=== PATIENT | male | born 1970 | race Caucasian/White ===

== ENCOUNTER 2017-04-19 13:51 | Inpatient (IN) | payer OTHER ==
--- NOTE | 2017-04-19 14:24 | DR.SOBA ---
HPI - Time Seen Time seen: 14:20 - HPI Comment HPI Comment: GETTING WORSE. PATIENT IS WEAK. NEB TEREATMENT GIVEN DURING TRANSPORT HELPS SOB. - Complaints Chief Complaint Doctors Comments: INCREASING SOB, CHEST PAIN, COUGH AND CONGESTION. FEVER AT HOME. Chief Complaint:: EMS OUT TO PT WITH SOB, AND DIFFICULTY BREATHING DUO , NEB GIVEN PER EMS PT HAS HX, COPD, COLON CANCER,, Self Treatment fo Chief Complaint: PT C/O CCC, AND RIGHT RIB PAIN ,, - Reviewed Nurses Notes Reviewed: Yes - Source History Provided: Patient - Mode of Arrival Mode of Arrival: EMS - Timing Onset of Chief Complaint: 04/19/17 - Duration Duration: Days - Context Onset:: At Rest, With Light Exertion History of:: COPD Currently on:: Neither Prehospital Care:: O2, Inhaled B2 - Modifying Factors Worsens:: Exertion Improves:: Nothing - Associated Signs and Symptoms Associated Signs and Symptoms: Fever, Wheeze, Cough, Nasal Congestion, Chest Pain - If Chest Pain Quality: Sharp Location: Right Lower Chest, Left Lower Chest - If Cough Cough: Productive, Yellow PMH - PMH Past Medical History: Yes Past Medical History: Anemia, COPD, GERD, Hypertension, Seizures Past Surgical History: Yes Surgical History: Bowel Resection, Other - Family History History of Family Medical Conditions: Yes Family Medical History: Diabetes Mellitus, [place], Coronary Artery Disease, Heart Failure, Sudden Cardiac , Hypertension - Social History Does patient currently use any type of tobacco product: No Have you used tobacco products in the last 12 months: No Type of Tobacco Use: None Does any household member use tobacco: No Alcohol Use: None Do you use any recreational Drugs:: No Lives With: Family Lives Where: Home - infectious screening In the last 2 months have you had wt loss of >10#?: NO Have you had fever, night sweats or hemotysis?: No Have you traveled outside the country in the last 6 months?: No Isolation: Standard ROS - Review of Systems Constitutional: Weakness, Fatigue. negative: Chills, Fever Eyes: negative: Eye Pain, Discharge ENTM: Nose Congestion. negative: Ear Pain, Nose Discharge, Throat Pain Respiratoy: Productive Cough, Short of Breath, Wheezing. negative: Hemoptysis Cardiovascular: Chest Pain Gastrointestinal/Abdominal: No Symptoms Reported. negative: Abdominal Pain, Diarrhea, Nausea, Vomiting Genitourinary: No Symptoms Reported. negative: Dysuria, Frequency, Hematuria Neurological: Headache, Weakness, Dizziness Musculoskeletal: Muscle Pain Integumentary: No Symptoms Reported Hematologic/Lymphatic: No Symptoms Reported Endocrine: No Symptoms Reported All Other Systems: Reviewed and Negative PE - Vital Signs Vitals: Temperature 96.9 F Pulse Rate [Left Brachial] 79 Pulse Rate 100 Respiratory Rate 20 Blood Pressure [Left Arm] 167/98 Blood Pressure [Right Arm] 157/90 Blood Pressure 191/111 O2 Sat by Pulse Oximetry 100 - General Limitations: No Limitations General Appearance: Alert - Head Head Exam: Normal Inspection - Eyes Eye exam: Normal Appearance - ENT ENT Exam: Normal External Ear Exam - Neck Neck Exam: Trachea Midline. negative: Tenderness, Meningismus, Lymphadenopathy - Chest Chest Inspection: Symmetric Chest Wall Rise - Respiratory Respiratory Exam: Respiratory Distress Respiratory Exam: Bilateral Wheezing, Bilateral Rhonchi, Upper Wheezing, Upper Rhonchi, Lower Wheezing, Lower Rhonchi - Cardiovascular Cardiovascular Exam: Regular Rate, Normal Rhythm, Normal Heart Sounds - Abdominal Exam Abdominal Exam: Normal Bowel Sounds, Soft. negative: Tenderness - Extremities Extremities Exam: Normal Inspection - Back Back Exam: Normal Inspection - Neurologic Neurological Exam: Alert, Oriented X3 - Psychiatric Psychiatric Exam: Anxious - Skin Skin Exam: Normal Color MDM - Differential Diagnosis Differential Diagnosis: Bronchitis, CHF, COPD, Mycardial Infarction, Pneumonia, Pneumothorax, Pulmonary embolism, Respiratory Insufficiency, URI Course - Treatment Treatment: SEE ORDERS. - Consultation Consultation Comments: DISCUSS PATIENT WITH DR. PELLETIER. HE WILL ADMIT PATIENT. - Education/Counseling Education/Counseling: Patient, Education Educated On: Diagnosis ROR - Labs Reviewed Laboratory Results Reviewed?: Yes Result Diagrams: 04/21/17 05:08 04/21/17 07:00 Laboratory: 04/19/17 15:15 Blood Blood Culture - Preliminary 04/19/17 15:10 Blood Blood Culture - Preliminary WBC 6.2 X10^3/uL (3.6-10.0) 04/21/17 05:08 RBC 4.52 X10^6/uL (4.7-6.0) L 04/21/17 05:08 Hgb 14.3 g/dL (13.5-18.0) 04/21/17 05:08 Hct 42.3 % (42.0-54.0) 04/21/17 05:08 MCV 93.6 fL (80.0-100.0) 04/21/17 05:08 MCH 31.7 pg (27.0-34.0) 04/21/17 05:08 MCHC 33.8 g/dL (33.0-35.0) 04/21/17 05:08 RDW 14.1 % (11.6-16.5) 04/21/17 05:08 Plt Count 234 X10^3/uL (150.0-450.0) 04/21/17 05:08 Plt Count Comment Adequate (ADEQUATE) 04/19/17 14:30 MPV 8.5 fL (7.4-11.0) 04/21/17 05:08 Neut % 66.5 % (42.0-75.0) 04/21/17 05:08 Lymph % 17.9 % (21.0-51.0) L 04/21/17 05:08 Bent % 12.5 % (0.0-13.0) 04/21/17 05:08 Eos % 1.9 % (0.9-2.9) 04/21/17 05:08 Baso % 1.2 % (0.2-1.0) H 04/21/17 05:08 Neut # 4.1 x10^3/uL (2.2-4.8) 04/21/17 05:08 Lymph # 1.1 X10^3/uL (1.3-2.9) L 04/21/17 05:08 Bent # 0.8 x10^3/uL (0.3-0.8) 04/21/17 05:08 Eos # 0.1 x10^3/uL (0.0-0.2) 04/21/17 05:08 Baso # 0.1 X10^3/uL (0.0-0.1) 04/21/17 05:08 Absolute Nucleated RBC 0.0 /100WBC 04/21/17 05:08 Plt Morphology Comment Normal (NORMAL) 04/19/17 14:30 RBC Morphology Normal (NORMAL) 04/19/17 14:30 Sample Site Right radial 04/19/17 16:48 ABG pH 7.440 (7.35-7.45) 04/19/17 16:48 ABG pCO2 50.0 mmHg (35.0-45.0) H 04/19/17 16:48 ABG pO2 61.0 mmHg (80.0-100.0) L 04/19/17 16:48 ABG HCO3 34.0 mmol/L (22-26) H* 04/19/17 16:48 ABG O2 Saturation 92.0 % (90-100) 04/19/17 16:48 ABG Base Excess 8.4 mmol/L (-2.0-2.0) H 04/19/17 16:48 Jose Daniel Test Pos 04/19/17 16:48 A-a Gradient 26.0 mmHg 04/19/17 16:48 FiO2 21.000 04/19/17 16:48 Blood Gas Comments Juan well mm 04/19/17 16:48 Sodium 136 mmol/L (136-145) 04/21/17 07:00 Corrected Sodium TNP 04/21/17 07:00 Potassium 3.3 mmol/L (3.5-5.1) L 04/21/17 07:00 Chloride 99 mmol/L (98-107) 04/21/17 07:00 Carbon Dioxide 32.0 mmol/L (21-32) 04/21/17 07:00 BUN 4 mg/dL (7-18) L 04/21/17 07:00 Creatinine 0.61 mg/dL (0.70-1.30) L 04/21/17 07:00 Est GFR (MDRD) Af Amer > 60 (>60) 04/21/17 07:00 Est GFR (MDRD) Non-Af > 60 (>60) 04/21/17 07:00 Glucose 87 mg/dL (65-99) 04/21/17 07:00 Lactic Acid 0.9 mmol/L (0.4-2.0) 04/19/17 17:10 Calcium 8.4 mg/dL (8.5-10.1) L 04/21/17 07:00 Corrected Calcium 9.2 mg/dL (8.5-10.1) 04/21/17 07:00 Total Bilirubin 0.30 mg/dL (0.2-1.0) 04/21/17 07:00 AST 22 Units/L (15-37) 04/21/17 07:00 ALT 10 Units/L (12-78) L 04/21/17 07:00 Alkaline Phosphatase 113 Units/L (46-116) 04/21/17 07:00 C-Reactive Protein 54.80 mg/L (0-3.0) H 04/19/17 17:10 Total Protein 6.8 g/dL (6.4-8.2) 04/21/17 07:00 Albumin 3.0 g/dL (3.4-5.0) L 04/21/17 07:00 Globulin 3.8 g/dL (2.5-4.5) 04/21/17 07:00 Albumin/Globulin Ratio 0.8 Ratio (1.1-2.1) L 04/21/17 07:00 Specimen Type Clean catch urine 04/19/17 15:11 Urine Color Yellow (YELLOW) 04/19/17 15:11 Urine Appearance Hazy (CLEAR) 04/19/17 15:11 Urine pH 6.5 (5.0 - 8.0) 04/19/17 15:11 Ur Specific [place] 1.015 (1.000-1.030) 04/19/17 15:11 Urine Protein 2+ (NEGATIVE) 04/19/17 15:11 Urine Glucose (UA) Negative (NEGATIVE) 04/19/17 15:11 Urine Ketones Negative (NEGATIVE) 04/19/17 15:11 Urine Occult Blood 4+ (NEGATIVE) 04/19/17 15:11 Urine Nitrite Negative (NEGATIVE) 04/19/17 15:11 Urine Bilirubin Negative (NEGATIVE) 04/19/17 15:11 Urine Urobilinogen 1+ (NORMAL) 04/19/17 15:11 Ur Leukocyte Esterase 1+ (NEGATIVE) 04/19/17 15:11 Urine RBC 6-10 /HPF (NEGATIVE) 04/19/17 15:11 Urine WBC 0-2 /HPF (NEGATIVE) 04/19/17 15:11 Ur Squamous Epith Cells Negative /HPF (NEGATIVE) 04/19/17 15:11 Urine Bacteria Negative /HPF (NEGATIVE) 04/19/17 15:11 Ur Culture Indicated? No/not indicated 04/19/17 15:11 - XRAY XRAY Interpreted by: Radiologist XRAY Findings: REPORT DISCUSS WITH PATIENT. - Diagnosis Discharge Problem: Hypoxia Dyspnea Qualifiers: Dyspnea type: shortness of breath Qualified Code(s): R06.02 - Shortness of breath Pneumonia Qualifiers: Pneumonia type: due to unspecified organism Laterality: right Lung location: middle lobe of lung Qualified Code(s): J18.1 - Lobar pneumonia, unspecified organism - Discharge Plan Disposition: ADMITTED INPATIENT Condition: Stable - Follow ups/Referrals - Instructions
[2017-04-19] MEDS ORDERED: LEVAQUIN PREMIX IV 750 MG 750 MG/150 ML BAG IV ONE ×2 (14:57→15:23)
[2017-04-19] MEDS: NS 1000 ML 1,000 ML IV SCH (15:00)
[2017-04-19 15:17] LABS: BASOPHILS # (AUTO) 0.1 X10^3/uL (0.0-0.1); BASOPHILS % (AUTO) 0.9 % (0.2-1.0); EOSINOPHILS # (AUTO) 0.1 x10^3/uL (0.0-0.2); EOSINOPHILS % (AUTO) 0.8 % (0.9-2.9); HEMATOCRIT 53.9 % (42.0-54.0); HEMOGLOBIN 18.3 g/dL (13.5-18.0); LYMPHOCYTES # (AUTO) 1.3 X10^3/uL (1.3-2.9); LYMPHOCYTES % (AUTO) 12.8 % (21.0-51.0); MEAN CORPUSCULAR VOLUME 94.1 fL (80.0-100.0); MEAN PLATELET VOLUME 8.8 fL (7.4-11.0); MONOCYTES # (AUTO) 1.3 x10^3/uL (0.3-0.8); MONOCYTES % (AUTO) 13.4 % (0.0-13.0); NEUTROPHILS % (AUTO) 72.1 % (42.0-75.0); PLATELET COUNT 261 X10^3/uL (150.0-450.0); RED BLOOD COUNT 5.73 X10^6/uL (4.7-6.0); RED CELL DISTRIBUTION WIDTH 14.5 % (11.6-16.5)
[2017-04-19 15:25] LABS: PLATELET MORPHOLOGY COMMENT NORMAL (NORMAL)
[2017-04-19 15:31] LABS: BILIRUBIN,URINE NEGATIVE (NEGATIVE); BLOOD/HEMOGLOBIN,URINE 4+ (NEGATIVE); GLUCOSE, URINE NEGATIVE (NEGATIVE); KETONES,URINE NEGATIVE (NEGATIVE); LEUKOCYTE ESTERASE ,URINE 1+ (NEGATIVE); NITRITES,URINE NEGATIVE (NEGATIVE); PH,URINE 6.5 (5.0 - 8.0); PROTEIN,URINE 2+ (NEGATIVE); UROBILINOGEN,URINE 1+ (NORMAL)
[2017-04-19 15:32] LABS: APPEARANCE,URINE HAZY (CLEAR); BACTERIA,URINE NEGATIVE /HPF (NEGATIVE); COLOR,URINE YELLOW (YELLOW); SQUAMOUS EPITHELIAL CELL,UR NEGATIVE /HPF (NEGATIVE)
[2017-04-19 15:42] LABS: ALANINE AMINOTRANSFERASE 10 Units/L (12-78); ALBUMIN 3.9 g/dL (3.4-5.0); ALKALINE PHOSPHATASE 159 Units/L (46-116); BLOOD UREA NITROGEN 5 mg/dL (7-18); CALCIUM 9.5 mg/dL (8.5-10.1); CARBON DIOXIDE 32.8 mmol/L (21-32); CHLORIDE 94 mmol/L (98-107); CREATININE 0.64 mg/dL (0.70-1.30); SODIUM 134 mmol/L (136-145); TOTAL PROTEIN 8.7 g/dL (6.4-8.2); eGFR BLACK RACES > 60 (>60); eGFR NON BLACK RACES > 60 (>60)
[2017-04-19 15:44] LABS: ASPARTATE AMINO TRANSFERASE 36 Units/L (15-37)
[2017-04-19 15:56] LABS: C-REACTIVE PROTEIN 54.8 mg/L (0-3.0)
--- NOTE | 2017-04-19 16:01 | RAD ---
Examination: Portable AP chest History: SOB, colon CA Comparison reference 04/23/2016 Findings: Continued normal heart size with clear lungs and pleural spaces. There is no evidence for a cute fracture or bone destruction. Healed left lower rib fractures are incidentally noted. Impression: No acute process identified. And Reported By:
[2017-04-19 17:13] LABS: ABG BASE EXCESS 8.4 mmol/L (-2.0-2.0)
[2017-04-19 17:14] LABS: ABG ALLEN TEST POS
[2017-04-19 17:32] LABS: LACTIC ACID 0.9 mmol/L (0.4-2.0)
--- NOTE | 2017-04-19 19:17 | CT ---
CT abdomen and pelvis without contrast Indication: Abdominal pain Comparison: None available Technique: Multiple axial images of the abdomen and pelvis were obtained from the lung bases to the pubic symphy sis without the administration of IV contrast. Findings: Dense consolidation within the right middle lobe consistent with pneumonia. Given the limitations of lack of IV contrast administration the liver, gallbladder, spleen, pancreas, and adrenal glands are unremarkable in their CT appearance. No evidence of stone within either kidney or ureter. No hydronephrosis is identified. No bowel wall thickening or bowel dilatation is present. The colon and rectum are unremarkable. The urinary bladder is grossly unremarkable. Prostate gland is unremarkable. No mesenteric lymphadenopathy or stranding can be observed. No free fluid or free air is seen within the abdomen. IMPRESSION: 1. No acute inflammatory process within the abdomen or pelvis. Reported By:
[2017-04-19] MEDS ORDERED: ZITHROMAX INJ 500 MG VIAL IV ONE (20:43)
[2017-04-19] MEDS ORDERED: NS 250 ML IV 250 ML IV ONE (20:44)
[2017-04-19] MEDS: ZITHROMAX INJ 500 MG VIAL 500 MG in NS 250 ML IV 250 ML IV SCH (20:52)
[2017-04-19] MEDS: ROBITUSSIN DM PO SCH (22:23)
[2017-04-19] MEDS: TUSSIONEX PENNKINETIC SUSP PO PRN (22:23)
[2017-04-19] MEDS: TORADOL 30 MG VIAL IVP PRN (22:24)
[2017-04-20] MEDS ORDERED: SALINE 3% 15 ML NEB TX NEB ONE (00:05)
[2017-04-20] MEDS: NS 1000 ML 1,000 ML IV SCH ×4 (00:15→23:08)
[2017-04-20] MEDS: NICOTINE PATCH TD SCH ×2 (00:16→09:29)
[2017-04-20] MEDS: DUONEB 0.5 MG/3 MG NEB SCH ×8 (01:50→20:57)
[2017-04-20] MEDS ORDERED: PREVNAR 13 IM ONE (06:02)
[2017-04-20] MEDS ORDERED: FLUVIRIN IM ONE (06:02)
[2017-04-20 06:31] LABS: ALANINE AMINOTRANSFERASE 9 Units/L (12-78); ALBUMIN 2.8 g/dL (3.4-5.0); ALKALINE PHOSPHATASE 127 Units/L (46-116); ASPARTATE AMINO TRANSFERASE 21 Units/L (15-37); BLOOD UREA NITROGEN 7 mg/dL (7-18); CALCIUM 8.3 mg/dL (8.5-10.1); CARBON DIOXIDE 31.8 mmol/L (21-32); CHLORIDE 99 mmol/L (98-107); COR CA(FOR HYPOALB) 9.3 mg/dL (8.5-10.1); COR NA(FOR HYPERGLY) 137 mmol/L (136-145); SODIUM 137 mmol/L (136-145); TOTAL PROTEIN 6.2 g/dL (6.4-8.2); eGFR BLACK RACES > 60 (>60); eGFR NON BLACK RACES > 60 (>60)
[2017-04-20 07:27] LABS: BASOPHILS # (AUTO) 0.1 X10^3/uL (0.0-0.1); BASOPHILS % (AUTO) 1.1 % (0.2-1.0); EOSINOPHILS # (AUTO) 0.2 x10^3/uL (0.0-0.2); EOSINOPHILS % (AUTO) 3.3 % (0.9-2.9); HEMATOCRIT 41.7 % (42.0-54.0); LYMPHOCYTES # (AUTO) 1.3 X10^3/uL (1.3-2.9); LYMPHOCYTES % (AUTO) 24.5 % (21.0-51.0); MEAN CORPUSCULAR HEMOGLOBIN 31.5 pg (27.0-34.0); MEAN CORPUSCULAR HGB CONC 33.4 g/dL (33.0-35.0); MEAN CORPUSCULAR VOLUME 94.3 fL (80.0-100.0); MONOCYTES # (AUTO) 0.9 x10^3/uL (0.3-0.8); MONOCYTES % (AUTO) 16.9 % (0.0-13.0); NEUTROPHILS # (AUTO) 2.9 x10^3/uL (2.2-4.8); NEUTROPHILS % (AUTO) 54.2 % (42.0-75.0); PLATELET COUNT 243 X10^3/uL (150.0-450.0); RED BLOOD COUNT 4.42 X10^6/uL (4.7-6.0); RED CELL DISTRIBUTION WIDTH 13.9 % (11.6-16.5); WHITE BLOOD COUNT 5.4 X10^3/uL (3.6-10.0)
[2017-04-20 07:29] LABS: HEMOGLOBIN 13.9 g/dL (13.5-18.0)
[2017-04-20] MEDS: LEVAQUIN PREMIX IV 750 MG 750 MG/150 ML BAG IV SCH (09:25)
[2017-04-20] MEDS: ROBITUSSIN DM PO SCH ×4 (09:25→20:46)
[2017-04-20] MEDS: TORADOL 30 MG VIAL IVP PRN ×2 (09:33→16:41)
[2017-04-20] MEDS ORDERED: ZESTRIL TAB 20 MG ONE (13:47)
[2017-04-20] MEDS: ZESTRIL TAB 20 MG PO SCH (13:48)
[2017-04-20] MEDS: TUSSIONEX PENNKINETIC SUSP PO PRN (15:20)
[2017-04-20] MEDS: ZITHROMAX INJ 500 MG VIAL 500 MG in NS 250 ML IV 250 ML IV SCH (20:46)
[2017-04-21] MEDS: TORADOL 30 MG VIAL IVP PRN ×5 (00:20→20:01)
[2017-04-21] MEDS: DUONEB 0.5 MG/3 MG NEB SCH ×6 (01:13→20:42)
[2017-04-21] MEDS: NS 1000 ML 1,000 ML IV SCH ×6 (02:29→22:12)
[2017-04-21] MEDS: TUSSIONEX PENNKINETIC SUSP PO PRN (02:29)
[2017-04-21 05:57] VITALS: BMI 17.4
[2017-04-21 06:17] LABS: BASOPHILS # (AUTO) 0.1 X10^3/uL (0.0-0.1); BASOPHILS % (AUTO) 1.2 % (0.2-1.0); EOSINOPHILS # (AUTO) 0.1 x10^3/uL (0.0-0.2); EOSINOPHILS % (AUTO) 1.9 % (0.9-2.9); HEMATOCRIT 42.3 % (42.0-54.0); HEMOGLOBIN 14.3 g/dL (13.5-18.0); LYMPHOCYTES # (AUTO) 1.1 X10^3/uL (1.3-2.9); LYMPHOCYTES % (AUTO) 17.9 % (21.0-51.0); MEAN CORPUSCULAR HEMOGLOBIN 31.7 pg (27.0-34.0); MEAN CORPUSCULAR HGB CONC 33.8 g/dL (33.0-35.0); MEAN CORPUSCULAR VOLUME 93.6 fL (80.0-100.0); MEAN PLATELET VOLUME 8.5 fL (7.4-11.0); MONOCYTES # (AUTO) 0.8 x10^3/uL (0.3-0.8); MONOCYTES % (AUTO) 12.5 % (0.0-13.0); NEUTROPHILS # (AUTO) 4.1 x10^3/uL (2.2-4.8); NEUTROPHILS % (AUTO) 66.5 % (42.0-75.0); PLATELET COUNT 234 X10^3/uL (150.0-450.0); RED BLOOD COUNT 4.52 X10^6/uL (4.7-6.0); RED CELL DISTRIBUTION WIDTH 14.1 % (11.6-16.5); WHITE BLOOD COUNT 6.2 X10^3/uL (3.6-10.0)
[2017-04-21 06:37] LABS: ALANINE AMINOTRANSFERASE 10 Units/L (12-78); ALKALINE PHOSPHATASE 113 Units/L (46-116); BLOOD UREA NITROGEN 4 mg/dL (7-18); CALCIUM 8.4 mg/dL (8.5-10.1); COR CA(FOR HYPOALB) 9.2 mg/dL (8.5-10.1); CREATININE 0.61 mg/dL (0.70-1.30); SODIUM 136 mmol/L (136-145); TOTAL PROTEIN 6.8 g/dL (6.4-8.2); eGFR BLACK RACES > 60 (>60); eGFR NON BLACK RACES > 60 (>60)
--- NOTE | 2017-04-21 07:10 | RAD ---
Examination: Chest, PA and lateral views History: SOB, right rib pain Comparison reference 04/19/2017 Findings: Continued normal heart size with symmetric pulmonary hyperinflation. No acute infiltrate, p leural fluid, pneumothorax or pneumonia. Nonacute left lower rib fracture deformities. Impression: Pulmonary hyperaeration, no change or acute abnormality demonstrated. Reported By:
[2017-04-21 07:27] LABS: ASPARTATE AMINO TRANSFERASE 22 Units/L (15-37); CHLORIDE 99 mmol/L (98-107)
[2017-04-21] MEDS ORDERED: ZESTRIL TAB 20 MG ONE (07:54)
[2017-04-21] MEDS: ROBITUSSIN DM PO SCH ×4 (08:10→20:02)
[2017-04-21] MEDS: ZESTRIL TAB 20 MG PO SCH (08:10)
[2017-04-21] MEDS: NICOTINE PATCH TD SCH (08:10)
[2017-04-21] MEDS: LEVAQUIN PREMIX IV 750 MG 750 MG/150 ML BAG IV SCH (08:10)
[2017-04-21] MEDS: MEGACE PO SCH ×2 (11:59→20:00)
[2017-04-21] MEDS: TAB-A-VITE PO SCH (11:59)
[2017-04-21] MEDS: VITAMIN C PO SCH (20:01)
[2017-04-21] MEDS: ZITHROMAX INJ 500 MG VIAL 500 MG in NS 250 ML IV 250 ML IV SCH (20:02)
[2017-04-22] MEDS: DUONEB 0.5 MG/3 MG NEB SCH ×3 (00:58→08:48)
[2017-04-22] MEDS: TUSSIONEX PENNKINETIC SUSP PO PRN (02:01)
[2017-04-22] MEDS: TORADOL 30 MG VIAL IVP PRN ×3 (04:15→08:05)
[2017-04-22] MEDS: NS 1000 ML 1,000 ML IV SCH ×2 (05:51→07:01)
[2017-04-22 06:13] LABS: EOSINOPHILS # (AUTO) 0.2 x10^3/uL (0.0-0.2); EOSINOPHILS % (AUTO) 4.7 % (0.9-2.9); HEMATOCRIT 40.4 % (42.0-54.0); HEMOGLOBIN 13.5 g/dL (13.5-18.0); LYMPHOCYTES # (AUTO) 1.5 X10^3/uL (1.3-2.9); LYMPHOCYTES % (AUTO) 32.7 % (21.0-51.0); MEAN CORPUSCULAR HEMOGLOBIN 31.4 pg (27.0-34.0); MEAN CORPUSCULAR HGB CONC 33.5 g/dL (33.0-35.0); MEAN CORPUSCULAR VOLUME 93.8 fL (80.0-100.0); MEAN PLATELET VOLUME 8.4 fL (7.4-11.0); MONOCYTES # (AUTO) 0.8 x10^3/uL (0.3-0.8); MONOCYTES % (AUTO) 18.4 % (0.0-13.0); NEUTROPHILS % (AUTO) 43.2 % (42.0-75.0); PLATELET COUNT 219 X10^3/uL (150.0-450.0); WHITE BLOOD COUNT 4.6 X10^3/uL (3.6-10.0)
[2017-04-22 06:28] LABS: ALANINE AMINOTRANSFERASE 11 Units/L (12-78); ALBUMIN 2.7 g/dL (3.4-5.0); ALKALINE PHOSPHATASE 96 Units/L (46-116); ASPARTATE AMINO TRANSFERASE 20 Units/L (15-37); BLOOD UREA NITROGEN 5 mg/dL (7-18); CALCIUM 8.4 mg/dL (8.5-10.1); CARBON DIOXIDE 31.9 mmol/L (21-32); CHLORIDE 101 mmol/L (98-107); COR CA(FOR HYPOALB) 9.4 mg/dL (8.5-10.1); CREATININE 0.51 mg/dL (0.70-1.30); SODIUM 137 mmol/L (136-145); TOTAL PROTEIN 6.1 g/dL (6.4-8.2); eGFR BLACK RACES > 60 (>60); eGFR NON BLACK RACES > 60 (>60)
--- NOTE | 2017-04-22 06:51 | RAD ---
Examination: Portable AP chest History: SOB and right rib pain Comparison reference 04/21/2017 Findings: Continued normal heart size with no acute pulmonary or pleural abnormality identified. Impression: No interval change; no acute process. Reported By:
[2017-04-22] MEDS ORDERED: ZESTRIL TAB 20 MG ONE (07:42)
[2017-04-22] MEDS: MEGACE PO SCH (08:04)
[2017-04-22] MEDS: LEVAQUIN PREMIX IV 750 MG 750 MG/150 ML BAG IV SCH (08:04)
[2017-04-22] MEDS: NICOTINE PATCH TD SCH (08:04)
[2017-04-22] MEDS: ROBITUSSIN DM PO SCH (08:05)
[2017-04-22] MEDS: ZESTRIL TAB 20 MG PO SCH (08:05)
[2017-04-22] MEDS: TAB-A-VITE PO SCH (08:05)
[2017-04-22] MEDS: VITAMIN C PO SCH (08:05)
[2017-04-22 09:46] VITALS: BP 177/108
== END 2017-04-22 11:40 | disposition home or self-care (01) | DRG 195 ==
LOC: ER 13:51 → MED/SURG 20:00 → OBSVTOIN 04-21 08:30
PROVIDERS: ADMIT Obstetrics & Gynecology Obstetrics; ATTEND Obstetrics & Gynecology Obstetrics
PROC: 3E0234Z Introduction of Serum, Toxoid and Vaccine into Muscle, Percutaneous Approach (ICD-10-PCS; principal; 2017-04-20)
PROC: 3E0234Z Introduction of Serum, Toxoid and Vaccine into Muscle, Percutaneous Approach (ICD-10-PCS; 2017-04-20)
DX: J18.8 Other pneumonia, unspecified organism (principal); I10 Essential (primary) hypertension; R06.02 Shortness of breath; R07.89 Other chest pain; J44.9 Chronic obstructive pulmonary disease, unspecified; K21.9 Gastro-esophageal reflux disease without esophagitis; R10.84 Generalized abdominal pain; Z86.69 Personal history of other diseases of the nervous system and sense organs; Z23 Encounter for immunization
CPT/HCPCS: 36415; 36600; 71010; 71020; 74176; 80053; 81001; 82803; 83605; 85025; 86140; 87040; 90686; 94640; 94760; 96365; 96367; 96374; 96375; 99283; 99284; A4222; S0179; 90670; G0378; J0456; J1885; J1956; J7620

== ENCOUNTER 2017-09-05 23:29 | Emergency (ER) | payer OTHER ==
[2017-09-05 23:41] VITALS: BP 131/88; BMI 17.9
[2017-09-05] MEDS ORDERED: STERILE WATER IRRIGATION IR ONE (23:44)
[2017-09-06] MEDS ORDERED: KEFLEX CAP 500 MG PO ONE (01:13)
[2017-09-06] MEDS ORDERED: MOTRIN TAB 800 MG PO STA (01:13)
--- NOTE | 2017-09-06 01:21 | DR.EXTPAIN ---
HPI - Time seen Time seen: 01:14 - PCP Primary Care Physician: NFD - Complaint/Symptoms Chief Complaint Doctor Comments: Patient states he was getting ready to go to bed and was trying to turn off his fan that did not have a safety guard over the blade and he stuck his left hand into the fan and hit the blade with laceration on left thumb and 2nd finger and hand. States he is able to move his finger well but the nail bed on his thumb is loose. States he is unsure of his last tetanus shot. states he does not have a local doctor. States he smokes one pack cigarettes daily and drink a six pack of beer when he has it. He denies chest pain or SOB. Chief Complaint:: ACCIDENTALLY CUT HAND ON FAN AT HOME ABOUT 1 HOUR AGO - Nurses notes reviewed Nurses Notes Review: Yes - Source History Provided: Patient - Mode of arrival Mode of Arrival: Ambulatory - Timing Onset of Chief Complaint: 09/05/17 - Context History of: None - Associated signs and symptoms Associated Signs and Symptoms: Laceration, Pain (left hand), Bruising, Bleeding , ETOH PMH - PMH Past Medical History: Yes Past Medical History: Seizures Past Medical History Comment: Alessandro POTTER Past Surgical History: Yes Surgical History: Abdominal Surgery - Family History History of Family Medical Conditions: Yes Family Medical History: Diabetes Mellitus, Hypertension - Social History Does patient currently use any type of tobacco product: Yes Have you used tobacco products in the last 12 months: Yes Type of Tobacco Use: Cigarettes Does any household member use tobacco: Yes Alcohol Use: Heavy Do you use any recreational Drugs:: Yes (THC) Lives With: Family Lives Where: Home - infectious screening In the last 2 months have you had wt loss of >10#?: NO Have you had fever, night sweats or hemotysis?: No Have you traveled outside the country in the last 6 months?: No Isolation: Standard ROS - Review of Systems Constitutional: No Symptoms Reported. negative: See HPI, Chills, Diaphoresis, Fever, Malaise, Weakness, Irritable, Fatigue, Loss of Appetite, Other Eyes: No Symptoms Reported ENTM: No Symptoms Reported Respiratoy: No Symptoms Reported, Non-Productive Cough Cardiovascular: No Symptoms Reported. negative: See HPI, Chest Pain, Edema, Palpitations, Syncope, Cyanosis, Skin Mottling, Other Gastrointestinal/Abdominal: No Symptoms Reported. negative: See HPI, Abdominal Pain, Constipation, Diarrhea, Nausea, Vomiting, Food Intolerance, Other Genitourinary: No Symptoms Reported Neurological: No Symptoms Reported. negative: See HPI, Anxiety, Depressed, Emotional Problems, Headache, Numbness, Paresthesia, Pre-existing Deficit, Seizure, Tingling, Tremors, Weakness, Dizziness, Problems Walking, Speech Problem, Other Musculoskeletal: No Symptoms Reported, Left, Hand Integumentary: No Symptoms Reported, Lesions, Wound, Bruises. negative: See HPI , Change in Color, Change in Hair/Nails, Dryness, Lumps, Rash, Itching, Juandice , Other Hematologic/Lymphatic: No Symptoms Reported Psychiatric: No Symptoms Reported. negative: See HPI, Anxiety, Depression, Hallucinations, Excessive crying, Suicidal, Other PE - Vital Signs Vitals: Pulse Rate 109 Respiratory Rate 20 Blood Pressure [Left Arm] 177/108 Blood Pressure [Right Arm] 111/61 Blood Pressure 131/88 O2 Sat by Pulse Oximetry 94 - General Limitations: No Limitations General Appearance: Alert, In Distress (slight) - Head Head Exam: Normal Inspection, Atraumatic, Normocephalic - Eyes Eye exam: Normal Appearance, PERRL, EOMI. negative: Scleral Icterus, Conjunctival Injection, Nystagmus, Miosis, Mydrasis, Periorbital Swelling, Periorbital Tenderness, Other - ENT ENT Exam: Normal Exam, Normal Oropharynx, Normal External Ear Exam, Mucous Membranes Moist, TM's Normal Bilaterally - Neck Neck Exam: Normal Inspection, Full ROM, Trachea Midline - Chest Chest Inspection: Normal Inspection, Symmetric Chest Wall Rise - Respiratory Respiratory Exam: Normal Lung Sounds Bilat Respiratory Exam: Bilateral Clear to Auscultation, Bilateral Decreased Breath Sounds - Cardiovascular Cardiovascular Exam: Regular Rate, Normal Rhythm, Irregular Rhythm - Abdominal Exam Abdominal Exam: Normal Inspection, Normal Bowel Sounds, Soft Abdominal Tenderness: negative: RUQ, RLQ, LUQ, LLQ, Epigastrium, Suprapubic, Diffuse, Mild, Moderate, Severe, Other - Extremities Extremities Exam: Normal Inspection, Full ROM, Tenderness (left thumb with denuded nail with laceration around nail bed; multiple 1 cm laceration dorsal finger and lateral index finger), Normal Capillary Refill - Upper Extremities Shoulder Exam: Normal Inspection, Full ROM Arm Exam: Normal Inspection, Full ROM Elbow Exam: Normal Inspection, Full ROM Forearm Exam: Normal Inspection, Full ROM Hand Exam: Normal Inspection, Full ROM, Tenderness (left hand thumb with laceration around nail bed), Laceration, Skin Avulsion Neuromotor Exam: Normal Exam Neurosensory Exam: Normal Exam Upper Ext. Vascular Exam: Capillary Refill (normal) - Lower Extremities Hip/Pelvis Exam: Normal Inspection, Full ROM Upper Leg Exam: Normal Inspection, Full ROM Knee Exam: Normal Inspection, Full ROM Lower Leg Exam: Normal Inspection, Full ROM Ankle Exam: Normal Inspection, Full ROM Foot/Toe Exam: Normal Inspection, Full ROM Neurovascular/Tendon Exam: Normal Capillary Refill Gait Exam: Observed and Normal - Back Back Exam: Normal Inspection, Full ROM - Neurological Neurological Exam: Alert, Oriented X3, CN II-XII Intact, Normal Gait, Reflexes Normal - Psychiatric Psychiatric Exam: Normal Affect, Normal Mood - Skin Skin Exam: Warm, Dry, Intact, Normal Color Type of Lesion: Laceration (left hand and fingers) Distribution: negative: Generalized, Involves Palms/Soles, Head, Face, Neck, Thorax, Chest, Back, Abdomen, Genitals, LUE, LLE, RUE, RLE, Other Description: negative: Size, Tenderness, Erythematous, Swelling, Macular, Papular, Vesicular, Blisters, Cofluent, Bullous, Petechial, Purpuric, Urticarial , Crusting, Discharge, Fluctuant, Indurated, Other Procedures - Laceration/Wound Repair Left Finger Wound Length (cm): 2 Wound's Depth, Shape: Superficial, Flap (left index finger and dorsal thumb) Wound Explored: clean Betadine Prep?: Yes Wound Repaired With: Dermabond Sterile Dressing Applied?: Yes - Diagnosis Discharge Problem: Bronchitis, Alcohol use Laceration of left hand Qualifiers: Encounter type: initial encounter Contusion of left hand Qualifiers: Encounter type: initial encounter Qualified Code(s): S60.222A - Contusion of left hand, initial encounter - Discharge Plan Disposition: 01 HOME, SELF-CARE Condition: Stable Prescriptions: Ciprofloxacin HCl [CIPRO 500 MG TAB *] 500 mg PO Q12H #20 tab Ibuprofen [MOTRIN TAB 800 MG *] 800 mg PO BID PRN #40 tab PRN Reason: Pain/Inflammation - Follow ups/Referrals Follow ups/Referrals: NFD,None [Primary Care Provider] - 3 days Elmer Mckeon [STAFF PHYSICIAN] - 3 days - Instructions Instructions: Laceration Care, Adult, Tissue Adhesive Wound Care, Hand Contusion
[2017-09-06] MEDS ORDERED: MOTRIN TAB 800 MG PO ONE (01:33)
== END 2017-09-06 01:58 | disposition home or self-care (01) ==
LOC: ER 23:29
PROC: 0XQKXZZ Repair Left Hand, External Approach (ICD-10-PCS; principal; 2017-09-05)
DX: S61.412A Laceration without foreign body of left hand, initial encounter (principal); S60.222A Contusion of left hand, initial encounter; J40 Bronchitis, not specified as acute or chronic; F10.10 Alcohol abuse, uncomplicated; W29.2XXA Contact with other powered household machinery, initial encounter; Y92.9 Unspecified place or not applicable
CPT/HCPCS: 12001; 99282; A4217

== ENCOUNTER 2019-04-20 15:15 | Inpatient (IN) ==
--- NOTE | 2019-04-20 15:41 | DR.SOBA ---
HPI Time Seen Time Seen by Provider: 04/20/19 15:30 Complaints Chief Complaint:: A 32 y/o male presenting via EMS with c/o SOB. His Oxygen saturation could not be measured. He has lower Rt. rib pain. He also states he has cold symptoms. He is unkept in terms of hygiene. Upon further questioning, he states that he has been without heat at home since yesterday. He denies being homeless and he also denies trauma to his chest wall. Reviewed Nurses Notes Reviewed: Yes Source History Provided: Patient and EMS Mode of Arrival Mode of Arrival: EMS Timing Onset of Chief Complaint: 04/19/19 Context Onset:: At Rest PE Risk Factors:: None History of:: COPD Currently on:: Neither Prehospital Care:: O2 Modifying Factors Worsens:: Exertion Associated Signs and Symptoms Associated Signs and Symptoms: None If Chest Pain Quality: Sharp PMH PMH Past Medical History: Hypertension and Seizures Past Surgical History: Yes Surgical History: Abdominal Surgery Family History Family Medical History: Diabetes Mellitus and Hypertension Social History Do you use any recreational Drugs:: No infectious screening Isolation: Standard ROS Review of Systems Constitutional: No Symptoms Reported Eyes: No Symptoms Reported ENTM: No Symptoms Reported Respiratoy: Productive Cough, Non-Productive Cough and Short of Breath Cardiovascular: No Symptoms Reported Gastrointestinal/Abdominal: No Symptoms Reported Genitourinary: No Symptoms Reported Neurological: No Symptoms Reported Musculoskeletal: Rib(s) (Rt. side) Integumentary: No Symptoms Reported Hematologic/Lymphatic: No Symptoms Reported Endocrine: No Symptoms Reported Psychiatric: No Symptoms Reported PE Vital Signs Vitals: Temperature 98.6 F Pulse Rate 120 Respiratory Rate 18 Blood Pressure [Left Arm] 169/97 Blood Pressure [Right Arm] 154/86 Blood Pressure 82/49 O2 Sat by Pulse Oximetry 89 General Limitations: No Limitations General Appearance: Alert and Cachectic Head Head Exam: Normal Inspection, Atraumatic and Normocephalic Eyes Eye exam: Normal Appearance and EOMI ENT ENT Exam: Normal Exam, Normal Oropharynx and Mucous Membranes Moist Neck Neck Exam: Normal Inspection, Full ROM and Trachea Midline Chest Chest Inspection: Normal Inspection, Symmetric Chest Wall Rise and Tenderness (Rt. lower ribs) Respiratory Respiratory Exam: Bilateral: Rhonchi Cardiovascular Cardiovascular Exam: Regular Rate, Normal Rhythm, +S1 and +S2 Abdominal Exam Abdominal Exam: Normal Inspection, Normal Bowel Sounds and Soft Extremities Extremities Exam: Normal Inspection Back Back Exam: Normal Inspection Neurologic Neurological Exam: Alert and Oriented X3 Psychiatric Psychiatric Exam: Normal Affect and Normal Mood Skin Skin Exam: Dry and Other (Acrocyanotic palms, hands. ) COURSE Reevaluation 1st: Improved Consultation Consultation Comments: Name: RONIT PRUETT : 1970 Sex: M Location: ER Order Number(s): [id number] Procedure(s):CHEST, 1 VIEW Ordering Physician: LAQUITA CARDOSO Primary Care: NFD,None Service Date: 04/20/19 Service Time: 1534 CHEST, 1 VIEW HISTORY: RT SIDE PAIN, SOB, CHEST PAIN ONSET A FEW DAYS Study: AP view of the chest. Comparison:February 26, 2018 Findings: The cardiomediastinal silhouette is normal. New right upper lobe consolidation that likely also involves the right middle lobe. Osseous structures demonstrate no acute abnormality. Bilateral hyperexpansion and interstitial prominence. IMPRESSION: 1. Right lung opacities most consistent with acute infection. It should be noted that developing malignancy may have a similar appearance. Correlate clinically. 2. Findings of COPD. Electronically signed by: RANJANA DHILLON (Apr 20, 2019 16:44:13) Education/Counseling Education/Counseling: Patient, Education and Counseling Educated On: Treatment, Diagnosis, Prognosis and Needs for Follow Up ROR Labs Reviewed Laboratory Results Reviewed?: Yes Result Diagrams: 04/20/19 16:12 04/20/19 16:12 Laboratory: WBC 1.4 X10^3/uL (3.6-10.0) L* 04/20/19 16:12 RBC 5.34 X10^6/uL (4.7-6.0) 04/20/19 16:12 Hgb 17.4 g/dL (13.5-18.0) 04/20/19 16:12 Hct 52.1 % (42.0-54.0) 04/20/19 16:12 MCV 97.6 fL (80.0-100.0) 04/20/19 16:12 MCH 32.6 pg (27.0-34.0) 04/20/19 16:12 MCHC 33.4 g/dL (33.0-35.0) 04/20/19 16:12 RDW 14.9 % (11.6-16.5) 04/20/19 16:12 Plt Count 161 X10^3/uL (150.0-450.0) 04/20/19 16:12 Plt Count Comment Adequate (ADEQUATE) 04/20/19 16:12 MPV 8.3 fL (7.4-11.0) 04/20/19 16:12 Neut % (Auto) 70.7 % (42.0-75.0) 04/20/19 16:12 Lymph % (Auto) 23.3 % (21.0-51.0) 04/20/19 16:12 Towns % (Auto) 5.4 % (0.0-13.0) 04/20/19 16:12 Eos % (Auto) 0.2 % (0.9-2.9) L 04/20/19 16:12 Baso % (Auto) 0.4 % (0.2-1.0) 04/20/19 16:12 Neut # (Auto) 0.9 x10^3/uL (2.2-4.8) L 04/20/19 16:12 Lymph # (Auto) 0.3 X10^3/uL (1.3-2.9) L 04/20/19 16:12 Towns # (Auto) 0.1 x10^3/uL (0.3-0.8) L 04/20/19 16:12 Eos # (Auto) 0.0 x10^3/uL (0.0-0.2) 04/20/19 16:12 Baso # (Auto) 0.0 X10^3/uL (0.0-0.1) 04/20/19 16:12 Absolute Nucleated RBC 0.1 /100WBC 04/20/19 16:12 Total Counted 100 04/20/19 16:12 Neutrophils % (Manual) 40 % (39-76) 04/20/19 16:12 Band Neutrophils % 4 % (0-10) 04/20/19 16:12 Lymphocytes % (Manual) 36 % (13-43) 04/20/19 16:12 Monocytes % (Manual) 16 % (4-9) H 04/20/19 16:12 Metamyelocytes % 2 04/20/19 16:12 Myelocytes % 2 04/20/19 16:12 Giant Platelets Rare 04/20/19 16:12 Plt Morphology Comment Abnormal (NORMAL) 04/20/19 16:12 RBC Morphology Normal (NORMAL) 04/20/19 16:12 Sample Site Rrad 04/20/19 15:48 ABG pH 7.440 (7.35-7.45) 04/20/19 15:48 ABG pCO2 35.0 mmHg (35.0-45.0) 04/20/19 15:48 ABG pO2 62.0 mmHg (80.0-100.0) L 04/20/19 15:48 ABG HCO3 23.8 mmol/L (22-26) 04/20/19 15:48 ABG O2 Saturation 92.0 % (90-100) 04/20/19 15:48 ABG Base Excess 0.0 mmol/L (-2.0-2.0) 04/20/19 15:48 Jose Daniel Test Pos 04/20/19 15:48 A-a Gradient 251.0 mmHg 04/20/19 15:48 FiO2 50.0 04/20/19 15:48 Blood Gas Comments Pt dc well elj 04/20/19 15:48 Sodium 130 mmol/L (136-145) L 04/20/19 16:12 Corrected Sodium TNP 04/20/19 16:12 Potassium 4.1 mmol/L (3.5-5.1) 04/20/19 16:12 Chloride 91 mmol/L (98-107) L 04/20/19 16:12 Carbon Dioxide 27.3 mmol/L (21-32) 04/20/19 16:12 BUN 16 mg/dL (7-18) 04/20/19 16:12 Creatinine 1.87 mg/dL (0.70-1.30) H 04/20/19 16:12 Est GFR (MDRD) Af Amer 50 (>60) L 04/20/19 16:12 Est GFR (MDRD) Non-Af 42 (>60) L 04/20/19 16:12 Glucose 67 mg/dL (65-99) 04/20/19 16:12 Calcium 7.8 mg/dL (8.5-10.1) L 04/20/19 16:12 Corrected Calcium 8.8 mg/dL (8.5-10.1) 04/20/19 16:12 Total Bilirubin 1.30 mg/dL (0.2-1.0) H 04/20/19 16:12 AST 44 Units/L (15-37) H 04/20/19 16:12 ALT 6 Units/L (12-78) L 04/20/19 16:12 Alkaline Phosphatase 59 Units/L (46-116) 04/20/19 16:12 Total Protein 6.0 g/dL (6.4-8.2) L 04/20/19 16:12 Albumin 2.7 g/dL (3.4-5.0) L 04/20/19 16:12 Globulin 3.3 g/dL (2.5-4.5) 04/20/19 16:12 Albumin/Globulin Ratio 0.8 Ratio (1.1-2.1) L 04/20/19 16:12 Opioid Opioid Risk Tool Total: 0 Total Score Risk Category: Low Risk Copyright: Ham MORSE predicting aberrant behaviors Diagnosis Discharge Problem: Acute dyspnea, Rib pain on right side, Hyponatremia Sepsis Qualifiers: Sepsis type: sepsis due to unspecified organism Sepsis acute organ dysfunction status: without acute organ dysfunction Qualified Code(s): A41.9 - Sepsis, unspecified organism Pneumonia Qualifiers: Pneumonia type: due to unspecified organism Laterality: right Lung location: middle lobe of lung Qualified Code(s): J18.9 - Pneumonia, unspecified organism Hypothermia Qualifiers: Encounter type: initial encounter Qualified Code(s): T68.XXXA - Hypothermia, initial encounter Hypotension Qualifiers: Hypotension type: unspecified hypotension type Qualified Code(s): I95.9 - Hypotension, unspecified Neutropenia Qualifiers: Neutropenia type: unspecified Qualified Code(s): D70.9 - Neutropenia, unspecified Instructions Forms: Excuse From Work Patient Portal
[2019-04-20 15:55] LABS: ABG HCO3 23.8 mmol/L (22-26)
[2019-04-20 15:56] LABS: ABG ALLEN TEST POS
--- NOTE | 2019-04-20 16:16 | RAD ---
XR abdomenHISTORY: RT SIDE PAIN, SOB, CHEST PAIN ONSET A FEW DAYSStudy: Flat and upright views of the abdomenComparison:NoneFindings:There is a normal bowel gas pattern.No free air..No abnormal calcifications or abnormal soft tissue shadows. No acute bony abnormalities.IMPRESSION:1. No evidence for acute abdominal pathology.Electronically signed by: RANJANA DHILLON (Apr 20, 2019 16:15:04)
[2019-04-20 16:24] LABS: BASOPHILS % (AUTO) 0.4 % (0.2-1.0); EOSINOPHILS % (AUTO) 0.2 % (0.9-2.9); HEMATOCRIT 52.1 % (42.0-54.0); HEMOGLOBIN 17.4 g/dL (13.5-18.0); LYMPHOCYTES # (AUTO) 0.3 X10^3/uL (1.3-2.9); LYMPHOCYTES % (AUTO) 23.3 % (21.0-51.0); MEAN CORPUSCULAR HEMOGLOBIN 32.6 pg (27.0-34.0); MEAN CORPUSCULAR HGB CONC 33.4 g/dL (33.0-35.0); MEAN CORPUSCULAR VOLUME 97.6 fL (80.0-100.0); MEAN PLATELET VOLUME 8.3 fL (7.4-11.0); MONOCYTES # (AUTO) 0.1 x10^3/uL (0.3-0.8); MONOCYTES % (AUTO) 5.4 % (0.0-13.0); NEUTROPHILS # (AUTO) 0.9 x10^3/uL (2.2-4.8); NEUTROPHILS % (AUTO) 70.7 % (42.0-75.0); PLATELET COUNT 161 X10^3/uL (150.0-450.0); RED BLOOD COUNT 5.34 X10^6/uL (4.7-6.0); RED CELL DISTRIBUTION WIDTH 14.9 % (11.6-16.5)
[2019-04-20 16:32] LABS: ALANINE AMINOTRANSFERASE 6 Units/L (12-78); ALBUMIN 2.7 g/dL (3.4-5.0); ALKALINE PHOSPHATASE 59 Units/L (46-116); ASPARTATE AMINO TRANSFERASE 44 Units/L (15-37); BLOOD UREA NITROGEN 16 mg/dL (7-18); CALCIUM 7.8 mg/dL (8.5-10.1); CARBON DIOXIDE 27.3 mmol/L (21-32); CHLORIDE 91 mmol/L (98-107); COR CA(FOR HYPOALB) 8.8 mg/dL (8.5-10.1); CREATININE 1.87 mg/dL (0.70-1.30); SODIUM 130 mmol/L (136-145); eGFR NON BLACK RACES 42 (>60)
[2019-04-20] MEDS ORDERED: NS 1000 ML 1,000 ML ONE ×2 (16:44→17:40)
--- NOTE | 2019-04-20 16:45 | RAD ---
CHEST, 1 VIEWHISTORY: RT SIDE PAIN, SOB, CHEST PAIN ONSET A FEW DAYSStudy: AP view of the chest.Comparison:February 26, 2018Findings:The cardiomediastinal silhouette is normal. New right upper lobe consolidation that likely also involves the right middle lobe. Osseous structures demonstrate no acute abnormality. Bilateral hyperexpansion and interstitial prominence.IMPRESSION:1. Right lung opacities most consistent with acute infection. It should be noted that developing malignancy may have a similar appearance. Correlate clinically.2. Findings of COPD.Electronically signed by: RANJANA DHILLON (Apr 20, 2019 16:44:13)
[2019-04-20 16:47] LABS: WHITE BLOOD COUNT 1.4 X10^3/uL (3.6-10.0)
[2019-04-20] MEDS ORDERED: NS IV ONE (17:21)
[2019-04-20] MEDS ORDERED: MAXIPIME IV ONE (17:21)
[2019-04-20] MEDS ORDERED: VANCOMYCIN HCL 1 G in D5W 250 ML IV 250 ML IV ONE (17:22)
[2019-04-20 17:25] LABS: BAND NEUTROPHILS % 4 % (0-10)
[2019-04-20 17:26] LABS: METAMYELOCYTES % 2; MYELOCYTES % 2
[2019-04-20 17:28] LABS: GIANT PLATELET RARE; PLATELET MORPHOLOGY COMMENT ABNORMAL (NORMAL)
[2019-04-20] MEDS ORDERED: MAXIPIME VIAL 1 GRAM 1 G in NS 50 ML IV 50 ML IV ONE (17:28)
[2019-04-20] MEDS ORDERED: MAXIPIME VIAL 1 GRAM ONE (17:31)
[2019-04-20] MEDS ORDERED: VANCOMYCIN HCL ONE (17:31)
[2019-04-20] MEDS ORDERED: NS 250 ML IV 250 ML IV ONE (17:31)
[2019-04-20] MEDS ORDERED: NS 100 ML IV 100 ML IV ONE (17:36)
[2019-04-20] MEDS ORDERED: DOPAMINE IV PREMIX 400 MG/250 ML 400 MG/250 ML BAG IV ONE (17:56)
[2019-04-20] MEDS: DOPAMINE IV PREMIX 400 MG/250 ML 400 MG/250 ML BAG IV PRN (18:14)
[2019-04-20] MEDS ORDERED: VANCOMYCIN HCL 1 G in D5W 250 ML IV 250 ML IV SCH (19:39)
[2019-04-20] MEDS ORDERED: PHARMACY CONSULT - VANCOMYCIN XX SCH (19:39)
[2019-04-20] MEDS ORDERED: MAXIPIME VIAL 1 GRAM 1 G in NS 50 ML IV + SPIKE MINIBAG* 50 ML IV SCH (19:39)
--- NOTE | 2019-04-20 19:57 | DR.H&P ---
H&P History & Physical for Day of: H&P Date: 04/20/19 Chief Complaint Chief Complaint: Hypothermia Allergies Allergies Allergy/AdvReac Type Severity Reaction Status Date / Time Penicillins Allergy Verified 10/29/18 15:22 History of Present Illness History of Present Illness: Pt is a 48 yo m presenting after being found on the floor of his home by his sister that he shares residence with. Per ED, pt was hypothermic and it was discovered that he does not have working heat in home. On arrival, pt was hypothermic, cyanotic, with ABG revealing severe hypoxemia pO2 62. Initial vitals and labs: BP 68/41, P 120, R 25, PulseOx 70s%. Na 130, Cr 1.87, AST 44, ALT 6, T bili 1.3, LA 5.8, Wbc 1.4, CXR:1.Right lung opacities most consistent with acute infection. It should be noted that developing malignancy may have a similar appearance. Correlate clinically. 2. Findings of COPD. KUB negative. -Pt currently on heated high flow O2, bear hugger, and receiving IVF bolus. -He reports having fever, chills, shortness of breath, dyspnea, cough. Denies abdominal pain, edema. -Critical care time spent 30-74 minutes, which includes patient evaluation, examination, and urgent management. Past Medical History Past Medical History: Hypertension and Seizures Additional Medical History: GI Ulcer, IBS, Diarrhea, Previous Blood Transfusion, Colon Cancer Past Surgical History Surgical History: Abdominal Surgery Additional Surgical History: Hernia, Bowel Resection for Colon Cancer Family History Family Medical History: Diabetes Mellitus and Hypertension Social History Does patient currently use any type of tobacco product: Yes Have you used tobacco products in the last 12 months: Yes Type of Tobacco Use: Cigarettes Does any household member use tobacco: Yes Alcohol Use: Occasionally Drug Use: None Medications Home Medications: Penicillins Allergy (Verified 10/29/18 15:22) Labs Result Diagrams: 04/20/19 16:12 04/20/19 16:12 Labs: Laboratory WBC 1.4 X10^3/uL (3.6-10.0) L* 04/20/19 16:12 RBC 5.34 X10^6/uL (4.7-6.0) 04/20/19 16:12 Hgb 17.4 g/dL (13.5-18.0) 04/20/19 16:12 Hct 52.1 % (42.0-54.0) 04/20/19 16:12 MCV 97.6 fL (80.0-100.0) 04/20/19 16:12 MCH 32.6 pg (27.0-34.0) 04/20/19 16:12 MCHC 33.4 g/dL (33.0-35.0) 04/20/19 16:12 RDW 14.9 % (11.6-16.5) 04/20/19 16:12 Plt Count 161 X10^3/uL (150.0-450.0) 04/20/19 16:12 Plt Count Comment Adequate (ADEQUATE) 04/20/19 16:12 MPV 8.3 fL (7.4-11.0) 04/20/19 16:12 Neut % (Auto) 70.7 % (42.0-75.0) 04/20/19 16:12 Lymph % (Auto) 23.3 % (21.0-51.0) 04/20/19 16:12 Graves % (Auto) 5.4 % (0.0-13.0) 04/20/19 16:12 Eos % (Auto) 0.2 % (0.9-2.9) L 04/20/19 16:12 Baso % (Auto) 0.4 % (0.2-1.0) 04/20/19 16:12 Neut # (Auto) 0.9 x10^3/uL (2.2-4.8) L 04/20/19 16:12 Lymph # (Auto) 0.3 X10^3/uL (1.3-2.9) L 04/20/19 16:12 Graves # (Auto) 0.1 x10^3/uL (0.3-0.8) L 04/20/19 16:12 Eos # (Auto) 0.0 x10^3/uL (0.0-0.2) 04/20/19 16:12 Baso # (Auto) 0.0 X10^3/uL (0.0-0.1) 04/20/19 16:12 Absolute Nucleated RBC 0.1 /100WBC 04/20/19 16:12 Total Counted 100 04/20/19 16:12 Neutrophils % (Manual) 40 % (39-76) 04/20/19 16:12 Band Neutrophils % 4 % (0-10) 04/20/19 16:12 Lymphocytes % (Manual) 36 % (13-43) 04/20/19 16:12 Monocytes % (Manual) 16 % (4-9) H 04/20/19 16:12 Metamyelocytes % 2 04/20/19 16:12 Myelocytes % 2 04/20/19 16:12 Giant Platelets Rare 04/20/19 16:12 Plt Morphology Comment Abnormal (NORMAL) 04/20/19 16:12 RBC Morphology Normal (NORMAL) 04/20/19 16:12 Sample Site Rrad 04/20/19 15:48 ABG pH 7.440 (7.35-7.45) 04/20/19 15:48 ABG pCO2 35.0 mmHg (35.0-45.0) 04/20/19 15:48 ABG pO2 62.0 mmHg (80.0-100.0) L 04/20/19 15:48 ABG HCO3 23.8 mmol/L (22-26) 04/20/19 15:48 ABG O2 Saturation 92.0 % (90-100) 04/20/19 15:48 ABG Base Excess 0.0 mmol/L (-2.0-2.0) 04/20/19 15:48 Jose Daniel Test Pos 04/20/19 15:48 A-a Gradient 251.0 mmHg 04/20/19 15:48 FiO2 50.0 04/20/19 15:48 Blood Gas Comments Pt dc well elj 04/20/19 15:48 Sodium 130 mmol/L (136-145) L 04/20/19 16:12 Corrected Sodium TNP 04/20/19 16:12 Potassium 4.1 mmol/L (3.5-5.1) 04/20/19 16:12 Chloride 91 mmol/L (98-107) L 04/20/19 16:12 Carbon Dioxide 27.3 mmol/L (21-32) 04/20/19 16:12 BUN 16 mg/dL (7-18) 04/20/19 16:12 Creatinine 1.87 mg/dL (0.70-1.30) H 04/20/19 16:12 Est GFR (MDRD) Af Amer 50 (>60) L 04/20/19 16:12 Est GFR (MDRD) Non-Af 42 (>60) L 04/20/19 16:12 Glucose 67 mg/dL (65-99) 04/20/19 16:12 Lactic Acid 5.8 mmol/L (0.4-2.0) H 04/20/19 17:40 Calcium 7.8 mg/dL (8.5-10.1) L 04/20/19 16:12 Corrected Calcium 8.8 mg/dL (8.5-10.1) 04/20/19 16:12 Total Bilirubin 1.30 mg/dL (0.2-1.0) H 04/20/19 16:12 AST 44 Units/L (15-37) H 04/20/19 16:12 ALT 6 Units/L (12-78) L 04/20/19 16:12 Alkaline Phosphatase 59 Units/L (46-116) 04/20/19 16:12 Total Protein 6.0 g/dL (6.4-8.2) L 04/20/19 16:12 Albumin 2.7 g/dL (3.4-5.0) L 04/20/19 16:12 Globulin 3.3 g/dL (2.5-4.5) 04/20/19 16:12 Albumin/Globulin Ratio 0.8 Ratio (1.1-2.1) L 04/20/19 16:12 Influenza Type A (PCR) Negative (NEGATIVE) 04/20/19 17:40 Influenza Type B (PCR) Negative (NEGATIVE) 04/20/19 17:40 Review of Systems Constitutional: Fever and Chills ENT: No Symptoms Reported Respiratory: Cough, Shortness of Breath, Pleuritic Pain, Sputum and Wheezing Cardiovascular: Chest Pain and Palpitations; denies Edema Gastrointestinal: No Symptoms Reported Genitourinary: No Symptoms Reported Musculoskeletal: No Symptoms Reported Skin: No Symptoms Reported Neurological: Weakness; denies Numbness and Change in Speech Physical Exam Vital Signs: Temperature 98.6 F Pulse Rate 124 Respiratory Rate 25 Blood Pressure [Left Arm] 169/97 Blood Pressure [Right Arm] 154/86 Blood Pressure 78/52 O2 Sat by Pulse Oximetry 87 Oriented: Normal Eyes: Normal Ear: Normal Respiratory: Diminished Throughout, Rhonchi Throughout and Wheezes Throughout Cardiovascular: Tachycardia : Normal Auscultation: Bowel Sounds: Normal Palpation: Normal Tenderness: Normal Skin: Decreased Turgur Musculoskeletal: Normal (Unable to assess ) Speech Pattern: Appropriate Assessment/Plan (1) Septic shock: Status: Acute Plan: IVF, pt received multiple IVF boluses but remained hypotensive, currently on pressor support, titrate to keep MAP >65. Abx:Vancomycin+Cefepime(04/20) Consult RT w/ scheduled bronchodilator treatments, Supplemental O2 Will order labs for acute neutropenia. LA:5.8>repeat pending BloodCx, SputumCx,(04/20):pending Na:130, Cr:1.87, AST 44, T bili 1.3, Repeat labs, continue to monitor. (2) Neutropenia: Qualifiers: Neutropenia type: unspecified Qualified Code(s): D70.9 - Neutropenia, unspecified Status: Acute (3) Pneumonia: Qualifiers: Laterality: right Lung location: middle lobe of lung Pneumonia type: due to unspecified organism Qualified Code(s): J18.9 - Pneumonia, unspecified organism Status: Acute (4) COPD (chronic obstructive pulmonary disease): Qualifiers: COPD type: COPD with acute exacerbation Qualified Code(s): J44.1 - Chronic obstructive pulmonary disease with (acute) exacerbation Status: Acute (5) Acute hyponatremia: Status: Acute (6) Acute renal failure: Status: Acute (7) Hypotension: Qualifiers: Hypotension type: unspecified hypotension type Qualified Code(s): I95.9 - Hypotension, unspecified Status: Acute (8) Hypothermia: Qualifiers: Encounter type: initial encounter Qualified Code(s): T68.XXXA - Hypothermia, initial encounter Status: Acute (9) Alcohol use: Status: Acute (10) Hypoxia: Status: Acute (11) Acute respiratory failure: Status: Acute (12) Failure to thrive: Status: Acute (13) Elevated liver enzymes: Status: Acute
[2019-04-20] MEDS: NS 1000 ML 1,000 ML IV SCH (20:25)
[2019-04-20] MEDS: PULMICORT NEB TX 0.5 MG NEB SCH (20:45)
[2019-04-20] MEDS: DUONEB 0.5 MG/3 MG (3 mL) NEB SCH (20:45)
[2019-04-20] MEDS ORDERED: THIAMINE HCL INJ IM ONE (21:27)
[2019-04-20 21:57] VITALS: BMI 18.7
[2019-04-20 22:32] LABS: MAGNESIUM 0.7 mg/dL (1.7-2.9); PHOSPHORUS 4.4 mg/dL (2.6-4.7); TSH (3RD GENERATION) 1.187 uIU/mL (0.358-3.74)
[2019-04-20 22:39] LABS: LACTIC ACID 4.1 mmol/L (0.4-2.0)
[2019-04-20] MEDS ORDERED: MAGNESIUM SULFATE 1 GRAM/100 mL PREMIX 2 G/200 ML BAG IV ONE (23:32)
[2019-04-20] MEDS: MAGNESIUM SULFATE 1 GRAM/100 mL PREMIX 2 G/200 ML BAG IV SCH (23:36)
[2019-04-20] MEDS ORDERED: THIAMINE HCL INJ ONE (23:44)
[2019-04-21] MEDS: MAGNESIUM SULFATE 1 GRAM/100 mL PREMIX 2 G/200 ML BAG IV SCH (00:22)
[2019-04-21] MEDS: NICOTINE PATCH TD SCH ×2 (00:23→09:45)
[2019-04-21] MEDS: DUONEB 0.5 MG/3 MG (3 mL) NEB SCH ×4 (00:55→18:24)
[2019-04-21] MEDS: NS 1000 ML 1,000 ML IV SCH ×6 (01:21→21:15)
[2019-04-21] MEDS ORDERED: ZOFRAN INJ 4 MG VIAL ONE (05:21)
[2019-04-21] MEDS: DOPAMINE IV PREMIX 400 MG/250 ML 400 MG/250 ML BAG IV PRN (05:25)
[2019-04-21] MEDS: ZOFRAN INJ 4 MG VIAL IVP PRN ×2 (05:28→13:19)
[2019-04-21 05:44] LABS: BASOPHILS % (AUTO) 0.2 % (0.2-1.0); EOSINOPHILS % (AUTO) 1.2 % (0.9-2.9); HEMATOCRIT 46.3 % (42.0-54.0); HEMOGLOBIN 15.8 g/dL (13.5-18.0); LYMPHOCYTES # (AUTO) 0.2 X10^3/uL (1.3-2.9); LYMPHOCYTES % (AUTO) 12.6 % (21.0-51.0); MEAN CORPUSCULAR HGB CONC 34.2 g/dL (33.0-35.0); MEAN CORPUSCULAR VOLUME 96.7 fL (80.0-100.0); MEAN PLATELET VOLUME 8.8 fL (7.4-11.0); MONOCYTES # (AUTO) 0 x10^3/uL (0.3-0.8); MONOCYTES % (AUTO) 3.6 % (0.0-13.0); NEUTROPHILS # (AUTO) 1.1 x10^3/uL (2.2-4.8); NEUTROPHILS % (AUTO) 82.4 % (42.0-75.0); PLATELET COUNT 113 X10^3/uL (150.0-450.0); RED BLOOD COUNT 4.79 X10^6/uL (4.7-6.0)
[2019-04-21 06:01] LABS: WHITE BLOOD COUNT 1.4 X10^3/uL (3.6-10.0)
[2019-04-21 06:05] LABS: ALANINE AMINOTRANSFERASE 20 Units/L (12-78); ALBUMIN 2.3 g/dL (3.4-5.0); ALKALINE PHOSPHATASE 39 Units/L (46-116); ASPARTATE AMINO TRANSFERASE 169 Units/L (15-37); BLOOD UREA NITROGEN 18 mg/dL (7-18); CALCIUM 7.1 mg/dL (8.5-10.1); CARBON DIOXIDE 26.3 mmol/L (21-32); CHLORIDE 95 mmol/L (98-107); COR CA(FOR HYPOALB) 8.5 mg/dL (8.5-10.1); CREATININE 1.17 mg/dL (0.70-1.30); MAGNESIUM 1.7 mg/dL (1.7-2.9); SODIUM 130 mmol/L (136-145); TOTAL PROTEIN 5.6 g/dL (6.4-8.2); eGFR NON BLACK RACES > 60 (>60)
[2019-04-21 06:25] LABS: PLATELET MORPHOLOGY COMMENT NORMAL (NORMAL)
--- NOTE | 2019-04-21 07:19 | RAD ---
HISTORYPNEUMONIA, COPD, colon cancerSTUDYCHEST, 1 VIEWCOMPARISONChest film April 20, 2019FINDINGSThe trachea is midline. The cardiac silhouette is unremarkable. The lungs are hyperexpanded from COPD. The left lung remains clear. The infiltrate extending to the right hilum is unchanged from the film performed yesterday. There is increasing airspace disease and/or effusion in the right lung base however compared to yesterdays film.. The bony thorax is unremarkable other than old healed left posterior lateral inferior rib fractures..IMPRESSIONCOPDNo change in the right perihilar airspace disease extending laterally to the pleural surface compared to yesterdays film.Increasing hazy density either pneumonia and/or effusion in the right lung base, a change from yesterday's film.Electronically signed by: PASCUAL ORTEGA (Apr 21, 2019 07:17:37)
[2019-04-21] MEDS: PULMICORT NEB TX 0.5 MG NEB SCH ×2 (08:37→21:35)
[2019-04-21] MEDS ORDERED: NS 1000 ML 1,000 ML IV ONE (08:50)
[2019-04-21] MEDS: MAXIPIME VIAL 1 GRAM 1 G in NS 50 ML IV + SPIKE MINIBAG* 50 ML IV SCH ×2 (09:35→22:43)
[2019-04-21] MEDS ORDERED: LIDODERM 5% PATCH TD ONE (09:42)
[2019-04-21] MEDS: LIDODERM 5% PATCH TD SCH (09:44)
[2019-04-21] MEDS: VANCOMYCIN HCL 750 MG in D5W 250 ML IV 250 ML IV SCH ×2 (10:11→22:00)
--- NOTE | 2019-04-21 10:35 | PCM.PROG ---
Progress Note Progress Note for Day of Date of Exam: 04/21/19 Subjective Subjective: Pt is a 48 yo m being treated for septic shock. He was started on dopamine infusion yesterday to keep MAP >65. His respiratory status has slightly improved. His labs still show that he is acidotic. Preliminary blood cultures possible positive result. CXR:IMPRESSION:COPD No change in the right perihilar airspace disease extending laterally to the pleural surface compared to yesterdays film. Increasing hazy density either pneumonia and/or effusion in the right lung base, a change from yesterday's film. -Pt is feeling nauseous this morning and vomited. -Today will give 1L IVF bolus and increase IVF infusion rate to 200ml/h. Continue to monitor and if attempt to titrate down dopamine infusion rate. Order CT chest to evaluate lungs and rule out PE. Past Medical Family Social History Past Med/Fam/Surg Hx: No changes since H&P Allergies: Allergies Penicillins Allergy (Verified 10/29/18 15:22) Vital Signs and I&O's Vital Signs: Temperature 99.3 F Pulse Rate [Brachial] 121 Pulse Rate 130 Respiratory Rate 37 Blood Pressure [Left Arm] 97/59 Blood Pressure [Right Arm] 154/86 Blood Pressure 122/59 O2 Sat by Pulse Oximetry 87 Intake and Output: Intake & Output 04/18/19 04/19/19 04/20/19 04/21/19 23:59 23:59 23:59 23:59 Intake Total 2110 / 2110 1282 / 1282 Output Total 250 / 250 700 / 700 Balance 1860 / 1860 582 / 582 Physical Exam Oriented: Normal Eyes: Normal Ear: Normal Cardiovascular: Tachycardia : Normal Auscultation: Bowel Sounds: Normal Tenderness: Normal Skin: Decreased Turgur Musculoskeletal: Normal (Unable to assess ) Speech Pattern: Clear and Appropriate Laboratory and Diagnostics Result Diagrams: 04/21/19 05:01 04/21/19 05:01 Labs: 04/20/19 17:40 Blood Blood Culture - Preliminary Laboratory WBC 1.4 X10^3/uL (3.6-10.0) L* 04/21/19 05:01 RBC 4.79 X10^6/uL (4.7-6.0) 04/21/19 05:01 Hgb 15.8 g/dL (13.5-18.0) 04/21/19 05:01 Hct 46.3 % (42.0-54.0) 04/21/19 05:01 MCV 96.7 fL (80.0-100.0) 04/21/19 05:01 MCH 33.0 pg (27.0-34.0) 04/21/19 05:01 MCHC 34.2 g/dL (33.0-35.0) 04/21/19 05:01 RDW 15.0 % (11.6-16.5) 04/21/19 05:01 Plt Count 113 X10^3/uL (150.0-450.0) L 04/21/19 05:01 Plt Count Comment Decreased (ADEQUATE) 04/21/19 05:01 MPV 8.8 fL (7.4-11.0) 04/21/19 05:01 Neut % (Auto) 82.4 % (42.0-75.0) H 04/21/19 05:01 Lymph % (Auto) 12.6 % (21.0-51.0) L 04/21/19 05:01 [place] % (Auto) 3.6 % (0.0-13.0) 04/21/19 05:01 Eos % (Auto) 1.2 % (0.9-2.9) 04/21/19 05:01 Baso % (Auto) 0.2 % (0.2-1.0) 04/21/19 05:01 Neut # (Auto) 1.1 x10^3/uL (2.2-4.8) L 04/21/19 05:01 Lymph # (Auto) 0.2 X10^3/uL (1.3-2.9) L 04/21/19 05:01 [place] # (Auto) 0 x10^3/uL (0.3-0.8) L 04/21/19 05:01 Eos # (Auto) 0.0 x10^3/uL (0.0-0.2) 04/21/19 05:01 Baso # (Auto) 0.0 X10^3/uL (0.0-0.1) 04/21/19 05:01 Absolute Nucleated RBC 0.0 /100WBC 04/21/19 05:01 Total Counted 100 04/21/19 05:01 Neutrophils % (Manual) 45 % (39-76) 04/21/19 05:01 Band Neutrophils % 4 % (0-10) 04/20/19 16:12 Lymphocytes % (Manual) 38 % (13-43) 04/21/19 05:01 Monocytes % (Manual) 14 % (4-9) H 04/21/19 05:01 Eosinophils % (Manual) 3 % (0-6) 04/21/19 05:01 Metamyelocytes % 2 04/20/19 16:12 Myelocytes % 2 04/20/19 16:12 Giant Platelets Rare 04/20/19 16:12 Plt Morphology Comment Normal (NORMAL) 04/21/19 05:01 RBC Morphology Normal (NORMAL) 04/21/19 05:01 Sample Site Rrad 04/20/19 15:48 ABG pH 7.440 (7.35-7.45) 04/20/19 15:48 ABG pCO2 35.0 mmHg (35.0-45.0) 04/20/19 15:48 ABG pO2 62.0 mmHg (80.0-100.0) L 04/20/19 15:48 ABG HCO3 23.8 mmol/L (22-26) 04/20/19 15:48 ABG O2 Saturation 92.0 % (90-100) 04/20/19 15:48 ABG Base Excess 0.0 mmol/L (-2.0-2.0) 04/20/19 15:48 Jose Daniel Test Pos 04/20/19 15:48 A-a Gradient 251.0 mmHg 04/20/19 15:48 FiO2 50.0 04/20/19 15:48 Blood Gas Comments Pt dc well elj 04/20/19 15:48 Sodium 130 mmol/L (136-145) L 04/21/19 05:01 Corrected Sodium TNP 04/21/19 05:01 Potassium 3.6 mmol/L (3.5-5.1) 04/21/19 05:01 Chloride 95 mmol/L (98-107) L 04/21/19 05:01 Carbon Dioxide 26.3 mmol/L (21-32) 04/21/19 05:01 BUN 18 mg/dL (7-18) 04/21/19 05:01 Creatinine 1.17 mg/dL (0.70-1.30) 04/21/19 05:01 Est GFR (MDRD) Af Amer > 60 (>60) 04/21/19 05:01 Est GFR (MDRD) Non-Af > 60 (>60) 04/21/19 05:01 Glucose 67 mg/dL (65-99) 04/21/19 05:01 Lactic Acid 4.0 mmol/L (0.4-2.0) H 04/21/19 05:01 Calcium 7.1 mg/dL (8.5-10.1) L 04/21/19 05:01 Corrected Calcium 8.5 mg/dL (8.5-10.1) 04/21/19 05:01 Phosphorus 4.4 mg/dL (2.6-4.7) 04/20/19 21:56 Magnesium 1.7 mg/dL (1.7-2.9) 04/21/19 05:01 Total Bilirubin 0.60 mg/dL (0.2-1.0) 04/21/19 05:01 AST 169 Units/L (15-37) H 04/21/19 05:01 ALT 20 Units/L (12-78) 04/21/19 05:01 Alkaline Phosphatase 39 Units/L (46-116) L 04/21/19 05:01 Total Protein 5.6 g/dL (6.4-8.2) L 04/21/19 05:01 Albumin 2.3 g/dL (3.4-5.0) L 04/21/19 05:01 Globulin 3.3 g/dL (2.5-4.5) 04/21/19 05:01 Albumin/Globulin Ratio 0.7 Ratio (1.1-2.1) L 04/21/19 05:01 TSH 3rd Generation 1.187 uIU/mL (0.358-3.74) 04/20/19 21:56 Urine Opiates Screen Negative (NEG=<300) 04/20/19 23:24 Urine Methadone Screen Negative (NEG=<300) 04/20/19 23:24 Ur Barbiturates Screen Negative (NEG=<200) 04/20/19 23:24 Ur Phencyclidine Scrn Negative (NEG=<25) 04/20/19 23:24 Ur Amphetamines Screen Negative (NEG=<1000) 04/20/19 23:24 U Benzodiazepines Scrn Negative (NEG=<200) 04/20/19 23:24 Urine Cocaine Screen Negative (NEG=<300) 04/20/19 23:24 U Marijuana (THC) Screen Negative (NEG=<50) 04/20/19 23:24 Ethyl Alcohol mg/dL 4 mg/dL (0-19.9) 04/20/19 21:56 Influenza Type A (PCR) Negative (NEGATIVE) 04/20/19 17:40 Influenza Type B (PCR) Negative (NEGATIVE) 04/20/19 17:40 Plan (1) Septic shock: Status: Acute Plan: IVF, currently on dopamine pressor support, titrate to keep MAP >65. Abx:Vancomycin+Cefepime(04/20) Consult RT w/ scheduled bronchodilator treatments, Supplemental O2 HIV/Hepatitis panel pending LA:5.8>4.1>4.0 BloodCx, SputumCx,(04/20):pending Na:130>130, Cr:1.87>1.17, AST 44>169, CT Chest:pending Repeat labs in AM, continue to monitor. (2) Neutropenia: Status: Acute Qualifiers: Neutropenia type: unspecified Qualified Code(s): D70.9 - Neutropenia, unspecified Plan: ANC 616 moderate neutropenia (3) Pneumonia: Status: Acute Qualifiers: Laterality: right Lung location: middle lobe of lung Pneumonia type: due to unspecified organism Qualified Code(s): J18.9 - Pneumonia, unspecified organism (4) COPD (chronic obstructive pulmonary disease): Status: Acute Qualifiers: COPD type: COPD with acute exacerbation Qualified Code(s): J44.1 - Chronic obstructive pulmonary disease with (acute) exacerbation (5) Acute hyponatremia: Status: Acute (6) Acute renal failure: Status: Acute (7) Hypotension: Status: Acute Qualifiers: Hypotension type: unspecified hypotension type Qualified Code(s): I95.9 - Hypotension, unspecified (8) Hypothermia: Status: Acute Qualifiers: Encounter type: initial encounter Qualified Code(s): T68.XXXA - Hypothermia, initial encounter (9) Alcohol use: Status: Acute (10) Hypoxia: Status: Acute (11) Acute respiratory failure: Status: Acute (12) Failure to thrive: Status: Acute (13) Elevated liver enzymes: Status: Acute
--- NOTE | 2019-04-21 11:43 | CT ---
HISTORY:Hypoxia, sepsis, pneumoniaStudy: CTA chestComparison:Same day radiographTechnique: Multiple axial images of the chest were obtained after the administration of IV contrast. 3D reconstructions were performed utilizing radial maximum intensity projection imaging. Dose reduction techniques including Automated Exposure Control (AEC) and adjustment of mA and kV were utilized.Findings:Contrast opacification of the pulmonary arteries is adequate to the level of the segmental branches. No evidence of acute pulmonary emboli . Normal appearance of the heart and pericardium . The aorta appears normal in course and caliber. There is dense consolidation in right upper lobe and right lower lobe suggestive of pneumonia. There is a small right pleural effusion. No pneumothorax. Airways are patent. Background centrilobular emphysematous changes are present with hyperinflation.The soft tissues and osseous structures appear intact . The visualized portions of the upper abdomen are grossly unremarkable .IMPRESSION:1. Dense right lower lobe and upper lobe consolidation compatible with pneumonia.2. Small right pleural effusion.3. Chronic emphysematous changes.4. No acute pulmonary embolism.Electronically signed by: VALERIA HARMON (Apr 21, 2019 11:41:57)
[2019-04-21] MEDS ORDERED: LOVENOX INJ 40 MG SYR SC SCH (12:00)
[2019-04-21] MEDS ORDERED: ASCORBIC ACID INJ MULTI-DOSE VIAL IV SCH (13:15)
[2019-04-21] MEDS: SOLU-Cortef INJ IVP SCH ×2 (13:34→22:42)
[2019-04-21] MEDS: THIAMINE HCL INJ IV SCH (13:34)
[2019-04-21] MEDS ORDERED: SOLU-Cortef INJ IVP SCH (14:00)
[2019-04-21] MEDS ORDERED: LEVOPHED INJ 8 MG in D5W 250 ML IV 242 ML IV PRN (14:06)
[2019-04-21] MEDS: ASCORBIC ACID MULTI IV SCH ×2 (14:57→23:15)
[2019-04-21] MEDS: NS IV SCH ×2 (14:57→23:15)
[2019-04-21] MEDS: FLAGYL IV PREMIX 500 MG BAG 500 MG/100 ML BAG IV SCH ×2 (16:33→21:41)
[2019-04-21 18:52] LABS: TROPONIN I 0.53 ng/mL (0-1.5)
[2019-04-21 18:58] LABS: CREATINE KINASE MB 51.1 ng/mL (0-4.0)
[2019-04-21] MEDS: SNACK - Diabetic Appropriate PO SCH (20:00)
[2019-04-21] MEDS ORDERED: MAXIPIME IV SCH (21:00)
[2019-04-21] MEDS ORDERED: NS IV SCH (21:00)
[2019-04-21] MEDS ORDERED: MAXIPIME VIAL 1 GRAM ONE (22:06)
[2019-04-21] MEDS ORDERED: NS 50 ML IV 50 ML IV ONE (22:09)
[2019-04-22 00:27] LABS: TROPONIN I 0.5 ng/mL (0-1.5)
[2019-04-22] MEDS: DUONEB 0.5 MG/3 MG (3 mL) NEB SCH ×4 (00:27→17:01)
[2019-04-22 00:30] LABS: CREATINE KINASE MB 35.2 ng/mL (0-4.0)
[2019-04-22] MEDS: NS 1000 ML 1,000 ML IV SCH ×3 (01:00→16:45)
[2019-04-22] MEDS: SOLU-Cortef INJ IVP SCH ×4 (02:20→21:11)
[2019-04-22] MEDS: FLAGYL IV PREMIX 500 MG BAG 500 MG/100 ML BAG IV SCH ×4 (02:25→21:12)
[2019-04-22] MEDS: ASCORBIC ACID MULTI IV SCH ×4 (03:30→21:45)
[2019-04-22] MEDS: NS IV SCH ×4 (03:30→21:45)
[2019-04-22 05:41] LABS: BASOPHILS % (AUTO) 0.4 % (0.2-1.0); HEMATOCRIT 44.8 % (42.0-54.0); HEMOGLOBIN 15.1 g/dL (13.5-18.0); LYMPHOCYTES # (AUTO) 0.1 X10^3/uL (1.3-2.9); LYMPHOCYTES % (AUTO) 0.6 % (21.0-51.0); MEAN CORPUSCULAR HEMOGLOBIN 33.1 pg (27.0-34.0); MEAN CORPUSCULAR HGB CONC 33.6 g/dL (33.0-35.0); MEAN CORPUSCULAR VOLUME 98.5 fL (80.0-100.0); MEAN PLATELET VOLUME 9.3 fL (7.4-11.0); MONOCYTES # (AUTO) 0.1 x10^3/uL (0.3-0.8); MONOCYTES % (AUTO) 0.9 % (0.0-13.0); NEUTROPHILS # (AUTO) 9.1 x10^3/uL (2.2-4.8); NEUTROPHILS % (AUTO) 98.1 % (42.0-75.0); PLATELET COUNT 78 X10^3/uL (150.0-450.0); RED BLOOD COUNT 4.55 X10^6/uL (4.7-6.0); RED CELL DISTRIBUTION WIDTH 14.9 % (11.6-16.5); WHITE BLOOD COUNT 9.2 X10^3/uL (3.6-10.0)
[2019-04-22 05:49] LABS: LACTIC ACID 1.6 mmol/L (0.4-2.0)
[2019-04-22 06:04] LABS: BAND NEUTROPHILS % 16 % (0-10); METAMYELOCYTES % 6; PLATELET MORPHOLOGY COMMENT NORMAL (NORMAL)
[2019-04-22 06:07] LABS: ALANINE AMINOTRANSFERASE 20 Units/L (12-78); ALBUMIN 2.2 g/dL (3.4-5.0); ALKALINE PHOSPHATASE 48 Units/L (46-116); ASPARTATE AMINO TRANSFERASE 122 Units/L (15-37); BLOOD UREA NITROGEN 11 mg/dL (7-18); CALCIUM 7.4 mg/dL (8.5-10.1); CARBON DIOXIDE 28.4 mmol/L (21-32); CHLORIDE 97 mmol/L (98-107); COR CA(FOR HYPOALB) 8.8 mg/dL (8.5-10.1); CREATININE 0.55 mg/dL (0.70-1.30); SODIUM 132 mmol/L (136-145); TOTAL PROTEIN 5.8 g/dL (6.4-8.2); eGFR NON BLACK RACES > 60 (>60)
[2019-04-22 06:54] LABS: ABG BASE EXCESS -0.8 mmol/L (-2.0-2.0); ABG HCO3 28.9 mmol/L (22-26)
--- NOTE | 2019-04-22 08:11 | RAD ---
HISTORYPNEUMONIASTUDYCHEST, 1 VIEWCOMPARISONChest x-ray April 21, 2019FINDINGSThe trachea is midline. The cardiac silhouette is unremarkable. There is persistent right perihilar mass and/or infiltrate extending from the right hilum without change from yesterday's exam. This is not changed significantly since the earliest film in the recent series 20 April 2019 persistent airspace disease and/or effusion rim is seen in the right lung base also without change at the hilum but increasing airspace disease and/or effusion in the right lung base is noted compared to the and minimal worsening compared to the 21 of April. The left lung remains clear. 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
[2019-04-22] MEDS ORDERED: TORADOL 30 MG VIAL IM ONE (08:22)
[2019-04-22] MEDS ORDERED: LASIX IVP ONE (08:27)
[2019-04-22] MEDS: NICOTINE PATCH TD SCH (08:41)
[2019-04-22] MEDS: LIDODERM 5% PATCH TD SCH (08:47)
[2019-04-22] MEDS: THIAMINE HCL INJ IV SCH (09:09)
[2019-04-22] MEDS: PROTONIX INJ 40 MG VIAL IVP SCH (09:21)
[2019-04-22] MEDS: PULMICORT NEB TX 0.5 MG NEB SCH ×2 (09:44→21:20)
[2019-04-22] MEDS: VANCOMYCIN HCL 750 MG in D5W 250 ML IV 250 ML IV SCH (09:50)
[2019-04-22] MEDS ORDERED: MAXIPIME VIAL 1 GRAM ONE ×2 (10:00→20:57)
[2019-04-22] MEDS ORDERED: NS 50 ML IV 50 ML IV ONE ×2 (10:00→20:57)
[2019-04-22] MEDS: MAXIPIME VIAL 1 GRAM 1 G in NS 50 ML IV + SPIKE MINIBAG* 50 ML IV SCH ×2 (10:13→21:12)
--- NOTE | 2019-04-22 10:40 | PCM.PROG ---
Progress Note Progress Note for Day of Date of Exam: 04/22/19 Subjective Subjective: Pt is a 48 yo m being treated for septic shock. He initially on dopamine infusion that was switched to Levophed yesterday to keep MAP >65. Lactic acid has trended down to wnl. This morning patient had ABG that was acidotic and hypercapnia. Pt was on heated HF, will start BiPAP and recheck ABG in 2 hours. Blood pressure has improved, will attempt to wean off Levophed soon, otherwise will need central line placement. CXR this morning no change from prior except for increased pleural effusion. Will give low dose IV Lasix 20mg x1 and decrease IVF rate. Micro this morning stated BloodCx positive for gram negative cocci but are unable to identify species and will have to send out for identification. Pt still c/o right sided chest wall pain but has slightly improved overall. Past Medical Family Social History Past Med/Fam/Surg Hx: No changes since H&P Allergies: Allergies Penicillins Allergy (Verified 10/29/18 15:22) Review of Systems ROS: No change since H&P Vital Signs and I&O's Vital Signs: Temperature 98.6 F Pulse Rate [Brachial] 121 Pulse Rate 114 Respiratory Rate 20 Blood Pressure [Left Arm] 97/59 Blood Pressure [Right Arm] 154/86 Blood Pressure 99/62 O2 Sat by Pulse Oximetry 100 Intake and Output: Intake & Output 04/19/19 04/20/19 04/21/19 04/22/19 23:59 23:59 23:59 23:59 Intake Total 2110 / 2110 6019 / 6019 1795 / 1795 Output Total 250 / 250 3150 / 3150 650 / 650 Balance 1860 / 1860 2869 / 2869 1145 / 1145 Physical Exam Oriented: Normal Eyes: Normal Ear: Normal Cardiovascular: Tachycardia : Normal Auscultation: Bowel Sounds: Normal Tenderness: Normal Skin: Decreased Turgur Musculoskeletal: Normal (Unable to assess ) Speech Pattern: Clear and Appropriate Laboratory and Diagnostics Result Diagrams: 04/22/19 05:08 04/22/19 05:08 Labs: 04/20/19 17:40 Blood Blood Culture - Preliminary 04/20/19 16:12 Blood Blood Culture - Preliminary 04/20/19 23:20 Urine,Clean Catch Urine Culture - Preliminary Laboratory WBC 9.2 X10^3/uL (3.6-10.0) 04/22/19 05:08 RBC 4.55 X10^6/uL (4.7-6.0) L 04/22/19 05:08 Hgb 15.1 g/dL (13.5-18.0) 04/22/19 05:08 Hct 44.8 % (42.0-54.0) 04/22/19 05:08 MCV 98.5 fL (80.0-100.0) 04/22/19 05:08 MCH 33.1 pg (27.0-34.0) 04/22/19 05:08 MCHC 33.6 g/dL (33.0-35.0) 04/22/19 05:08 RDW 14.9 % (11.6-16.5) 04/22/19 05:08 Plt Count 78 X10^3/uL (150.0-450.0) L 04/22/19 05:08 Plt Count Comment Decreased (ADEQUATE) 04/22/19 05:08 MPV 9.3 fL (7.4-11.0) 04/22/19 05:08 Neut % (Auto) 98.1 % (42.0-75.0) H 04/22/19 05:08 Lymph % (Auto) 0.6 % (21.0-51.0) L 04/22/19 05:08 [place] % (Auto) 0.9 % (0.0-13.0) 04/22/19 05:08 Eos % (Auto) 0.0 % (0.9-2.9) L 04/22/19 05:08 Baso % (Auto) 0.4 % (0.2-1.0) 04/22/19 05:08 Neut # (Auto) 9.1 x10^3/uL (2.2-4.8) H 04/22/19 05:08 Lymph # (Auto) 0.1 X10^3/uL (1.3-2.9) L 04/22/19 05:08 [place] # (Auto) 0.1 x10^3/uL (0.3-0.8) L 04/22/19 05:08 Eos # (Auto) 0.0 x10^3/uL (0.0-0.2) 04/22/19 05:08 Baso # (Auto) 0.0 X10^3/uL (0.0-0.1) 04/22/19 05:08 Absolute Nucleated RBC 0.0 /100WBC 04/22/19 05:08 Total Counted 100 04/22/19 05:08 Neutrophils % (Manual) 56 % (39-76) 04/22/19 05:08 Band Neutrophils % 16 % (0-10) H 04/22/19 05:08 Lymphocytes % (Manual) 6 % (13-43) L 04/22/19 05:08 Monocytes % (Manual) 16 % (4-9) H 04/22/19 05:08 Eosinophils % (Manual) 3 % (0-6) 04/21/19 05:01 Metamyelocytes % 6 04/22/19 05:08 Myelocytes % 2 04/20/19 16:12 Giant Platelets Rare 04/20/19 16:12 Plt Morphology Comment Normal (NORMAL) 04/22/19 05:08 RBC Morphology Normal (NORMAL) 04/22/19 05:08 Sample Site [facility] 04/22/19 06:50 ABG pH 7.200 (7.35-7.45) L 04/22/19 06:50 ABG pCO2 74.0 mmHg (35.0-45.0) H* 04/22/19 06:50 ABG pO2 138.0 mmHg (80.0-100.0) H 04/22/19 06:50 ABG HCO3 28.9 mmol/L (22-26) H 04/22/19 06:50 ABG O2 Saturation 99.0 % (90-100) 04/22/19 06:50 ABG Base Excess -0.8 mmol/L (-2.0-2.0) 04/22/19 06:50 Jose Daniel Test Na 04/22/19 06:50 A-a Gradient 483.0 mmHg 04/22/19 06:50 FiO2 100.0 04/22/19 06:50 Blood Gas Comments Juan abg well-mtf 04/22/19 06:50 Sodium 132 mmol/L (136-145) L 04/22/19 05:08 Corrected Sodium TNP 04/22/19 05:08 Potassium 3.9 mmol/L (3.5-5.1) 04/22/19 05:08 Chloride 97 mmol/L (98-107) L 04/22/19 05:08 Carbon Dioxide 28.4 mmol/L (21-32) 04/22/19 05:08 BUN 11 mg/dL (7-18) 04/22/19 05:08 Creatinine 0.55 mg/dL (0.70-1.30) L 04/22/19 05:08 Est GFR (MDRD) Af Amer > 60 (>60) 04/22/19 05:08 Est GFR (MDRD) Non-Af > 60 (>60) 04/22/19 05:08 Glucose 85 mg/dL (65-99) 04/22/19 05:08 Lactic Acid 1.6 mmol/L (0.4-2.0) 04/22/19 05:08 Calcium 7.4 mg/dL (8.5-10.1) L 04/22/19 05:08 Corrected Calcium 8.8 mg/dL (8.5-10.1) 04/22/19 05:08 Phosphorus 4.4 mg/dL (2.6-4.7) 04/20/19 21:56 Magnesium 1.7 mg/dL (1.7-2.9) 04/21/19 05:01 Total Bilirubin 0.70 mg/dL (0.2-1.0) 04/22/19 05:08 AST 122 Units/L (15-37) H 04/22/19 05:08 ALT 20 Units/L (12-78) 04/22/19 05:08 Alkaline Phosphatase 48 Units/L (46-116) 04/22/19 05:08 Creatine Kinase 1766 Units/L (39-308) H 04/21/19 23:28 CK-MB (CK-2) 35.2 ng/mL (0-4.0) H* 04/21/19 23:28 CK/CKMB % Calc 2.0 % (<4) 04/21/19 23:28 Troponin I 0.50 ng/mL (0-1.5) 04/21/19 23:28 Total Protein 5.8 g/dL (6.4-8.2) L 04/22/19 05:08 Albumin 2.2 g/dL (3.4-5.0) L 04/22/19 05:08 Globulin 3.6 g/dL (2.5-4.5) 04/22/19 05:08 Albumin/Globulin Ratio 0.6 Ratio (1.1-2.1) L 04/22/19 05:08 TSH 3rd Generation 1.187 uIU/mL (0.358-3.74) 04/20/19 21:56 Urine Opiates Screen Negative (NEG=<300) 04/20/19 23:24 Urine Methadone Screen Negative (NEG=<300) 04/20/19 23:24 Ur Barbiturates Screen Negative (NEG=<200) 04/20/19 23:24 Ur Phencyclidine Scrn Negative (NEG=<25) 04/20/19 23:24 Ur Amphetamines Screen Negative (NEG=<1000) 04/20/19 23:24 U Benzodiazepines Scrn Negative (NEG=<200) 04/20/19 23:24 Urine Cocaine Screen Negative (NEG=<300) 04/20/19 23:24 U Marijuana (THC) Screen Negative (NEG=<50) 04/20/19 23:24 Ethyl Alcohol mg/dL 4 mg/dL (0-19.9) 04/20/19 21:56 Influenza Type A (PCR) Negative (NEGATIVE) 04/20/19 17:40 Influenza Type B (PCR) Negative (NEGATIVE) 04/20/19 17:40 Plan (1) Gram-negative bacteremia: Status: Acute Plan: DC Vancomycin Continue Cefepime, Flagyl for possible aspiration. Added azithromycin Echo pending Repeat blood cultures, follow final cultures (2) Acute respiratory failure with hypercapnia: Status: Acute Plan: ABG this AM: PCO2 74 Will start BiPAP, repeat ABG and adjust as needed. (3) Septic shock: Status: Acute Plan: Currently on levophed 2 mcg, will DC and monitor BP closely Continue bronchodilator treatments HIV/Hepatitis panel pending LA: normalized BloodCx(04/20):gram negative cocci; SputumCx(04/20):pending AST trending down Repeat labs in AM, continue to monitor. Abx: DC Vancomycin, continue cefepime and Flagyl. Will add azithromycin for atypical coverage. Check Legionella, Mycoplasma and Chlamydia Currently on hydrocortisone 50 mg q6hrs, will taper down Continue Vitamin C and thiamine (4) Neutropenia: Status: Acute Qualifiers: Neutropenia type: unspecified Qualified Code(s): D70.9 - Neutropenia, unspecified Plan: WBC up today, Plt: 78 Will hold lovenox, no signs of active bleeding (5) Pneumonia: Status: Acute Qualifiers: Laterality: right Lung location: middle lobe of lung Pneumonia type: due to unspecified organism Qualified Code(s): J18.9 - Pneumonia, unspecified organism Plan: CXR reviewed, right sided pneumonia Continue Abx Will give one dose of Lasix due to increased pleural effusion (6) COPD (chronic obstructive pulmonary disease): Status: Acute Qualifiers: COPD type: COPD with acute exacerbation Qualified Code(s): J44.1 - Chronic obstructive pulmonary disease with (acute) exacerbation (7) Acute hyponatremia: Status: Acute Plan: Na: 132 (8) Acute renal failure: Status: Acute Qualifiers: Acute renal failure type: unspecified Qualified Code(s): N17.9 - Acute kidney failure, unspecified Plan: Resolved (9) Hypotension: Status: Acute Qualifiers: Hypotension type: unspecified hypotension type Qualified Code(s): I95.9 - Hypotension, unspecified (10) Hypothermia: Status: Acute Qualifiers: Encounter type: initial encounter Qualified Code(s): T68.XXXA - Hypothermia, initial encounter (11) Alcohol use: Status: Acute (12) Failure to thrive: Status: Acute Qualifiers: Failure to thrive age range: in adult Qualified Code(s): R62.7 - Adult failure to thrive (13) Elevated liver enzymes: Status: Acute
[2019-04-22 12:18] LABS: ABG BASE EXCESS 0.8 mmol/L (-2.0-2.0)
[2019-04-22 12:19] LABS: ABG ALLEN TEST POS; ABG HCO3 30.3 mmol/L (22-26)
[2019-04-22] MEDS: ZITHROMAX TAB 250 MG PO SCH (14:30)
[2019-04-22 16:30] LABS: ABG BASE EXCESS -0.2 mmol/L (-2.0-2.0); ABG HCO3 29.1 mmol/L (22-26)
[2019-04-22 16:33] LABS: ABG ALLEN TEST POSITIVE
[2019-04-22] MEDS: SNACK - Diabetic Appropriate PO SCH (20:00)
[2019-04-22] MEDS ORDERED: PHARMACY COMMENT IV NR (20:30)
[2019-04-22] MEDS: NAPROSYN PO PRN (21:00)
[2019-04-22 22:07] LABS: ABG BASE EXCESS -0.2 mmol/L (-2.0-2.0); ABG HCO3 29.1 mmol/L (22-26)
[2019-04-22 22:10] LABS: ABG ALLEN TEST P
[2019-04-23] MEDS: DUONEB 0.5 MG/3 MG (3 mL) NEB SCH ×4 (00:40→16:49)
[2019-04-23] MEDS: NS 1000 ML 1,000 ML IV SCH ×2 (01:00→01:05)
[2019-04-23] MEDS: SOLU-Cortef INJ IVP SCH ×4 (01:57→20:17)
[2019-04-23] MEDS: FLAGYL IV PREMIX 500 MG BAG 500 MG/100 ML BAG IV SCH ×4 (02:13→20:50)
[2019-04-23] MEDS: NS IV SCH ×5 (03:19→21:55)
[2019-04-23] MEDS: ASCORBIC ACID MULTI IV SCH ×5 (03:19→21:55)
[2019-04-23 06:01] LABS: BASOPHILS % (AUTO) 0.2 % (0.2-1.0); EOSINOPHILS % (AUTO) 0.2 % (0.9-2.9); HEMATOCRIT 41.7 % (42.0-54.0); HEMOGLOBIN 13.7 g/dL (13.5-18.0); LYMPHOCYTES # (AUTO) 0.1 X10^3/uL (1.3-2.9); MEAN CORPUSCULAR HEMOGLOBIN 32.6 pg (27.0-34.0); MEAN CORPUSCULAR HGB CONC 32.9 g/dL (33.0-35.0); MEAN CORPUSCULAR VOLUME 99.2 fL (80.0-100.0); MEAN PLATELET VOLUME 9.7 fL (7.4-11.0); MONOCYTES # (AUTO) 0 x10^3/uL (0.3-0.8); MONOCYTES % (AUTO) 0.3 % (0.0-13.0); NEUTROPHILS # (AUTO) 13.3 x10^3/uL (2.2-4.8); NEUTROPHILS % (AUTO) 98.3 % (42.0-75.0); PLATELET COUNT 65 X10^3/uL (150.0-450.0); RED CELL DISTRIBUTION WIDTH 15.1 % (11.6-16.5); WHITE BLOOD COUNT 13.5 X10^3/uL (3.6-10.0)
[2019-04-23 06:24] LABS: ALANINE AMINOTRANSFERASE 16 Units/L (12-78); ALBUMIN 2.1 g/dL (3.4-5.0); ALKALINE PHOSPHATASE 90 Units/L (46-116); ASPARTATE AMINO TRANSFERASE 51 Units/L (15-37); BLOOD UREA NITROGEN 14 mg/dL (7-18); CALCIUM 7.6 mg/dL (8.5-10.1); CARBON DIOXIDE 28.5 mmol/L (21-32); CHLORIDE 100 mmol/L (98-107); COR CA(FOR HYPOALB) 9.1 mg/dL (8.5-10.1); CREATININE 0.65 mg/dL (0.70-1.30); SODIUM 135 mmol/L (136-145); TOTAL PROTEIN 5.6 g/dL (6.4-8.2); eGFR NON BLACK RACES > 60 (>60)
[2019-04-23] MEDS ORDERED: KLOR-CON PO PRN (06:31)
[2019-04-23] MEDS ORDERED: MICRO K EXTEN CAP 10 MEQ PO PRN (06:31)
[2019-04-23] MEDS ORDERED: POTASSIUM CHL 60 MEQ/NS 0.45% 500 ML IV PRN (06:31)
[2019-04-23] MEDS ORDERED: POTASSIUM CHL 40 MEQ/NS 0.45% 500 ML IV PRN (06:31)
[2019-04-23] MEDS ORDERED: K-RIDER 10 MEQ/NS 100 ML 10 MEQ/100 ML BAG IV PRN (06:31)
[2019-04-23] MEDS ORDERED: POTASSIUM CHLORIDE LIQ 20 MEQ UDC PO PRN (06:31)
[2019-04-23 07:10] LABS: BAND NEUTROPHILS % 12 % (0-10); METAMYELOCYTES % 4
[2019-04-23 07:12] LABS: GIANT PLATELET RARE; PLATELET MORPHOLOGY COMMENT ABNORMAL (NORMAL)
[2019-04-23] MEDS: PULMICORT NEB TX 0.5 MG NEB SCH ×2 (08:35→20:45)
[2019-04-23] MEDS: NAPROSYN PO PRN ×2 (08:39→20:39)
[2019-04-23] MEDS: K-DUR TAB 20 MEQ PO PRN ×2 (08:39→13:46)
[2019-04-23 08:49] LABS: ABG BASE EXCESS -0.2 mmol/L (-2.0-2.0); ABG HCO3 29.1 mmol/L (22-26)
[2019-04-23 08:50] LABS: ABG ALLEN TEST POS
[2019-04-23] MEDS: PROTONIX INJ 40 MG VIAL IVP SCH (09:49)
[2019-04-23] MEDS: MAXIPIME VIAL 1 GRAM 1 G in NS 50 ML IV + SPIKE MINIBAG* 50 ML IV SCH ×2 (09:50→20:17)
[2019-04-23] MEDS: ZITHROMAX TAB 250 MG PO SCH (09:51)
[2019-04-23] MEDS: THIAMINE HCL INJ IV SCH (09:51)
[2019-04-23] MEDS: LIDODERM 5% PATCH TD SCH (09:52)
[2019-04-23] MEDS: NICOTINE PATCH TD SCH (09:52)
[2019-04-23 10:31] LABS: CKMB % 2.4 % (<4); TROPONIN I 0.08 ng/mL (0-1.5)
[2019-04-23 10:35] LABS: CREATINE KINASE MB 8.3 ng/mL (0-4.0)
[2019-04-23] MEDS: NS + KCL 20 MEQ/L 1,000 ML IV SCH ×2 (14:56→22:39)
[2019-04-23] MEDS: ZOFRAN INJ 4 MG VIAL IVP PRN (15:40)
[2019-04-23] MEDS: SNACK - Diabetic Appropriate PO SCH (20:00)
--- NOTE | 2019-04-23 21:21 | RAD ---
HISTORYPNEUMONIASTUDYCHEST, 1 VIEWCOMPARISONDecember 2018FINDINGSThe trachea is midline. The cardiac silhouette is unremarkable . The lungs demonstrate stable right perihilar lower lobe mass/airspace disease which appears unchanged compared to prior. The bony thorax is unremarkable.IMPRESSIONStable chest.Electronically signed by: ABDIRAHMAN DOVER (Apr 23, 2019 21:20:32)
[2019-04-24] MEDS: DUONEB 0.5 MG/3 MG (3 mL) NEB SCH ×5 (00:25→16:00)
[2019-04-24] MEDS: SOLU-Cortef INJ IVP SCH ×4 (02:13→20:25)
[2019-04-24] MEDS: FLAGYL IV PREMIX 500 MG BAG 500 MG/100 ML BAG IV SCH ×4 (02:14→21:40)
[2019-04-24] MEDS: NS IV SCH ×4 (03:15→21:10)
[2019-04-24] MEDS: ASCORBIC ACID MULTI IV SCH ×4 (03:15→21:10)
[2019-04-24] MEDS: NS + KCL 20 MEQ/L 1,000 ML IV SCH ×2 (06:00→22:00)
[2019-04-24 06:19] LABS: BASOPHILS # (AUTO) 0.1 X10^3/uL (0.0-0.1); BASOPHILS % (AUTO) 0.4 % (0.2-1.0); HEMATOCRIT 40.2 % (42.0-54.0); HEMOGLOBIN 13.1 g/dL (13.5-18.0); LYMPHOCYTES # (AUTO) 0.2 X10^3/uL (1.3-2.9); LYMPHOCYTES % (AUTO) 1.2 % (21.0-51.0); MEAN CORPUSCULAR HEMOGLOBIN 32.2 pg (27.0-34.0); MEAN CORPUSCULAR HGB CONC 32.5 g/dL (33.0-35.0); MEAN CORPUSCULAR VOLUME 98.9 fL (80.0-100.0); MEAN PLATELET VOLUME 9.8 fL (7.4-11.0); MONOCYTES # (AUTO) 0.1 x10^3/uL (0.3-0.8); MONOCYTES % (AUTO) 0.4 % (0.0-13.0); NEUTROPHILS # (AUTO) 20.4 x10^3/uL (2.2-4.8); PLATELET COUNT 53 X10^3/uL (150.0-450.0); RED BLOOD COUNT 4.06 X10^6/uL (4.7-6.0); RED CELL DISTRIBUTION WIDTH 15.2 % (11.6-16.5); WHITE BLOOD COUNT 20.8 X10^3/uL (3.6-10.0)
[2019-04-24 06:36] LABS: ALANINE AMINOTRANSFERASE 15 Units/L (12-78); ALBUMIN 2.1 g/dL (3.4-5.0); ALKALINE PHOSPHATASE 136 Units/L (46-116); ASPARTATE AMINO TRANSFERASE 42 Units/L (15-37); BLOOD UREA NITROGEN 21 mg/dL (7-18); CALCIUM 7.8 mg/dL (8.5-10.1); CARBON DIOXIDE 25.1 mmol/L (21-32); CHLORIDE 102 mmol/L (98-107); COR CA(FOR HYPOALB) 9.3 mg/dL (8.5-10.1); SODIUM 134 mmol/L (136-145); TOTAL PROTEIN 5.5 g/dL (6.4-8.2); eGFR NON BLACK RACES > 60 (>60)
[2019-04-24 06:41] LABS: BAND NEUTROPHILS % 9 % (0-10); METAMYELOCYTES % 2; PLATELET MORPHOLOGY COMMENT NORMAL (NORMAL)
[2019-04-24 06:58] LABS: HEPATITIS B SURFACE ANTIGEN Negative (Negative)
[2019-04-24] MEDS: PULMICORT NEB TX 0.5 MG NEB SCH ×2 (08:00→20:08)
[2019-04-24 08:30] LABS: ABG BASE EXCESS -4.1 mmol/L (-2.0-2.0); ABG HCO3 25.4 mmol/L (22-26)
[2019-04-24 08:31] LABS: ABG ALLEN TEST POS
[2019-04-24] MEDS: PROTONIX INJ 40 MG VIAL IVP SCH (08:31)
[2019-04-24 08:50] LABS: CRYPTOSPORIDIUM PARVUM ANTIGEN NEGATIVE (NEGATIVE); GIARDIA LAMBLIA ANTIGEN NEGATIVE (NEGATIVE)
[2019-04-24] MEDS: THIAMINE HCL INJ IV SCH (09:39)
[2019-04-24] MEDS ORDERED: FORTAZ or TAZICEF VIAL INJ 1 G in NS 100 ML IV + SPIKE MINIBAG* 100 ML IV SCH (10:00)
[2019-04-24] MEDS: NICOTINE PATCH TD SCH (10:00)
[2019-04-24] MEDS: KLONOPIN TAB 1 MG PO SCH ×2 (10:00→21:10)
[2019-04-24] MEDS ORDERED: ALBUMIN HUMAN 25%- 100 ML 100 ML IV SCH (10:00)
[2019-04-24] MEDS ORDERED: PROCALAMINE 3 % 1,000 ML IV SCH (10:00)
[2019-04-24] MEDS: MAXIPIME VIAL 1 GRAM 1 G in NS 50 ML IV + SPIKE MINIBAG* 50 ML IV SCH ×2 (10:01→21:10)
[2019-04-24] MEDS: TobraDEX OPHTH OINT AFFEYE SCH ×2 (10:02→21:11)
[2019-04-24] MEDS: LIDODERM 5% PATCH TD SCH (10:03)
--- NOTE | 2019-04-24 10:08 | RAD ---
HISTORYPneumoniaSTUDYCHEST, 1 [id number]/21/2019FINDINGSCardiac silhouette and pulmonary vasculature are within normal limits. Stable right mid and lower lung airspace disease. No new consolidation. No sizable pleural effusion. No evidence of pneumothorax.IMPRESSIONStable right lung pneumonia.Electronically signed by: Jacobo Barrios (Apr 24, 2019 10:07:29)
[2019-04-24 13:19] LABS: BILIRUBIN,URINE NEGATIVE (NEGATIVE); BLOOD/HEMOGLOBIN,URINE NEGATIVE (NEGATIVE); GLUCOSE, URINE NEGATIVE (NEGATIVE); KETONES,URINE 1+ (NEGATIVE); LEUKOCYTE ESTERASE ,URINE 1+ (NEGATIVE); NITRITES,URINE NEGATIVE (NEGATIVE); PROTEIN,URINE 2+ (NEGATIVE); UROBILINOGEN,URINE NORMAL (NORMAL)
[2019-04-24 13:20] LABS: APPEARANCE,URINE SLIGHTLY HAZY (CLEAR); COLOR,URINE YELLOW (YELLOW)
[2019-04-24 13:26] LABS: RBC,URINE 0-2 /HPF (0-3)
[2019-04-24 13:27] LABS: AMORPHOUS SEDIMENT,UR TRACE /HPF (NEGATIVE); BACTERIA,URINE TRACE /HPF (NEGATIVE); MUCUS,URINE FEW /HPF (NEGATIVE); SQUAMOUS EPITHELIAL CELL,UR NEGATIVE /HPF (NEGATIVE); TRANSITIONAL EPI CELLS,URINE FEW /HPF (NEGATIVE)
[2019-04-24] MEDS: SNACK - Diabetic Appropriate PO SCH (20:24)
[2019-04-24] MEDS: ROBITUSSIN DM PO PRN (20:27)
[2019-04-24] MEDS: ULTRAM PO PRN (20:28)
--- NOTE | 2019-04-24 21:57 | PCM.PROG ---
Progress Note - Progress Note for Day of Date of Exam: 04/23/19 - Subjective Subjective: Pt is a 48 yo m being treated for septic shock. He is asleep on morning rounds and difficult to arouse. Lactic acid is within normal limits and he is no longer on a levophed drip. This morning patient had ABG that was acidotic and hypercapnia. Pt was on heated HF and is utilizing the bipap. CXR this morning no change from prior. Blood Cx positive for gram negative cocci but are unable to identify species and will have to send out for identification. Wbc is trending up. Creatine kinase has decreased to 353. Vitals this morning are: 98.5-115-23-96%-147/92. We will continue with current plan of care today. Otherwise, we will follow up with am labs and continue to monitor. - Past Medical Family Social History Past Med/Fam/Surg Hx: No changes since H&P Allergies: Allergies Penicillins Allergy (Verified 10/29/18 15:22) - Review of Systems ROS: No change since H&P - Vital Signs and I&O's Vital Signs: Temperature 98.4 F Pulse Rate [Brachial] 121 Pulse Rate 112 Respiratory Rate 18 Blood Pressure [Left Arm] 97/59 Blood Pressure [Right Arm] 154/86 Blood Pressure 138/93 O2 Sat by Pulse Oximetry 95 Intake and Output: Intake & Output 04/22/19 04/23/19 04/24/19 04/25/19 11:59 11:59 11:59 11:59 Intake Total 6502 / 6502 5774 / 5774 4710 / 4710 1883 / 1883 Output Total 3100 / 3100 1875 / 1875 1400 / 1400 350 / 350 Balance 3402 / 3402 3899 / 3899 3310 / 3310 1533 / 1533 - Physical Exam Oriented: Normal Eyes: Normal Ear: Normal Respiratory: Diminished, Wheezes Cardiovascular: Tachycardia : Normal Auscultation: Bowel Sounds: Normal Tenderness: Normal Skin: Decreased Turgur Musculoskeletal: Normal (Unable to assess) Mood Description: Calm Affect: Normal Speech Pattern: Clear, Appropriate - Laboratory and Diagnostics Result Diagrams: 04/24/19 04:00 04/24/19 04:00 Labs: 04/24/19 07:41 Stool - Final 04/22/19 14:18 Blood Blood Culture - Preliminary 04/22/19 14:09 Blood Blood Culture - Preliminary 04/20/19 23:20 Urine,Clean Catch Urine Culture - Final 04/20/19 17:40 Blood Blood Culture - Preliminary 04/20/19 16:12 Blood Blood Culture - Preliminary Laboratory WBC 20.8 X10^3/uL (3.6-10.0) H 04/24/19 04:00 RBC 4.06 X10^6/uL (4.7-6.0) L 04/24/19 04:00 Hgb 13.1 g/dL (13.5-18.0) L 04/24/19 04:00 Hct 40.2 % (42.0-54.0) L 04/24/19 04:00 MCV 98.9 fL (80.0-100.0) 04/24/19 04:00 MCH 32.2 pg (27.0-34.0) 04/24/19 04:00 MCHC 32.5 g/dL (33.0-35.0) L 04/24/19 04:00 RDW 15.2 % (11.6-16.5) 04/24/19 04:00 Plt Count 53 X10^3/uL (150.0-450.0) L 04/24/19 04:00 Plt Count Comment Decreased (ADEQUATE) 04/24/19 04:00 MPV 9.8 fL (7.4-11.0) 04/24/19 04:00 Neut % (Auto) 98.0 % (42.0-75.0) H 04/24/19 04:00 Lymph % (Auto) 1.2 % (21.0-51.0) L 04/24/19 04:00 [place] % (Auto) 0.4 % (0.0-13.0) 04/24/19 04:00 Eos % (Auto) 0.0 % (0.9-2.9) L 04/24/19 04:00 Baso % (Auto) 0.4 % (0.2-1.0) 04/24/19 04:00 Neut # (Auto) 20.4 x10^3/uL (2.2-4.8) H 04/24/19 04:00 Lymph # (Auto) 0.2 X10^3/uL (1.3-2.9) L 04/24/19 04:00 [place] # (Auto) 0.1 x10^3/uL (0.3-0.8) L 04/24/19 04:00 Eos # (Auto) 0.0 x10^3/uL (0.0-0.2) 04/24/19 04:00 Baso # (Auto) 0.1 X10^3/uL (0.0-0.1) 04/24/19 04:00 Absolute Nucleated RBC 0.1 /100WBC 04/24/19 04:00 Total Counted 100 04/24/19 04:00 Neutrophils % (Manual) 79 % (39-76) H 04/24/19 04:00 Band Neutrophils % 9 % (0-10) 04/24/19 04:00 Lymphocytes % (Manual) 4 % (13-43) L 04/24/19 04:00 Monocytes % (Manual) 6 % (4-9) 04/24/19 04:00 Eosinophils % (Manual) 1 % (0-6) 04/23/19 04:00 Metamyelocytes % 2 04/24/19 04:00 Myelocytes % 2 04/20/19 16:12 Giant Platelets Rare 04/23/19 04:00 Plt Morphology Comment Normal (NORMAL) 04/24/19 04:00 RBC Morphology Normal (NORMAL) 04/24/19 04:00 ESR 23 MM/HOUR (0-15) H 04/24/19 04:00 Sample Site Rr 04/24/19 08:21 ABG pH 7.180 (7.35-7.45) L* 04/24/19 08:21 ABG pCO2 68.0 mmHg (35.0-45.0) H* 04/24/19 08:21 ABG pO2 65.0 mmHg (80.0-100.0) L 04/24/19 08:21 ABG HCO3 25.4 mmol/L (22-26) 04/24/19 08:21 ABG O2 Saturation 86.0 % (90-100) L 04/24/19 08:21 ABG Base Excess -4.1 mmol/L (-2.0-2.0) L 04/24/19 08:21 Jose Daniel Test Pos 04/24/19 08:21 A-a Gradient 78.0 mmHg 04/24/19 08:21 FiO2 32.0 04/24/19 08:21 Blood Gas Comments Pt dc well. cdn 04/24/19 08:21 Sodium 134 mmol/L (136-145) L 04/24/19 04:00 Corrected Sodium TNP 04/24/19 04:00 Potassium 4.6 mmol/L (3.5-5.1) 04/24/19 04:00 Chloride 102 mmol/L (98-107) 04/24/19 04:00 Carbon Dioxide 25.1 mmol/L (21-32) 04/24/19 04:00 BUN 21 mg/dL (7-18) H 04/24/19 04:00 Creatinine 0.80 mg/dL (0.70-1.30) 04/24/19 04:00 Est GFR (MDRD) Af Amer > 60 (>60) 04/24/19 04:00 Est GFR (MDRD) Non-Af > 60 (>60) 04/24/19 04:00 Glucose 90 mg/dL (65-99) 04/24/19 04:00 Lactic Acid 1.6 mmol/L (0.4-2.0) 04/22/19 05:08 Calcium 7.8 mg/dL (8.5-10.1) L 04/24/19 04:00 Corrected Calcium 9.3 mg/dL (8.5-10.1) 04/24/19 04:00 Phosphorus 4.4 mg/dL (2.6-4.7) 04/20/19 21:56 Magnesium 1.8 mg/dL (1.7-2.9) 04/23/19 04:00 Total Bilirubin 0.50 mg/dL (0.2-1.0) 04/24/19 04:00 AST 42 Units/L (15-37) H 04/24/19 04:00 ALT 15 Units/L (12-78) 04/24/19 04:00 Alkaline Phosphatase 136 Units/L (46-116) H 04/24/19 04:00 Creatine Kinase 353 Units/L (39-308) H 04/23/19 08:45 CK-MB (CK-2) 8.3 ng/mL (0-4.0) H* 04/23/19 08:45 CK/CKMB % Calc 2.4 % (<4) 04/23/19 08:45 Troponin I 0.08 ng/mL (0-1.5) 04/23/19 08:45 C-Reactive Protein 153.20 mg/L (0-3.0) H 04/24/19 04:00 Total Protein 5.5 g/dL (6.4-8.2) L 04/24/19 04:00 Albumin 2.1 g/dL (3.4-5.0) L 04/24/19 04:00 Globulin 3.4 g/dL (2.5-4.5) 04/24/19 04:00 Albumin/Globulin Ratio 0.6 Ratio (1.1-2.1) L 04/24/19 04:00 TSH 3rd Generation 1.187 uIU/mL (0.358-3.74) 04/20/19 21:56 Specimen Type Catherized urine 04/24/19 13:12 Urine Color Yellow (YELLOW) 04/24/19 13:12 Urine Appearance Slightly hazy (CLEAR) 04/24/19 13:12 Urine pH 6.0 (5.0 - 8.0) 04/24/19 13:12 Ur Specific [place] 1.010 (1.000-1.030) 04/24/19 13:12 Urine Protein 2+ (NEGATIVE) 04/24/19 13:12 Urine Glucose (UA) Negative (NEGATIVE) 04/24/19 13:12 Urine Ketones 1+ (NEGATIVE) 04/24/19 13:12 Urine Occult Blood Negative (NEGATIVE) 04/24/19 13:12 Urine Nitrite Negative (NEGATIVE) 04/24/19 13:12 Urine Bilirubin Negative (NEGATIVE) 04/24/19 13:12 Urine Urobilinogen Normal (NORMAL) 04/24/19 13:12 Ur Leukocyte Esterase 1+ (NEGATIVE) 04/24/19 13:12 Urine RBC 0-2 /HPF (0-3) 04/24/19 13:12 Urine WBC 0-2 /HPF (0-5) 04/24/19 13:12 Ur Squamous Epith Cells Negative /HPF (NEGATIVE) 04/24/19 13:12 Ur Transition Epith Cell Few /HPF (NEGATIVE) 04/24/19 13:12 Amorphous Sediment Trace /HPF (NEGATIVE) 04/24/19 13:12 Urine Bacteria Trace /HPF (NEGATIVE) 04/24/19 13:12 Urine Mucus Few /HPF (NEGATIVE) 04/24/19 13:12 Ur Culture Indicated? No/not indicated 04/24/19 13:12 Stool Description 15g,brown,liquid 04/24/19 07:41 Stool Description 15g,brown,liquid 04/24/19 07:41 Stl Occult Blood (IFOB) Positive (NEGATIVE) A 04/24/19 07:41 Stool for White Cells Positive (NEGATIVE) A 04/24/19 07:41 Stl C. diff Tox B Gene Positive (NEGATIVE) A 04/24/19 07:41 Stl C. diff 027-NAP1-BI Negative (NEGATIVE) 04/24/19 07:41 Urine Opiates Screen Negative (NEG=<300) 04/20/19 23:24 Urine Methadone Screen Negative (NEG=<300) 04/20/19 23:24 Ur Barbiturates Screen Negative (NEG=<200) 04/20/19 23:24 Ur Phencyclidine Scrn Negative (NEG=<25) 04/20/19 23:24 Ur Amphetamines Screen Negative (NEG=<1000) 04/20/19 23:24 U Benzodiazepines Scrn Negative (NEG=<200) 04/20/19 23:24 Urine Cocaine Screen Negative (NEG=<300) 04/20/19 23:24 U Marijuana (THC) Screen Negative (NEG=<50) 04/20/19 23:24 Ethyl Alcohol mg/dL 4 mg/dL (0-19.9) 04/20/19 21:56 Ur C. trach DNA (PCR) Not detected (NOT DETECT) 04/22/19 17:10 C. difficile Toxin A&B Negative (NEGATIVE) 04/24/19 07:41 Cryptosporid parvum Ag Negative (NEGATIVE) 04/24/19 07:41 Giardia lamblia Ag Negative (NEGATIVE) 04/24/19 07:41 Hepatitis A IgM Ab Negative (Negative) 04/20/19 21:56 Hep Bs Antigen Negative (Negative) 04/20/19 21:56 Hep Bs Ag Confirmation TNP 04/20/19 21:56 Hep B Core IgM Ab Negative (Negative) 04/20/19 21:56 Hepatitis C Ab Index 0.07 IV 04/20/19 21:56 Hepatitis C Interp Negative (Negative) 04/20/19 21:56 Hepatitis Interpret See note 04/20/19 21:56 HIV-1 Ab Confirm (Blot) TNP 04/20/19 21:56 HIV 1&2 Antibody Screen Negative (Negative) 04/20/19 21:56 Influenza Type A (PCR) Negative (NEGATIVE) 04/20/19 17:40 Influenza Type B (PCR) Negative (NEGATIVE) 04/20/19 17:40 U N.gonorrhoeae DNA PCR Not detected (NOT DETECT) 04/22/19 17:10
--- NOTE | 2019-04-24 22:03 | PCM.PROG ---
Progress Note - Progress Note for Day of Date of Exam: 04/24/19 - Subjective Subjective: Pt is a 48 yo m being treated for septic shock. He is alert and oriented on morning rounds. He reports weakness and generalized pain this morning. He reports that he is unable to tolerate wearing the bipap much. ABG continues to report acidotic and hypercapnia. Pt is on heated HF. CXR this mo rning reports stable right lung pneumonia. Blood Cx positive for gram negative cocci but are unable to identify species and will have to send out for identification. Wbc is 20.8 this morning, which could be from the solu-cortef that he is receiving. Crp is elevated at 153.20. Vitals this morning are: 97.4-032-51-100%nc-145/80. Today, we will start procalamine, albumin 25% iv daily, morphine 2mg iv q4h prn, tramadol 50mg po qid prn, klonopin 1mg po bid, fortaz 1g iv daily, and will discontinue the azithromycin. Otherwise, we will follow up with am labs and continue to monitor. - Past Medical Family Social History Past Med/Fam/Surg Hx: No changes since H&P Allergies: Allergies Penicillins Allergy (Verified 10/29/18 15:22) - Review of Systems ROS: No change since H&P - Vital Signs and I&O's Vital Signs: Temperature 98.4 F Pulse Rate [Brachial] 121 Pulse Rate 112 Respiratory Rate 18 Blood Pressure [Left Arm] 97/59 Blood Pressure [Right Arm] 154/86 Blood Pressure 138/93 O2 Sat by Pulse Oximetry 95 Intake and Output: Intake & Output 04/22/19 04/23/19 04/24/19 04/25/19 11:59 11:59 11:59 11:59 Intake Total 6502 / 6502 5774 / 5774 4710 / 4710 1883 / 1883 Output Total 3100 / 3100 1875 / 1875 1400 / 1400 350 / 350 Balance 3402 / 3402 3899 / 3899 3310 / 3310 1533 / 1533 - Physical Exam Oriented: Normal Eyes: Normal Ear: Normal Respiratory: Diminished, Wheezes Cardiovascular: Tachycardia : Normal Auscultation: Bowel Sounds: Normal Tenderness: Normal Skin: Decreased Turgur Musculoskeletal: Normal (Unable to assess) Mood Description: Calm Affect: Normal Speech Pattern: Clear, Appropriate - Laboratory and Diagnostics Result Diagrams: 04/24/19 04:00 04/24/19 04:00 Labs: 04/24/19 07:41 Stool - Final 04/22/19 14:18 Blood Blood Culture - Preliminary 04/22/19 14:09 Blood Blood Culture - Preliminary 04/20/19 23:20 Urine,Clean Catch Urine Culture - Final 04/20/19 17:40 Blood Blood Culture - Preliminary 04/20/19 16:12 Blood Blood Culture - Preliminary Laboratory WBC 20.8 X10^3/uL (3.6-10.0) H 04/24/19 04:00 RBC 4.06 X10^6/uL (4.7-6.0) L 04/24/19 04:00 Hgb 13.1 g/dL (13.5-18.0) L 04/24/19 04:00 Hct 40.2 % (42.0-54.0) L 04/24/19 04:00 MCV 98.9 fL (80.0-100.0) 04/24/19 04:00 MCH 32.2 pg (27.0-34.0) 04/24/19 04:00 MCHC 32.5 g/dL (33.0-35.0) L 04/24/19 04:00 RDW 15.2 % (11.6-16.5) 04/24/19 04:00 Plt Count 53 X10^3/uL (150.0-450.0) L 04/24/19 04:00 Plt Count Comment Decreased (ADEQUATE) 04/24/19 04:00 MPV 9.8 fL (7.4-11.0) 04/24/19 04:00 Neut % (Auto) 98.0 % (42.0-75.0) H 04/24/19 04:00 Lymph % (Auto) 1.2 % (21.0-51.0) L 04/24/19 04:00 [place] % (Auto) 0.4 % (0.0-13.0) 04/24/19 04:00 Eos % (Auto) 0.0 % (0.9-2.9) L 04/24/19 04:00 Baso % (Auto) 0.4 % (0.2-1.0) 04/24/19 04:00 Neut # (Auto) 20.4 x10^3/uL (2.2-4.8) H 04/24/19 04:00 Lymph # (Auto) 0.2 X10^3/uL (1.3-2.9) L 04/24/19 04:00 [place] # (Auto) 0.1 x10^3/uL (0.3-0.8) L 04/24/19 04:00 Eos # (Auto) 0.0 x10^3/uL (0.0-0.2) 04/24/19 04:00 Baso # (Auto) 0.1 X10^3/uL (0.0-0.1) 04/24/19 04:00 Absolute Nucleated RBC 0.1 /100WBC 04/24/19 04:00 Total Counted 100 04/24/19 04:00 Neutrophils % (Manual) 79 % (39-76) H 04/24/19 04:00 Band Neutrophils % 9 % (0-10) 04/24/19 04:00 Lymphocytes % (Manual) 4 % (13-43) L 04/24/19 04:00 Monocytes % (Manual) 6 % (4-9) 04/24/19 04:00 Eosinophils % (Manual) 1 % (0-6) 04/23/19 04:00 Metamyelocytes % 2 04/24/19 04:00 Myelocytes % 2 04/20/19 16:12 Giant Platelets Rare 04/23/19 04:00 Plt Morphology Comment Normal (NORMAL) 04/24/19 04:00 RBC Morphology Normal (NORMAL) 04/24/19 04:00 ESR 23 MM/HOUR (0-15) H 04/24/19 04:00 Sample Site Rr 04/24/19 08:21 ABG pH 7.180 (7.35-7.45) L* 04/24/19 08:21 ABG pCO2 68.0 mmHg (35.0-45.0) H* 04/24/19 08:21 ABG pO2 65.0 mmHg (80.0-100.0) L 04/24/19 08:21 ABG HCO3 25.4 mmol/L (22-26) 04/24/19 08:21 ABG O2 Saturation 86.0 % (90-100) L 04/24/19 08:21 ABG Base Excess -4.1 mmol/L (-2.0-2.0) L 04/24/19 08:21 Jose Daniel Test Pos 04/24/19 08:21 A-a Gradient 78.0 mmHg 04/24/19 08:21 FiO2 32.0 04/24/19 08:21 Blood Gas Comments Pt dc well. cdn 04/24/19 08:21 Sodium 134 mmol/L (136-145) L 04/24/19 04:00 Corrected Sodium TNP 04/24/19 04:00 Potassium 4.6 mmol/L (3.5-5.1) 04/24/19 04:00 Chloride 102 mmol/L (98-107) 04/24/19 04:00 Carbon Dioxide 25.1 mmol/L (21-32) 04/24/19 04:00 BUN 21 mg/dL (7-18) H 04/24/19 04:00 Creatinine 0.80 mg/dL (0.70-1.30) 04/24/19 04:00 Est GFR (MDRD) Af Amer > 60 (>60) 04/24/19 04:00 Est GFR (MDRD) Non-Af > 60 (>60) 04/24/19 04:00 Glucose 90 mg/dL (65-99) 04/24/19 04:00 Lactic Acid 1.6 mmol/L (0.4-2.0) 04/22/19 05:08 Calcium 7.8 mg/dL (8.5-10.1) L 04/24/19 04:00 Corrected Calcium 9.3 mg/dL (8.5-10.1) 04/24/19 04:00 Phosphorus 4.4 mg/dL (2.6-4.7) 04/20/19 21:56 Magnesium 1.8 mg/dL (1.7-2.9) 04/23/19 04:00 Total Bilirubin 0.50 mg/dL (0.2-1.0) 04/24/19 04:00 AST 42 Units/L (15-37) H 04/24/19 04:00 ALT 15 Units/L (12-78) 04/24/19 04:00 Alkaline Phosphatase 136 Units/L (46-116) H 04/24/19 04:00 Creatine Kinase 353 Units/L (39-308) H 04/23/19 08:45 CK-MB (CK-2) 8.3 ng/mL (0-4.0) H* 04/23/19 08:45 CK/CKMB % Calc 2.4 % (<4) 04/23/19 08:45 Troponin I 0.08 ng/mL (0-1.5) 04/23/19 08:45 C-Reactive Protein 153.20 mg/L (0-3.0) H 04/24/19 04:00 Total Protein 5.5 g/dL (6.4-8.2) L 04/24/19 04:00 Albumin 2.1 g/dL (3.4-5.0) L 04/24/19 04:00 Globulin 3.4 g/dL (2.5-4.5) 04/24/19 04:00 Albumin/Globulin Ratio 0.6 Ratio (1.1-2.1) L 04/24/19 04:00 TSH 3rd Generation 1.187 uIU/mL (0.358-3.74) 04/20/19 21:56 Specimen Type Catherized urine 04/24/19 13:12 Urine Color Yellow (YELLOW) 04/24/19 13:12 Urine Appearance Slightly hazy (CLEAR) 04/24/19 13:12 Urine pH 6.0 (5.0 - 8.0) 04/24/19 13:12 Ur Specific [place] 1.010 (1.000-1.030) 04/24/19 13:12 Urine Protein 2+ (NEGATIVE) 04/24/19 13:12 Urine Glucose (UA) Negative (NEGATIVE) 04/24/19 13:12 Urine Ketones 1+ (NEGATIVE) 04/24/19 13:12 Urine Occult Blood Negative (NEGATIVE) 04/24/19 13:12 Urine Nitrite Negative (NEGATIVE) 04/24/19 13:12 Urine Bilirubin Negative (NEGATIVE) 04/24/19 13:12 Urine Urobilinogen Normal (NORMAL) 04/24/19 13:12 Ur Leukocyte Esterase 1+ (NEGATIVE) 04/24/19 13:12 Urine RBC 0-2 /HPF (0-3) 04/24/19 13:12 Urine WBC 0-2 /HPF (0-5) 04/24/19 13:12 Ur Squamous Epith Cells Negative /HPF (NEGATIVE) 04/24/19 13:12 Ur Transition Epith Cell Few /HPF (NEGATIVE) 04/24/19 13:12 Amorphous Sediment Trace /HPF (NEGATIVE) 04/24/19 13:12 Urine Bacteria Trace /HPF (NEGATIVE) 04/24/19 13:12 Urine Mucus Few /HPF (NEGATIVE) 04/24/19 13:12 Ur Culture Indicated? No/not indicated 04/24/19 13:12 Stool Description 15g,brown,liquid 04/24/19 07:41 Stool Description 15g,brown,liquid 04/24/19 07:41 Stl Occult Blood (IFOB) Positive (NEGATIVE) A 04/24/19 07:41 Stool for White Cells Positive (NEGATIVE) A 04/24/19 07:41 Stl C. diff Tox B Gene Positive (NEGATIVE) A 04/24/19 07:41 Stl C. diff 027-NAP1-BI Negative (NEGATIVE) 04/24/19 07:41 Urine Opiates Screen Negative (NEG=<300) 04/20/19 23:24 Urine Methadone Screen Negative (NEG=<300) 04/20/19 23:24 Ur Barbiturates Screen Negative (NEG=<200) 04/20/19 23:24 Ur Phencyclidine Scrn Negative (NEG=<25) 04/20/19 23:24 Ur Amphetamines Screen Negative (NEG=<1000) 04/20/19 23:24 U Benzodiazepines Scrn Negative (NEG=<200) 04/20/19 23:24 Urine Cocaine Screen Negative (NEG=<300) 04/20/19 23:24 U Marijuana (THC) Screen Negative (NEG=<50) 04/20/19 23:24 Ethyl Alcohol mg/dL 4 mg/dL (0-19.9) 04/20/19 21:56 Ur C. trach DNA (PCR) Not detected (NOT DETECT) 04/22/19 17:10 C. difficile Toxin A&B Negative (NEGATIVE) 04/24/19 07:41 Cryptosporid parvum Ag Negative (NEGATIVE) 04/24/19 07:41 Giardia lamblia Ag Negative (NEGATIVE) 04/24/19 07:41 Hepatitis A IgM Ab Negative (Negative) 04/20/19 21:56 Hep Bs Antigen Negative (Negative) 04/20/19 21:56 Hep Bs Ag Confirmation TNP 04/20/19 21:56 Hep B Core IgM Ab Negative (Negative) 04/20/19 21:56 Hepatitis C Ab Index 0.07 IV 04/20/19 21:56 Hepatitis C Interp Negative (Negative) 04/20/19 21:56 Hepatitis Interpret See note 04/20/19 21:56 HIV-1 Ab Confirm (Blot) TNP 04/20/19 21:56 HIV 1&2 Antibody Screen Negative (Negative) 04/20/19 21:56 Influenza Type A (PCR) Negative (NEGATIVE) 04/20/19 17:40 Influenza Type B (PCR) Negative (NEGATIVE) 04/20/19 17:40 U N.gonorrhoeae DNA PCR Not detected (NOT DETECT) 04/22/19 17:10
[2019-04-25] MEDS: DUONEB 0.5 MG/3 MG (3 mL) NEB SCH ×5 (01:13→16:34)
[2019-04-25] MEDS: FLAGYL IV PREMIX 500 MG BAG 500 MG/100 ML BAG IV SCH ×4 (03:15→21:30)
[2019-04-25] MEDS: NS + KCL 20 MEQ/L 1,000 ML IV SCH (05:15)
[2019-04-25] MEDS: ROBITUSSIN DM PO PRN ×2 (05:30→19:15)
[2019-04-25 06:08] LABS: ALANINE AMINOTRANSFERASE 8 Units/L (12-78); ALBUMIN 2.5 g/dL (3.4-5.0); ALKALINE PHOSPHATASE 123 Units/L (46-116); ASPARTATE AMINO TRANSFERASE 22 Units/L (15-37); BLOOD UREA NITROGEN 26 mg/dL (7-18); CALCIUM 7.7 mg/dL (8.5-10.1); CARBON DIOXIDE 23.4 mmol/L (21-32); CHLORIDE 106 mmol/L (98-107); COR CA(FOR HYPOALB) 8.9 mg/dL (8.5-10.1); COR NA(FOR HYPERGLY) 137 mmol/L (136-145); CREATININE 0.71 mg/dL (0.70-1.30); SODIUM 136 mmol/L (136-145); TOTAL PROTEIN 5.4 g/dL (6.4-8.2); eGFR NON BLACK RACES > 60 (>60)
[2019-04-25 06:09] LABS: BASOPHILS % (AUTO) 0.2 % (0.2-1.0); HEMATOCRIT 38.6 % (42.0-54.0); HEMOGLOBIN 12.5 g/dL (13.5-18.0); LYMPHOCYTES # (AUTO) 0.4 X10^3/uL (1.3-2.9); LYMPHOCYTES % (AUTO) 2.7 % (21.0-51.0); MEAN CORPUSCULAR HEMOGLOBIN 32.2 pg (27.0-34.0); MEAN CORPUSCULAR HGB CONC 32.3 g/dL (33.0-35.0); MEAN CORPUSCULAR VOLUME 99.5 fL (80.0-100.0); MONOCYTES # (AUTO) 0.9 x10^3/uL (0.3-0.8); MONOCYTES % (AUTO) 6.4 % (0.0-13.0); NEUTROPHILS # (AUTO) 12.9 x10^3/uL (2.2-4.8); NEUTROPHILS % (AUTO) 90.7 % (42.0-75.0); PLATELET COUNT 56 X10^3/uL (150.0-450.0); RED BLOOD COUNT 3.88 X10^6/uL (4.7-6.0); RED CELL DISTRIBUTION WIDTH 15.9 % (11.6-16.5); WHITE BLOOD COUNT 14.2 X10^3/uL (3.6-10.0)
[2019-04-25 07:13] LABS: ABG BASE EXCESS -2.6 mmol/L (-2.0-2.0); ABG HCO3 27.2 mmol/L (22-26)
[2019-04-25 07:14] LABS: BAND NEUTROPHILS % 5 % (0-10)
[2019-04-25 07:15] LABS: PLATELET MORPHOLOGY COMMENT NORMAL (NORMAL)
[2019-04-25 07:15] LABS: ABG ALLEN TEST POS
--- NOTE | 2019-04-25 08:55 | RAD ---
HISTORYPNEUMONIASTUDYCHEST, 1 VIEWCOMPARISONDecember 2018, April 2019FINDINGSThe patient is rotated. The cardiac silhouette is enlarged. Infiltrate is again noted within the right lower lobe. Ill-defined opacity within right upper lobe is again demonstrated as well possibly representing infiltrate and/or scarring however underlying lesion cannot totally be excluded. Recommend continue follow up until resolution. Small bilateral pleural effusions are also suspected.IMPRESSIONRight upper and right lower lobe airspace disease with suspected bilateral pleural effusions as noted above.Electronically signed by: TERESITA WILDER (Apr 25, 2019 08:53:24)
[2019-04-25] MEDS ORDERED: SOLU-Cortef INJ IVP SCH (09:00)
[2019-04-25] MEDS: PULMICORT NEB TX 0.5 MG NEB SCH ×2 (09:30→20:00)
--- NOTE | 2019-04-25 09:38 | PCM.PROG ---
Progress Note Progress Note for Day of Date of Exam: 04/25/19 Subjective Subjective: Pt is a 48 yo m being treated for septic shock. He is alert and oriented. He states he does not like wearing the Bipap. ABG continues to report acidotic and hypercapnia this morning. Will change Bipap settings and recheck in 2 hours. LA normalized. CXR this morning reports Right upper and right lower lobe airspace disease with suspected bilateral pleural effusions. Pt also has some edema, will give IV Lasix 20mg x 1dose. Blood Cx positive for gram negative cocci but are unable to identify species and will have to send out for identification. Wbc is trending down this morning 20.8>14.2. BP has remained stable, will continue to monitor. Past Medical Family Social History Past Med/Fam/Surg Hx: No changes since H&P Allergies: Allergies Penicillins Allergy (Verified 10/29/18 15:22) Review of Systems ROS: No change since H&P Vital Signs and I&O's Vital Signs: Temperature 97.2 F Pulse Rate [Brachial] 121 Pulse Rate 106 Respiratory Rate 20 Blood Pressure [Left Arm] 97/59 Blood Pressure [Right Arm] 154/86 Blood Pressure 136/87 O2 Sat by Pulse Oximetry 98 Intake and Output: Intake & Output 04/22/19 04/23/19 04/24/19 04/25/19 23:59 23:59 23:59 23:59 Intake Total 5471 / 5471 5404 / 5404 4673 / 4673 1267 / 1267 Output Total 1725 / 1725 1600 / 1600 1200 / 1200 300 / 300 Balance 3746 / 3746 3804 / 3804 3473 / 3473 967 / 967 Physical Exam Oriented: Normal Eyes: Normal Ear: Normal Respiratory: Diminished and Wheezes Cardiovascular: Tachycardia : Normal Auscultation: Bowel Sounds: Normal Tenderness: Normal Skin: Decreased Turgur Musculoskeletal: Normal (Unable to assess ) Mood Description: Calm Affect: Normal Speech Pattern: Clear and Appropriate Laboratory and Diagnostics Result Diagrams: 04/25/19 04:00 04/25/19 04:00 Labs: 04/24/19 07:41 Stool Stool Culture - Preliminary 04/24/19 07:41 Stool - Final 04/22/19 14:18 Blood Blood Culture - Preliminary 04/22/19 14:09 Blood Blood Culture - Preliminary 04/20/19 23:20 Urine,Clean Catch Urine Culture - Final 04/20/19 17:40 Blood Blood Culture - Preliminary 04/20/19 16:12 Blood Blood Culture - Preliminary Laboratory WBC 14.2 X10^3/uL (3.6-10.0) H 04/25/19 04:00 RBC 3.88 X10^6/uL (4.7-6.0) L 04/25/19 04:00 Hgb 12.5 g/dL (13.5-18.0) L 04/25/19 04:00 Hct 38.6 % (42.0-54.0) L 04/25/19 04:00 MCV 99.5 fL (80.0-100.0) 04/25/19 04:00 MCH 32.2 pg (27.0-34.0) 04/25/19 04:00 MCHC 32.3 g/dL (33.0-35.0) L 04/25/19 04:00 RDW 15.9 % (11.6-16.5) 04/25/19 04:00 Plt Count 56 X10^3/uL (150.0-450.0) L 04/25/19 04:00 Plt Count Comment Decreased (ADEQUATE) 04/25/19 04:00 MPV 9.0 fL (7.4-11.0) 04/25/19 04:00 Neut % (Auto) 90.7 % (42.0-75.0) H 04/25/19 04:00 Lymph % (Auto) 2.7 % (21.0-51.0) L 04/25/19 04:00 [place] % (Auto) 6.4 % (0.0-13.0) 04/25/19 04:00 Eos % (Auto) 0.0 % (0.9-2.9) L 04/25/19 04:00 Baso % (Auto) 0.2 % (0.2-1.0) 04/25/19 04:00 Neut # (Auto) 12.9 x10^3/uL (2.2-4.8) H 04/25/19 04:00 Lymph # (Auto) 0.4 X10^3/uL (1.3-2.9) L 04/25/19 04:00 [place] # (Auto) 0.9 x10^3/uL (0.3-0.8) H 04/25/19 04:00 Eos # (Auto) 0.0 x10^3/uL (0.0-0.2) 04/25/19 04:00 Baso # (Auto) 0.0 X10^3/uL (0.0-0.1) 04/25/19 04:00 Absolute Nucleated RBC 0.1 /100WBC 04/25/19 04:00 Total Counted 100 04/25/19 04:00 Neutrophils % (Manual) 78 % (39-76) H 04/25/19 04:00 Band Neutrophils % 5 % (0-10) 04/25/19 04:00 Lymphocytes % (Manual) 10 % (13-43) L 04/25/19 04:00 Monocytes % (Manual) 7 % (4-9) 04/25/19 04:00 Eosinophils % (Manual) 1 % (0-6) 04/23/19 04:00 Metamyelocytes % 2 04/24/19 04:00 Myelocytes % 2 04/20/19 16:12 Giant Platelets Rare 04/23/19 04:00 Plt Morphology Comment Normal (NORMAL) 04/25/19 04:00 RBC Morphology Normal (NORMAL) 04/25/19 04:00 ESR 23 MM/HOUR (0-15) H 04/24/19 04:00 Sample Site Lr 04/25/19 07:04 ABG pH 7.180 (7.35-7.45) L* 04/25/19 07:04 ABG pCO2 73.0 mmHg (35.0-45.0) H* 04/25/19 07:04 ABG pO2 92.0 mmHg (80.0-100.0) 04/25/19 07:04 ABG HCO3 27.2 mmol/L (22-26) H 04/25/19 07:04 ABG O2 Saturation 95.0 % (90-100) 04/25/19 07:04 ABG Base Excess -2.6 mmol/L (-2.0-2.0) L 04/25/19 07:04 Jose Daniel Test Pos 04/25/19 07:04 A-a Gradient 102.0 mmHg 04/25/19 07:04 FiO2 40.0 04/25/19 07:04 Blood Gas Comments Pt dc well. cdn 04/25/19 07:04 Sodium 136 mmol/L (136-145) 04/25/19 04:00 Corrected Sodium 137 mmol/L (136-145) 04/25/19 04:00 Potassium 4.9 mmol/L (3.5-5.1) 04/25/19 04:00 Chloride 106 mmol/L (98-107) 04/25/19 04:00 Carbon Dioxide 23.4 mmol/L (21-32) 04/25/19 04:00 BUN 26 mg/dL (7-18) H 04/25/19 04:00 Creatinine 0.71 mg/dL (0.70-1.30) 04/25/19 04:00 Est GFR (MDRD) Af Amer > 60 (>60) 04/25/19 04:00 Est GFR (MDRD) Non-Af > 60 (>60) 04/25/19 04:00 Glucose 124 mg/dL (65-99) H 04/25/19 04:00 Lactic Acid 0.6 mmol/L (0.4-2.0) 04/25/19 08:23 Calcium 7.7 mg/dL (8.5-10.1) L 04/25/19 04:00 Corrected Calcium 8.9 mg/dL (8.5-10.1) 04/25/19 04:00 Phosphorus 4.4 mg/dL (2.6-4.7) 04/20/19 21:56 Magnesium 1.8 mg/dL (1.7-2.9) 04/23/19 04:00 Total Bilirubin 0.40 mg/dL (0.2-1.0) 04/25/19 04:00 AST 22 Units/L (15-37) 04/25/19 04:00 ALT 8 Units/L (12-78) L 04/25/19 04:00 Alkaline Phosphatase 123 Units/L (46-116) H 04/25/19 04:00 Creatine Kinase 353 Units/L (39-308) H 04/23/19 08:45 CK-MB (CK-2) 8.3 ng/mL (0-4.0) H* 04/23/19 08:45 CK/CKMB % Calc 2.4 % (<4) 04/23/19 08:45 Troponin I 0.08 ng/mL (0-1.5) 04/23/19 08:45 C-Reactive Protein 153.20 mg/L (0-3.0) H 04/24/19 04:00 Total Protein 5.4 g/dL (6.4-8.2) L 04/25/19 04:00 Albumin 2.5 g/dL (3.4-5.0) L 04/25/19 04:00 Globulin 2.9 g/dL (2.5-4.5) 04/25/19 04:00 Albumin/Globulin Ratio 0.9 Ratio (1.1-2.1) L 04/25/19 04:00 TSH 3rd Generation 1.187 uIU/mL (0.358-3.74) 04/20/19 21:56 Specimen Type Catherized urine 04/24/19 13:12 Urine Color Yellow (YELLOW) 04/24/19 13:12 Urine Appearance Slightly hazy (CLEAR) 04/24/19 13:12 Urine pH 6.0 (5.0 - 8.0) 04/24/19 13:12 Ur Specific [place] 1.010 (1.000-1.030) 04/24/19 13:12 Urine Protein 2+ (NEGATIVE) 04/24/19 13:12 Urine Glucose (UA) Negative (NEGATIVE) 04/24/19 13:12 Urine Ketones 1+ (NEGATIVE) 04/24/19 13:12 Urine Occult Blood Negative (NEGATIVE) 04/24/19 13:12 Urine Nitrite Negative (NEGATIVE) 04/24/19 13:12 Urine Bilirubin Negative (NEGATIVE) 04/24/19 13:12 Urine Urobilinogen Normal (NORMAL) 04/24/19 13:12 Ur Leukocyte Esterase 1+ (NEGATIVE) 04/24/19 13:12 Urine RBC 0-2 /HPF (0-3) 04/24/19 13:12 Urine WBC 0-2 /HPF (0-5) 04/24/19 13:12 Ur Squamous Epith Cells Negative /HPF (NEGATIVE) 04/24/19 13:12 Ur Transition Epith Cell Few /HPF (NEGATIVE) 04/24/19 13:12 Amorphous Sediment Trace /HPF (NEGATIVE) 04/24/19 13:12 Urine Bacteria Trace /HPF (NEGATIVE) 04/24/19 13:12 Urine Mucus Few /HPF (NEGATIVE) 04/24/19 13:12 Ur Culture Indicated? No/not indicated 04/24/19 13:12 Stool Description 15g,brown,liquid 04/24/19 07:41 Stool Description 15g,brown,liquid 04/24/19 07:41 Stl Occult Blood (IFOB) Positive (NEGATIVE) A 04/24/19 07:41 Stool for White Cells Positive (NEGATIVE) A 04/24/19 07:41 Stl C. diff Tox B Gene Positive (NEGATIVE) A 04/24/19 07:41 Stl C. diff 027-NAP1-BI Negative (NEGATIVE) 04/24/19 07:41 Urine Opiates Screen Negative (NEG=<300) 04/20/19 23:24 Urine Methadone Screen Negative (NEG=<300) 04/20/19 23:24 Ur Barbiturates Screen Negative (NEG=<200) 04/20/19 23:24 Ur Phencyclidine Scrn Negative (NEG=<25) 04/20/19 23:24 Ur Amphetamines Screen Negative (NEG=<1000) 04/20/19 23:24 U Benzodiazepines Scrn Negative (NEG=<200) 04/20/19 23:24 Urine Cocaine Screen Negative (NEG=<300) 04/20/19 23:24 U Marijuana (THC) Screen Negative (NEG=<50) 04/20/19 23:24 Ethyl Alcohol mg/dL 4 mg/dL (0-19.9) 04/20/19 21:56 Ur C. trach DNA (PCR) Not detected (NOT DETECT) 04/22/19 17:10 C. difficile Toxin A&B Negative (NEGATIVE) 04/24/19 07:41 Cryptosporid parvum Ag Negative (NEGATIVE) 04/24/19 07:41 Giardia lamblia Ag Negative (NEGATIVE) 04/24/19 07:41 Hepatitis A IgM Ab Negative (Negative) 04/20/19 21:56 Hep Bs Antigen Negative (Negative) 04/20/19 21:56 Hep Bs Ag Confirmation TNP 04/20/19 21:56 Hep B Core IgM Ab Negative (Negative) 04/20/19 21:56 Hepatitis C Ab Index 0.07 IV 04/20/19 21:56 Hepatitis C Interp Negative (Negative) 04/20/19 21:56 Hepatitis Interpret See note 04/20/19 21:56 HIV-1 Ab Confirm (Blot) TNP 04/20/19 21:56 HIV 1&2 Antibody Screen Negative (Negative) 04/20/19 21:56 Influenza Type A (PCR) Negative (NEGATIVE) 04/20/19 17:40 Influenza Type B (PCR) Negative (NEGATIVE) 04/20/19 17:40 U N.gonorrhoeae DNA PCR Not detected (NOT DETECT) 04/22/19 17:10 Plan (1) Gram-negative bacteremia: Status: Acute Plan: Continue Cefepime, Flagyl. Echo see results. Repeat blood cultures, follow final cultures (2) Acute respiratory failure with hypercapnia: Status: Acute Plan: Continues to acidotic and hypercapnic. Will adjust BiPAP, repeat ABG and adjust as needed. (3) Septic shock: Status: Acute Plan: Continue bronchodilator treatments, BP stable, off pressors. LA: normalized BloodCx(04/20):gram negative cocci; SputumCx(04/20):pending Repeat labs in AM, continue to monitor. Abx: Continue cefepime and Flagyl. Started prednisone 40mg daily today (4) Neutropenia: Status: Acute Qualifiers: Neutropenia type: unspecified Qualified Code(s): D70.9 - Neutropenia, unspecified (5) Pneumonia: Status: Acute Qualifiers: Laterality: right Lung location: middle lobe of lung Pneumonia type: due to unspecified organism Qualified Code(s): J18.9 - Pneumonia, unspecified organism Plan: CXR reviewed, right sided pneumonia Continue Abx Will give one dose of Lasix due to increased pleural effusion (6) COPD (chronic obstructive pulmonary disease): Status: Acute Qualifiers: COPD type: COPD with acute exacerbation Qualified Code(s): J44.1 - Chronic obstructive pulmonary disease with (acute) exacerbation (7) Acute hyponatremia: Status: Acute Plan: Na: 132 (8) Acute renal failure: Status: Acute Qualifiers: Acute renal failure type: unspecified Qualified Code(s): N17.9 - Acute kidney failure, unspecified Plan: Resolved (9) Hypotension: Status: Acute Qualifiers: Hypotension type: unspecified hypotension type Qualified Code(s): I95.9 - Hypotension, unspecified (10) Hypothermia: Status: Acute Qualifiers: Encounter type: initial encounter Qualified Code(s): T68.XXXA - Hypothermia, initial encounter (11) Alcohol use: Status: Acute (12) Failure to thrive: Status: Acute Qualifiers: Failure to thrive age range: in adult Qualified Code(s): R62.7 - Adult failure to thrive (13) Elevated liver enzymes: Status: Acute
[2019-04-25] MEDS ORDERED: LASIX IVP ONE (09:52)
[2019-04-25] MEDS: LIDODERM 5% PATCH TD SCH (09:57)
[2019-04-25] MEDS: NICOTINE PATCH TD SCH (09:58)
[2019-04-25] MEDS: MAXIPIME VIAL 1 GRAM 1 G in NS 50 ML IV + SPIKE MINIBAG* 50 ML IV SCH ×2 (09:58→20:14)
[2019-04-25] MEDS: PROTONIX INJ 40 MG VIAL IVP SCH (09:58)
[2019-04-25] MEDS: THIAMINE HCL INJ IV SCH (09:59)
[2019-04-25] MEDS: TobraDEX OPHTH OINT AFFEYE SCH ×2 (09:59→20:14)
[2019-04-25] MEDS: PREDNISONE TAB 20 MG PO SCH (10:01)
[2019-04-25 11:47] LABS: ABG BASE EXCESS -1.6 mmol/L (-2.0-2.0); ABG HCO3 27.2 mmol/L (22-26)
[2019-04-25 11:48] LABS: ABG ALLEN TEST POS
[2019-04-25] MEDS ORDERED: DRUG FILTER EXTENSION SET ONE (14:09)
[2019-04-25 17:49] LABS: ABG BASE EXCESS -0.1 mmol/L (-2.0-2.0); ABG HCO3 27.7 mmol/L (22-26)
[2019-04-25 17:50] LABS: ABG ALLEN TEST POS
[2019-04-25] MEDS: SNACK - Diabetic Appropriate PO SCH (20:13)
[2019-04-26] MEDS: DUONEB 0.5 MG/3 MG (3 mL) NEB SCH ×6 (00:45→18:31)
[2019-04-26] MEDS: FLAGYL IV PREMIX 500 MG BAG 500 MG/100 ML BAG IV SCH ×4 (03:00→21:00)
[2019-04-26 06:34] LABS: BASOPHILS # (AUTO) 0.1 X10^3/uL (0.0-0.1); BASOPHILS % (AUTO) 0.7 % (0.2-1.0); EOSINOPHILS % (AUTO) 0.2 % (0.9-2.9); HEMATOCRIT 40.6 % (42.0-54.0); HEMOGLOBIN 13.4 g/dL (13.5-18.0); LYMPHOCYTES # (AUTO) 0.4 X10^3/uL (1.3-2.9); LYMPHOCYTES % (AUTO) 2.6 % (21.0-51.0); MEAN CORPUSCULAR HEMOGLOBIN 32.1 pg (27.0-34.0); MEAN CORPUSCULAR HGB CONC 32.9 g/dL (33.0-35.0); MEAN CORPUSCULAR VOLUME 97.6 fL (80.0-100.0); MONOCYTES # (AUTO) 0 x10^3/uL (0.3-0.8); MONOCYTES % (AUTO) 0.2 % (0.0-13.0); NEUTROPHILS # (AUTO) 13.1 x10^3/uL (2.2-4.8); NEUTROPHILS % (AUTO) 96.3 % (42.0-75.0); PLATELET COUNT 85 X10^3/uL (150.0-450.0); RED BLOOD COUNT 4.17 X10^6/uL (4.7-6.0); RED CELL DISTRIBUTION WIDTH 15.8 % (11.6-16.5); WHITE BLOOD COUNT 13.6 X10^3/uL (3.6-10.0)
[2019-04-26 06:42] LABS: ALANINE AMINOTRANSFERASE 10 Units/L (12-78); ALBUMIN 2.5 g/dL (3.4-5.0); ALKALINE PHOSPHATASE 130 Units/L (46-116); ASPARTATE AMINO TRANSFERASE 15 Units/L (15-37); BLOOD UREA NITROGEN 18 mg/dL (7-18); CALCIUM 7.8 mg/dL (8.5-10.1); CARBON DIOXIDE 28.4 mmol/L (21-32); CHLORIDE 104 mmol/L (98-107); COR NA(FOR HYPERGLY) 137 mmol/L (136-145); CREATININE 0.64 mg/dL (0.70-1.30); SODIUM 137 mmol/L (136-145); TOTAL PROTEIN 5.7 g/dL (6.4-8.2); eGFR NON BLACK RACES > 60 (>60)
[2019-04-26 07:08] LABS: BAND NEUTROPHILS % 4 % (0-10); PLATELET MORPHOLOGY COMMENT NORMAL (NORMAL)
[2019-04-26 07:11] LABS: ERYTHROCYTE SEDIMENTATION RATE 6 MM/HOUR (0-15)
[2019-04-26 08:00] LABS: ABG BASE EXCESS 4.1 mmol/L (-2.0-2.0)
[2019-04-26 08:02] LABS: ABG ALLEN TEST POS; ABG HCO3 31.3 mmol/L (22-26)
[2019-04-26] MEDS ORDERED: LASIX IVP ONE (08:09)
--- NOTE | 2019-04-26 08:19 | PCM.PROG ---
Progress Note Progress Note for Day of Date of Exam: 04/26/19 Subjective Subjective: Pt is a 48 yo m being treated for septic shock. He is alert and oriented. ABG has improved from yesterday after setting changes on Bipap. His ABG this morning pH 7.34, PCO2 58, PO2 72, HCO3 31, FiO2 28, O2sat 93%. Will continue Bipap and recheck ABG at noon. LA normalized. Blood Cx positive for gram negative cocci but are unable to identify species and has been sent out for identification, should expect report this morning to follow up. Repeat BloodCx have remained negative. Wbc is trending down this morning 20.8>14.2>13.6, he is also getting prednisone daily. BP has remained stable, will continue to monitor. Past Medical Family Social History Past Med/Fam/Surg Hx: No changes since H&P Allergies: Allergies Penicillins Allergy (Verified 10/29/18 15:22) Review of Systems ROS: No change since H&P Vital Signs and I&O's Vital Signs: Temperature 98.0 F Pulse Rate [Brachial] 121 Pulse Rate 98 Respiratory Rate 16 Blood Pressure [Left Arm] 97/59 Blood Pressure [Right Arm] 154/86 Blood Pressure 150/92 O2 Sat by Pulse Oximetry 99 Intake and Output: Intake & Output 04/23/19 04/24/19 04/25/19 04/26/19 23:59 23:59 23:59 23:59 Intake Total 5404 / 5404 4673 / 4673 2729 / 2729 708 / 708 Output Total 1600 / 1600 1200 / 1200 2100 / 2100 525 / 525 Balance 3804 / 3804 3473 / 3473 629 / 629 183 / 183 Physical Exam Oriented: Normal Eyes: Normal Ear: Normal Respiratory: Diminished and Rhonchi Cardiovascular: Tachycardia : Normal Auscultation: Bowel Sounds: Normal Tenderness: Normal Skin: Normal Musculoskeletal: Normal (Unable to assess ) Mood Description: Calm Affect: Normal Speech Pattern: Clear and Appropriate Laboratory and Diagnostics Result Diagrams: 04/26/19 06:13 04/26/19 06:13 Labs: 04/24/19 07:41 Stool Stool Culture - Preliminary 04/24/19 07:41 Stool - Final 04/22/19 14:18 Blood Blood Culture - Preliminary 04/22/19 14:09 Blood Blood Culture - Preliminary 04/20/19 23:20 Urine,Clean Catch Urine Culture - Final 04/20/19 17:40 Blood Blood Culture - Preliminary 04/20/19 16:12 Blood Blood Culture - Preliminary Laboratory WBC 13.6 X10^3/uL (3.6-10.0) H 04/26/19 06:13 RBC 4.17 X10^6/uL (4.7-6.0) L 04/26/19 06:13 Hgb 13.4 g/dL (13.5-18.0) L 04/26/19 06:13 Hct 40.6 % (42.0-54.0) L 04/26/19 06:13 MCV 97.6 fL (80.0-100.0) 04/26/19 06:13 MCH 32.1 pg (27.0-34.0) 04/26/19 06:13 MCHC 32.9 g/dL (33.0-35.0) L 04/26/19 06:13 RDW 15.8 % (11.6-16.5) 04/26/19 06:13 Plt Count 85 X10^3/uL (150.0-450.0) L 04/26/19 06:13 Plt Count Comment Decreased (ADEQUATE) 04/26/19 06:13 MPV 9.0 fL (7.4-11.0) 04/26/19 06:13 Neut % (Auto) 96.3 % (42.0-75.0) H 04/26/19 06:13 Lymph % (Auto) 2.6 % (21.0-51.0) L 04/26/19 06:13 [place] % (Auto) 0.2 % (0.0-13.0) 04/26/19 06:13 Eos % (Auto) 0.2 % (0.9-2.9) L 04/26/19 06:13 Baso % (Auto) 0.7 % (0.2-1.0) 04/26/19 06:13 Neut # (Auto) 13.1 x10^3/uL (2.2-4.8) H 04/26/19 06:13 Lymph # (Auto) 0.4 X10^3/uL (1.3-2.9) L 04/26/19 06:13 [place] # (Auto) 0 x10^3/uL (0.3-0.8) L 04/26/19 06:13 Eos # (Auto) 0.0 x10^3/uL (0.0-0.2) 04/26/19 06:13 Baso # (Auto) 0.1 X10^3/uL (0.0-0.1) 04/26/19 06:13 Absolute Nucleated RBC 0.1 /100WBC 04/26/19 06:13 Total Counted 100 04/26/19 06:13 Neutrophils % (Manual) 91 % (39-76) H 04/26/19 06:13 Band Neutrophils % 4 % (0-10) 04/26/19 06:13 Lymphocytes % (Manual) 4 % (13-43) L 04/26/19 06:13 Monocytes % (Manual) 1 % (4-9) L 04/26/19 06:13 Eosinophils % (Manual) 1 % (0-6) 04/23/19 04:00 Metamyelocytes % 2 04/24/19 04:00 Myelocytes % 2 04/20/19 16:12 Giant Platelets Rare 04/23/19 04:00 Plt Morphology Comment Normal (NORMAL) 04/26/19 06:13 RBC Morphology Normal (NORMAL) 04/26/19 06:13 ESR 6 MM/HOUR (0-15) 04/26/19 06:13 Sample Site Rr 04/26/19 07:53 ABG pH 7.340 (7.35-7.45) L 04/26/19 07:53 ABG pCO2 58.0 mmHg (35.0-45.0) H* 04/26/19 07:53 ABG pO2 72.0 mmHg (80.0-100.0) L 04/26/19 07:53 ABG HCO3 31.3 mmol/L (22-26) H* 04/26/19 07:53 ABG O2 Saturation 93.0 % (90-100) 04/26/19 07:53 ABG Base Excess 4.1 mmol/L (-2.0-2.0) H 04/26/19 07:53 Jose Daniel Test Pos 04/26/19 07:53 A-a Gradient 55.0 mmHg 04/26/19 07:53 FiO2 28.0 04/26/19 07:53 Blood Gas Comments Pt dc well. cdn 04/26/19 07:53 Sodium 137 mmol/L (136-145) 04/26/19 06:13 Corrected Sodium 137 mmol/L (136-145) 04/26/19 06:13 Potassium 4.2 mmol/L (3.5-5.1) 04/26/19 06:13 Chloride 104 mmol/L (98-107) 04/26/19 06:13 Carbon Dioxide 28.4 mmol/L (21-32) 04/26/19 06:13 BUN 18 mg/dL (7-18) 04/26/19 06:13 Creatinine 0.64 mg/dL (0.70-1.30) L 04/26/19 06:13 Est GFR (MDRD) Af Amer > 60 (>60) 04/26/19 06:13 Est GFR (MDRD) Non-Af > 60 (>60) 04/26/19 06:13 Glucose 115 mg/dL (65-99) H 04/26/19 06:13 Lactic Acid 0.6 mmol/L (0.4-2.0) 04/25/19 08:23 Calcium 7.8 mg/dL (8.5-10.1) L 04/26/19 06:13 Corrected Calcium 9.0 mg/dL (8.5-10.1) 04/26/19 06:13 Phosphorus 4.4 mg/dL (2.6-4.7) 04/20/19 21:56 Magnesium 1.8 mg/dL (1.7-2.9) 04/23/19 04:00 Total Bilirubin 0.40 mg/dL (0.2-1.0) 04/26/19 06:13 AST 15 Units/L (15-37) 04/26/19 06:13 ALT 10 Units/L (12-78) L 04/26/19 06:13 Alkaline Phosphatase 130 Units/L (46-116) H 04/26/19 06:13 Creatine Kinase 353 Units/L (39-308) H 04/23/19 08:45 CK-MB (CK-2) 8.3 ng/mL (0-4.0) H* 04/23/19 08:45 CK/CKMB % Calc 2.4 % (<4) 04/23/19 08:45 Troponin I 0.08 ng/mL (0-1.5) 04/23/19 08:45 C-Reactive Protein 33.30 mg/L (0-3.0) H 04/26/19 06:13 Total Protein 5.7 g/dL (6.4-8.2) L 04/26/19 06:13 Albumin 2.5 g/dL (3.4-5.0) L 04/26/19 06:13 Globulin 3.2 g/dL (2.5-4.5) 04/26/19 06:13 Albumin/Globulin Ratio 0.8 Ratio (1.1-2.1) L 04/26/19 06:13 TSH 3rd Generation 1.187 uIU/mL (0.358-3.74) 04/20/19 21:56 Specimen Type Catherized urine 04/24/19 13:12 Urine Color Yellow (YELLOW) 04/24/19 13:12 Urine Appearance Slightly hazy (CLEAR) 04/24/19 13:12 Urine pH 6.0 (5.0 - 8.0) 04/24/19 13:12 Ur Specific [place] 1.010 (1.000-1.030) 04/24/19 13:12 Urine Protein 2+ (NEGATIVE) 04/24/19 13:12 Urine Glucose (UA) Negative (NEGATIVE) 04/24/19 13:12 Urine Ketones 1+ (NEGATIVE) 04/24/19 13:12 Urine Occult Blood Negative (NEGATIVE) 04/24/19 13:12 Urine Nitrite Negative (NEGATIVE) 04/24/19 13:12 Urine Bilirubin Negative (NEGATIVE) 04/24/19 13:12 Urine Urobilinogen Normal (NORMAL) 04/24/19 13:12 Ur Leukocyte Esterase 1+ (NEGATIVE) 04/24/19 13:12 Urine RBC 0-2 /HPF (0-3) 04/24/19 13:12 Urine WBC 0-2 /HPF (0-5) 04/24/19 13:12 Ur Squamous Epith Cells Negative /HPF (NEGATIVE) 04/24/19 13:12 Ur Transition Epith Cell Few /HPF (NEGATIVE) 04/24/19 13:12 Amorphous Sediment Trace /HPF (NEGATIVE) 04/24/19 13:12 Urine Bacteria Trace /HPF (NEGATIVE) 04/24/19 13:12 Urine Mucus Few /HPF (NEGATIVE) 04/24/19 13:12 Ur Culture Indicated? No/not indicated 04/24/19 13:12 Stool Description 15g,brown,liquid 04/24/19 07:41 Stool Description 15g,brown,liquid 04/24/19 07:41 Stl Occult Blood (IFOB) Positive (NEGATIVE) A 04/24/19 07:41 Stool for White Cells Positive (NEGATIVE) A 04/24/19 07:41 Stl C. diff Tox B Gene Positive (NEGATIVE) A 04/24/19 07:41 Stl C. diff 027-NAP1-BI Negative (NEGATIVE) 04/24/19 07:41 Urine Opiates Screen Negative (NEG=<300) 04/20/19 23:24 Urine Methadone Screen Negative (NEG=<300) 04/20/19 23:24 Ur Barbiturates Screen Negative (NEG=<200) 04/20/19 23:24 Ur Phencyclidine Scrn Negative (NEG=<25) 04/20/19 23:24 Ur Amphetamines Screen Negative (NEG=<1000) 04/20/19 23:24 U Benzodiazepines Scrn Negative (NEG=<200) 04/20/19 23:24 Urine Cocaine Screen Negative (NEG=<300) 04/20/19 23:24 U Marijuana (THC) Screen Negative (NEG=<50) 04/20/19 23:24 Ethyl Alcohol mg/dL 4 mg/dL (0-19.9) 04/20/19 21:56 Ur C. trach DNA (PCR) Not detected (NOT DETECT) 04/22/19 17:10 C. difficile Toxin A&B Negative (NEGATIVE) 04/24/19 07:41 Cryptosporid parvum Ag Negative (NEGATIVE) 04/24/19 07:41 Giardia lamblia Ag Negative (NEGATIVE) 04/24/19 07:41 Hepatitis A IgM Ab Negative (Negative) 04/20/19 21:56 Hep Bs Antigen Negative (Negative) 04/20/19 21:56 Hep Bs Ag Confirmation TNP 04/20/19 21:56 Hep B Core IgM Ab Negative (Negative) 04/20/19 21:56 Hepatitis C Ab Index 0.07 IV 04/20/19 21:56 Hepatitis C Interp Negative (Negative) 04/20/19 21:56 Hepatitis Interpret See note 04/20/19 21:56 HIV-1 Ab Confirm (Blot) TNP 04/20/19 21:56 HIV 1&2 Antibody Screen Negative (Negative) 04/20/19 21:56 Influenza Type A (PCR) Negative (NEGATIVE) 04/20/19 17:40 Influenza Type B (PCR) Negative (NEGATIVE) 04/20/19 17:40 U N.gonorrhoeae DNA PCR Not detected (NOT DETECT) 04/22/19 17:10 Plan (1) Gram-negative bacteremia: Status: Acute Plan: Continue Cefepime, Flagyl. Echo see results. Initial blood cultures awaiting identification possibly today. Repeat blood cultures no growth to date. (2) Acute respiratory failure with hypercapnia: Status: Acute Plan: Continues to acidotic and hypercapnic, w/ significant improvement from yesterday. Will adjust BiPAP, repeat ABG and adjust as needed. (3) Septic shock: Status: Acute Plan: Continue bronchodilator treatments, BP stable, off pressors. LA: normalized BloodCx(04/20):gram negative cocci; SputumCx(04/20):pending Repeat labs in AM, continue to monitor. Abx: Continue cefepime and Flagyl. prednisone 40mg daily today (4) Neutropenia: Status: Acute Qualifiers: Neutropenia type: unspecified Qualified Code(s): D70.9 - Neutropenia, unspecified Plan: Will hold lovenox, no signs of active bleeding (5) Pneumonia: Status: Acute Qualifiers: Laterality: right Lung location: middle lobe of lung Pneumonia type: due to unspecified organism Qualified Code(s): J18.9 - Pneumonia, unspecified organism Plan: CXR reviewed, right sided pneumonia Continue Abx Will give one dose of Lasix due to increased pleural effusion (6) COPD (chronic obstructive pulmonary disease): Status: Acute Qualifiers: COPD type: COPD with acute exacerbation Qualified Code(s): J44.1 - Chronic obstructive pulmonary disease with (acute) exacerbation (7) Acute hyponatremia: Status: Acute Plan: Na: 137 (8) Acute renal failure: Status: Acute Qualifiers: Acute renal failure type: unspecified Qualified Code(s): N17.9 - Acute kidney failure, unspecified Plan: Resolved (9) Hypotension: Status: Acute Qualifiers: Hypotension type: unspecified hypotension type Qualified Code(s): I95.9 - Hypotension, unspecified (10) Hypothermia: Status: Acute Qualifiers: Encounter type: initial encounter Qualified Code(s): T68.XXXA - Hypothermia, initial encounter (11) Alcohol use: Status: Acute (12) Failure to thrive: Status: Acute Qualifiers: Failure to thrive age range: in adult Qualified Code(s): R62.7 - Adult failure to thrive (13) Elevated liver enzymes: Status: Acute
[2019-04-26] MEDS: PULMICORT NEB TX 0.5 MG NEB SCH ×2 (08:22→21:40)
[2019-04-26] MEDS: LIDODERM 5% PATCH TD SCH (08:44)
[2019-04-26] MEDS: PREDNISONE TAB 20 MG PO SCH (08:45)
[2019-04-26] MEDS: MAXIPIME VIAL 1 GRAM 1 G in NS 50 ML IV + SPIKE MINIBAG* 50 ML IV SCH ×2 (08:45→20:38)
[2019-04-26] MEDS: NICOTINE PATCH TD SCH (08:45)
[2019-04-26] MEDS: TobraDEX OPHTH OINT AFFEYE SCH ×2 (08:46→21:00)
[2019-04-26] MEDS: PROTONIX INJ 40 MG VIAL IVP SCH (08:46)
[2019-04-26] MEDS: THIAMINE HCL INJ IV SCH (08:46)
[2019-04-26 12:10] LABS: ABG BASE EXCESS 8.3 mmol/L (-2.0-2.0)
[2019-04-26 12:11] LABS: ABG ALLEN TEST POS; ABG HCO3 35.1 mmol/L (22-26)
[2019-04-26] MEDS ORDERED: COLACE CAP 100 MG PO PRN (19:48)
[2019-04-26] MEDS: SNACK - Diabetic Appropriate PO SCH (20:00)
[2019-04-26] MEDS: MILK OF MAGNESIA PO PRN (20:38)
[2019-04-26] MEDS: MORPHINE SULFATE INJ 2 MG INJ IVP PRN (20:39)
[2019-04-27] MEDS: DUONEB 0.5 MG/3 MG (3 mL) NEB SCH ×4 (01:45→18:25)
[2019-04-27] MEDS: FLAGYL IV PREMIX 500 MG BAG 500 MG/100 ML BAG IV SCH ×3 (03:36→15:30)
[2019-04-27 05:29] LABS: BASOPHILS % (AUTO) 0.1 % (0.2-1.0); EOSINOPHILS % (AUTO) 0.2 % (0.9-2.9); HEMATOCRIT 38.3 % (42.0-54.0); HEMOGLOBIN 12.5 g/dL (13.5-18.0); LYMPHOCYTES # (AUTO) 1.2 X10^3/uL (1.3-2.9); LYMPHOCYTES % (AUTO) 8.3 % (21.0-51.0); MEAN CORPUSCULAR HEMOGLOBIN 31.8 pg (27.0-34.0); MEAN CORPUSCULAR HGB CONC 32.6 g/dL (33.0-35.0); MEAN CORPUSCULAR VOLUME 97.4 fL (80.0-100.0); MEAN PLATELET VOLUME 9.3 fL (7.4-11.0); MONOCYTES # (AUTO) 2.7 x10^3/uL (0.3-0.8); MONOCYTES % (AUTO) 18.7 % (0.0-13.0); NEUTROPHILS # (AUTO) 10.5 x10^3/uL (2.2-4.8); NEUTROPHILS % (AUTO) 72.7 % (42.0-75.0); PLATELET COUNT 108 X10^3/uL (150.0-450.0); RED BLOOD COUNT 3.93 X10^6/uL (4.7-6.0); RED CELL DISTRIBUTION WIDTH 15.4 % (11.6-16.5); WHITE BLOOD COUNT 14.5 X10^3/uL (3.6-10.0)
[2019-04-27 05:44] LABS: ALANINE AMINOTRANSFERASE 7 Units/L (12-78); ALBUMIN 2.1 g/dL (3.4-5.0); ALKALINE PHOSPHATASE 102 Units/L (46-116); ASPARTATE AMINO TRANSFERASE 14 Units/L (15-37); BLOOD UREA NITROGEN 11 mg/dL (7-18); CALCIUM 7.4 mg/dL (8.5-10.1); CARBON DIOXIDE 34.3 mmol/L (21-32); CHLORIDE 100 mmol/L (98-107); COR CA(FOR HYPOALB) 8.9 mg/dL (8.5-10.1); CREATININE 0.48 mg/dL (0.70-1.30); SODIUM 137 mmol/L (136-145); TOTAL PROTEIN 4.8 g/dL (6.4-8.2); eGFR NON BLACK RACES > 60 (>60)
[2019-04-27 06:19] LABS: BAND NEUTROPHILS % 2 % (0-10); PLATELET MORPHOLOGY COMMENT NORMAL (NORMAL)
[2019-04-27] MEDS: PULMICORT NEB TX 0.5 MG NEB SCH ×2 (08:57→21:20)
[2019-04-27] MEDS: PROTONIX INJ 40 MG VIAL IVP SCH (09:29)
[2019-04-27] MEDS: PREDNISONE TAB 20 MG PO SCH (09:30)
[2019-04-27] MEDS: THIAMINE HCL INJ IV SCH (09:30)
[2019-04-27] MEDS: MAXIPIME VIAL 1 GRAM 1 G in NS 50 ML IV + SPIKE MINIBAG* 50 ML IV SCH (09:30)
[2019-04-27] MEDS: K-DUR TAB 20 MEQ PO PRN (09:31)
[2019-04-27] MEDS: NICOTINE PATCH TD SCH (09:32)
[2019-04-27] MEDS: TobraDEX OPHTH OINT AFFEYE SCH ×2 (09:33→21:07)
[2019-04-27] MEDS: LIDODERM 5% PATCH TD SCH (09:33)
[2019-04-27] MEDS: MAGNESIUM SULFATE 1 GRAM/100 mL PREMIX 1 GM/100 ML BAG IV PRN ×2 (13:29→15:10)
[2019-04-27] MEDS ORDERED: CONSULT PHARMACY - ANTIBIOTIC XX SCH (15:00)
[2019-04-27] MEDS ORDERED: DIFLUCAN 200 MG IV PREMIX* 400 MG/200 ML BAG IV SCH (16:00)
[2019-04-27] MEDS ORDERED: CATAPRES-TTS-1 TD SCH (16:00)
[2019-04-27] MEDS: MERREM VIAL 1 G in NS 100 ML IV + SPIKE MINIBAG* 100 ML IV SCH ×2 (16:33→18:17)
[2019-04-27] MEDS: ULTRAM PO PRN (18:30)
[2019-04-27] MEDS: MORPHINE SULFATE INJ 2 MG INJ IVP PRN ×2 (18:41→23:33)
[2019-04-27] MEDS ORDERED: CATAPRES-TTS-3 TD SCH (19:00)
[2019-04-27] MEDS: SNACK - Diabetic Appropriate PO SCH (20:47)
[2019-04-27] MEDS: MILK OF MAGNESIA PO PRN (23:55)
[2019-04-28] MEDS: MERREM VIAL 1 G in NS 100 ML IV + SPIKE MINIBAG* 100 ML IV SCH ×2 (00:43→05:28)
[2019-04-28] MEDS: DUONEB 0.5 MG/3 MG (3 mL) NEB SCH ×4 (01:15→17:15)
[2019-04-28] MEDS ORDERED: NS 250 ML IV 250 ML IV ONE (05:03)
[2019-04-28 06:16] LABS: BASOPHILS # (AUTO) 0.1 X10^3/uL (0.0-0.1); BASOPHILS % (AUTO) 0.4 % (0.2-1.0); EOSINOPHILS # (AUTO) 0.1 x10^3/uL (0.0-0.2); EOSINOPHILS % (AUTO) 0.5 % (0.9-2.9); HEMOGLOBIN 13.8 g/dL (13.5-18.0); LYMPHOCYTES # (AUTO) 1.5 X10^3/uL (1.3-2.9); LYMPHOCYTES % (AUTO) 12.5 % (21.0-51.0); MEAN CORPUSCULAR HEMOGLOBIN 31.8 pg (27.0-34.0); MEAN CORPUSCULAR HGB CONC 32.9 g/dL (33.0-35.0); MEAN CORPUSCULAR VOLUME 96.6 fL (80.0-100.0); MEAN PLATELET VOLUME 8.5 fL (7.4-11.0); MONOCYTES # (AUTO) 1.8 x10^3/uL (0.3-0.8); MONOCYTES % (AUTO) 14.9 % (0.0-13.0); NEUTROPHILS # (AUTO) 8.8 x10^3/uL (2.2-4.8); NEUTROPHILS % (AUTO) 71.7 % (42.0-75.0); PLATELET COUNT 164 X10^3/uL (150.0-450.0); RED BLOOD COUNT 4.34 X10^6/uL (4.7-6.0); RED CELL DISTRIBUTION WIDTH 15.3 % (11.6-16.5); WHITE BLOOD COUNT 12.3 X10^3/uL (3.6-10.0)
[2019-04-28 06:26] LABS: ALANINE AMINOTRANSFERASE 9 Units/L (12-78); ALKALINE PHOSPHATASE 110 Units/L (46-116); ASPARTATE AMINO TRANSFERASE 24 Units/L (15-37); BLOOD UREA NITROGEN 6 mg/dL (7-18); CALCIUM 7.2 mg/dL (8.5-10.1); CARBON DIOXIDE 38.1 mmol/L (21-32); CHLORIDE 97 mmol/L (98-107); COR CA(FOR HYPOALB) 8.8 mg/dL (8.5-10.1); CREATININE 0.41 mg/dL (0.70-1.30); MAGNESIUM 1.9 mg/dL (1.7-2.9); SODIUM 134 mmol/L (136-145); TOTAL PROTEIN 4.9 g/dL (6.4-8.2); eGFR NON BLACK RACES > 60 (>60)
--- NOTE | 2019-04-28 06:28 | RAD ---
Chest AP portableIndication: COPD and pneumoniaCOMPARISONDecember 2018FINDINGSThere is no pneumothorax. There is prominent heart size and bilateral effusions with increased interstitial markings. Monitoring leads obscure significant detailIMPRESSIONProminent heart size, COPD and bilateral effusions with background of right lung pneumonia likely. Follow-up to resolution.Electronically signed by: PRASANTH MENA (Apr 28, 2019 06:27:52)
[2019-04-28] MEDS: MAGNESIUM SULFATE 1 GRAM/100 mL PREMIX 1 GM/100 ML BAG IV PRN (07:59)
[2019-04-28] MEDS ORDERED: LASIX IVP ONE (08:44)
[2019-04-28] MEDS ORDERED: ZESTRIL TAB 20 MG PO SCH (09:00)
[2019-04-28] MEDS: PULMICORT NEB TX 0.5 MG NEB SCH ×2 (09:05→20:35)
--- NOTE | 2019-04-28 09:39 | PCM.PROG ---
Progress Note Progress Note for Day of Date of Exam: 04/28/19 Subjective Subjective: Pt is a 48 yo m being treated for septic shock. He is alert and oriented. He is currently on hi-flow, has not required BiPAP since yesterday. His BP was elevated yesterday, started on clonidine patch. He reports feeling better, eating and drinking well. He is having diarrhea 2-3 BM overnight. He was also given milk of magnesia overnight. CXR this AM shows b/l effusions and right sided pneumonia. Blood cultures positive for H. Influenza, repeat negative. He was started on Merrem and Diflucan yesterday. Past Medical Family Social History Past Med/Fam/Surg Hx: No changes since H&P Allergies: Allergies Penicillins Allergy (Verified 10/29/18 15:22) Review of Systems ROS: No change since H&P Vital Signs and I&O's Vital Signs: Temperature 98.5 F Pulse Rate [Brachial] 121 Pulse Rate 79 Respiratory Rate 18 Blood Pressure [Left Arm] 97/59 Blood Pressure [Right Arm] 154/86 Blood Pressure 150/95 O2 Sat by Pulse Oximetry 99 Intake and Output: Intake & Output 04/25/19 04/26/19 04/27/19 04/28/19 23:59 23:59 23:59 23:59 Intake Total 2729 / 2729 2499 / 2499 2891 / 2891 504 / 504 Output Total 2100 / 2100 3975 / 3975 2200 / 2200 500 / 500 Balance 629 / 629 -1476 / -1476 691 / 691 4 / 4 Physical Exam Oriented: Normal Eyes: Normal Ear: Normal Respiratory: Rales Cardiovascular: Normal Auscultation: Bowel Sounds: Normal Tenderness: Normal Skin: Normal Musculoskeletal: Normal (Unable to assess ) Mood Description: Calm Affect: Normal Speech Pattern: Clear and Appropriate Laboratory and Diagnostics Result Diagrams: 04/28/19 05:32 04/28/19 05:32 Labs: 04/20/19 16:12 Blood Blood Culture - Final 04/20/19 17:40 Blood Blood Culture - Final 04/24/19 07:41 Stool Stool Culture - Final 04/24/19 07:41 Stool - Final 04/22/19 14:18 Blood Blood Culture - Preliminary 04/22/19 14:09 Blood Blood Culture - Preliminary 04/20/19 23:20 Urine,Clean Catch Urine Culture - Final Laboratory WBC 12.3 X10^3/uL (3.6-10.0) H 04/28/19 05:32 RBC 4.34 X10^6/uL (4.7-6.0) L 04/28/19 05:32 Hgb 13.8 g/dL (13.5-18.0) 04/28/19 05:32 Hct 42.0 % (42.0-54.0) 04/28/19 05:32 MCV 96.6 fL (80.0-100.0) 04/28/19 05:32 MCH 31.8 pg (27.0-34.0) 04/28/19 05:32 MCHC 32.9 g/dL (33.0-35.0) L 04/28/19 05:32 RDW 15.3 % (11.6-16.5) 04/28/19 05:32 Plt Count 164 X10^3/uL (150.0-450.0) 04/28/19 05:32 Plt Count Comment Decreased (ADEQUATE) 04/27/19 04:05 MPV 8.5 fL (7.4-11.0) 04/28/19 05:32 Neut % (Auto) 71.7 % (42.0-75.0) 04/28/19 05:32 Lymph % (Auto) 12.5 % (21.0-51.0) L 04/28/19 05:32 [place] % (Auto) 14.9 % (0.0-13.0) H 04/28/19 05:32 Eos % (Auto) 0.5 % (0.9-2.9) L 04/28/19 05:32 Baso % (Auto) 0.4 % (0.2-1.0) 04/28/19 05:32 Neut # (Auto) 8.8 x10^3/uL (2.2-4.8) H 04/28/19 05:32 Lymph # (Auto) 1.5 X10^3/uL (1.3-2.9) 04/28/19 05:32 [place] # (Auto) 1.8 x10^3/uL (0.3-0.8) H 04/28/19 05:32 Eos # (Auto) 0.1 x10^3/uL (0.0-0.2) 04/28/19 05:32 Baso # (Auto) 0.1 X10^3/uL (0.0-0.1) 04/28/19 05:32 Absolute Nucleated RBC 0.0 /100WBC 04/28/19 05:32 Total Counted 100 04/27/19 04:05 Neutrophils % (Manual) 75 % (39-76) 04/27/19 04:05 Band Neutrophils % 2 % (0-10) 04/27/19 04:05 Lymphocytes % (Manual) 7 % (13-43) L 04/27/19 04:05 Monocytes % (Manual) 16 % (4-9) H 04/27/19 04:05 Eosinophils % (Manual) 1 % (0-6) 04/23/19 04:00 Metamyelocytes % 2 04/24/19 04:00 Myelocytes % 2 04/20/19 16:12 Giant Platelets Rare 04/23/19 04:00 Plt Morphology Comment Normal (NORMAL) 04/27/19 04:05 RBC Morphology Normal (NORMAL) 04/27/19 04:05 ESR 6 MM/HOUR (0-15) 04/26/19 06:13 Sample Site Rr 04/26/19 12:03 ABG pH 7.390 (7.35-7.45) 04/26/19 12:03 ABG pCO2 58.0 mmHg (35.0-45.0) H* 04/26/19 12:03 ABG pO2 67.0 mmHg (80.0-100.0) L 04/26/19 12:03 ABG HCO3 35.1 mmol/L (22-26) H* 04/26/19 12:03 ABG O2 Saturation 93.0 % (90-100) 04/26/19 12:03 ABG Base Excess 8.3 mmol/L (-2.0-2.0) H 04/26/19 12:03 Jose Daniel Test Pos 04/26/19 12:03 A-a Gradient 60.0 mmHg 04/26/19 12:03 FiO2 28.0 04/26/19 12:03 Blood Gas Comments Pt dc well.cdn 04/26/19 12:03 Sodium 134 mmol/L (136-145) L 04/28/19 05:32 Corrected Sodium TNP 04/28/19 05:32 Potassium 3.8 mmol/L (3.5-5.1) 04/28/19 05:32 Chloride 97 mmol/L (98-107) L 04/28/19 05:32 Carbon Dioxide 38.1 mmol/L (21-32) H 04/28/19 05:32 BUN 6 mg/dL (7-18) L 04/28/19 05:32 Creatinine 0.41 mg/dL (0.70-1.30) L 04/28/19 05:32 Est GFR (MDRD) Af Amer > 60 (>60) 04/28/19 05:32 Est GFR (MDRD) Non-Af > 60 (>60) 04/28/19 05:32 Glucose 108 mg/dL (65-99) H 04/28/19 05:32 POC Glucose (mg/dL) 167 mg/dL (65-99) H 04/27/19 20:45 Lactic Acid 0.6 mmol/L (0.4-2.0) 04/25/19 08:23 Calcium 7.2 mg/dL (8.5-10.1) L 04/28/19 05:32 Corrected Calcium 8.8 mg/dL (8.5-10.1) 04/28/19 05:32 Phosphorus 4.4 mg/dL (2.6-4.7) 04/20/19 21:56 Magnesium 1.9 mg/dL (1.7-2.9) 04/28/19 05:32 Total Bilirubin 0.30 mg/dL (0.2-1.0) 04/28/19 05:32 AST 24 Units/L (15-37) 04/28/19 05:32 ALT 9 Units/L (12-78) L 04/28/19 05:32 Alkaline Phosphatase 110 Units/L (46-116) 04/28/19 05:32 Creatine Kinase 353 Units/L (39-308) H 04/23/19 08:45 CK-MB (CK-2) 8.3 ng/mL (0-4.0) H* 04/23/19 08:45 CK/CKMB % Calc 2.4 % (<4) 04/23/19 08:45 Troponin I 0.08 ng/mL (0-1.5) 04/23/19 08:45 C-Reactive Protein 33.30 mg/L (0-3.0) H 04/26/19 06:13 Total Protein 4.9 g/dL (6.4-8.2) L 04/28/19 05:32 Albumin 2.0 g/dL (3.4-5.0) L 04/28/19 05:32 Globulin 2.9 g/dL (2.5-4.5) 04/28/19 05:32 Albumin/Globulin Ratio 0.7 Ratio (1.1-2.1) L 04/28/19 05:32 TSH 3rd Generation 1.187 uIU/mL (0.358-3.74) 04/20/19 21:56 Specimen Type Catherized urine 04/24/19 13:12 Urine Color Yellow (YELLOW) 04/24/19 13:12 Urine Appearance Slightly hazy (CLEAR) 04/24/19 13:12 Urine pH 6.0 (5.0 - 8.0) 04/24/19 13:12 Ur Specific [place] 1.010 (1.000-1.030) 04/24/19 13:12 Urine Protein 2+ (NEGATIVE) 04/24/19 13:12 Urine Glucose (UA) Negative (NEGATIVE) 04/24/19 13:12 Urine Ketones 1+ (NEGATIVE) 04/24/19 13:12 Urine Occult Blood Negative (NEGATIVE) 04/24/19 13:12 Urine Nitrite Negative (NEGATIVE) 04/24/19 13:12 Urine Bilirubin Negative (NEGATIVE) 04/24/19 13:12 Urine Urobilinogen Normal (NORMAL) 04/24/19 13:12 Ur Leukocyte Esterase 1+ (NEGATIVE) 04/24/19 13:12 Urine RBC 0-2 /HPF (0-3) 04/24/19 13:12 Urine WBC 0-2 /HPF (0-5) 04/24/19 13:12 Ur Squamous Epith Cells Negative /HPF (NEGATIVE) 04/24/19 13:12 Ur Transition Epith Cell Few /HPF (NEGATIVE) 04/24/19 13:12 Amorphous Sediment Trace /HPF (NEGATIVE) 04/24/19 13:12 Urine Bacteria Trace /HPF (NEGATIVE) 04/24/19 13:12 Urine Mucus Few /HPF (NEGATIVE) 04/24/19 13:12 Ur Culture Indicated? No/not indicated 04/24/19 13:12 Stool Description 15g,brown,liquid 04/24/19 07:41 Stool Description 15g,brown,liquid 04/24/19 07:41 Stl Occult Blood (IFOB) Positive (NEGATIVE) A 04/24/19 07:41 Stool for White Cells Positive (NEGATIVE) A 04/24/19 07:41 Stl C. diff Tox B Gene Positive (NEGATIVE) A 04/24/19 07:41 Stl C. diff 027-NAP1-BI Negative (NEGATIVE) 04/24/19 07:41 Urine Opiates Screen Negative (NEG=<300) 04/20/19 23:24 Urine Methadone Screen Negative (NEG=<300) 04/20/19 23:24 Ur Barbiturates Screen Negative (NEG=<200) 04/20/19 23:24 Ur Phencyclidine Scrn Negative (NEG=<25) 04/20/19 23:24 Ur Amphetamines Screen Negative (NEG=<1000) 04/20/19 23:24 U Benzodiazepines Scrn Negative (NEG=<200) 04/20/19 23:24 Urine Cocaine Screen Negative (NEG=<300) 04/20/19 23:24 U Marijuana (THC) Screen Negative (NEG=<50) 04/20/19 23:24 Ethyl Alcohol mg/dL 4 mg/dL (0-19.9) 04/20/19 21:56 Ur C. trach DNA (PCR) Not detected (NOT DETECT) 04/22/19 17:10 C. difficile Toxin A&B Negative (NEGATIVE) 04/24/19 07:41 Cryptosporid parvum Ag Negative (NEGATIVE) 04/24/19 07:41 Giardia lamblia Ag Negative (NEGATIVE) 04/24/19 07:41 Hepatitis A IgM Ab Negative (Negative) 04/20/19 21:56 Hep Bs Antigen Negative (Negative) 04/20/19 21:56 Hep Bs Ag Confirmation TNP 04/20/19 21:56 Hep B Core IgM Ab Negative (Negative) 04/20/19 21:56 Hepatitis C Ab Index 0.07 IV 04/20/19 21:56 Hepatitis C Interp Negative (Negative) 04/20/19 21:56 Hepatitis Interpret See note 12/18/19 21:56 HIV-1 Ab Confirm (Blot) TNP 04/20/19 21:56 HIV 1&2 Antibody Screen Negative (Negative) 04/20/19 21:56 Influenza Type A (PCR) Negative (NEGATIVE) 04/20/19 17:40 Influenza Type B (PCR) Negative (NEGATIVE) 04/20/19 17:40 U N.gonorrhoeae DNA PCR Not detected (NOT DETECT) 04/22/19 17:10 Miscellaneous Test Legionella ag 04/22/19 17:10 Plan (1) Pleural effusion: Status: Acute Plan: Fluid overload on exam, will give one dose of Lasix. Echo normal, EF 64% with mild TR (2) Gram-negative bacteremia: Status: Acute Plan: First set: H. Influenza positive, sensitive to Rocephin Repeat negative, WBC trending down, vitals stable (3) Diarrhea: Status: Acute Qualifiers: Diarrhea type: unspecified type Qualified Code(s): R19.7 - Diarrhea, unspecified Plan: patient continues to have diarrhea, C diff toxin negative prev. Also received Milk Of Magnesia last night. Will check C.diff again, add probiotics. (4) Accelerated hypertension: Status: Acute Plan: currently has Clonidine patch Will start lisinopril 20 mg daily and adjust as needed (5) Acute respiratory failure with hypercapnia: Status: Acute Plan: Hypercapnia resolved, currently on Hi-flow. Titrate O2 down to keep sats 90-92%. Physical therapy to work with patient, continue duonebs and pulmicort (6) Septic shock: Status: Acute Plan: Resolved (7) Neutropenia: Status: Acute Qualifiers: Neutropenia type: unspecified Qualified Code(s): D70.9 - Neutropenia, unspecified Plan: Resolved (8) Pneumonia: Status: Acute Qualifiers: Laterality: right Lung location: middle lobe of lung Pneumonia type: due to unspecified organism Qualified Code(s): J18.9 - Pneumonia, unspecified organism Plan: CXR reviewed, right sided pneumonia Continue Abx (9) COPD (chronic obstructive pulmonary disease): Status: Acute Qualifiers: COPD type: COPD with acute exacerbation Qualified Code(s): J44.1 - Chronic obstructive pulmonary disease with (acute) exacerbation (10) Acute hyponatremia: Status: Acute Plan: Na: 134 (11) Acute renal failure: Status: Acute Qualifiers: Acute renal failure type: unspecified Qualified Code(s): N17.9 - Acute kidney failure, unspecified Plan: Resolved (12) Alcohol use: Status: Acute (13) Failure to thrive: Status: Acute Qualifiers: Failure to thrive age range: in adult Qualified Code(s): R62.7 - Adult failure to thrive Plan: PT/OT (14) Elevated liver enzymes: Status: Acute
[2019-04-28] MEDS: PROTONIX INJ 40 MG VIAL IVP SCH (09:51)
[2019-04-28] MEDS: K-DUR TAB 20 MEQ PO PRN (09:52)
[2019-04-28] MEDS: PREDNISONE TAB 20 MG PO SCH (09:52)
[2019-04-28] MEDS: LIDODERM 5% PATCH TD SCH (09:52)
[2019-04-28] MEDS: THIAMINE HCL INJ IV SCH (09:53)
[2019-04-28] MEDS: TobraDEX OPHTH OINT AFFEYE SCH ×2 (09:53→20:19)
[2019-04-28] MEDS: ROCEPHIN VIAL 1 GRAM 1 G in NS 100 ML IV + SPIKE MINIBAG* 100 ML IV SCH ×2 (09:54→10:08)
[2019-04-28] MEDS: NICOTINE PATCH TD SCH (09:54)
[2019-04-28] MEDS ORDERED: ROCEPHIN 1 GRAM IV PREMIX 0 G/0 ML IV.SOLN. IV ONE (09:56)
[2019-04-28] MEDS ORDERED: LASIX ONE (09:56)
[2019-04-28] MEDS: ULTRAM PO PRN ×2 (10:07→15:05)
[2019-04-28] MEDS ORDERED: ZESTRIL TAB 20 MG ONE (10:11)
[2019-04-28] MEDS: PROTONIX TAB 40 MG PO SCH (10:27)
[2019-04-28] MEDS ORDERED: CULTURELLE PRO-WELL PROBIOTIC CAP PO SCH (11:00)
[2019-04-28] MEDS: VSL#3 PO SCH (13:47)
[2019-04-28] MEDS: MORPHINE SULFATE INJ 2 MG INJ IVP PRN (20:16)
--- NOTE | 2019-04-28 20:30 | RAD ---
Exam:KUBIndication: ABD DISTENDED, R/O OBSTRUCTIONComparison: [None available]Findings: [The bowel gas pattern is unremarkable, specifically there is no radiographic evidence to suggest an obstruction. No free air or pneumatosis.No definite mass or abnormal calcification within the abdomen or pelvis.No acute osseous abnormality.Impression:No acute radiographic abnormality within the abdomen or pelvis.]Electronically signed by: CHRISSY DIAMOND (Apr 28, 2019 20:28:44)
[2019-04-29] MEDS: DUONEB 0.5 MG/3 MG (3 mL) NEB SCH ×4 (00:25→16:30)
[2019-04-29 06:09] LABS: BASOPHILS % (AUTO) 0.3 % (0.2-1.0); EOSINOPHILS # (AUTO) 0.1 x10^3/uL (0.0-0.2); EOSINOPHILS % (AUTO) 0.7 % (0.9-2.9); HEMATOCRIT 41.8 % (42.0-54.0); HEMOGLOBIN 14.1 g/dL (13.5-18.0); LYMPHOCYTES # (AUTO) 1.4 X10^3/uL (1.3-2.9); LYMPHOCYTES % (AUTO) 12.9 % (21.0-51.0); MEAN CORPUSCULAR HEMOGLOBIN 32.1 pg (27.0-34.0); MEAN CORPUSCULAR HGB CONC 33.7 g/dL (33.0-35.0); MEAN CORPUSCULAR VOLUME 95.5 fL (80.0-100.0); MEAN PLATELET VOLUME 8.4 fL (7.4-11.0); MONOCYTES # (AUTO) 1.2 x10^3/uL (0.3-0.8); MONOCYTES % (AUTO) 11.8 % (0.0-13.0); NEUTROPHILS # (AUTO) 7.9 x10^3/uL (2.2-4.8); NEUTROPHILS % (AUTO) 74.3 % (42.0-75.0); PLATELET COUNT 204 X10^3/uL (150.0-450.0); RED BLOOD COUNT 4.38 X10^6/uL (4.7-6.0); RED CELL DISTRIBUTION WIDTH 15.6 % (11.6-16.5); WHITE BLOOD COUNT 10.6 X10^3/uL (3.6-10.0)
[2019-04-29 06:18] LABS: ALANINE AMINOTRANSFERASE 8 Units/L (12-78); ALBUMIN 2.2 g/dL (3.4-5.0); ALKALINE PHOSPHATASE 106 Units/L (46-116); ASPARTATE AMINO TRANSFERASE 17 Units/L (15-37); BLOOD UREA NITROGEN 6 mg/dL (7-18); CALCIUM 7.7 mg/dL (8.5-10.1); CHLORIDE 93 mmol/L (98-107); COR CA(FOR HYPOALB) 9.1 mg/dL (8.5-10.1); MAGNESIUM 1.9 mg/dL (1.7-2.9); SODIUM 135 mmol/L (136-145); TOTAL PROTEIN 5.1 g/dL (6.4-8.2); eGFR NON BLACK RACES > 60 (>60)
[2019-04-29 06:22] LABS: CARBON DIOXIDE > 45.0 mmol/L (21-32)
[2019-04-29] MEDS: K-DUR TAB 20 MEQ PO PRN (06:50)
[2019-04-29] MEDS: MAGNESIUM SULFATE 1 GRAM/100 mL PREMIX 1 GM/100 ML BAG IV PRN ×2 (06:50→08:55)
[2019-04-29] MEDS: PULMICORT NEB TX 0.5 MG NEB SCH ×2 (08:25→21:25)
--- NOTE | 2019-04-29 08:26 | PCM.PROG ---
Progress Note Progress Note for Day of Date of Exam: 04/29/19 Subjective Subjective: Pt is a 48 yo m being treated for septic shock. He is alert and oriented. He is currently on 3L nc, has not required BiPAP. His labs this morning increasing HCO3, will have RT place on BiPAP at night only. His BP wnl, he is on a clonidine patch and was started on Lisinopril 10mg yesterday. He reports feeling better, eating and drinking well. He has loose stools yesterday that was attributed to milk of mag that he was given, but has not had a bowel movement today. CXR yesterday shows b/l effusions and right sided pneumonia. He was given IV Lasix x1. Still has some edema and will start PO Lasix daily. Blood cultures positive for H. Influenza, repeat negative. He is currently on Rocephi n, he is on Day 02/14 of antibiotics. Will need to complete course. PT has started working with patient. Will consider evaluation for LTAC. Past Medical Family Social History Past Med/Fam/Surg Hx: No changes since H&P Allergies: Allergies Penicillins Allergy (Verified 10/29/18 15:22) Review of Systems ROS: No change since H&P Vital Signs and I&O's Vital Signs: Temperature 98.6 F Pulse Rate [Brachial] 121 Pulse Rate 66 Respiratory Rate 12 Blood Pressure [Left Arm] 97/59 Blood Pressure [Right Arm] 154/86 Blood Pressure 119/81 O2 Sat by Pulse Oximetry 95 Intake and Output: Intake & Output 04/26/19 04/27/19 04/28/19 04/29/19 23:59 23:59 23:59 23:59 Intake Total 2499 / 2499 2891 / 2891 1664 / 1664 310 / 310 Output Total 3975 / 3975 2200 / 2200 3050 / 3050 525 / 525 Balance -1476 / -1476 691 / 691 -1386 / -1386 -215 / -215 Physical Exam Oriented: Normal Eyes: Normal Ear: Normal Respiratory: Rales Cardiovascular: Normal : Normal Auscultation: Bowel Sounds: Normal Tenderness: Normal Skin: Normal Musculoskeletal: Normal (Unable to assess ) Mood Description: Calm Affect: Normal Speech Pattern: Clear and Appropriate Laboratory and Diagnostics Result Diagrams: 04/29/19 05:32 04/29/19 05:32 Labs: 04/22/19 14:18 Blood Blood Culture - Final 04/22/19 14:09 Blood Blood Culture - Final 04/20/19 16:12 Blood Blood Culture - Final 04/20/19 17:40 Blood Blood Culture - Final 04/24/19 07:41 Stool Stool Culture - Final 04/24/19 07:41 Stool - Final 04/20/19 23:20 Urine,Clean Catch Urine Culture - Final Laboratory WBC 10.6 X10^3/uL (3.6-10.0) H 04/29/19 05:32 RBC 4.38 X10^6/uL (4.7-6.0) L 04/29/19 05:32 Hgb 14.1 g/dL (13.5-18.0) 04/29/19 05:32 Hct 41.8 % (42.0-54.0) L 04/29/19 05:32 MCV 95.5 fL (80.0-100.0) 04/29/19 05:32 MCH 32.1 pg (27.0-34.0) 04/29/19 05:32 MCHC 33.7 g/dL (33.0-35.0) 04/29/19 05:32 RDW 15.6 % (11.6-16.5) 04/29/19 05:32 Plt Count 204 X10^3/uL (150.0-450.0) 04/29/19 05:32 Plt Count Comment Decreased (ADEQUATE) 04/27/19 04:05 MPV 8.4 fL (7.4-11.0) 04/29/19 05:32 Neut % (Auto) 74.3 % (42.0-75.0) 04/29/19 05:32 Lymph % (Auto) 12.9 % (21.0-51.0) L 04/29/19 05:32 [place] % (Auto) 11.8 % (0.0-13.0) 04/29/19 05:32 Eos % (Auto) 0.7 % (0.9-2.9) L 04/29/19 05:32 Baso % (Auto) 0.3 % (0.2-1.0) 04/29/19 05:32 Neut # (Auto) 7.9 x10^3/uL (2.2-4.8) H 04/29/19 05:32 Lymph # (Auto) 1.4 X10^3/uL (1.3-2.9) 04/29/19 05:32 [place] # (Auto) 1.2 x10^3/uL (0.3-0.8) H 04/29/19 05:32 Eos # (Auto) 0.1 x10^3/uL (0.0-0.2) 04/29/19 05:32 Baso # (Auto) 0.0 X10^3/uL (0.0-0.1) 04/29/19 05:32 Absolute Nucleated RBC 0.0 /100WBC 04/29/19 05:32 Total Counted 100 04/27/19 04:05 Neutrophils % (Manual) 75 % (39-76) 04/27/19 04:05 Band Neutrophils % 2 % (0-10) 04/27/19 04:05 Lymphocytes % (Manual) 7 % (13-43) L 04/27/19 04:05 Monocytes % (Manual) 16 % (4-9) H 04/27/19 04:05 Eosinophils % (Manual) 1 % (0-6) 04/23/19 04:00 Metamyelocytes % 2 04/24/19 04:00 Myelocytes % 2 04/20/19 16:12 Giant Platelets Rare 04/23/19 04:00 Plt Morphology Comment Normal (NORMAL) 04/27/19 04:05 RBC Morphology Normal (NORMAL) 04/27/19 04:05 ESR 6 MM/HOUR (0-15) 04/26/19 06:13 Sample Site Rr 04/26/19 12:03 ABG pH 7.390 (7.35-7.45) 04/26/19 12:03 ABG pCO2 58.0 mmHg (35.0-45.0) H* 04/26/19 12:03 ABG pO2 67.0 mmHg (80.0-100.0) L 04/26/19 12:03 ABG HCO3 35.1 mmol/L (22-26) H* 04/26/19 12:03 ABG O2 Saturation 93.0 % (90-100) 04/26/19 12:03 ABG Base Excess 8.3 mmol/L (-2.0-2.0) H 04/26/19 12:03 Jose Daniel Test Pos 04/26/19 12:03 A-a Gradient 60.0 mmHg 04/26/19 12:03 FiO2 28.0 04/26/19 12:03 Blood Gas Comments Pt dc well.cdn 04/26/19 12:03 Sodium 135 mmol/L (136-145) L 04/29/19 05:32 Corrected Sodium TNP 04/29/19 05:32 Potassium 3.5 mmol/L (3.5-5.1) 04/29/19 05:32 Chloride 93 mmol/L (98-107) L 04/29/19 05:32 Carbon Dioxide > 45.0 mmol/L (21-32) H* 04/29/19 05:32 BUN 6 mg/dL (7-18) L 04/29/19 05:32 Creatinine 0.40 mg/dL (0.70-1.30) L 04/29/19 05:32 Est GFR (MDRD) Af Amer > 60 (>60) 04/29/19 05:32 Est GFR (MDRD) Non-Af > 60 (>60) 04/29/19 05:32 Glucose 96 mg/dL (65-99) 04/29/19 05:32 POC Glucose (mg/dL) 167 mg/dL (65-99) H 04/27/19 20:45 Lactic Acid 0.6 mmol/L (0.4-2.0) 04/25/19 08:23 Calcium 7.7 mg/dL (8.5-10.1) L 04/29/19 05:32 Corrected Calcium 9.1 mg/dL (8.5-10.1) 04/29/19 05:32 Phosphorus 4.4 mg/dL (2.6-4.7) 04/20/19 21:56 Magnesium 1.9 mg/dL (1.7-2.9) 04/29/19 05:32 Total Bilirubin 0.30 mg/dL (0.2-1.0) 04/29/19 05:32 AST 17 Units/L (15-37) 04/29/19 05:32 ALT 8 Units/L (12-78) L 04/29/19 05:32 Alkaline Phosphatase 106 Units/L (46-116) 04/29/19 05:32 Creatine Kinase 353 Units/L (39-308) H 04/23/19 08:45 CK-MB (CK-2) 8.3 ng/mL (0-4.0) H* 04/23/19 08:45 CK/CKMB % Calc 2.4 % (<4) 04/23/19 08:45 Troponin I 0.08 ng/mL (0-1.5) 04/23/19 08:45 C-Reactive Protein 33.30 mg/L (0-3.0) H 04/26/19 06:13 Total Protein 5.1 g/dL (6.4-8.2) L 04/29/19 05:32 Albumin 2.2 g/dL (3.4-5.0) L 04/29/19 05:32 Globulin 2.9 g/dL (2.5-4.5) 04/29/19 05:32 Albumin/Globulin Ratio 0.8 Ratio (1.1-2.1) L 04/29/19 05:32 TSH 3rd Generation 1.187 uIU/mL (0.358-3.74) 04/20/19 21:56 Specimen Type Catherized urine 04/24/19 13:12 Urine Color Yellow (YELLOW) 04/24/19 13:12 Urine Appearance Slightly hazy (CLEAR) 04/24/19 13:12 Urine pH 6.0 (5.0 - 8.0) 04/24/19 13:12 Ur Specific [place] 1.010 (1.000-1.030) 04/24/19 13:12 Urine Protein 2+ (NEGATIVE) 04/24/19 13:12 Urine Glucose (UA) Negative (NEGATIVE) 04/24/19 13:12 Urine Ketones 1+ (NEGATIVE) 04/24/19 13:12 Urine Occult Blood Negative (NEGATIVE) 04/24/19 13:12 Urine Nitrite Negative (NEGATIVE) 04/24/19 13:12 Urine Bilirubin Negative (NEGATIVE) 04/24/19 13:12 Urine Urobilinogen Normal (NORMAL) 04/24/19 13:12 Ur Leukocyte Esterase 1+ (NEGATIVE) 04/24/19 13:12 Urine RBC 0-2 /HPF (0-3) 04/24/19 13:12 Urine WBC 0-2 /HPF (0-5) 04/24/19 13:12 Ur Squamous Epith Cells Negative /HPF (NEGATIVE) 04/24/19 13:12 Ur Transition Epith Cell Few /HPF (NEGATIVE) 04/24/19 13:12 Amorphous Sediment Trace /HPF (NEGATIVE) 04/24/19 13:12 Urine Bacteria Trace /HPF (NEGATIVE) 04/24/19 13:12 Urine Mucus Few /HPF (NEGATIVE) 04/24/19 13:12 Ur Culture Indicated? No/not indicated 04/24/19 13:12 Stool Description 15g,brown,liquid 04/24/19 07:41 Stool Description 15g,brown,liquid 04/24/19 07:41 Stl Occult Blood (IFOB) Positive (NEGATIVE) A 04/24/19 07:41 Stool for White Cells Positive (NEGATIVE) A 04/24/19 07:41 Stl C. diff Tox B Gene Positive (NEGATIVE) A 04/24/19 07:41 Stl C. diff 027-NAP1-BI Negative (NEGATIVE) 04/24/19 07:41 Urine Opiates Screen Negative (NEG=<300) 04/20/19 23:24 Urine Methadone Screen Negative (NEG=<300) 04/20/19 23:24 Ur Barbiturates Screen Negative (NEG=<200) 04/20/19 23:24 Ur Phencyclidine Scrn Negative (NEG=<25) 04/20/19 23:24 Ur Amphetamines Screen Negative (NEG=<1000) 04/20/19 23:24 U Benzodiazepines Scrn Negative (NEG=<200) 04/20/19 23:24 Urine Cocaine Screen Negative (NEG=<300) 04/20/19 23:24 U Marijuana (THC) Screen Negative (NEG=<50) 04/20/19 23:24 Ethyl Alcohol mg/dL 4 mg/dL (0-19.9) 04/20/19 21:56 Ur C. trach DNA (PCR) Not detected (NOT DETECT) 04/22/19 17:10 C. difficile Toxin A&B Negative (NEGATIVE) 04/24/19 07:41 Cryptosporid parvum Ag Negative (NEGATIVE) 04/24/19 07:41 Giardia lamblia Ag Negative (NEGATIVE) 04/24/19 07:41 Hepatitis A IgM Ab Negative (Negative) 12/18/19 21:56 Hep Bs Antigen Negative (Negative) 04/20/19 21:56 Hep Bs Ag Confirmation TNP 04/20/19 21:56 Hep B Core IgM Ab Negative (Negative) 04/20/19 21:56 Hepatitis C Ab Index 0.07 IV 04/20/19 21:56 Hepatitis C Interp Negative (Negative) 04/20/19 21:56 Hepatitis Interpret See note 04/20/19 21:56 HIV-1 Ab Confirm (Blot) TNP 04/20/19 21:56 HIV 1&2 Antibody Screen Negative (Negative) 04/20/19 21:56 Influenza Type A (PCR) Negative (NEGATIVE) 04/20/19 17:40 Influenza Type B (PCR) Negative (NEGATIVE) 04/20/19 17:40 U N.gonorrhoeae DNA PCR Not detected (NOT DETECT) 04/22/19 17:10 Miscellaneous Test Legionella ag 04/22/19 17:10 Plan (1) Pleural effusion: Status: Acute Plan: Will start daily po Lasix. Echo normal, EF 64% with mild TR (2) Gram-negative bacteremia: Status: Acute Plan: First set: H. Influenza positive, sensitive to Rocephin Repeat negative, WBC trending down, vitals stable (3) Diarrhea: Status: Acute Qualifiers: Diarrhea type: unspecified type Qualified Code(s): R19.7 - Diarrhea, unspecified Plan: Resolved, Will check C.diff again, add probiotics. (4) Accelerated hypertension: Status: Acute Plan: currently has Clonidine patch and Lisinopril 10 mg daily. (5) Acute respiratory failure with hypercapnia: Status: Acute Plan: Hypercapnia resolved, currently on nc. Titrate O2 down to keep sats 90-92%. Physical therapy to work with patient, continue duonebs and pulmicort (6) Septic shock: Status: Acute Plan: Resolved (7) Neutropenia: Status: Acute Qualifiers: Neutropenia type: unspecified Qualified Code(s): D70.9 - Neutropenia, unspecified Plan: Resolved (8) Pneumonia: Status: Acute Qualifiers: Laterality: right Lung location: middle lobe of lung Pneumonia type: due to unspecified organism Qualified Code(s): J18.9 - Pneumonia, unspecified organism Plan: CXR reviewed, right sided pneumonia Continue Abx (9) COPD (chronic obstructive pulmonary disease): Status: Acute Qualifiers: COPD type: COPD with acute exacerbation Qualified Code(s): J44.1 - Chronic obstructive pulmonary disease with (acute) exacerbation (10) Acute hyponatremia: Status: Acute Plan: Na: 134 (11) Acute renal failure: Status: Acute Qualifiers: Acute renal failure type: unspecified Qualified Code(s): N17.9 - Acute kidney failure, unspecified Plan: Resolved (12) Alcohol use: Status: Acute (13) Failure to thrive: Status: Acute Qualifiers: Failure to thrive age range: in adult Qualified Code(s): R62.7 - Adult failure to thrive Plan: PT/OT (14) Elevated liver enzymes: Status: Acute
[2019-04-29] MEDS ORDERED: ZESTRIL TAB 20 MG ONE (08:47)
[2019-04-29] MEDS: NICOTINE PATCH TD SCH (08:55)
[2019-04-29] MEDS: ROCEPHIN VIAL 1 GRAM 1 G in NS 100 ML IV + SPIKE MINIBAG* 100 ML IV SCH (08:55)
[2019-04-29] MEDS: VITAMIN B-1 PO SCH (08:56)
[2019-04-29] MEDS: ZESTRIL TAB 20 MG PO SCH (08:56)
[2019-04-29] MEDS: LIDODERM 5% PATCH TD SCH (08:56)
[2019-04-29] MEDS: PREDNISONE TAB 20 MG PO SCH (08:56)
[2019-04-29] MEDS: PROTONIX TAB 40 MG PO SCH (08:56)
[2019-04-29] MEDS: TobraDEX OPHTH OINT AFFEYE SCH ×2 (08:57→20:51)
[2019-04-29] MEDS: VSL#3 PO SCH (08:57)
[2019-04-29] MEDS: MORPHINE SULFATE INJ 2 MG INJ IVP PRN ×3 (09:04→23:24)
[2019-04-29] MEDS: ZOFRAN INJ 4 MG VIAL IVP PRN (11:08)
[2019-04-29] MEDS: LASIX PO SCH (11:09)
[2019-04-30] MEDS: DUONEB 0.5 MG/3 MG (3 mL) NEB SCH ×5 (00:30→17:27)
[2019-04-30] MEDS: MORPHINE SULFATE INJ 2 MG INJ IVP PRN ×4 (04:45→20:50)
[2019-04-30 05:00] LABS: BASOPHILS # (AUTO) 0.1 X10^3/uL (0.0-0.1); BASOPHILS % (AUTO) 0.6 % (0.2-1.0); EOSINOPHILS % (AUTO) 0.4 % (0.9-2.9); HEMATOCRIT 40.1 % (42.0-54.0); HEMOGLOBIN 13.6 g/dL (13.5-18.0); LYMPHOCYTES # (AUTO) 1.6 X10^3/uL (1.3-2.9); LYMPHOCYTES % (AUTO) 15.5 % (21.0-51.0); MEAN CORPUSCULAR HEMOGLOBIN 32.3 pg (27.0-34.0); MEAN CORPUSCULAR HGB CONC 33.9 g/dL (33.0-35.0); MEAN CORPUSCULAR VOLUME 95.4 fL (80.0-100.0); MEAN PLATELET VOLUME 8.6 fL (7.4-11.0); MONOCYTES # (AUTO) 1.2 x10^3/uL (0.3-0.8); NEUTROPHILS # (AUTO) 7.4 x10^3/uL (2.2-4.8); NEUTROPHILS % (AUTO) 71.5 % (42.0-75.0); PLATELET COUNT 248 X10^3/uL (150.0-450.0); RED CELL DISTRIBUTION WIDTH 15.5 % (11.6-16.5); WHITE BLOOD COUNT 10.3 X10^3/uL (3.6-10.0)
[2019-04-30 05:17] LABS: ALANINE AMINOTRANSFERASE 11 Units/L (12-78); ALBUMIN 2.1 g/dL (3.4-5.0); ALKALINE PHOSPHATASE 92 Units/L (46-116); ASPARTATE AMINO TRANSFERASE 17 Units/L (15-37); BLOOD UREA NITROGEN 5 mg/dL (7-18); CALCIUM 7.8 mg/dL (8.5-10.1); CHLORIDE 94 mmol/L (98-107); COR CA(FOR HYPOALB) 9.3 mg/dL (8.5-10.1); CREATININE 0.37 mg/dL (0.70-1.30); SODIUM 136 mmol/L (136-145); TOTAL PROTEIN 5.1 g/dL (6.4-8.2); eGFR NON BLACK RACES > 60 (>60)
[2019-04-30 05:27] LABS: CARBON DIOXIDE > 45.0 mmol/L (21-32)
[2019-04-30] MEDS: K-DUR TAB 20 MEQ PO PRN (05:43)
[2019-04-30] MEDS ORDERED: ZESTRIL TAB 20 MG ONE (08:37)
--- NOTE | 2019-04-30 09:28 | PCM.PROG ---
Progress Note Progress Note for Day of Date of Exam: 04/30/19 Subjective Subjective: Pt is a 48 yo m being treated for septic shock. This morning he is alert and oriented. He is currently on 3L nc, has not required BiPAP. His labs this morning still show elevated HCO3 which is expected given his COPD and pneumonia, will continue to closely monitor for any changes in mental and respiratory status and if necessary do an ABG to evaluate if BiPAP needed. His BP wnl, he is on a clonidine patch and Lisinopril. Today he says that the edema in his upper extremities have resolved, however still having bilateral lower ext edema. Will order U/S to evaluate for DVT. Will continue low dose oral Lasix for the weekend. Blood cultures positive for H. Influenza, repeat negative. He is currently on Rocephin, he is on Day 03/17 of antibiotics. Will need to complete course. PT has started working with patient. Pt to considered for LTAC placement. Past Medical Family Social History Past Med/Fam/Surg Hx: No changes since H&P Allergies: Allergies Penicillins Allergy (Verified 10/29/18 15:22) Review of Systems ROS: No change since H&P Vital Signs and I&O's Vital Signs: Temperature 98.3 F Pulse Rate [Brachial] 121 Pulse Rate 76 Respiratory Rate 17 Blood Pressure [Left Arm] 97/59 Blood Pressure [Right Arm] 154/86 Blood Pressure 145/84 O2 Sat by Pulse Oximetry 100 Intake and Output: Intake & Output 04/27/19 04/28/19 04/29/19 04/30/19 23:59 23:59 23:59 23:59 Intake Total 2891 / 2891 1664 / 1664 2004 260 / 260 Output Total 2200 / 2200 3050 / 3050 3225 / 3225 1000 / 1000 Balance 691 / 691 -1386 / -1386 -1220 / -1220 -740 / -740 Physical Exam Oriented: Normal Eyes: Normal Ear: Normal Respiratory: Rales Cardiovascular: Normal : Normal Auscultation: Bowel Sounds: Normal Tenderness: Normal Skin: Normal Musculoskeletal: Right, Left and Leg (proximal 2+ pitting edema ) Mood Description: Calm Affect: Normal Speech Pattern: Clear and Appropriate Laboratory and Diagnostics Result Diagrams: 04/30/19 04:22 04/30/19 04:22 Labs: 04/22/19 14:18 Blood Blood Culture - Final 04/22/19 14:09 Blood Blood Culture - Final 04/20/19 16:12 Blood Blood Culture - Final 04/20/19 17:40 Blood Blood Culture - Final 04/24/19 07:41 Stool Stool Culture - Final 04/24/19 07:41 Stool - Final 04/20/19 23:20 Urine,Clean Catch Urine Culture - Final Laboratory WBC 10.3 X10^3/uL (3.6-10.0) H 04/30/19 04:22 RBC 4.20 X10^6/uL (4.7-6.0) L 04/30/19 04:22 Hgb 13.6 g/dL (13.5-18.0) 04/30/19 04:22 Hct 40.1 % (42.0-54.0) L 04/30/19 04:22 MCV 95.4 fL (80.0-100.0) 04/30/19 04:22 MCH 32.3 pg (27.0-34.0) 04/30/19 04:22 MCHC 33.9 g/dL (33.0-35.0) 04/30/19 04:22 RDW 15.5 % (11.6-16.5) 04/30/19 04:22 Plt Count 248 X10^3/uL (150.0-450.0) 04/30/19 04:22 Plt Count Comment Decreased (ADEQUATE) 04/27/19 04:05 MPV 8.6 fL (7.4-11.0) 04/30/19 04:22 Neut % (Auto) 71.5 % (42.0-75.0) 04/30/19 04:22 Lymph % (Auto) 15.5 % (21.0-51.0) L 04/30/19 04:22 [place] % (Auto) 12.0 % (0.0-13.0) 04/30/19 04:22 Eos % (Auto) 0.4 % (0.9-2.9) L 04/30/19 04:22 Baso % (Auto) 0.6 % (0.2-1.0) 04/30/19 04:22 Neut # (Auto) 7.4 x10^3/uL (2.2-4.8) H 04/30/19 04:22 Lymph # (Auto) 1.6 X10^3/uL (1.3-2.9) 04/30/19 04:22 [place] # (Auto) 1.2 x10^3/uL (0.3-0.8) H 04/30/19 04:22 Eos # (Auto) 0.0 x10^3/uL (0.0-0.2) 04/30/19 04:22 Baso # (Auto) 0.1 X10^3/uL (0.0-0.1) 04/30/19 04:22 Absolute Nucleated RBC 0.1 /100WBC 04/30/19 04:22 Total Counted 100 04/27/19 04:05 Neutrophils % (Manual) 75 % (39-76) 04/27/19 04:05 Band Neutrophils % 2 % (0-10) 04/27/19 04:05 Lymphocytes % (Manual) 7 % (13-43) L 04/27/19 04:05 Monocytes % (Manual) 16 % (4-9) H 04/27/19 04:05 Eosinophils % (Manual) 1 % (0-6) 04/23/19 04:00 Metamyelocytes % 2 04/24/19 04:00 Myelocytes % 2 04/20/19 16:12 Giant Platelets Rare 04/23/19 04:00 Plt Morphology Comment Normal (NORMAL) 04/27/19 04:05 RBC Morphology Normal (NORMAL) 04/27/19 04:05 ESR 6 MM/HOUR (0-15) 04/26/19 06:13 Sample Site Rr 04/26/19 12:03 ABG pH 7.390 (7.35-7.45) 04/26/19 12:03 ABG pCO2 58.0 mmHg (35.0-45.0) H* 04/26/19 12:03 ABG pO2 67.0 mmHg (80.0-100.0) L 04/26/19 12:03 ABG HCO3 35.1 mmol/L (22-26) H* 04/26/19 12:03 ABG O2 Saturation 93.0 % (90-100) 04/26/19 12:03 ABG Base Excess 8.3 mmol/L (-2.0-2.0) H 04/26/19 12:03 Jose Daniel Test Pos 04/26/19 12:03 A-a Gradient 60.0 mmHg 04/26/19 12:03 FiO2 28.0 04/26/19 12:03 Blood Gas Comments Pt dc well.cdn 04/26/19 12:03 Sodium 136 mmol/L (136-145) 04/30/19 04:22 Corrected Sodium TNP 04/30/19 04:22 Potassium 3.4 mmol/L (3.5-5.1) L 04/30/19 04:22 Chloride 94 mmol/L (98-107) L 04/30/19 04:22 Carbon Dioxide > 45.0 mmol/L (21-32) H* 04/30/19 04:22 BUN 5 mg/dL (7-18) L 04/30/19 04:22 Creatinine 0.37 mg/dL (0.70-1.30) L 04/30/19 04:22 Est GFR (MDRD) Af Amer > 60 (>60) 04/30/19 04:22 Est GFR (MDRD) Non-Af > 60 (>60) 04/30/19 04:22 Glucose 79 mg/dL (65-99) 04/30/19 04:22 POC Glucose (mg/dL) 167 mg/dL (65-99) H 04/27/19 20:45 Lactic Acid 0.6 mmol/L (0.4-2.0) 04/25/19 08:23 Calcium 7.8 mg/dL (8.5-10.1) L 04/30/19 04:22 Corrected Calcium 9.3 mg/dL (8.5-10.1) 04/30/19 04:22 Phosphorus 4.4 mg/dL (2.6-4.7) 04/20/19 21:56 Magnesium 1.7 mg/dL (1.7-2.9) 04/30/19 04:22 Total Bilirubin 0.30 mg/dL (0.2-1.0) 04/30/19 04:22 AST 17 Units/L (15-37) 04/30/19 04:22 ALT 11 Units/L (12-78) L 04/30/19 04:22 Alkaline Phosphatase 92 Units/L (46-116) 04/30/19 04:22 Creatine Kinase 353 Units/L (39-308) H 04/23/19 08:45 CK-MB (CK-2) 8.3 ng/mL (0-4.0) H* 04/23/19 08:45 CK/CKMB % Calc 2.4 % (<4) 04/23/19 08:45 Troponin I 0.08 ng/mL (0-1.5) 04/23/19 08:45 C-Reactive Protein 33.30 mg/L (0-3.0) H 04/26/19 06:13 Total Protein 5.1 g/dL (6.4-8.2) L 04/30/19 04:22 Albumin 2.1 g/dL (3.4-5.0) L 04/30/19 04:22 Globulin 3.0 g/dL (2.5-4.5) 04/30/19 04:22 Albumin/Globulin Ratio 0.7 Ratio (1.1-2.1) L 04/30/19 04:22 TSH 3rd Generation 1.187 uIU/mL (0.358-3.74) 04/20/19 21:56 Specimen Type Catherized urine 04/24/19 13:12 Urine Color Yellow (YELLOW) 04/24/19 13:12 Urine Appearance Slightly hazy (CLEAR) 04/24/19 13:12 Urine pH 6.0 (5.0 - 8.0) 04/24/19 13:12 Ur Specific [place] 1.010 (1.000-1.030) 04/24/19 13:12 Urine Protein 2+ (NEGATIVE) 04/24/19 13:12 Urine Glucose (UA) Negative (NEGATIVE) 04/24/19 13:12 Urine Ketones 1+ (NEGATIVE) 04/24/19 13:12 Urine Occult Blood Negative (NEGATIVE) 04/24/19 13:12 Urine Nitrite Negative (NEGATIVE) 04/24/19 13:12 Urine Bilirubin Negative (NEGATIVE) 04/24/19 13:12 Urine Urobilinogen Normal (NORMAL) 04/24/19 13:12 Ur Leukocyte Esterase 1+ (NEGATIVE) 04/24/19 13:12 Urine RBC 0-2 /HPF (0-3) 04/24/19 13:12 Urine WBC 0-2 /HPF (0-5) 04/24/19 13:12 Ur Squamous Epith Cells Negative /HPF (NEGATIVE) 04/24/19 13:12 Ur Transition Epith Cell Few /HPF (NEGATIVE) 04/24/19 13:12 Amorphous Sediment Trace /HPF (NEGATIVE) 04/24/19 13:12 Urine Bacteria Trace /HPF (NEGATIVE) 04/24/19 13:12 Urine Mucus Few /HPF (NEGATIVE) 04/24/19 13:12 Ur Culture Indicated? No/not indicated 04/24/19 13:12 Stool Description 15g,brown,liquid 04/24/19 07:41 Stool Description 15g,brown,liquid 04/24/19 07:41 Stl Occult Blood (IFOB) Positive (NEGATIVE) A 04/24/19 07:41 Stool for White Cells Positive (NEGATIVE) A 04/24/19 07:41 Stl C. diff Tox B Gene Negative (NEGATIVE) 04/30/19 00:06 Stl C. diff 027-NAP1-BI Negative (NEGATIVE) 04/30/19 00:06 Urine Opiates Screen Negative (NEG=<300) 04/20/19 23:24 Urine Methadone Screen Negative (NEG=<300) 04/20/19 23:24 Ur Barbiturates Screen Negative (NEG=<200) 04/20/19 23:24 Ur Phencyclidine Scrn Negative (NEG=<25) 04/20/19 23:24 Ur Amphetamines Screen Negative (NEG=<1000) 04/20/19 23:24 U Benzodiazepines Scrn Negative (NEG=<200) 04/20/19 23:24 Urine Cocaine Screen Negative (NEG=<300) 04/20/19 23:24 U Marijuana (THC) Screen Negative (NEG=<50) 04/20/19 23:24 Ethyl Alcohol mg/dL 4 mg/dL (0-19.9) 04/20/19 21:56 Ur C. trach DNA (PCR) Not detected (NOT DETECT) 04/22/19 17:10 C. difficile Toxin A&B Negative (NEGATIVE) 04/24/19 07:41 Cryptosporid parvum Ag Negative (NEGATIVE) 04/24/19 07:41 Giardia lamblia Ag Negative (NEGATIVE) 04/24/19 07:41 Hepatitis A IgM Ab Negative (Negative) 04/20/19 21:56 Hep Bs Antigen Negative (Negative) 04/20/19 21:56 Hep Bs Ag Confirmation TNP 04/20/19 21:56 Hep B Core IgM Ab Negative (Negative) 04/20/19 21:56 Hepatitis C Ab Index 0.07 IV 04/20/19 21:56 Hepatitis C Interp Negative (Negative) 04/20/19 21:56 Hepatitis Interpret See note 04/20/19 21:56 HIV-1 Ab Confirm (Blot) TNP 04/20/19 21:56 HIV 1&2 Antibody Screen Negative (Negative) 04/20/19 21:56 Influenza Type A (PCR) Negative (NEGATIVE) 04/20/19 17:40 Influenza Type B (PCR) Negative (NEGATIVE) 04/20/19 17:40 U N.gonorrhoeae DNA PCR Not detected (NOT DETECT) 04/22/19 17:10 Miscellaneous Test Legionella ag 04/22/19 17:10 Plan (1) Pleural effusion: Status: Acute Plan: Lasix 20mg throughout the weekend Echo normal, EF 64% with mild TR (2) Gram-negative bacteremia: Status: Acute Plan: First set: H. Influenza positive, sensitive to Rocephin Repeat negative, WBC trending down, vitals stable (3) Diarrhea: Status: Acute Qualifiers: Diarrhea type: unspecified type Qualified Code(s): R19.7 - Diarrhea, unspecified Plan: Resolved, C diff negative, likely d/t antibiotics (4) Accelerated hypertension: Status: Acute Plan: currently has Clonidine patch and Lisinopril 10 mg daily. (5) Acute respiratory failure with hypercapnia: Status: Acute Plan: Hypercapnia resolved, currently on nc. Titrate O2 down to keep sats 90-92%. Physical therapy to work with patient, continue duonebs and pulmicort (6) Septic shock: Status: Acute Plan: Resolved (7) Neutropenia: Status: Acute Qualifiers: Neutropenia type: unspecified Qualified Code(s): D70.9 - Neutropenia, unspecified Plan: Resolved (8) Pneumonia: Status: Acute Qualifiers: Laterality: right Lung location: middle lobe of lung Pneumonia type: due to unspecified organism Qualified Code(s): J18.9 - Pneumonia, unspecified organism Plan: CXR reviewed, right sided pneumonia Continue Abx (9) COPD (chronic obstructive pulmonary disease): Status: Acute Qualifiers: COPD type: COPD with acute exacerbation Qualified Code(s): J44.1 - Chronic obstructive pulmonary disease with (acute) exacerbation (10) Acute hyponatremia: Status: Acute Plan: Na: 134 (11) Acute renal failure: Status: Acute Qualifiers: Acute renal failure type: unspecified Qualified Code(s): N17.9 - Acute kidney failure, unspecified Plan: Resolved (12) Alcohol use: Status: Acute (13) Failure to thrive: Status: Acute Qualifiers: Failure to thrive age range: in adult Qualified Code(s): R62.7 - Adult failure to thrive Plan: PT/OT (14) Elevated liver enzymes: Status: Acute
[2019-04-30] MEDS: PULMICORT NEB TX 0.5 MG NEB SCH ×2 (09:34→21:05)
[2019-04-30] MEDS: LIDODERM 5% PATCH TD SCH (09:42)
[2019-04-30] MEDS: NICOTINE PATCH TD SCH (09:44)
[2019-04-30] MEDS: VSL#3 PO SCH (09:45)
[2019-04-30] MEDS: PROTONIX TAB 40 MG PO SCH (09:45)
[2019-04-30] MEDS: LASIX PO SCH (09:45)
[2019-04-30] MEDS: ZESTRIL TAB 20 MG PO SCH (09:46)
[2019-04-30] MEDS: ROCEPHIN VIAL 1 GRAM 1 G in NS 100 ML IV + SPIKE MINIBAG* 100 ML IV SCH (09:47)
[2019-04-30] MEDS: VITAMIN B-1 PO SCH (09:47)
[2019-04-30] MEDS: TobraDEX OPHTH OINT AFFEYE SCH ×2 (09:47→20:47)
[2019-04-30] MEDS: LOVENOX INJ 40 MG SYR SC SCH (10:14)
[2019-04-30] MEDS ORDERED: BUTT CREAM (COMPOUND) ONE (14:07)
--- NOTE | 2019-04-30 15:10 | VAS ---
LOWER EXT VENOUS, BILATERALHISTORY: MIAH LEG SWELLINGComparison:NoneTECHNIQUE: Multiple ibarra scale and color flow Doppler images of the deep venous system were obtained of the right and left lower extremity.FINDINGS:The deep venous system of the right and left lower extremities were evaluated from the level of the common femoral vein through the popliteal vein. Normal color flow and augmentation can be observed .In addition, normal compression is seen throughout the deep venous system.IMPRESSION:1. Negative for DVT.Electronically signed by: RANJANA DHILLON (Apr 30, 2019 15:08:49)
[2019-04-30] MEDS: ROBITUSSIN DM PO PRN (20:47)
[2019-05-01] MEDS: DUONEB 0.5 MG/3 MG (3 mL) NEB SCH ×4 (00:25→17:30)
[2019-05-01] MEDS: MORPHINE SULFATE INJ 2 MG INJ IVP PRN ×2 (05:00→19:31)
[2019-05-01 05:18] LABS: BASOPHILS # (AUTO) 0.1 X10^3/uL (0.0-0.1); BASOPHILS % (AUTO) 0.8 % (0.2-1.0); EOSINOPHILS # (AUTO) 0.2 x10^3/uL (0.0-0.2); EOSINOPHILS % (AUTO) 1.5 % (0.9-2.9); HEMATOCRIT 40.1 % (42.0-54.0); HEMOGLOBIN 13.4 g/dL (13.5-18.0); LYMPHOCYTES # (AUTO) 1.5 X10^3/uL (1.3-2.9); LYMPHOCYTES % (AUTO) 13.3 % (21.0-51.0); MEAN CORPUSCULAR HGB CONC 33.5 g/dL (33.0-35.0); MEAN CORPUSCULAR VOLUME 95.6 fL (80.0-100.0); MEAN PLATELET VOLUME 8.8 fL (7.4-11.0); MONOCYTES # (AUTO) 1.2 x10^3/uL (0.3-0.8); MONOCYTES % (AUTO) 10.9 % (0.0-13.0); NEUTROPHILS # (AUTO) 8.1 x10^3/uL (2.2-4.8); NEUTROPHILS % (AUTO) 73.5 % (42.0-75.0); PLATELET COUNT 308 X10^3/uL (150.0-450.0); RED BLOOD COUNT 4.19 X10^6/uL (4.7-6.0); RED CELL DISTRIBUTION WIDTH 15.3 % (11.6-16.5)
[2019-05-01 05:38] LABS: ALANINE AMINOTRANSFERASE 13 Units/L (12-78); ALBUMIN 2.2 g/dL (3.4-5.0); ALKALINE PHOSPHATASE 90 Units/L (46-116); ASPARTATE AMINO TRANSFERASE 25 Units/L (15-37); BLOOD UREA NITROGEN 5 mg/dL (7-18); CALCIUM 7.9 mg/dL (8.5-10.1); CHLORIDE 94 mmol/L (98-107); COR CA(FOR HYPOALB) 9.3 mg/dL (8.5-10.1); CREATININE 0.36 mg/dL (0.70-1.30); SODIUM 135 mmol/L (136-145); TOTAL PROTEIN 5.3 g/dL (6.4-8.2); eGFR NON BLACK RACES > 60 (>60)
[2019-05-01 05:52] LABS: CARBON DIOXIDE 42.4 mmol/L (21-32)
[2019-05-01] MEDS: K-DUR TAB 20 MEQ PO PRN (06:19)
[2019-05-01] MEDS: MAGNESIUM SULFATE 1 GRAM/100 mL PREMIX 1 GM/100 ML BAG IV PRN ×3 (06:50→09:53)
--- NOTE | 2019-05-01 07:19 | RAD ---
HISTORYPNEUMONIASTUDYCHEST, 1 [id number]/26/2009FINDINGSThe heart is less prominent. The pulmonary vessels are engorged centrally and less prominent. There is hazy airspace opacity along the right perihilar region extending into the right lung base which is slightly decreased. There is hazy left basilar opacity and which is decreased. There are small bibasilar pleural effusions which are less prominent.IMPRESSIONSlight decrease in the heart size with slowly resolving pulmonary edemaHazy airspace opacity along the right perihilar region and extending into the right lung base which probably represents pneumonia or atypical edema and is less prominent.Hazy left basilar opacity which is decreased.Small bibasilar pleural effusions which are less prominent.Electronically signed by: GABRIELLA SUE (May 01, 2019 07:19:07)
[2019-05-01] MEDS ORDERED: ZESTRIL TAB 20 MG ONE (07:57)
[2019-05-01] MEDS: VITAMIN B-1 PO SCH (08:36)
[2019-05-01] MEDS: LASIX PO SCH (08:36)
[2019-05-01] MEDS: PROTONIX TAB 40 MG PO SCH (08:36)
[2019-05-01] MEDS: VSL#3 PO SCH (08:36)
[2019-05-01] MEDS: NICOTINE PATCH TD SCH (08:37)
[2019-05-01] MEDS: ZESTRIL TAB 20 MG PO SCH (08:38)
[2019-05-01] MEDS: LIDODERM 5% PATCH TD SCH (08:38)
[2019-05-01] MEDS: ROCEPHIN VIAL 1 GRAM 1 G in NS 100 ML IV + SPIKE MINIBAG* 100 ML IV SCH (08:38)
[2019-05-01] MEDS: TobraDEX OPHTH OINT AFFEYE SCH ×2 (08:39→20:49)
[2019-05-01] MEDS: LOVENOX INJ 40 MG SYR SC SCH (08:39)
[2019-05-01] MEDS: ULTRAM PO PRN (08:54)
[2019-05-01] MEDS: PULMICORT NEB TX 0.5 MG NEB SCH ×2 (09:37→21:30)
--- NOTE | 2019-05-01 09:55 | PCM.PROG ---
Progress Note Progress Note for Day of Date of Exam: 05/01/19 Subjective Subjective: Pt is a 48 yo m being treated for septic shock. This morning he is alert and oriented, states he feels some improvement. He is currently on 3L nc, has not required BiPAP. His labs this morning show an improved HCO3 but still elevated which is expected given his COPD and pneumonia, will continue to closely monitor. His BP wnl, he is on a clonidine patch and Lisinopril. Yesterday he had edema in bilateral lower extremities, U/S negative for DVT b/l. CXR this morning slowly improving pulmonary edema and small bibasilar pleural effusions less prominent. Will continue low dose oral Lasix for the weekend and give today IV Lasix 20mg x 1. Blood cultures positive for H. Influenza, repeat negative. He is currently on Rocephin, he is on Day 04/16 of antibiotics. Will need to complete course. PT has started working with patient. Pt to be considered for LTAC placement. Past Medical Family Social History Past Med/Fam/Surg Hx: No changes since H&P Allergies: Allergies Penicillins Allergy (Verified 10/29/18 15:22) Review of Systems ROS: No change since H&P Vital Signs and I&O's Vital Signs: Temperature 97.8 F Pulse Rate [Brachial] 121 Pulse Rate 81 Respiratory Rate 20 Blood Pressure [Left Arm] 97/59 Blood Pressure [Right Arm] 154/86 Blood Pressure 126/80 O2 Sat by Pulse Oximetry 95 Intake and Output: Intake & Output 04/28/19 04/29/19 04/30/19 05/01/19 23:59 23:59 23:59 23:59 Intake Total 1664 / 1664 2004 / 2004 3124 / 3124 Output Total 3050 / 3050 3225 / 3225 5100 / 5100 1999 / 1999 Balance -1386 / -1386 -1220 / -1220 -1975 / -1975 -1979 / Physical Exam Oriented: Normal Eyes: Normal Ear: Normal Nose: Normal Respiratory: Rales Cardiovascular: Normal : Normal Auscultation: Bowel Sounds: Normal Tenderness: Normal Skin: Normal Musculoskeletal: Normal Mood Description: Calm Affect: Normal Speech Pattern: Clear and Appropriate Laboratory and Diagnostics Result Diagrams: 05/01/19 04:32 05/01/19 04:32 Labs: 04/22/19 14:18 Blood Blood Culture - Final 04/22/19 14:09 Blood Blood Culture - Final 04/20/19 16:12 Blood Blood Culture - Final 04/20/19 17:40 Blood Blood Culture - Final 04/24/19 07:41 Stool Stool Culture - Final 04/24/19 07:41 Stool - Final 04/20/19 23:20 Urine,Clean Catch Urine Culture - Final Laboratory WBC 11.0 X10^3/uL (3.6-10.0) H 05/01/19 04:32 RBC 4.19 X10^6/uL (4.7-6.0) L 05/01/19 04:32 Hgb 13.4 g/dL (13.5-18.0) L 05/01/19 04:32 Hct 40.1 % (42.0-54.0) L 05/01/19 04:32 MCV 95.6 fL (80.0-100.0) 05/01/19 04:32 MCH 32.0 pg (27.0-34.0) 05/01/19 04:32 MCHC 33.5 g/dL (33.0-35.0) 05/01/19 04:32 RDW 15.3 % (11.6-16.5) 05/01/19 04:32 Plt Count 308 X10^3/uL (150.0-450.0) 05/01/19 04:32 Plt Count Comment Decreased (ADEQUATE) 04/27/19 04:05 MPV 8.8 fL (7.4-11.0) 05/01/19 04:32 Neut % (Auto) 73.5 % (42.0-75.0) 05/01/19 04:32 Lymph % (Auto) 13.3 % (21.0-51.0) L 05/01/19 04:32 [place] % (Auto) 10.9 % (0.0-13.0) 05/01/19 04:32 Eos % (Auto) 1.5 % (0.9-2.9) 05/01/19 04:32 Baso % (Auto) 0.8 % (0.2-1.0) 05/01/19 04:32 Neut # (Auto) 8.1 x10^3/uL (2.2-4.8) H 05/01/19 04:32 Lymph # (Auto) 1.5 X10^3/uL (1.3-2.9) 05/01/19 04:32 [place] # (Auto) 1.2 x10^3/uL (0.3-0.8) H 05/01/19 04:32 Eos # (Auto) 0.2 x10^3/uL (0.0-0.2) 05/01/19 04:32 Baso # (Auto) 0.1 X10^3/uL (0.0-0.1) 05/01/19 04:32 Absolute Nucleated RBC 0.1 /100WBC 05/01/19 04:32 Total Counted 100 04/27/19 04:05 Neutrophils % (Manual) 75 % (39-76) 04/27/19 04:05 Band Neutrophils % 2 % (0-10) 04/27/19 04:05 Lymphocytes % (Manual) 7 % (13-43) L 04/27/19 04:05 Monocytes % (Manual) 16 % (4-9) H 04/27/19 04:05 Eosinophils % (Manual) 1 % (0-6) 04/23/19 04:00 Metamyelocytes % 2 04/24/19 04:00 Myelocytes % 2 04/20/19 16:12 Giant Platelets Rare 04/23/19 04:00 Plt Morphology Comment Normal (NORMAL) 04/27/19 04:05 RBC Morphology Normal (NORMAL) 04/27/19 04:05 ESR 6 MM/HOUR (0-15) 04/26/19 06:13 Sample Site Rr 04/26/19 12:03 ABG pH 7.390 (7.35-7.45) 04/26/19 12:03 ABG pCO2 58.0 mmHg (35.0-45.0) H* 04/26/19 12:03 ABG pO2 67.0 mmHg (80.0-100.0) L 04/26/19 12:03 ABG HCO3 35.1 mmol/L (22-26) H* 04/26/19 12:03 ABG O2 Saturation 93.0 % (90-100) 04/26/19 12:03 ABG Base Excess 8.3 mmol/L (-2.0-2.0) H 04/26/19 12:03 Jose Daniel Test Pos 04/26/19 12:03 A-a Gradient 60.0 mmHg 04/26/19 12:03 FiO2 28.0 04/26/19 12:03 Blood Gas Comments Pt dc well.cdn 04/26/19 12:03 Sodium 135 mmol/L (136-145) L 05/01/19 04:32 Corrected Sodium TNP 05/01/19 04:32 Potassium 3.4 mmol/L (3.5-5.1) L 05/01/19 04:32 Chloride 94 mmol/L (98-107) L 05/01/19 04:32 Carbon Dioxide 42.4 mmol/L (21-32) H* 05/01/19 04:32 BUN 5 mg/dL (7-18) L 05/01/19 04:32 Creatinine 0.36 mg/dL (0.70-1.30) L 05/01/19 04:32 Est GFR (MDRD) Af Amer > 60 (>60) 05/01/19 04:32 Est GFR (MDRD) Non-Af > 60 (>60) 05/01/19 04:32 Glucose 80 mg/dL (65-99) 05/01/19 04:32 POC Glucose (mg/dL) 167 mg/dL (65-99) H 04/27/19 20:45 Lactic Acid 0.6 mmol/L (0.4-2.0) 04/25/19 08:23 Calcium 7.9 mg/dL (8.5-10.1) L 05/01/19 04:32 Corrected Calcium 9.3 mg/dL (8.5-10.1) 05/01/19 04:32 Phosphorus 4.4 mg/dL (2.6-4.7) 04/20/19 21:56 Magnesium 1.5 mg/dL (1.7-2.9) L 05/01/19 04:32 Total Bilirubin 0.40 mg/dL (0.2-1.0) 05/01/19 04:32 AST 25 Units/L (15-37) 05/01/19 04:32 ALT 13 Units/L (12-78) 05/01/19 04:32 Alkaline Phosphatase 90 Units/L (46-116) 05/01/19 04:32 Creatine Kinase 353 Units/L (39-308) H 04/23/19 08:45 CK-MB (CK-2) 8.3 ng/mL (0-4.0) H* 04/23/19 08:45 CK/CKMB % Calc 2.4 % (<4) 04/23/19 08:45 Troponin I 0.08 ng/mL (0-1.5) 04/23/19 08:45 C-Reactive Protein 33.30 mg/L (0-3.0) H 04/26/19 06:13 Total Protein 5.3 g/dL (6.4-8.2) L 05/01/19 04:32 Albumin 2.2 g/dL (3.4-5.0) L 05/01/19 04:32 Globulin 3.1 g/dL (2.5-4.5) 05/01/19 04:32 Albumin/Globulin Ratio 0.7 Ratio (1.1-2.1) L 05/01/19 04:32 TSH 3rd Generation 1.187 uIU/mL (0.358-3.74) 04/20/19 21:56 Specimen Type Catherized urine 04/24/19 13:12 Urine Color Yellow (YELLOW) 04/24/19 13:12 Urine Appearance Slightly hazy (CLEAR) 04/24/19 13:12 Urine pH 6.0 (5.0 - 8.0) 04/24/19 13:12 Ur Specific [place] 1.010 (1.000-1.030) 04/24/19 13:12 Urine Protein 2+ (NEGATIVE) 04/24/19 13:12 Urine Glucose (UA) Negative (NEGATIVE) 04/24/19 13:12 Urine Ketones 1+ (NEGATIVE) 04/24/19 13:12 Urine Occult Blood Negative (NEGATIVE) 04/24/19 13:12 Urine Nitrite Negative (NEGATIVE) 04/24/19 13:12 Urine Bilirubin Negative (NEGATIVE) 04/24/19 13:12 Urine Urobilinogen Normal (NORMAL) 04/24/19 13:12 Ur Leukocyte Esterase 1+ (NEGATIVE) 04/24/19 13:12 Urine RBC 0-2 /HPF (0-3) 04/24/19 13:12 Urine WBC 0-2 /HPF (0-5) 04/24/19 13:12 Ur Squamous Epith Cells Negative /HPF (NEGATIVE) 04/24/19 13:12 Ur Transition Epith Cell Few /HPF (NEGATIVE) 04/24/19 13:12 Amorphous Sediment Trace /HPF (NEGATIVE) 04/24/19 13:12 Urine Bacteria Trace /HPF (NEGATIVE) 04/24/19 13:12 Urine Mucus Few /HPF (NEGATIVE) 04/24/19 13:12 Ur Culture Indicated? No/not indicated 04/24/19 13:12 Stool Description 15g,brown,liquid 04/24/19 07:41 Stool Description 15g,brown,liquid 04/24/19 07:41 Stl Occult Blood (IFOB) Positive (NEGATIVE) A 04/24/19 07:41 Stool for White Cells Positive (NEGATIVE) A 04/24/19 07:41 Stl C. diff Tox B Gene Negative (NEGATIVE) 04/30/19 00:06 Stl C. diff 027-NAP1-BI Negative (NEGATIVE) 04/30/19 00:06 Urine Opiates Screen Negative (NEG=<300) 04/20/19 23:24 Urine Methadone Screen Negative (NEG=<300) 04/20/19 23:24 Ur Barbiturates Screen Negative (NEG=<200) 04/20/19 23:24 Ur Phencyclidine Scrn Negative (NEG=<25) 04/20/19 23:24 Ur Amphetamines Screen Negative (NEG=<1000) 04/20/19 23:24 U Benzodiazepines Scrn Negative (NEG=<200) 04/20/19 23:24 Urine Cocaine Screen Negative (NEG=<300) 04/20/19 23:24 U Marijuana (THC) Screen Negative (NEG=<50) 04/20/19 23:24 Ethyl Alcohol mg/dL 4 mg/dL (0-19.9) 04/20/19 21:56 Ur C. trach DNA (PCR) Not detected (NOT DETECT) 04/22/19 17:10 C. difficile Toxin A&B Negative (NEGATIVE) 04/24/19 07:41 Cryptosporid parvum Ag Negative (NEGATIVE) 04/24/19 07:41 Giardia lamblia Ag Negative (NEGATIVE) 04/24/19 07:41 Hepatitis A IgM Ab Negative (Negative) 04/20/19 21:56 Hep Bs Antigen Negative (Negative) 04/20/19 21:56 Hep Bs Ag Confirmation TNP 04/20/19 21:56 Hep B Core IgM Ab Negative (Negative) 04/20/19 21:56 Hepatitis C Ab Index 0.07 IV 04/20/19 21:56 Hepatitis C Interp Negative (Negative) 04/20/19 21:56 Hepatitis Interpret See note 04/20/19 21:56 HIV-1 Ab Confirm (Blot) TNP 04/20/19 21:56 HIV 1&2 Antibody Screen Negative (Negative) 04/20/19 21:56 Influenza Type A (PCR) Negative (NEGATIVE) 04/20/19 17:40 Influenza Type B (PCR) Negative (NEGATIVE) 04/20/19 17:40 U N.gonorrhoeae DNA PCR Not detected (NOT DETECT) 04/22/19 17:10 Miscellaneous Test Legionella ag 04/22/19 17:10 Plan (1) Pleural effusion: Status: Acute Plan: Lasix 20mg throughout the weekend, will give additional IV Lasix 20mg x1 today d/t CXR findings. Echo normal, EF 64% with mild TR (2) Gram-negative bacteremia: Status: Acute Plan: First set: H. Influenza positive, sensitive to Rocephin Repeat negative, WBC trending down, vitals stable (3) Diarrhea: Status: Acute Qualifiers: Diarrhea type: unspecified type Qualified Code(s): R19.7 - Diarrhea, unspecified Plan: Resolved, C diff negative, likely d/t antibiotics (4) Accelerated hypertension: Status: Acute Plan: currently has Clonidine patch and Lisinopril 10 mg daily. (5) Acute respiratory failure with hypercapnia: Status: Acute Plan: Hypercapnia resolved, currently on nc. Titrate O2 down to keep sats 90-92%. Physical therapy to work with patient, continue duonebs and pulmicort (6) Septic shock: Status: Acute Plan: Resolved (7) Neutropenia: Status: Acute Qualifiers: Neutropenia type: unspecified Qualified Code(s): D70.9 - Neutropenia, unspecified Plan: Resolved (8) Pneumonia: Status: Acute Qualifiers: Laterality: right Lung location: middle lobe of lung Pneumonia type: due to unspecified organism Qualified Code(s): J18.9 - Pneumonia, unspecified o rganism Plan: CXR reviewed, right sided pneumonia Continue Abx (9) COPD (chronic obstructive pulmonary disease): Status: Acute Qualifiers: COPD type: COPD with acute exacerbation Qualified Code(s): J44.1 - Chronic obstructive pulmonary disease with (acute) exacerbation (10) Acute hyponatremia: Status: Acute Plan: Na: 134 (11) Acute renal failure: Status: Acute Qualifiers: Acute renal failure type: unspecified Qualified Code(s): N17.9 - Acute kidney failure, unspecified Plan: Resolved (12) Alcohol use: Status: Acute (13) Failure to thrive: Status: Acute Qualifiers: Failure to thrive age range: in adult Qualified Code(s): R62.7 - Adult failure to thrive Plan: PT/OT (14) Elevated liver enzymes: Status: Acute
[2019-05-01] MEDS ORDERED: LASIX IVP ONE (09:57)
[2019-05-01] MEDS ORDERED: LASIX ONE (15:28)
[2019-05-02] MEDS: DUONEB 0.5 MG/3 MG (3 mL) NEB SCH ×3 (00:54→11:51)
[2019-05-02] MEDS: MORPHINE SULFATE INJ 2 MG INJ IVP PRN ×3 (04:25→15:16)
[2019-05-02 05:43] LABS: ALANINE AMINOTRANSFERASE 12 Units/L (12-78); ALBUMIN 2.3 g/dL (3.4-5.0); ALKALINE PHOSPHATASE 94 Units/L (46-116); ASPARTATE AMINO TRANSFERASE 20 Units/L (15-37); BLOOD UREA NITROGEN 6 mg/dL (7-18); CALCIUM 8.2 mg/dL (8.5-10.1); CARBON DIOXIDE 39.1 mmol/L (21-32); CHLORIDE 93 mmol/L (98-107); COR CA(FOR HYPOALB) 9.6 mg/dL (8.5-10.1); CREATININE 0.33 mg/dL (0.70-1.30); MAGNESIUM 1.6 mg/dL (1.7-2.9); SODIUM 134 mmol/L (136-145); TOTAL PROTEIN 5.7 g/dL (6.4-8.2); eGFR NON BLACK RACES > 60 (>60)
[2019-05-02] MEDS: K-DUR TAB 20 MEQ PO PRN (06:15)
[2019-05-02] MEDS: MAGNESIUM SULFATE 1 GRAM/100 mL PREMIX 1 GM/100 ML BAG IV PRN ×2 (06:16→06:22)
[2019-05-02 08:02] LABS: ANTI-NUCLEAR ANTIBODY TEST None Detected (None Detected)
[2019-05-02] MEDS ORDERED: ZESTRIL TAB 20 MG ONE (08:06)
[2019-05-02] MEDS: PULMICORT NEB TX 0.5 MG NEB SCH (09:48)
[2019-05-02] MEDS: LOVENOX INJ 40 MG SYR SC SCH (10:00)
[2019-05-02] MEDS: LASIX PO SCH (10:00)
[2019-05-02] MEDS: VSL#3 PO SCH (10:01)
[2019-05-02] MEDS: ZESTRIL TAB 20 MG PO SCH ×2 (10:02→10:03)
[2019-05-02] MEDS: ROCEPHIN VIAL 1 GRAM 1 G in NS 100 ML IV + SPIKE MINIBAG* 100 ML IV SCH (10:03)
[2019-05-02] MEDS: VITAMIN B-1 PO SCH (10:03)
[2019-05-02] MEDS: PROTONIX TAB 40 MG PO SCH (10:03)
[2019-05-02] MEDS: TobraDEX OPHTH OINT AFFEYE SCH (10:05)
[2019-05-02] MEDS: NICOTINE PATCH TD SCH (10:05)
[2019-05-02] MEDS: LIDODERM 5% PATCH TD SCH (10:24)
[2019-05-02] MEDS ORDERED: NAPROSYN PO PRN (10:34)
--- NOTE | 2019-05-02 13:50 | W.DIS.FURT ---
Summary of Discharge Discharge Summary of Date Date of Exam: 05/02/19 Admission Date Date of Admission: 04/20/19 Admission Diagnosis Hospital Course: Pt is a 48 yo m hx of COPD, HTN, admitted and treated for septic shock w/ blood culture positive for H. influenza, source being pneumonia that was noted on CXR. He was initially severely acidotic, hypotensive, requiring pressors, and BiPAP support for acute respiratory failure. He was eventually titrated off pressors and maintained his blood pressure but continued to have difficulty maintaining his O2 saturations >90% once off bipap, requiring supplemental O2 via HF or NC w/ intermittent use of Bipap. It was determined that d/t overall generalized weakness/failure to thrive and continued respiratory support, pt would benefit from pulmonary rehab at [facility]. Pt was stable on discharge, requiring 3L supplemental O2 via nc ,and had completed his antibiotic course of Rocephin. Pt discharged to [facility] in [place], [place] for rehab care. Vital Signs: Vital Signs (72 hours) 04/29/19 14:00 04/29/19 14:08 04/29/19 14:38 Temperature Pulse Rate 94 H Respiratory Rate 16 18 26 H Blood Pressure 99/67 O2 Sat by Pulse Oximetry 94 L 04/29/19 15:00 04/29/19 16:00 04/29/19 17:00 Temperature 98.1 F Pulse Rate 82 80 84 Respiratory Rate 23 15 15 Blood Pressure 106/70 100/64 98/63 O2 Sat by Pulse Oximetry 97 95 94 L 04/29/19 18:00 04/29/19 19:00 04/29/19 20:00 Temperature 99.4 F Pulse Rate 99 H 84 89 Respiratory Rate 26 H 16 22 Blood Pressure 99/64 97/62 125/74 O2 Sat by Pulse Oximetry 91 L 04/29/19 21:00 04/29/19 22:00 04/29/19 23:00 Temperature Pulse Rate 77 82 78 Respiratory Rate 24 24 23 Blood Pressure 124/78 144/78 139/88 O2 Sat by Pulse Oximetry 04/29/19 23:24 04/29/19 23:54 04/30/19 00:00 Temperature 97.7 F Pulse Rate 75 Respiratory Rate 18 22 21 Blood Pressure 121/74 O2 Sat by Pulse Oximetry 04/30/19 01:00 04/30/19 02:00 04/30/19 03:00 Temperature Pulse Rate 68 78 65 Respiratory Rate 13 24 13 Blood Pressure 127/82 148/91 123/82 O2 Sat by Pulse Oximetry 99 95 98 04/30/19 04:00 04/30/19 04:45 04/30/19 05:00 Temperature 98.0 F Pulse Rate 60 66 Respiratory Rate 13 22 14 Blood Pressure 134/84 138/81 O2 Sat by Pulse Oximetry 98 95 04/30/19 05:15 04/30/19 06:00 04/30/19 07:00 Temperature Pulse Rate 67 67 Respiratory Rate 20 15 13 Blood Pressure 134/80 130/80 O2 Sat by Pulse Oximetry 100 04/30/19 08:00 04/30/19 08:25 04/30/19 09:00 Temperature 98.3 F Pulse Rate 76 86 Respiratory Rate 17 19 Blood Pressure 145/84 140/87 O2 Sat by Pulse Oximetry 04/30/19 09:36 04/30/19 10:00 04/30/19 10:15 Temperature Pulse Rate 83 81 Respiratory Rate 18 20 Blood Pressure 128/84 O2 Sat by Pulse Oximetry 92 L 91 L 04/30/19 10:45 04/30/19 11:00 04/30/19 12:00 Temperature Pulse Rate 80 81 Respiratory Rate 23 16 16 Blood Pressure 130/80 137/83 O2 Sat by Pulse Oximetry 92 L 93 L 04/30/19 13:00 04/30/19 13:43 04/30/19 14:00 Temperature Pulse Rate 90 85 85 Respiratory Rate 20 16 Blood Pressure 139/81 127/75 O2 Sat by Pulse Oximetry 89 L 92 L 93 L 04/30/19 14:37 04/30/19 15:00 04/30/19 15:07 Temperature Pulse Rate 91 H Respiratory Rate 21 18 20 Blood Pressure 112/75 O2 Sat by Pulse Oximetry 93 L 04/30/19 16:00 04/30/19 17:00 04/30/19 17:27 Temperature Pulse Rate 91 H 83 81 Respiratory Rate 16 17 Blood Pressure 108/63 O2 Sat by Pulse Oximetry 91 L 92 L 93 L 04/30/19 18:00 04/30/19 19:00 04/30/19 20:00 Temperature 99.0 F Pulse Rate 87 90 86 Respiratory Rate 18 17 22 Blood Pressure 108/72 115/72 115/76 O2 Sat by Pulse Oximetry 90 L 94 L 94 L 04/30/19 20:50 04/30/19 21:00 04/30/19 21:05 Temperature Pulse Rate 84 79 Respiratory Rate 15 14 Blood Pressure 143/92 O2 Sat by Pulse Oximetry 92 L 96 04/30/19 21:20 04/30/19 22:00 04/30/19 23:00 Temperature Pulse Rate 79 79 Respiratory Rate 18 21 16 Blood Pressure 146/88 126/81 O2 Sat by Pulse Oximetry 96 96 05/01/19 00:00 05/01/19 00:25 05/01/19 01:00 Temperature 98.4 F Pulse Rate 77 82 74 Respiratory Rate 14 13 Blood Pressure 116/74 112/69 O2 Sat by Pulse Oximetry 96 95 96 05/01/19 02:00 05/01/19 03:00 05/01/19 04:00 Temperature 97.8 F Pulse Rate 75 70 64 Respiratory Rate 17 18 16 Blood Pressure 142/91 118/77 108/71 O2 Sat by Pulse Oximetry 95 97 98 05/01/19 05:00 05/01/19 05:30 05/01/19 06:00 Temperature Pulse Rate 72 67 Respiratory Rate 24 16 16 Blood Pressure 153/89 126/80 O2 Sat by Pulse Oximetry 96 99 05/01/19 06:02 05/01/19 07:00 05/01/19 08:00 Temperature 98.2 F Pulse Rate 72 67 84 Respiratory Rate 19 28 H Blood Pressure 134/79 130/76 O2 Sat by Pulse Oximetry 96 05/01/19 08:54 05/01/19 09:00 05/01/19 09:38 Temperature Pulse Rate 81 81 Respiratory Rate 20 22 Blood Pressure 112/72 O2 Sat by Pulse Oximetry 95 05/01/19 09:54 05/01/19 10:00 05/01/19 11:00 Temperature Pulse Rate 75 95 H Respiratory Rate 17 22 20 Blood Pressure 148/96 109/73 O2 Sat by Pulse Oximetry 05/01/19 12:00 05/01/19 12:23 05/01/19 13:00 Temperature Pulse Rate 80 91 H 80 Respiratory Rate 24 22 Blood Pressure 129/81 130/80 O2 Sat by Pulse Oximetry 93 L 95 05/01/19 14:00 05/01/19 15:00 05/01/19 16:00 Temperature 97.9 F Pulse Rate 79 80 85 Respiratory Rate 20 22 19 Blood Pressure 98/62 97/60 108/68 O2 Sat by Pulse Oximetry 93 L 97 88 L 05/01/19 17:00 05/01/19 17:31 05/01/19 18:00 Temperature Pulse Rate 83 Respiratory Rate 84 H 93 H Blood Pressure 99/70 115/74 O2 Sat by Pulse Oximetry 96 94 L 90 L 05/01/19 19:00 05/01/19 19:31 05/01/19 20:00 Temperature 99.5 F Pulse Rate 91 H 83 Respiratory Rate 22 18 23 Blood Pressure 104/64 125/78 O2 Sat by Pulse Oximetry 93 L 95 05/01/19 20:01 05/01/19 21:00 05/01/19 21:30 Temperature Pulse Rate 91 H 91 H Respiratory Rate 18 24 Blood Pressure 115/77 O2 Sat by Pulse Oximetry 95 95 05/01/19 22:00 05/01/19 23:00 05/02/19 00:00 Temperature 99.5 F Pulse Rate 77 85 82 Respiratory Rate 16 17 22 Blood Pressure 136/84 138/85 139/87 O2 Sat by Pulse Oximetry 96 96 96 05/02/19 00:54 05/02/19 01:00 05/02/19 02:00 Temperature Pulse Rate 81 77 78 Respiratory Rate 16 15 Blood Pressure 122/73 129/79 O2 Sat by Pulse Oximetry 95 97 97 05/02/19 03:00 05/02/19 04:00 05/02/19 04:25 Temperature 98.5 F Pulse Rate 77 70 Respiratory Rate 16 15 18 Blood Pressure 116/71 106/73 O2 Sat by Pulse Oximetry 98 99 05/02/19 04:55 05/02/19 05:00 05/02/19 05:35 Temperature Pulse Rate 73 85 Respiratory Rate 17 18 Blood Pressure 130/84 O2 Sat by Pulse Oximetry 100 96 05/02/19 06:00 05/02/19 07:00 05/02/19 08:00 Temperature Pulse Rate 78 74 83 Respiratory Rate 20 21 18 Blood Pressure 132/77 147/86 153/92 O2 Sat by Pulse Oximetry 95 05/02/19 09:00 05/02/19 09:48 05/02/19 10:00 Temperature Pulse Rate 81 84 84 Respiratory Rate 19 19 Blood Pressure 120/74 138/84 O2 Sat by Pulse Oximetry 93 L 95 05/02/19 10:33 05/02/19 11:00 05/02/19 11:51 Temperature Pulse Rate 84 90 Respiratory Rate 20 19 Blood Pressure 156/90 O2 Sat by Pulse Oximetry 95 96 Labs: Laboratory Last Values WBC 11.0 X10^3/uL (3.6-10.0) H 05/01/19 04:32 RBC 4.19 X10^6/uL (4.7-6.0) L 05/01/19 04:32 Hgb 13.4 g/dL (13.5-18.0) L 05/01/19 04:32 Hct 40.1 % (42.0-54.0) L 05/01/19 04:32 MCV 95.6 fL (80.0-100.0) 05/01/19 04:32 MCH 32.0 pg (27.0-34.0) 05/01/19 04:32 MCHC 33.5 g/dL (33.0-35.0) 05/01/19 04:32 RDW 15.3 % (11.6-16.5) 05/01/19 04:32 Plt Count 308 X10^3/uL (150.0-450.0) 05/01/19 04:32 Plt Count Comment Decreased (ADEQUATE) 04/27/19 04:05 MPV 8.8 fL (7.4-11.0) 05/01/19 04:32 Neut % (Auto) 73.5 % (42.0-75.0) 05/01/19 04:32 Lymph % (Auto) 13.3 % (21.0-51.0) L 05/01/19 04:32 [place] % (Auto) 10.9 % (0.0-13.0) 05/01/19 04:32 Eos % (Auto) 1.5 % (0.9-2.9) 05/01/19 04:32 Baso % (Auto) 0.8 % (0.2-1.0) 05/01/19 04:32 Neut # (Auto) 8.1 x10^3/uL (2.2-4.8) H 05/01/19 04:32 Lymph # (Auto) 1.5 X10^3/uL (1.3-2.9) 05/01/19 04:32 [place] # (Auto) 1.2 x10^3/uL (0.3-0.8) H 05/01/19 04:32 Eos # (Auto) 0.2 x10^3/uL (0.0-0.2) 05/01/19 04:32 Baso # (Auto) 0.1 X10^3/uL (0.0-0.1) 05/01/19 04:32 Absolute Nucleated RBC 0.1 /100WBC 05/01/19 04:32 Total Counted 100 04/27/19 04:05 Neutrophils % (Manual) 75 % (39-76) 04/27/19 04:05 Band Neutrophils % 2 % (0-10) 04/27/19 04:05 Lymphocytes % (Manual) 7 % (13-43) L 04/27/19 04:05 Monocytes % (Manual) 16 % (4-9) H 04/27/19 04:05 Eosinophils % (Manual) 1 % (0-6) 04/23/19 04:00 Metamyelocytes % 2 04/24/19 04:00 Myelocytes % 2 04/20/19 16:12 Giant Platelets Rare 04/23/19 04:00 Plt Morphology Comment Normal (NORMAL) 04/27/19 04:05 RBC Morphology Normal (NORMAL) 04/27/19 04:05 ESR 6 MM/HOUR (0-15) 04/26/19 06:13 Sample Site Rr 04/26/19 12:03 ABG pH 7.390 (7.35-7.45) 04/26/19 12:03 ABG pCO2 58.0 mmHg (35.0-45.0) H* 04/26/19 12:03 ABG pO2 67.0 mmHg (80.0-100.0) L 04/26/19 12:03 ABG HCO3 35.1 mmol/L (22-26) H* 04/26/19 12:03 ABG O2 Saturation 93.0 % (90-100) 04/26/19 12:03 ABG Base Excess 8.3 mmol/L (-2.0-2.0) H 04/26/19 12:03 Jose Daniel Test Pos 04/26/19 12:03 A-a Gradient 60.0 mmHg 04/26/19 12:03 FiO2 28.0 04/26/19 12:03 Blood Gas Comments Pt dc well.cdn 04/26/19 12:03 Sodium 134 mmol/L (136-145) L 05/02/19 04:17 Corrected Sodium TNP 05/02/19 04:17 Potassium 3.5 mmol/L (3.5-5.1) 05/02/19 04:17 Chloride 93 mmol/L (98-107) L 05/02/19 04:17 Carbon Dioxide 39.1 mmol/L (21-32) H 05/02/19 04:17 BUN 6 mg/dL (7-18) L 05/02/19 04:17 Creatinine 0.33 mg/dL (0.70-1.30) L 05/02/19 04:17 Est GFR (MDRD) Af Amer > 60 (>60) 05/02/19 04:17 Est GFR (MDRD) Non-Af > 60 (>60) 05/02/19 04:17 Glucose 97 mg/dL (65-99) 05/02/19 04:17 POC Glucose (mg/dL) 167 mg/dL (65-99) H 04/27/19 20:45 Lactic Acid 0.6 mmol/L (0.4-2.0) 04/25/19 08:23 Calcium 8.2 mg/dL (8.5-10.1) L 05/02/19 04:17 Corrected Calcium 9.6 mg/dL (8.5-10.1) 05/02/19 04:17 Phosphorus 4.4 mg/dL (2.6-4.7) 04/20/19 21:56 Magnesium 1.6 mg/dL (1.7-2.9) L 05/02/19 04:17 Total Bilirubin 0.30 mg/dL (0.2-1.0) 05/02/19 04:17 AST 20 Units/L (15-37) 05/02/19 04:17 ALT 12 Units/L (12-78) 05/02/19 04:17 Alkaline Phosphatase 94 Units/L (46-116) 05/02/19 04:17 Creatine Kinase 353 Units/L (39-308) H 04/23/19 08:45 CK-MB (CK-2) 8.3 ng/mL (0-4.0) H* 04/23/19 08:45 CK/CKMB % Calc 2.4 % (<4) 04/23/19 08:45 Troponin I 0.08 ng/mL (0-1.5) 04/23/19 08:45 C-Reactive Protein 33.30 mg/L (0-3.0) H 04/26/19 06:13 Total Protein 5.7 g/dL (6.4-8.2) L 05/02/19 04:17 Albumin 2.3 g/dL (3.4-5.0) L 05/02/19 04:17 Globulin 3.4 g/dL (2.5-4.5) 05/02/19 04:17 Albumin/Globulin Ratio 0.7 Ratio (1.1-2.1) L 05/02/19 04:17 TSH 3rd Generation 1.187 uIU/mL (0.358-3.74) 04/20/19 21:56 Specimen Type Catherized urine 04/24/19 13:12 Urine Color Yellow (YELLOW) 04/24/19 13:12 Urine Appearance Slightly hazy (CLEAR) 04/24/19 13:12 Urine pH 6.0 (5.0 - 8.0) 04/24/19 13:12 Ur Specific [place] 1.010 (1.000-1.030) 04/24/19 13:12 Urine Protein 2+ (NEGATIVE) 04/24/19 13:12 Urine Glucose (UA) Negative (NEGATIVE) 04/24/19 13:12 Urine Ketones 1+ (NEGATIVE) 04/24/19 13:12 Urine Occult Blood Negative (NEGATIVE) 04/24/19 13:12 Urine Nitrite Negative (NEGATIVE) 04/24/19 13:12 Urine Bilirubin Negative (NEGATIVE) 04/24/19 13:12 Urine Urobilinogen Normal (NORMAL) 04/24/19 13:12 Ur Leukocyte Esterase 1+ (NEGATIVE) 04/24/19 13:12 Urine RBC 0-2 /HPF (0-3) 04/24/19 13:12 Urine WBC 0-2 /HPF (0-5) 04/24/19 13:12 Ur Squamous Epith Cells Negative /HPF (NEGATIVE) 04/24/19 13:12 Ur Transition Epith Cell Few /HPF (NEGATIVE) 04/24/19 13:12 Amorphous Sediment Trace /HPF (NEGATIVE) 04/24/19 13:12 Urine Bacteria Trace /HPF (NEGATIVE) 04/24/19 13:12 Urine Mucus Few /HPF (NEGATIVE) 04/24/19 13:12 Ur Culture Indicated? No/not indicated 04/24/19 13:12 Stool Description 15g,brown,liquid 04/24/19 07:41 Stool Description 15g,brown,liquid 04/24/19 07:41 Stl Occult Blood (IFOB) Positive (NEGATIVE) A 04/24/19 07:41 Stool for White Cells Positive (NEGATIVE) A 04/24/19 07:41 Stl C. diff Tox B Gene Negative (NEGATIVE) 04/30/19 00:06 Stl C. diff 027-NAP1-BI Negative (NEGATIVE) 04/30/19 00:06 Urine Opiates Screen Negative (NEG=<300) 04/20/19 23:24 Urine Methadone Screen Negative (NEG=<300) 04/20/19 23:24 Ur Barbiturates Screen Negative (NEG=<200) 04/20/19 23:24 Ur Phencyclidine Scrn Negative (NEG=<25) 04/20/19 23:24 Ur Amphetamines Screen Negative (NEG=<1000) 04/20/19 23:24 U Benzodiazepines Scrn Negative (NEG=<200) 04/20/19 23:24 Urine Cocaine Screen Negative (NEG=<300) 04/20/19 23:24 U Marijuana (THC) Screen Negative (NEG=<50) 04/20/19 23:24 Ethyl Alcohol mg/dL 4 mg/dL (0-19.9) 04/20/19 21:56 JOVANA Screen None detected (None Detected) 04/26/19 06:13 JOVANA Titer TNP 04/26/19 06:13 JOVANA Pattern TNP 04/26/19 06:13 Ur C. trach DNA (PCR) Not detected (NOT DETECT) 04/22/19 17:10 C. difficile Toxin A&B Negative (NEGATIVE) 04/24/19 07:41 Cryptosporid parvum Ag Negative (NEGATIVE) 04/24/19 07:41 Giardia lamblia Ag Negative (NEGATIVE) 04/24/19 07:41 Hepatitis A IgM Ab Negative (Negative) 04/20/19 21:56 Hep Bs Antigen Negative (Negative) 04/20/19 21:56 Hep Bs Ag Confirmation TNP 04/20/19 21:56 Hep B Core IgM Ab Negative (Negative) 04/20/19 21:56 Hepatitis C Ab Index 0.07 IV 04/20/19 21:56 Hepatitis C Interp Negative (Negative) 18 21:56 Hepatitis Interpret See note 04/20/19 21:56 HIV-1 Ab Confirm (Blot) TNP 04/20/19 21:56 HIV 1&2 Antibody Screen Negative (Negative) 04/20/19 21:56 Influenza Type A (PCR) Negative (NEGATIVE) 04/20/19 17:40 Influenza Type B (PCR) Negative (NEGATIVE) 04/20/19 17:40 U N.gonorrhoeae DNA PCR Not detected (NOT DETECT) 04/22/19 17:10 Miscellaneous Test Legionella ag 04/22/19 17:10 Reason For Visit: SEPSIS,PNEUMONIA,HYPOTHERMIA,HYPOTENSION, Discharge Date Discharge Date: 05/02/19 Discharge Diagnosis All Active Problems (Updated 04/28/19 @ 10:20 by Sheila Harding) Diarrhea (Acute) Accelerated hypertension (Acute) Pleural effusion (Acute) Gram-negative bacteremia (Acute) Acute respiratory failure with hypercapnia (Acute) Elevated liver enzymes (Acute) Failure to thrive (Acute) Acute respiratory failure (Acute) Acute renal failure (Acute) Septic shock (Acute) Hx of seizure disorder (Chronic) Hypoxia (Acute) Alcohol use (Acute) Acute hyponatremia (Acute) Gastroenteritis (Acute) Acute hyponatremia (Acute) COPD (chronic obstructive pulmonary disease) (Acute) Hypothermia (Acute) Acute dyspnea (Acute) Rib pain on right side (Acute) Pneumonia (Acute) Hypotension (Acute) Sepsis (Acute) Neutropenia (Acute) History of colon cancer (Chronic) Irritable bowel syndrome with diarrhea (Chronic) GERD (gastroesophageal reflux disease) (Chronic) COPD (chronic obstructive pulmonary disease) (Chronic) HTN (hypertension) (Chronic) Plan of Treatment: Continue with present treatment and follow up plan. Pt is to keep follow up appointment as instructed and take medications as ordered. Discharge Medications Discharge Medications: Penicillins Allergy (Verified 10/29/18 15:22) New Prescriptions Lactobac #2-Bifido #1-S. therm [VSL#3] 1 cap PO DAILY #30 cap 05/02/19 [Rx] budesonide 0.5 mg NEB BID PRN 30 Days #10 ml 05/02/19 [Rx] clonidine 1 patch TD Q7D #1 ea 05/02/19 [Rx] dextromethorphan-guaifenesin 10 ml PO QID PRN #237 ml 05/02/19 [Rx] ipratropium-albuterol 3 ml NEB Q6RESP #15 ml 05/02/19 [Rx] lisinopril 10 mg PO DAILY 30 Days #30 tab 05/02/19 [Rx] naproxen 500 mg PO BID PRN 10 Days #20 tab 05/02/19 [Rx] nicotine 1 patch TD DAILY 30 Days #7 ea 05/02/19 [Rx] tramadol 50 mg PO Q6H PRN 30 Days #30 tab MDD 200 05/02/19 [Rx] Discharge Disposition Discharge Disposition: LT[facility] in [place], [place].
[2019-05-02 17:09] VITALS: BP 127/76
--- NOTE | 2019-05-11 11:15 | PCM.PROG ---
Progress Note - Progress Note for Day of Date of Exam: 04/27/19 - Subjective Subjective: Pt is a 48 yo m being treated for septic shock. He is alert and oriented. ABG has been improving with changes made to bipap. Will continue Bipap today. LA normalized. Blood Cx positive for gram negative cocci but are unable to identify species and has been sent out for identification. Repeat BloodCx have remained negative. Wbc is has slightly increased to 14.5 this morning, he is also getting prednisone daily. BP has remained stable, will continue to monitor. Vitals this morning are: 98.9-88-16-92%nc-142/91. We will continue with current antibiotics, respiratory tx, and plan of care today. Otherwise, we will follow up with am labs and chest xray and continue to monitor. - Past Medical Family Social History Past Med/Fam/Surg Hx: No changes since H&P Allergies: Allergies Penicillins Allergy (Verified 10/29/18 15:22) - Review of Systems ROS: No change since H&P - Vital Signs and I&O's Vital Signs: Temperature 98.5 F Pulse Rate [Brachial] 121 Pulse Rate 101 Respiratory Rate 21 Blood Pressure [Left Arm] 97/59 Blood Pressure [Right Arm] 154/86 Blood Pressure 127/76 O2 Sat by Pulse Oximetry 94 - Physical Exam Oriented: Normal Eyes: Normal Ear: Normal Nose: Normal Respiratory: Rales Cardiovascular: Normal : Normal Auscultation: Bowel Sounds: Normal Palpation: Normal Tenderness: Normal Skin: Normal Musculoskeletal: Normal Mood Description: Calm Affect: Normal Speech Pattern: Clear, Appropriate - Laboratory and Diagnostics Result Diagrams: 05/01/19 04:32 05/02/19 04:17 Labs: 04/22/19 14:18 Blood Blood Culture - Final 04/22/19 14:09 Blood Blood Culture - Final 04/20/19 16:12 Blood Blood Culture - Final 04/20/19 17:40 Blood Blood Culture - Final 04/24/19 07:41 Stool Stool Culture - Final 04/24/19 07:41 Stool - Final 04/20/19 23:20 Urine,Clean Catch Urine Culture - Final Laboratory WBC 11.0 X10^3/uL (3.6-10.0) H 05/01/19 04:32 RBC 4.19 X10^6/uL (4.7-6.0) L 05/01/19 04:32 Hgb 13.4 g/dL (13.5-18.0) L 05/01/19 04:32 Hct 40.1 % (42.0-54.0) L 05/01/19 04:32 MCV 95.6 fL (80.0-100.0) 05/01/19 04:32 MCH 32.0 pg (27.0-34.0) 05/01/19 04:32 MCHC 33.5 g/dL (33.0-35.0) 05/01/19 04:32 RDW 15.3 % (11.6-16.5) 05/01/19 04:32 Plt Count 308 X10^3/uL (150.0-450.0) 05/01/19 04:32 Plt Count Comment Decreased (ADEQUATE) 04/27/19 04:05 MPV 8.8 fL (7.4-11.0) 05/01/19 04:32 Neut % (Auto) 73.5 % (42.0-75.0) 05/01/19 04:32 Lymph % (Auto) 13.3 % (21.0-51.0) L 05/01/19 04:32 [place] % (Auto) 10.9 % (0.0-13.0) 05/01/19 04:32 Eos % (Auto) 1.5 % (0.9-2.9) 05/01/19 04:32 Baso % (Auto) 0.8 % (0.2-1.0) 05/01/19 04:32 Neut # (Auto) 8.1 x10^3/uL (2.2-4.8) H 05/01/19 04:32 Lymph # (Auto) 1.5 X10^3/uL (1.3-2.9) 05/01/19 04:32 [place] # (Auto) 1.2 x10^3/uL (0.3-0.8) H 05/01/19 04:32 Eos # (Auto) 0.2 x10^3/uL (0.0-0.2) 05/01/19 04:32 Baso # (Auto) 0.1 X10^3/uL (0.0-0.1) 05/01/19 04:32 Absolute Nucleated RBC 0.1 /100WBC 05/01/19 04:32 Total Counted 100 04/27/19 04:05 Neutrophils % (Manual) 75 % (39-76) 04/27/19 04:05 Band Neutrophils % 2 % (0-10) 04/27/19 04:05 Lymphocytes % (Manual) 7 % (13-43) L 04/27/19 04:05 Monocytes % (Manual) 16 % (4-9) H 04/27/19 04:05 Eosinophils % (Manual) 1 % (0-6) 04/23/19 04:00 Metamyelocytes % 2 04/24/19 04:00 Myelocytes % 2 04/20/19 16:12 Giant Platelets Rare 04/23/19 04:00 Plt Morphology Comment Normal (NORMAL) 04/27/19 04:05 RBC Morphology Normal (NORMAL) 04/27/19 04:05 ESR 6 MM/HOUR (0-15) 04/26/19 06:13 Sample Site Rr 04/26/19 12:03 ABG pH 7.390 (7.35-7.45) 04/26/19 12:03 ABG pCO2 58.0 mmHg (35.0-45.0) H* 04/26/19 12:03 ABG pO2 67.0 mmHg (80.0-100.0) L 04/26/19 12:03 ABG HCO3 35.1 mmol/L (22-26) H* 04/26/19 12:03 ABG O2 Saturation 93.0 % (90-100) 04/26/19 12:03 ABG Base Excess 8.3 mmol/L (-2.0-2.0) H 04/26/19 12:03 Jose Daniel Test Pos 04/26/19 12:03 A-a Gradient 60.0 mmHg 04/26/19 12:03 FiO2 28.0 04/26/19 12:03 Blood Gas Comments Pt dc well.cdn 04/26/19 12:03 Sodium 134 mmol/L (136-145) L 05/02/19 04:17 Corrected Sodium TNP 05/02/19 04:17 Potassium 3.5 mmol/L (3.5-5.1) 05/02/19 04:17 Chloride 93 mmol/L (98-107) L 05/02/19 04:17 Carbon Dioxide 39.1 mmol/L (21-32) H 05/02/19 04:17 BUN 6 mg/dL (7-18) L 05/02/19 04:17 Creatinine 0.33 mg/dL (0.70-1.30) L 05/02/19 04:17 Est GFR (MDRD) Af Amer > 60 (>60) 05/02/19 04:17 Est GFR (MDRD) Non-Af > 60 (>60) 05/02/19 04:17 Glucose 97 mg/dL (65-99) 05/02/19 04:17 POC Glucose (mg/dL) 167 mg/dL (65-99) H 04/27/19 20:45 Lactic Acid 0.6 mmol/L (0.4-2.0) 04/25/19 08:23 Calcium 8.2 mg/dL (8.5-10.1) L 05/02/19 04:17 Corrected Calcium 9.6 mg/dL (8.5-10.1) 05/02/19 04:17 Phosphorus 4.4 mg/dL (2.6-4.7) 04/20/19 21:56 Magnesium 1.6 mg/dL (1.7-2.9) L 05/02/19 04:17 Total Bilirubin 0.30 mg/dL (0.2-1.0) 05/02/19 04:17 AST 20 Units/L (15-37) 05/02/19 04:17 ALT 12 Units/L (12-78) 05/02/19 04:17 Alkaline Phosphatase 94 Units/L (46-116) 05/02/19 04:17 Creatine Kinase 353 Units/L (39-308) H 04/23/19 08:45 CK-MB (CK-2) 8.3 ng/mL (0-4.0) H* 04/23/19 08:45 CK/CKMB % Calc 2.4 % (<4) 04/23/19 08:45 Troponin I 0.08 ng/mL (0-1.5) 04/23/19 08:45 C-Reactive Protein 33.30 mg/L (0-3.0) H 04/26/19 06:13 Total Protein 5.7 g/dL (6.4-8.2) L 05/02/19 04:17 Albumin 2.3 g/dL (3.4-5.0) L 05/02/19 04:17 Globulin 3.4 g/dL (2.5-4.5) 05/02/19 04:17 Albumin/Globulin Ratio 0.7 Ratio (1.1-2.1) L 05/02/19 04:17 TSH 3rd Generation 1.187 uIU/mL (0.358-3.74) 04/20/19 21:56 Specimen Type Catherized urine 04/24/19 13:12 Urine Color Yellow (YELLOW) 04/24/19 13:12 Urine Appearance Slightly hazy (CLEAR) 04/24/19 13:12 Urine pH 6.0 (5.0 - 8.0) 04/24/19 13:12 Ur Specific [place] 1.010 (1.000-1.030) 04/24/19 13:12 Urine Protein 2+ (NEGATIVE) 04/24/19 13:12 Urine Glucose (UA) Negative (NEGATIVE) 04/24/19 13:12 Urine Ketones 1+ (NEGATIVE) 04/24/19 13:12 Urine Occult Blood Negative (NEGATIVE) 04/24/19 13:12 Urine Nitrite Negative (NEGATIVE) 04/24/19 13:12 Urine Bilirubin Negative (NEGATIVE) 04/24/19 13:12 Urine Urobilinogen Normal (NORMAL) 04/24/19 13:12 Ur Leukocyte Esterase 1+ (NEGATIVE) 04/24/19 13:12 Urine RBC 0-2 /HPF (0-3) 04/24/19 13:12 Urine WBC 0-2 /HPF (0-5) 04/24/19 13:12 Ur Squamous Epith Cells Negative /HPF (NEGATIVE) 04/24/19 13:12 Ur Transition Epith Cell Few /HPF (NEGATIVE) 04/24/19 13:12 Amorphous Sediment Trace /HPF (NEGATIVE) 04/24/19 13:12 Urine Bacteria Trace /HPF (NEGATIVE) 04/24/19 13:12 Urine Mucus Few /HPF (NEGATIVE) 04/24/19 13:12 Ur Culture Indicated? No/not indicated 04/24/19 13:12 Stool Description 15g,brown,liquid 04/24/19 07:41 Stool Description 15g,brown,liquid 04/24/19 07:41 Stl Occult Blood (IFOB) Positive (NEGATIVE) A 04/24/19 07:41 Stool for White Cells Positive (NEGATIVE) A 04/24/19 07:41 Stl C. diff Tox B Gene Negative (NEGATIVE) 04/30/19 00:06 Stl C. diff [id number] Negative (NEGATIVE) 04/30/19 00:06 Urine Opiates Screen Negative (NEG=<300) 04/20/19 23:24 Urine Methadone Screen Negative (NEG=<300) 04/20/19 23:24 Ur Barbiturates Screen Negative (NEG=<200) 04/20/19 23:24 Ur Phencyclidine Scrn Negative (NEG=<25) 04/20/19 23:24 Ur Amphetamines Screen Negative (NEG=<1000) 04/20/19 23:24 U Benzodiazepines Scrn Negative (NEG=<200) 04/20/19 23:24 Urine Cocaine Screen Negative (NEG=<300) 04/20/19 23:24 U Marijuana (THC) Screen Negative (NEG=<50) 04/20/19 23:24 Ethyl Alcohol mg/dL 4 mg/dL (0-19.9) 04/20/19 21:56 JOVANA Screen None detected (None Detected) 04/26/19 06:13 JOVANA Titer TNP 04/26/19 06:13 JOVANA Pattern TNP 04/26/19 06:13 Double Strand DNA Ab None detected 04/26/19 06:13 Ur C. trach DNA (PCR) Not detected (NOT DETECT) 04/22/19 17:10 C. difficile Toxin A&B Negative (NEGATIVE) 04/24/19 07:41 Cryptosporid parvum Ag Negative (NEGATIVE) 04/24/19 07:41 Giardia lamblia Ag Negative (NEGATIVE) 04/24/19 07:41 Hepatitis A IgM Ab Negative (Negative) 04/20/19 21:56 Hep Bs Antigen Negative (Negative) 04/20/19 21:56 Hep Bs Ag Confirmation TNP 04/20/19 21:56 Hep B Core IgM Ab Negative (Negative) 04/20/19 21:56 Hepatitis C Ab Index 0.07 IV 04/20/19 21:56 Hepatitis C Interp Negative (Negative) 04/20/19 21:56 Hepatitis Interpret See note 04/20/19 21:56 HIV-1 Ab Confirm (Blot) TNP 04/20/19 21:56 HIV 1&2 Antibody Screen Negative (Negative) 04/20/19 21:56 Influenza Type A (PCR) Negative (NEGATIVE) 04/20/19 17:40 Influenza Type B (PCR) Negative (NEGATIVE) 04/20/19 17:40 U N.gonorrhoeae DNA PCR Not detected (NOT DETECT) 04/22/19 17:10 Miscellaneous Test Legionella ag 04/22/19 17:10
== END 2019-05-02 16:20 | DRG 871 ==
LOC: ER 15:15 → ICU 19:39
PROVIDERS: ADMIT Family Medicine; ATTEND Family Medicine
DX: R19.7 Diarrhea, unspecified; A41.89 Other specified sepsis; J96.02 Acute respiratory failure with hypercapnia; I95.89 Other hypotension; R65.21 Severe sepsis with septic shock; R26.89 Other abnormalities of gait and mobility; T68.XXXA Hypothermia, initial encounter; J18.8 Other pneumonia, unspecified organism; J96.01 Acute respiratory failure with hypoxia; F10.10 Alcohol abuse, uncomplicated; N17.8 Other acute kidney failure; R62.7 Adult failure to thrive; J90 Pleural effusion, not elsewhere classified; J44.1 Chronic obstructive pulmonary disease with (acute) exacerbation; E87.1 Hypo-osmolality and hyponatremia; R94.31 Abnormal electrocardiogram [ECG] [EKG]; R74.8 Abnormal levels of other serum enzymes
CPT/HCPCS: 36415; 36600; 71010; 71045; 71275; 74000; 74018; 80053; 80074; 80307; 80320; 81001; 82270; 82550; 82553; 82803; 83605; 83630; 83735; 84100; 84132; 84443; 84484; 85025; 85652; 86038; 86140; 86225; 86308; 86701; 86703; 87040; 87045; 87077; 87086; 87185; 87186; 87278; 87324; 87328; 87329; 87389; 87449; 87491; 87493; 87502; 87591; 87899; 93005; 93306; 93970; 94640; 94660; 94669; 96365; 96374; 96375; 97110; 97162; 97167; 97530; 97535; 99285; A4222; A7030; C9113; P9047; S0030; G0434; G6040; J0692; J0696; J1265; J1450; J1650; J1720; J1885; J1940; J2185; J2270; J2405; J3370; J3411; J3475; J7030; J7050; J7060; J7512; J7620; J7626

== ENCOUNTER 2019-12-04 12:07 | Inpatient (IN) ==
[2019-12-04 12:29] LABS: ABG BASE EXCESS 6.1 mmol/L (-2.0-2.0)
[2019-12-04 12:32] LABS: ABG ALLEN TEST POS
[2019-12-04] MEDS ORDERED: NITROSTAT ONE (12:56)
[2019-12-04 12:58] LABS: BASOPHILS # (AUTO) 0.1 X10^3/uL (0.0-0.1); BASOPHILS % (AUTO) 1.1 % (0.2-1.0); EOSINOPHILS % (AUTO) 0.6 % (0.9-2.9); HEMATOCRIT 41.2 % (42.0-54.0); HEMOGLOBIN 13.3 g/dL (13.5-18.0); LYMPHOCYTES # (AUTO) 1.4 X10^3/uL (1.3-2.9); LYMPHOCYTES % (AUTO) 23.9 % (21.0-51.0); MEAN CORPUSCULAR HEMOGLOBIN 27.9 pg (27.0-34.0); MEAN CORPUSCULAR HGB CONC 32.3 g/dL (33.0-35.0); MEAN CORPUSCULAR VOLUME 86.3 fL (80.0-100.0); MEAN PLATELET VOLUME 7.4 fL (7.4-11.0); MONOCYTES # (AUTO) 0.6 x10^3/uL (0.3-0.8); MONOCYTES % (AUTO) 9.8 % (0.0-13.0); NEUTROPHILS # (AUTO) 3.7 x10^3/uL (2.2-4.8); NEUTROPHILS % (AUTO) 64.6 % (42.0-75.0); PLATELET COUNT 285 X10^3/uL (150.0-450.0); RED BLOOD COUNT 4.78 X10^6/uL (4.7-6.0); RED CELL DISTRIBUTION WIDTH 17.2 % (11.6-16.5); WHITE BLOOD COUNT 5.7 X10^3/uL (3.6-10.0)
[2019-12-04 13:06] LABS: BLOOD UREA NITROGEN 3 mg/dL (7-18); CALCIUM 8.1 mg/dL (8.5-10.1); CARBON DIOXIDE 30.5 mmol/L (21-32); CHLORIDE 89 mmol/L (98-107); CREATININE 0.61 mg/dL (0.70-1.30); eGFR NON BLACK RACES > 60 (>60)
[2019-12-04] MEDS: NITROSTAT SL PRN ×2 (13:06→13:11)
--- NOTE | 2019-12-04 13:06 | RAD ---
HISTORYCHEST PAIN, COUGH, SOBSTUDYCHEST, 1 VIEWCOMPARISONDecember 2018TECHNIQUEPortable chest x-rayFINDINGSComparison to previous imaging studies demonstrated infiltrates within the right upper lobe and right lower lobe which have mostly cleared in the interim. There are coarsened interstitial lung markings in the distribution of the previous infiltrates with mild architectural distortion of the lung parenchyma. This may indicate regions of superimposed parenchymal scarring following resolution of infiltrates within the right upper lobe. It is still difficult to exclude the possibility of a recurrent infiltrate in the right infrahilar region where there is a focal area of residual increased density. COPD is likely present given hyper expansion with flattened diaphragms. No pleural fluid collections identified. Heart size is normal. Multiple remote bilateral rib fractures are noted.IMPRESSIONRadiographic features of chronic obstructive pulmonary disease.Previously described right upper lobe and right lower lobe infiltrates have mostly cleared in the interim, with developing parenchymal scarring within the right upper lobe.Right infrahilar parenchymal scarring plus or minus superimposed residual or recurrent infiltrate noted. Radiographic follow-up recommendedMultiple chronic, healed bilateral rib fractures.Electronically signed by: KAEL CARSON (Dec 04, 2019 13:05:37)
[2019-12-04 13:11] LABS: ALANINE AMINOTRANSFERASE 17 Units/L (12-78); ALBUMIN 3.2 g/dL (3.4-5.0); ALKALINE PHOSPHATASE 121 Units/L (46-116); ASPARTATE AMINO TRANSFERASE 37 Units/L (15-37); COR CA(FOR HYPOALB) 8.7 mg/dL (8.5-10.1); TOTAL PROTEIN 6.9 g/dL (6.4-8.2)
[2019-12-04 13:13] LABS: SODIUM 124 mmol/L (136-145)
[2019-12-04] MEDS ORDERED: MORPHINE SULFATE INJ 4 MG IVP ONE ×2 (13:13→16:06)
[2019-12-04 13:15] LABS: LACTIC ACID 1.9 mmol/L (0.4-2.0)
[2019-12-04] MEDS ORDERED: ZOFRAN INJ 4 MG VIAL IVP ONE (13:15)
--- NOTE | 2019-12-04 13:18 | DR.CP ---
HPI Time Seen Time Seen by Provider: 12/04/19 13:12 PCP Primary Care Physician: Zari HPI Comment HPI Comment: PATIENT IS 49YR OLD MALE IN ER WITH COUGH, CHEST PAIN, WEAKNESS AND SOB TIMES 2 DAYS. CHEST PAIN 7/10 SUBSTERNAL, SHARP, RADATING TO BACK. PATIENTS COUGH IS PRODUCTIVE YELLOW SPUTUM. RUNNING LOW GRADE FEVER.PATIENT IS WEAK ALSO. NO DYSURIA. CONDITION WORSE TODAY. Complaint Chief Complaint Doctor Comments: CHEST PAIN, COUGH AND SOB WITH WEAKNESS TIMES 2 DAYS. Chief Complaint:: Chest pain, cough, shortness of breath COVID-19 Coronavirus risk:travel/contact w/high risk person: No Has patient experienced Coronavirus symptoms: Yes Coronavirus symptoms experienced: Fever, Coughing and Shortness of Breath Reviewed Nurses Notes Review: Yes Source History Provided: Patient Mode of Arrival Mode of Arrival: EMS Timing Onset of Chief Complaint: 12/02/19 Came on: Suddenly Pain: Present Now Duration Duration: Constant Duration: Days Location Location of Chest Pain: Chest (SUBSTERNAL) Chest Pain Radiation Location: None and Back Context Onset: At rest Cardiac Risk Factors: Smoker and HTN PE Risk Factors: None History of: None Prehospital Care: IV Quality Quality: Sharp Severity Severity: Moderate Modifying Factors Worsens: Exertion Impoves: Nothing Associated Signs and Symptoms Associated Signs and Symptoms: Shortness of Breath PMH PMH Past Medical History: Yes Past Medical History: Asthma, COPD and Hypertension Past Surgical History: Yes Surgical History: Appendectomy and Bowel Resection Family History History of Family Medical Conditions: Yes Family Medical History: Cancer, [place] and Hypertension Social History Type of Tobacco Use: Cigarettes Alcohol Use: Occasionally Do you use any recreational Drugs:: No Lives With: Family Lives Where: Home Travel Risk Coronavirus risk:travel/contact w/high risk person: No Has patient experienced Coronavirus symptoms: Yes Coronavirus symptoms experienced: Fever, Coughing and Shortness of Breath Infectious screening In the last 2 months have you had wt loss of >10#?: NO Have you had fever, night sweats or hemotysis?: Yes Have you traveled outside the country in the last 6 months?: No Isolation: Droplet ROS Review of Systems Constitutional: See HPI, Fever, Malaise, Weakness and Fatigue Eyes: No Symptoms Reported and See HPI; negative Blurred Vision and Diplopia ENTM: See HPI and Nose Congestion; negative Ear Pain, Nose Discharge and Throat Pain Respiratoy: See HPI, Non-Productive Cough and Short of Breath; negative Wheezing Cardiovascular: See HPI and Chest Pain; negative Edema and Palpitations Gastrointestinal/Abdominal: No Symptoms Reported and See HPI; negative Abdominal Pain, Nausea and Vomiting Genitourinary: No Symptoms Reported and See HPI; negative Dysuria, Frequency and Hematuria Neurological: See HPI and Weakness; negative Headache and Dizziness Musculoskeletal: No Symptoms Reported and See HPI; negative Back Pain Integumentary: No Symptoms Reported and See HPI; negative Change in Color, Rash and Juandice Hematologic/Lymphatic: No Symptoms Reported and See HPI; negative Easy Bruising and Swollen Glands Endocrine: No Symptoms Reported and See HPI; negative Increased Thirst, Increased Urine and Decreased Appetite Psychiatric: No Symptoms Reported and See HPI All Other Systems: Reviewed and Negative PE Vitals Vitals: Temperature 99.6 F Pulse Rate 104 Respiratory Rate 18 Blood Pressure [Left Arm] 130/85 Blood Pressure [Right Arm] 154/86 Blood Pressure 142/85 O2 Sat by Pulse Oximetry 95 General Limitations: No Limitations General Appearance: Alert and In No Apparent Distress Head Head Exam: Normal Inspection and Atraumatic Eyes Eye exam: Normal Appearance and PERRL; negative Scleral Icterus and Conjunctival Injection ENT ENT Exam: Normal Exam, Normal Oropharynx, Normal External Ear Exam and TM's Normal Bilaterally Chest Chest Inspection: Normal Inspection and Symmetric Chest Wall Rise; negative Tenderness Respiratory Respiratory Exam: Respiratory Distress; negative Accessory Muscle Use and Chest Wall Tenderness Respiratory Exam: Bilateral: Rhonchi and Lower: Rhonchi Cardiovascular Cardiovascular Exam: Regular Rate, Normal Rhythm and Normal Heart Sounds; negative Systolic Murmur and Diastolic Murmur Pulse: Normal Edema: Normal Abdominal Exam Abdominal Exam: Normal Inspection, Normal Bowel Sounds, Soft and Tenderness Extremities Extremities Exam: Normal Inspection and Normal Capillary Refill; negative Tenderness, Edema and Calf Tenderness Back Back Exam: Normal Inspection, (R) CVA Tenderness and (L) CVA Tenderness; negative Tenderness Neurologic Neurological Exam: Alert, Oriented X3 and CN II-XII Intact; negative Motor Sensory Deficit Psychiatric Psychiatric Exam: Normal Affect and Normal Mood Skin Skin Exam: Warm, Dry, Intact and Normal Color MDM Differential Diagnosis Differential Diagnosis: Angina, Chest Wall Pain, Costochondritis, Myocardial Infarction, Pericarditis, Pleuritis, Pneumonia and Pneumothorax COURSE Treatment Treatment: SEE ORDERS. Education/Counseling Education/Counseling: Patient Educated On: Diagnosis and Needs for Follow Up ROR Labs Reviewed Laboratory Results Reviewed?: Yes Result Diagrams: 12/12/19 04:15 12/12/19 04:15 Laboratory: 12/04/19 12:45 Blood Blood Culture - Final 12/04/19 12:35 Blood Blood Culture - Final WBC 5.7 X10^3/uL (3.6-10.0) 12/04/19 12:35 RBC 4.78 X10^6/uL (4.7-6.0) 12/04/19 12:35 Hgb 13.3 g/dL (13.5-18.0) L 12/04/19 12:35 Hct 41.2 % (42.0-54.0) L 12/04/19 12:35 MCV 86.3 fL (80.0-100.0) 12/04/19 12:35 MCH 27.9 pg (27.0-34.0) 12/04/19 12:35 MCHC 32.3 g/dL (33.0-35.0) L 12/04/19 12:35 RDW 17.2 % (11.6-16.5) H 12/04/19 12:35 Plt Count 285 X10^3/uL (150.0-450.0) 12/04/19 12:35 MPV 7.4 fL (7.4-11.0) 12/04/19 12:35 Neut % (Auto) 64.6 % (42.0-75.0) 12/04/19 12:35 Lymph % (Auto) 23.9 % (21.0-51.0) 12/04/19 12:35 [place] % (Auto) 9.8 % (0.0-13.0) 12/04/19 12:35 Eos % (Auto) 0.6 % (0.9-2.9) L 12/04/19 12:35 Baso % (Auto) 1.1 % (0.2-1.0) H 12/04/19 12:35 Neut # (Auto) 3.7 x10^3/uL (2.2-4.8) 12/04/19 12:35 Lymph # (Auto) 1.4 X10^3/uL (1.3-2.9) 12/04/19 12:35 [place] # (Auto) 0.6 x10^3/uL (0.3-0.8) 12/04/19 12:35 Eos # (Auto) 0.0 x10^3/uL (0.0-0.2) 12/04/19 12:35 Baso # (Auto) 0.1 X10^3/uL (0.0-0.1) 12/04/19 12:35 Absolute Nucleated RBC 0.0 /100WBC 12/04/19 12:35 Sample Site Rrad 12/04/19 12:20 ABG pH 7.370 (7.35-7.45) 12/04/19 12:20 ABG pCO2 57.0 mmHg (35.0-45.0) H* 12/04/19 12:20 ABG pO2 65.0 mmHg (80.0-100.0) L 12/04/19 12:20 ABG HCO3 33.0 mmol/L (22-26) H* 12/04/19 12:20 ABG O2 Saturation 92.0 % (90-100) 12/04/19 12:20 ABG Base Excess 6.1 mmol/L (-2.0-2.0) H 12/04/19 12:20 Jose Daniel Test Pos 12/04/19 12:20 A-a Gradient 13.0 mmHg 12/04/19 12:20 FiO2 21.0 12/04/19 12:20 Blood Gas Comments Juan well -sd 12/04/19 12:20 Sodium 124 mmol/L (136-145) L* 12/04/19 12:45 Corrected Sodium TNP 12/04/19 12:45 Potassium 4.1 mmol/L (3.5-5.1) 12/04/19 12:45 Chloride 89 mmol/L (98-107) L 12/04/19 12:45 Carbon Dioxide 30.5 mmol/L (21-32) 12/04/19 12:45 BUN 3 mg/dL (7-18) L 12/04/19 12:45 Creatinine 0.61 mg/dL (0.70-1.30) L 12/04/19 12:45 Est GFR (MDRD) Af Amer > 60 (>60) 12/04/19 12:45 Est GFR (MDRD) Non-Af > 60 (>60) 12/04/19 12:45 Glucose 79 mg/dL (65-99) 12/04/19 12:45 Lactic Acid 1.9 mmol/L (0.4-2.0) 12/04/19 12:45 Calcium 8.1 mg/dL (8.5-10.1) L 12/04/19 12:45 Corrected Calcium 8.7 mg/dL (8.5-10.1) 12/04/19 12:45 Ferritin 15 ng/mL (26-388) L 12/04/19 12:35 Total Bilirubin 0.30 mg/dL (0.2-1.0) 12/04/19 12:45 AST 37 Units/L (15-37) 12/04/19 12:45 ALT 17 Units/L (12-78) 12/04/19 12:45 Alkaline Phosphatase 121 Units/L (46-116) H 12/04/19 12:45 Creatine Kinase 398 Units/L (39-308) H 12/04/19 12:45 CK-MB (CK-2) 6.2 ng/mL (0-4.0) H* 12/04/19 12:45 CK/CKMB % Calc 1.6 % (<4) 12/04/19 12:45 Troponin I < 0.02 ng/mL (0-1.5) 12/04/19 12:45 C-Reactive Protein 8.00 mg/L (0-3.0) H 12/04/19 12:45 Total Protein 6.9 g/dL (6.4-8.2) 12/04/19 12:45 Albumin 3.2 g/dL (3.4-5.0) L 12/04/19 12:45 Globulin 3.7 g/dL (2.5-4.5) 12/04/19 12:45 Albumin/Globulin Ratio 0.9 Ratio (1.1-2.1) L 12/04/19 12:45 SARS-CoV-2 (PCR) Negative (NEGATIVE) 12/04/19 16:29 Other Results Comments: IMPRESSION Radiographic features of chronic obstructive pulmonary disease. Previously described right upper lobe and right lower lobe infiltrates have mostly cleared in the interim, with developing parenchymal scarring within the right upper lobe. Right infrahilar parenchymal scarring plus or minus superimposed residual or recurrent infiltrate noted. Radiographic follow-up recommended Multiple chronic, healed bilateral rib fractures. XRAY XRAY Interpreted by: Radiologist (REPORT NOTED AND DISCUSSED WITH PATIENT.) and Self (AGREE WITH REPORT.) EKG Rate: 97 [place]: Normal Rhythm: NSR Block: None Hypertrophy: LAE and TERRY ST: Nonsp Opioid Opioid Risk Tool Age (Isaias box if 16-45): No History of Preadolescent Sexual Abuse: No Total: 0 Total Score Risk Category: Low Risk Copyright: Cheek LR predicting aberrant behaviors Diagnosis Discharge Problem: Hyponatremia, Generalized weakness Pneumonia Qualifiers: Pneumonia type: due to unspecified organism Laterality: left Lung location: lower lobe of lung Qualified Code(s): J18.9 - Pneumonia, unspecified organism Instructions Instructions: Hand Washing, Mcqt-fv-Uwva Upper Respiratory Infection, Adult, Mbiz-xv-Tbby Steps to Quit Smoking, Baav-zq-Gruo Chronic Obstructive Pulmonary Disease, Ikpg-vv-Adam Health Risks of Smoking Weakness, Hxuw-iu-Wpfd Personal Hygiene Hyponatremia, Ihsw-ks-Lkdr Cough, Adult Tobacco Use Disorder Forms: Excuse From Work or School Precautions for COVID19 Patient Portal Social Distancing
[2019-12-04] MEDS ORDERED: ZOFRAN INJ 4 MG VIAL ONE (13:32)
[2019-12-04] MEDS ORDERED: MORPHINE SULFATE INJ 4 MG ONE ×2 (13:34→16:10)
[2019-12-04] MEDS ORDERED: NS 1000 ML 1,000 ML ONE ×2 (14:48→15:12)
[2019-12-04] MEDS ORDERED: NS 1000 ML 1,000 ML IV ONE (14:55)
[2019-12-04 15:50] LABS: CKMB % 1.6 % (<4); CREATINE KINASE 398 Units/L (39-308); TROPONIN I < 0.02 ng/mL (0-1.5)
[2019-12-04 15:56] LABS: CREATINE KINASE MB 6.2 ng/mL (0-4.0)
[2019-12-04] MEDS: NS 1000 ML 1,000 ML IV SCH ×2 (16:01→22:14)
--- NOTE | 2019-12-04 17:44 | CT ---
HISTORYCHEST PAIN, SOB, COUGHSTUDYCTA CHEST with IV contrastCOMPARISONX-ray from same day and CTA 04/1919TECHNIQUEMultiple axial images of the chest were obtained from the thoracic inlet to the upper abdomen after the administration of IV contrast. 100 cc Omnipaque 350 IV contrast. 3D reconstructions utilizing axial MIPS imaging was performed and reviewed. Dose reduction techniques including Automated Exposure Control (AEC) and adjustment of mA and kV were utilized.FINDINGSProminent COPD changes in the lungs. Likely areas of linear scarring in the right lung. Mild bronchiectasis is seen with bronchial wall thickening, greatest in the right lower lobe. This could be bronchitis. Very mild alveolar density is seen centrally in the right lower lobe that appears to be linearly orientated on coronal series suggesting atelectasis. No suspicious lung nodules are seen.No pneumothorax is seen. Trace right pleural effusion is seen. Borderline cardiomegaly is seen without pulmonary venous congestion. Small likely reactive mediastinal lymph nodes are seen. Thoracic aorta is normal in size. Descending thoracic aorta is not well enhanced due to timing of imaging but no evidence of dissection is seen in the ascending thoracic aorta.PA/AO is 1.0. No pulmonary embolus is seen. No fractures are seen.IMPRESSIONCOPD is similar to prior CT study.Resolution of right-sided pneumonia since prior study with mild residual scarring and atelectasis suspected in the right lung. Mild bronchiectasis and probable bronchitis changes are present.No pulmonary embolus is seen.Electronically signed by: Jag Eric (Dec 04, 2019 17:42:47)
[2019-12-04 21:02] VITALS: BMI 17.4
[2019-12-04 21:22] LABS: BILIRUBIN,URINE NEGATIVE (NEGATIVE); BLOOD/HEMOGLOBIN,URINE 4+ (NEGATIVE); GLUCOSE, URINE NEGATIVE (NEGATIVE); KETONES,URINE NEGATIVE (NEGATIVE); LEUKOCYTE ESTERASE ,URINE 1+ (NEGATIVE); NITRITES,URINE NEGATIVE (NEGATIVE); PROTEIN,URINE 2+ (NEGATIVE); UROBILINOGEN,URINE NORMAL (NORMAL)
[2019-12-04 21:26] LABS: APPEARANCE,URINE CLEAR (CLEAR); BACTERIA,URINE NEGATIVE /HPF (NEGATIVE); COLOR,URINE YELLOW (YELLOW); SQUAMOUS EPITHELIAL CELL,UR RARE /HPF (NEGATIVE)
[2019-12-04] MEDS: DUONEB 0.5 MG/3 MG (3 mL) NEB SCH (22:00)
[2019-12-04] MEDS: NICOTINE PATCH TD SCH (22:13)
[2019-12-04] MEDS: TYLENOL 325 MG TAB PO PRN (22:14)
[2019-12-05] LABS: CREATINE KINASE 364 Units/L (39-308); TROPONIN I < 0.02 ng/mL (0-1.5)
[2019-12-05 00:15] LABS: CREATINE KINASE MB 7.2 ng/mL (0-4.0)
[2019-12-05] MEDS ORDERED: ZOFRAN INJ 4 MG VIAL ONE (01:03)
[2019-12-05] MEDS: ZOFRAN INJ 4 MG VIAL IVP PRN ×2 (01:22→08:36)
[2019-12-05] MEDS: NS 1000 ML 1,000 ML IV SCH ×3 (06:03→23:41)
[2019-12-05 06:13] LABS: BASOPHILS % (AUTO) 0.4 % (0.2-1.0); EOSINOPHILS % (AUTO) 0.1 % (0.9-2.9); HEMATOCRIT 41.9 % (42.0-54.0); HEMOGLOBIN 13.5 g/dL (13.5-18.0); LYMPHOCYTES # (AUTO) 0.9 X10^3/uL (1.3-2.9); LYMPHOCYTES % (AUTO) 9.3 % (21.0-51.0); MEAN CORPUSCULAR HEMOGLOBIN 28.3 pg (27.0-34.0); MEAN CORPUSCULAR HGB CONC 32.2 g/dL (33.0-35.0); MEAN CORPUSCULAR VOLUME 87.8 fL (80.0-100.0); MEAN PLATELET VOLUME 7.5 fL (7.4-11.0); MONOCYTES # (AUTO) 1.1 x10^3/uL (0.3-0.8); MONOCYTES % (AUTO) 10.8 % (0.0-13.0); NEUTROPHILS # (AUTO) 7.7 x10^3/uL (2.2-4.8); NEUTROPHILS % (AUTO) 79.4 % (42.0-75.0); PLATELET COUNT 234 X10^3/uL (150.0-450.0); RED BLOOD COUNT 4.77 X10^6/uL (4.7-6.0); RED CELL DISTRIBUTION WIDTH 17.2 % (11.6-16.5); WHITE BLOOD COUNT 9.7 X10^3/uL (3.6-10.0)
[2019-12-05 06:36] LABS: ALANINE AMINOTRANSFERASE 15 Units/L (12-78); ALBUMIN 3.3 g/dL (3.4-5.0); ALKALINE PHOSPHATASE 125 Units/L (46-116); ASPARTATE AMINO TRANSFERASE 38 Units/L (15-37); BLOOD UREA NITROGEN 5 mg/dL (7-18); CALCIUM 8.2 mg/dL (8.5-10.1); CARBON DIOXIDE 30.4 mmol/L (21-32); CHLORIDE 93 mmol/L (98-107); CHOL/HDL RATIO 1.6 (0.0-5.0); CHOLESTEROL 121 mg/dL (0-200); CKMB % 1.9 % (<4); COR CA(FOR HYPOALB) 8.8 mg/dL (8.5-10.1); CREATINE KINASE 362 Units/L (39-308); HDL CHOLESTEROL 75 mg/dL (40-60); MAGNESIUM 1.5 mg/dL (1.7-2.9); SODIUM 128 mmol/L (136-145); TOTAL PROTEIN 7.2 g/dL (6.4-8.2); TRIGLYCERIDES 50 mg/dL (0-150); TROPONIN I < 0.02 ng/mL (0-1.5); eGFR NON BLACK RACES > 60 (>60)
[2019-12-05 06:41] LABS: CREATINE KINASE MB 6.9 ng/mL (0-4.0)
[2019-12-05] MEDS: DUONEB 0.5 MG/3 MG (3 mL) NEB SCH ×4 (09:34→21:14)
[2019-12-05] MEDS: NICOTINE PATCH TD SCH (09:38)
[2019-12-05] MEDS: TYLENOL 325 MG TAB PO PRN (12:12)
[2019-12-05] MEDS: COREG TAB 6.25 MG PO SCH ×2 (13:34→20:43)
[2019-12-05] MEDS ORDERED: MORPHINE SULFATE INJ 2 MG INJ ONE (16:49)
[2019-12-05] MEDS ORDERED: MORPHINE SULFATE INJ 2 MG INJ IVP ONE (17:00)
[2019-12-05] MEDS ORDERED: POTASSIUM CHL 60 MEQ/NS 0.45% 500 ML IV PRN (19:44)
[2019-12-05] MEDS ORDERED: POTASSIUM CHLORIDE LIQ 20 MEQ UDC PO PRN (19:44)
[2019-12-05] MEDS ORDERED: MICRO K EXTEN CAP 10 MEQ PO PRN (19:44)
[2019-12-05] MEDS ORDERED: K-RIDER 10 MEQ/NS 100 ML 10 MEQ/100 ML BAG IV PRN (19:44)
[2019-12-05] MEDS ORDERED: K-DUR TAB 20 MEQ PO PRN (19:44)
[2019-12-05] MEDS ORDERED: POTASSIUM CHL 40 MEQ/NS 0.45% 500 ML IV PRN (19:44)
[2019-12-05] MEDS ORDERED: KLOR-CON PO PRN (19:44)
--- NOTE | 2019-12-05 20:06 | DR.H&P ---
H&P - History & Physical for Day of: H&P Date: 12/04/19 - Chief Complaint Chief Complaint: CHEST PAIN, COUGH, SOB, HEADACHE, WEAKNESS - History of Present Illness History of Present Illness: IS A 49 YEAR OLD PATIENT OF DR.FURTADOS Jose Raul BENNETT PRESENTED TO THE ER WITH COMPLAINTS OF CHEST PAIN, COUGH, SHORTNESS OF BREATH, HEADACHE, AND WEAKNESS. SYMPTOMS STARTED THREE DAYS PRIOR AND HAVE PROGRESSIVELY GOTTEN WORSE. HE DENIES FEVER. PAIN IS DESCRIBED DULL, SUBSTERNAL, INTERMITTENT, AND IS RATED 5/10. PMH INCLUDES HTN, ASTHMA, COPD, APPENDECTOMY, AND BOWEL RESECTION. HE DOES ADMIT TO CIGARETTE AND ALCOHOL USE. ON ARRIVAL TO THE ER, VITALS WERE 99.6-70-14-97%-179/126. LABS WERE OBTAINED. ABNORMAL LAB VALUES INCLUDE THE FOLLOWING: HGB 13.3, HCT 41.2, PTT 37.2, SODIUM 124, CHLORIDE 89, BUN 3, CREATININE 0.61, CALCIUM 8.1, FERRITIN 15, ALK PHOS 121, CREATINE KINASE 398, CK-MB 6.2, CRP 8.00, ALBUMIN 3.2. AN ABG WAS OBTAINED AND REVEALED: PH 7.370, PC02 57.0, P02 65.0, HC0 33.0, 02 SATURATION 92.0, BASE EXCESS 6.1, FI02 21.0. URINALYSIS REVEALED: WBC 3-5, RBC 10-20, BACTERIA NEGATIVE, LEUKOCYTES 1+, OCCULT BLOOD 4+. COVID-19 NEGATIVE. A CHEST XRAY WAS OBTAINED AND REVEALED: Radiographic features of chronic obstructive pulmonary disease. Previously described right upper lobe and right lower lobe infiltrates have mostly cleared in the interim, with developing parenchymal scarring within the right upper lobe. Right infrahilar parenchymal scarring plus or minus superimposed residual or recurrent infiltrate noted. Radiographic follow-up recommended. Multiple chronic, healed bilateral rib fractures. EKG REVEALED: SINUS RHTYHM WITH HR 92. A CHEST CTA WAS OBTAINED AND REVEALED: COPD is similar to prior CT study. Resolution of right-sided pneumonia since prior study with mild residual scarring and atelectasis suspected in the right lung. Mild bronchiectasis and probable bronchitis changes are present. No pulmonary embolus is seen. WHILE IN THE ER, PATIENTS OXYGEN SATURATIONS DROPPED TO THE 70s, HOWEVER, RETURNS TO THE 90s WHEN PLACED ON TWO LITERS OF OXYGEN VIA NASAL CANNULA. HE WAS GIVEN MORPHINE SULFATE 4MG IV X 1 DOSE, ZOFRAN 4MG IV X 1, AND A NORMAL SALINE BOLUS IN THE ER. HE WAS ADMITTED TO THE HOSPITAL FOR FURTHER EVALUATION AND TREATMENT OF HYPONATREMIA, CHEST PAIN RULE OUT ACUTE [place], AND GENERALIZED WEAKNESS. HE WAS STARTED ON NORMAL SALIEN AT 125ML/HR, THE POTASSIUM PROTOCOL, DUONEBS QID, COREG 6.25MG PO BID, NORCO 5/325MG PO Q6H PRN PAIN, TORADOL 30MG IV Q6H PRN PAIN, ZOFRAN 4MG IV Q6H PRN PAIN. WE OBTAINED SERIAL CADIAC ENZYMES AND EKGS WHICH SHOWED NO SIGNIFICANT CHANGE. OTHERWISE, WE PLAN TO FOLLOW UP WITH AM LABS AND CONTINUE TO MONITOR. - Past Medical History Past Medical History: Hypertension, COPD, Asthma Additional Medical History: GI Ulcer, IBS, Diarrhea, Previous Blood Transfusion, Colon Cancer - Past Surgical History Surgical History: Appendectomy, Bowel Resection Additional Surgical History: Hernia, Bowel Resection for Colon Cancer - Family History Family Medical History: Cancer, [place], Hypertension - Social History Type of Tobacco Use: Cigarettes Alcohol Use: Occasionally Drug Use: None - Medications Home Medications: Penicillins Allergy (Verified 10/29/18 15:22) - Review of Systems Constitutional: Weakness Eyes: No Symptoms Reported ENT: No Symptoms Reported Respiratory: Cough, Shortness of Breath, SOB with Excertion Cardiovascular: Chest Pain Gastrointestinal: No Symptoms Reported Genitourinary: No Symptoms Reported Musculoskeletal: No Symptoms Reported Skin: No Symptoms Reported Neurological: Weakness - Physical Exam Vital Signs: Temperature 98.6 F Pulse Rate [Left Brachial] 87 Pulse Rate 88 Respiratory Rate 20 Blood Pressure [Left Arm] 135/94 Blood Pressure [Right Arm] 154/86 Blood Pressure 142/85 O2 Sat by Pulse Oximetry 97 Oriented: Normal Eyes: Normal Ear: Normal Nose: Normal Throat: Normal Respiratory: Diminished Throughout Cardiovascular: Normal : Normal Auscultation: Bowel Sounds: Normal Palpation: Normal Tenderness: Normal Skin: Normal Musculoskeletal: Normal Psychiatric: Normal Mood Description: Calm Affect: Normal Speech Pattern: Clear - Assessment/Plan (1) Acute hyponatremia Status: Acute Plan: ADMIT, NORMAL SALINE AT 125ML/HR, THE POTASSIUM PROTOCOL, DUONEBS QID, COREG 6.25MG PO BID, NORCO 5/325MG PO Q6H PRN PAIN, TORADOL 30MG IV Q6H PRN PAIN, ZOFRAN 4MG IV Q6H PRN PAIN (2) Chest pain, rule out acute myocardial infarction Status: Acute (3) Accelerated hypertension Status: Acute (4) Acute dyspnea Status: Acute - Allergies Allergies/Adverse Reactions: Allergies Allergy/AdvReac Type Severity Reaction Status Date / Time Penicillins Allergy Verified 10/29/18 15:22
[2019-12-06] MEDS: MAGNESIUM SULFATE 1 GRAM/100 mL PREMIX 1 GM/100 ML BAG IV PRN ×4 (00:02→03:20)
[2019-12-06] MEDS: NORCO 5/325 MG TAB PO PRN ×2 (05:17→19:52)
[2019-12-06 05:58] LABS: ALANINE AMINOTRANSFERASE 17 Units/L (12-78); ALBUMIN 2.9 g/dL (3.4-5.0); ALKALINE PHOSPHATASE 118 Units/L (46-116); ASPARTATE AMINO TRANSFERASE 36 Units/L (15-37); BLOOD UREA NITROGEN 3 mg/dL (7-18); CALCIUM 7.7 mg/dL (8.5-10.1); CARBON DIOXIDE 33.7 mmol/L (21-32); CHLORIDE 93 mmol/L (98-107); COR CA(FOR HYPOALB) 8.6 mg/dL (8.5-10.1); SODIUM 127 mmol/L (136-145); TOTAL PROTEIN 6.5 g/dL (6.4-8.2); eGFR NON BLACK RACES > 60 (>60)
[2019-12-06 06:09] LABS: BASOPHILS # (AUTO) 0.1 X10^3/uL (0.0-0.1); EOSINOPHILS # (AUTO) 0.1 x10^3/uL (0.0-0.2); HEMATOCRIT 43.4 % (42.0-54.0); HEMOGLOBIN 13.8 g/dL (13.5-18.0); LYMPHOCYTES # (AUTO) 1.3 X10^3/uL (1.3-2.9); LYMPHOCYTES % (AUTO) 19.9 % (21.0-51.0); MEAN CORPUSCULAR HEMOGLOBIN 28.1 pg (27.0-34.0); MEAN CORPUSCULAR HGB CONC 31.7 g/dL (33.0-35.0); MEAN CORPUSCULAR VOLUME 88.4 fL (80.0-100.0); MEAN PLATELET VOLUME 7.4 fL (7.4-11.0); MONOCYTES # (AUTO) 0.7 x10^3/uL (0.3-0.8); MONOCYTES % (AUTO) 10.1 % (0.0-13.0); NEUTROPHILS # (AUTO) 4.6 x10^3/uL (2.2-4.8); PLATELET COUNT 273 X10^3/uL (150.0-450.0); RED BLOOD COUNT 4.92 X10^6/uL (4.7-6.0); RED CELL DISTRIBUTION WIDTH 17.5 % (11.6-16.5); WHITE BLOOD COUNT 6.8 X10^3/uL (3.6-10.0)
[2019-12-06] MEDS: NICOTINE PATCH TD SCH (08:19)
[2019-12-06] MEDS: COREG TAB 6.25 MG PO SCH ×2 (08:19→20:04)
[2019-12-06] MEDS: NS 1000 ML 1,000 ML IV SCH ×2 (08:19→16:46)
--- NOTE | 2019-12-06 09:06 | RAD ---
HISTORYSOB, COUGHSTUDYCHEST x-ray, 1 VIEWCOMPARISONX-ray 12/04/2019FINDINGSCOPD changes. New mild blunting of the left CP angle suggest possible small pleural effusion. There is likely new vague infiltrate in the left lower lobe compared to prior exam. Persistent probable atelectasis and scarring is seen in the right middle lobe and right lower lobe, unchanged. No pneumothorax is seen. Heart is likely normal in size.IMPRESSIONNew vague density in the left lower lobe could be pneumonia with small pleural effusion.Stable appearing probable atelectasis and scarring is seen in the right middle and lower lobes.Electronically signed by: Jag Eric (Dec 06, 2019 09:05:12)
[2019-12-06] MEDS: DUONEB 0.5 MG/3 MG (3 mL) NEB SCH ×4 (09:09→20:46)
[2019-12-06] MEDS ORDERED: FLONASE NASAL SPRAY ENOSTRIL ONE (10:24)
[2019-12-06] MEDS: FLONASE NASAL SPRAY ENOSTRIL SCH (10:25)
--- NOTE | 2019-12-06 11:58 | CT ---
HISTORYHEADACHESTUDYSINUS W/O CONCOMPARISONNone availableTECHNIQUEMultiple axial images of the paranasal sinuses were obtained without the administration of IV contrast. Coronal and sagittal reformats were performed and reviewed. Dose reduction techniques including Automated Exposure Control (AEC) and adjustment of mA and kV were utilized.FINDINGSMild mucosal thickening of the left maxillary sinus. Minimal mucosal thickening of the right sphenoid sinus. No air-fluid level within the frontal, ethmoid, maxillary or sphenoid sinuses. Mastoid air cells are clear. Chronic fracture deformity of the right and left nasal bones noted, there is no definite paranasal soft tissue swelling to suggest acute fracture. Skin thickening and likely sebaceous cyst within the left pre zygomatic soft tissues. The globes are intact. Pterygoid plates are intact. There is no fracture or malalignment the mandible or TMJ. There is fairly severe diffuse periodontal disease throughout the remaining maxillary and mandibular teeth. No acute intracranial hemorrhage or mass effect. Nonspecific soft tissue swelling within the lower facial and upper cervical soft tissues.IMPRESSIONMild left maxillary and right sphenoid sinus mucosal disease.Fracture deformity of the right and left nasal bones, given lack of reported injury or paranasal soft tissue swelling this is suspected represent a chronic fracture. Minimal leftward bowing of the bony nasal septum.Mild skin thickening and sebaceous cyst formation within left pre zygomatic soft tissues.Moderate periodontal disease throughout the remaining maxillary and mandibular teeth, clinical correlation is needed as this may be a source of headache/facial pain.Nonspecific edema within the left greater than right lower facial and upper cervical soft tissues.Electronically signed by: CHRISSY DIAMOND (Dec 06, 2019 11:56:34)
[2019-12-06] MEDS: NORVASC TAB 5 MG PO SCH (13:07)
[2019-12-06] MEDS: TORADOL 30 MG VIAL IVP PRN (13:11)
[2019-12-06] MEDS ORDERED: MAALOX or MYLANTA PO PRN (16:44)
[2019-12-06] MEDS ORDERED: MAALOX or MYLANTA ONE (16:46)
--- NOTE | 2019-12-06 20:46 | PCM.PROG ---
Progress Note - Progress Note for Day of Date of Exam: 12/06/19 - Subjective Subjective: IS BEING TREATED FOR HYPONATREMIA, CHEST PAIN RULE OUT ACUTE VA, HTN, GENERALIZED WEAKNESS, AND COPD EXACERBATION. TODAY, HE IS ALERT AND ORIENTED, LYING IN BED ON MORNING ROUNDS. HE CONTINUES WITH WEAKNESS TODAY AND ALSO REPORTS SEVERE HEADACHE AND FACIAL PAIN TODAY. HE DENIES CHEST PAIN. ON EXAMINATION, HEART IS REGULAR IN RATE AND RHYTHM. BILATERAL LUNGS ARE NOTED WITH DIMINISHED LUNG SOUNDS THROUGHOUT. ABDOMEN IS FLAT, SOFT, AND NON-TENDER WITH NORMAL BOWEL SOUNDS NOTED IN ALL QUADRANTS. HIS VITALS THIS MORNING ARE: 98.0-83-20-96%-148/99. LABS WERE OBTAINED. ABNORMAL LAB VALUES INCLUDE THE FOLLOWING: SODIUM 127, CHLORIDE 93, CARBON DIOXIDE 33.7, BUN 3, CREATININE 0.50, CALCIUM 7.7, ALK PHOS 118, ALBUMIN 2.9. A CHEST XRAY WAS OBTAINED THIS MORNING AND REVEALED: New vague density in the left lower lobe could be pneumonia with small pleural effusion. Stable appearing probable atelectasis and scarring is seen in the right middle and lower lobes. HE IS CURRENTLY RECEIVING NORMAL SALINE AT 125ML/HR, THE POTASSIUM PROTOCOL, DUONEBS QID, COREG 6.25MG PO BID, NORCO 5/325MG PO Q6H PRN PAIN, TORADOL 30MG IV Q6H PRN PAIN, ZOFRAN 4MG IV Q6H PRN PAIN. TODAY, WE WILL ADD AMLODIPINE 5MG PO DAILY, FLONASE TO EACH NOSTRIL DAILY, LEVAQUIN 750MG IV DAILY, AND OBTAIN A SINUS CT. OTHERWISE, WE WILL FOLLOW UP WITH AM LABS AND CONTINUE TO MONITOR. - Past Medical Family Social History Past Med/Fam/Surg Hx: No changes since H&P Allergies: Allergies Penicillins Allergy (Verified 10/29/18 15:22) - Review of Systems ROS: No change since H&P - Vital Signs and I&O's Vital Signs: Temperature 97.5 F Pulse Rate [Left Brachial] 78 Pulse Rate 80 Respiratory Rate 18 Blood Pressure [Left Arm] 154/99 Blood Pressure [Right Arm] 154/86 Blood Pressure 142/85 O2 Sat by Pulse Oximetry 95 Intake and Output: Intake & Output 12/04/19 12/05/19 12/06/19 12/07/19 11:59 11:59 11:59 11:59 Intake Total 1590 / 1590 4360 / 4360 2049 Output Total 1275 / 1275 750 / 750 Balance 1590 / 1590 3085 / 3085 1300 / 1300 - Physical Exam Oriented: Normal Eyes: Normal Ear: Normal Nose: Normal Throat: Normal Respiratory: Generalized, Diminished Cardiovascular: Normal : Normal Auscultation: Bowel Sounds: Normal Palpation: Normal Tenderness: Normal Skin: Normal Musculoskeletal: Normal Psychiatric: Normal Mood Description: Calm Affect: Normal Speech Pattern: Clear, Appropriate - Laboratory and Diagnostics Result Diagrams: 12/06/19 05:10 12/06/19 05:10 Labs: 12/04/19 12:45 Blood Blood Culture - Preliminary 12/04/19 12:35 Blood Blood Culture - Preliminary Laboratory WBC 6.8 X10^3/uL (3.6-10.0) 12/06/19 05:10 RBC 4.92 X10^6/uL (4.7-6.0) 12/06/19 05:10 Hgb 13.8 g/dL (13.5-18.0) 12/06/19 05:10 Hct 43.4 % (42.0-54.0) 12/06/19 05:10 MCV 88.4 fL (80.0-100.0) 12/06/19 05:10 MCH 28.1 pg (27.0-34.0) 12/06/19 05:10 MCHC 31.7 g/dL (33.0-35.0) L 12/06/19 05:10 RDW 17.5 % (11.6-16.5) H 12/06/19 05:10 Plt Count 273 X10^3/uL (150.0-450.0) 12/06/19 05:10 MPV 7.4 fL (7.4-11.0) 12/06/19 05:10 Neut % (Auto) 68.0 % (42.0-75.0) 12/06/19 05:10 Lymph % (Auto) 19.9 % (21.0-51.0) L 12/06/19 05:10 [place] % (Auto) 10.1 % (0.0-13.0) 12/06/19 05:10 Eos % (Auto) 1.0 % (0.9-2.9) 12/06/19 05:10 Baso % (Auto) 1.0 % (0.2-1.0) 12/06/19 05:10 Neut # (Auto) 4.6 x10^3/uL (2.2-4.8) 12/06/19 05:10 Lymph # (Auto) 1.3 X10^3/uL (1.3-2.9) 12/06/19 05:10 [place] # (Auto) 0.7 x10^3/uL (0.3-0.8) 12/06/19 05:10 Eos # (Auto) 0.1 x10^3/uL (0.0-0.2) 12/06/19 05:10 Baso # (Auto) 0.1 X10^3/uL (0.0-0.1) 12/06/19 05:10 Absolute Nucleated RBC 0.1 /100WBC 12/06/19 05:10 PT 13.7 SECONDS (11.8-14.3) 12/05/19 05:30 INR Target Range - 12/05/19 05:30 INR 1.08 (0.8-1.3) 12/05/19 05:30 APTT 37.2 SECONDS (22.9-36.5) H 12/05/19 05:30 PTT Comment - 12/05/19 05:30 Sample Site Rrad 12/04/19 12:20 ABG pH 7.370 (7.35-7.45) 12/04/19 12:20 ABG pCO2 57.0 mmHg (35.0-45.0) H* 12/04/19 12:20 ABG pO2 65.0 mmHg (80.0-100.0) L 12/04/19 12:20 ABG HCO3 33.0 mmol/L (22-26) H* 12/04/19 12:20 ABG O2 Saturation 92.0 % (90-100) 12/04/19 12:20 ABG Base Excess 6.1 mmol/L (-2.0-2.0) H 12/04/19 12:20 Jose Daniel Test Pos 12/04/19 12:20 A-a Gradient 13.0 mmHg 12/04/19 12:20 FiO2 21.0 12/04/19 12:20 Blood Gas Comments Juan well -sd 12/04/19 12:20 Sodium 127 mmol/L (136-145) L 12/06/19 05:10 Corrected Sodium TNP 12/06/19 05:10 Potassium 4.1 mmol/L (3.5-5.1) 12/06/19 05:10 Chloride 93 mmol/L (98-107) L 12/06/19 05:10 Carbon Dioxide 33.7 mmol/L (21-32) H 12/06/19 05:10 BUN 3 mg/dL (7-18) L 12/06/19 05:10 Creatinine 0.50 mg/dL (0.70-1.30) L 12/06/19 05:10 Est GFR (MDRD) Af Amer > 60 (>60) 12/06/19 05:10 Est GFR (MDRD) Non-Af > 60 (>60) 12/06/19 05:10 Glucose 86 mg/dL (65-99) 12/06/19 05:10 Lactic Acid 1.9 mmol/L (0.4-2.0) 12/04/19 12:45 Calcium 7.7 mg/dL (8.5-10.1) L 12/06/19 05:10 Corrected Calcium 8.6 mg/dL (8.5-10.1) 12/06/19 05:10 Magnesium 2.2 mg/dL (1.7-2.9) 12/06/19 05:10 Ferritin 15 ng/mL (26-388) L 12/04/19 12:35 Total Bilirubin 0.40 mg/dL (0.2-1.0) 12/06/19 05:10 AST 36 Units/L (15-37) 12/06/19 05:10 ALT 17 Units/L (12-78) 12/06/19 05:10 Alkaline Phosphatase 118 Units/L (46-116) H 12/06/19 05:10 Creatine Kinase 362 Units/L (39-308) H 12/05/19 05:30 CK-MB (CK-2) 6.9 ng/mL (0-4.0) H* 12/05/19 05:30 CK/CKMB % Calc 1.9 % (<4) 12/05/19 05:30 Troponin I < 0.02 ng/mL (0-1.5) 12/05/19 05:30 C-Reactive Protein 8.00 mg/L (0-3.0) H 12/04/19 12:45 Total Protein 6.5 g/dL (6.4-8.2) 12/06/19 05:10 Albumin 2.9 g/dL (3.4-5.0) L 12/06/19 05:10 Globulin 3.6 g/dL (2.5-4.5) 12/06/19 05:10 Albumin/Globulin Ratio 0.8 Ratio (1.1-2.1) L 12/06/19 05:10 Triglycerides 50 mg/dL (0-150) 12/05/19 05:30 Cholesterol 121 mg/dL (0-200) 12/05/19 05:30 LDL Cholesterol, Calc 36 mg/dL (0-100) 12/05/19 05:30 HDL Cholesterol 75 mg/dL (40-60) H 12/05/19 05:30 Cholesterol/HDL Ratio 1.6 (0.0-5.0) 12/05/19 05:30 Specimen Type Clean catch urine 12/04/19 21:15 Urine Color Yellow (YELLOW) 12/04/19 21:15 Urine Appearance Clear (CLEAR) 12/04/19 21:15 Urine pH 5.0 (5.0 - 8.0) 12/04/19 21:15 Ur Specific [place] 1.010 (1.000-1.030) 12/04/19 21:15 Urine Protein 2+ (NEGATIVE) 12/04/19 21:15 Urine Glucose (UA) Negative (NEGATIVE) 12/04/19 21:15 Urine Ketones Negative (NEGATIVE) 12/04/19 21:15 Urine Occult Blood 4+ (NEGATIVE) 12/04/19 21:15 Urine Nitrite Negative (NEGATIVE) 12/04/19 21:15 Urine Bilirubin Negative (NEGATIVE) 12/04/19 21:15 Urine Urobilinogen Normal (NORMAL) 12/04/19 21:15 Ur Leukocyte Esterase 1+ (NEGATIVE) 12/04/19 21:15 Urine RBC 10-20 /HPF (0-3) A 12/04/19 21:15 Urine WBC 3-5 /HPF (0-5) 12/04/19 21:15 Ur Squamous Epith Cells Rare /HPF (NEGATIVE) 12/04/19 21:15 Urine Bacteria Negative /HPF (NEGATIVE) 12/04/19 21:15 Ur Culture Indicated? No/not indicated 12/04/19 21:15 Urine Opiates Screen Positive (NEG=<300) 12/04/19 21:15 Urine Methadone Screen Negative (NEG=<300) 12/04/19 21:15 Ur Barbiturates Screen Negative (NEG=<200) 12/04/19 21:15 Ur Phencyclidine Scrn Negative (NEG=<25) 12/04/19 21:15 Ur Amphetamines Screen Negative (NEG=<1000) 12/04/19 21:15 U Benzodiazepines Scrn Negative (NEG=<200) 12/04/19 21:15 Urine Cocaine Screen Negative (NEG=<300) 12/04/19 21:15 U Marijuana (THC) Screen Negative (NEG=<50) 12/04/19 21:15 SARS-CoV-2 (PCR) Negative (NEGATIVE) 12/04/19 16:29 - Plan (1) Acute hyponatremia Status: Inactive Plan: NORMAL SALINE AT 125ML/HR, THE POTASSIUM PROTOCOL, DUONEBS QID, COREG 6.25MG PO BID, NORCO 5/325MG PO Q6H PRN PAIN, TORADOL 30MG IV Q6H PRN PAIN, ZOFRAN 4MG IV Q6H PRN PAIN (2) Pneumonia Status: Acute Qualifiers: Pneumonia type: due to unspecified organism Laterality: left Lung location: lower lobe of lung Qualified Code(s): J18.9 - Pneumonia, unspecified organism Plan: LEVAQUIN 750MG IV DAILY, NEB [place], SUPPLEMENTAL OXYGEN (3) Accelerated hypertension Status: Inactive (4) Acute dyspnea Status: Inactive (5) COPD (chronic obstructive pulmonary disease) Status: Chronic Qualifiers: COPD type: chronic bronchitis
[2019-12-06] MEDS: LEVAQUIN PREMIX IV 750 MG 750 MG/150 ML BAG IV SCH (22:00)
[2019-12-07] MEDS ORDERED: COLACE CAP 100 MG PO PRN (01:40)
[2019-12-07] MEDS: NS 1000 ML 1,000 ML IV SCH ×4 (01:40→20:17)
[2019-12-07] MEDS ORDERED: MILK OF MAGNESIA PO PRN (01:40)
[2019-12-07 06:13] LABS: BASOPHILS % (AUTO) 0.5 % (0.2-1.0); EOSINOPHILS # (AUTO) 0.1 x10^3/uL (0.0-0.2); EOSINOPHILS % (AUTO) 0.8 % (0.9-2.9); LYMPHOCYTES # (AUTO) 0.9 X10^3/uL (1.3-2.9); LYMPHOCYTES % (AUTO) 12.8 % (21.0-51.0); MEAN CORPUSCULAR HGB CONC 31.8 g/dL (33.0-35.0); MEAN CORPUSCULAR VOLUME 87.9 fL (80.0-100.0); MEAN PLATELET VOLUME 7.5 fL (7.4-11.0); MONOCYTES # (AUTO) 0.7 x10^3/uL (0.3-0.8); MONOCYTES % (AUTO) 9.9 % (0.0-13.0); NEUTROPHILS # (AUTO) 5.5 x10^3/uL (2.2-4.8); PLATELET COUNT 241 X10^3/uL (150.0-450.0); RED BLOOD COUNT 4.66 X10^6/uL (4.7-6.0); RED CELL DISTRIBUTION WIDTH 16.9 % (11.6-16.5); WHITE BLOOD COUNT 7.2 X10^3/uL (3.6-10.0)
--- NOTE | 2019-12-07 06:23 | RAD ---
HISTORYSOBSTUDYCHEST, 1 VIEWCOMPARISON[One day prior]TECHNIQUE[AP view of the chest.]FINDINGS[Lung hyperexpansion with scattered lucencies consistent with COPD. Worsened left base opacification with blunted left costophrenic sulcus stable right mid and lower lung scarring. No pneumothorax. Stable cardiac and mediastinal contours.IMPRESSION[COPD with worsening left base opacification that could represent pleural effusion and/or infiltrate.]Electronically signed by: Price Etienne (Dec 07, 2019 06:22:42)
[2019-12-07 06:26] LABS: ALANINE AMINOTRANSFERASE 14 Units/L (12-78); ALBUMIN 2.8 g/dL (3.4-5.0); ALKALINE PHOSPHATASE 107 Units/L (46-116); ASPARTATE AMINO TRANSFERASE 30 Units/L (15-37); BLOOD UREA NITROGEN 3 mg/dL (7-18); CARBON DIOXIDE 35.7 mmol/L (21-32); CHLORIDE 91 mmol/L (98-107); CREATININE 0.63 mg/dL (0.70-1.30); SODIUM 128 mmol/L (136-145); TOTAL PROTEIN 6.5 g/dL (6.4-8.2); eGFR NON BLACK RACES > 60 (>60)
[2019-12-07] MEDS: COREG TAB 6.25 MG PO SCH ×2 (08:52→20:50)
[2019-12-07] MEDS: NORVASC TAB 5 MG PO SCH (08:52)
[2019-12-07] MEDS: NICOTINE PATCH TD SCH (08:52)
[2019-12-07] MEDS: FLONASE NASAL SPRAY ENOSTRIL SCH (09:00)
[2019-12-07] MEDS: NORCO 5/325 MG TAB PO PRN ×2 (09:02→20:50)
[2019-12-07] MEDS: DUONEB 0.5 MG/3 MG (3 mL) NEB SCH ×4 (09:45→20:56)
[2019-12-07] MEDS: TORADOL 30 MG VIAL IVP PRN (13:37)
[2019-12-07] MEDS: LEVAQUIN PREMIX IV 750 MG 750 MG/150 ML BAG IV SCH (20:51)
[2019-12-08] MEDS: TORADOL 30 MG VIAL IVP PRN ×2 (00:47→21:09)
[2019-12-08] MEDS: NS 1000 ML 1,000 ML IV SCH ×3 (05:55→18:55)
[2019-12-08] MEDS: NORCO 5/325 MG TAB PO PRN ×3 (05:55→18:44)
--- NOTE | 2019-12-08 06:18 | RAD ---
HISTORYSOBSTUDYCHEST x-ray, 1 VIEWCOMPARISONX-ray 12/07/2019FINDINGSModerate left pleural effusion is slightly increased in size since prior study. There may be pleural thickening or loculated pleural fluid left laterally, unchanged. Probable COPD is present. Probable atelectasis is seen in the inferior aspect of the right upper lobe. Cardiomegaly is likely but no pulmonary venous congestion is seen. No pneumothorax is seen.IMPRESSIONCOPD and cardiomegaly with moderate left pleural effusion.Electronically signed by: Jag Eric (Dec 08, 2019 06:17:05)
[2019-12-08 06:24] LABS: BASOPHILS # (AUTO) 0.1 X10^3/uL (0.0-0.1); BASOPHILS % (AUTO) 1.1 % (0.2-1.0); EOSINOPHILS # (AUTO) 0.1 x10^3/uL (0.0-0.2); EOSINOPHILS % (AUTO) 1.2 % (0.9-2.9); HEMATOCRIT 37.6 % (42.0-54.0); LYMPHOCYTES # (AUTO) 1.2 X10^3/uL (1.3-2.9); LYMPHOCYTES % (AUTO) 23.2 % (21.0-51.0); MEAN CORPUSCULAR HEMOGLOBIN 27.9 pg (27.0-34.0); MEAN CORPUSCULAR HGB CONC 31.9 g/dL (33.0-35.0); MEAN CORPUSCULAR VOLUME 87.4 fL (80.0-100.0); MEAN PLATELET VOLUME 7.6 fL (7.4-11.0); MONOCYTES # (AUTO) 0.6 x10^3/uL (0.3-0.8); MONOCYTES % (AUTO) 11.2 % (0.0-13.0); NEUTROPHILS # (AUTO) 3.4 x10^3/uL (2.2-4.8); NEUTROPHILS % (AUTO) 63.3 % (42.0-75.0); PLATELET COUNT 213 X10^3/uL (150.0-450.0); RED CELL DISTRIBUTION WIDTH 16.9 % (11.6-16.5); WHITE BLOOD COUNT 5.4 X10^3/uL (3.6-10.0)
[2019-12-08 06:37] LABS: ALANINE AMINOTRANSFERASE 13 Units/L (12-78); ALBUMIN 2.3 g/dL (3.4-5.0); ALKALINE PHOSPHATASE 90 Units/L (46-116); ASPARTATE AMINO TRANSFERASE 26 Units/L (15-37); BLOOD UREA NITROGEN 3 mg/dL (7-18); CALCIUM 7.5 mg/dL (8.5-10.1); CARBON DIOXIDE 33.4 mmol/L (21-32); CHLORIDE 91 mmol/L (98-107); COR CA(FOR HYPOALB) 8.9 mg/dL (8.5-10.1); CREATININE 0.57 mg/dL (0.70-1.30); TOTAL PROTEIN 5.4 g/dL (6.4-8.2); eGFR NON BLACK RACES > 60 (>60)
[2019-12-08 06:42] LABS: SODIUM 126 mmol/L (136-145)
[2019-12-08] MEDS: DUONEB 0.5 MG/3 MG (3 mL) NEB SCH ×4 (08:26→20:20)
[2019-12-08] MEDS: FLONASE NASAL SPRAY ENOSTRIL SCH (09:30)
[2019-12-08] MEDS: NICOTINE PATCH TD SCH (09:30)
[2019-12-08] MEDS: COREG TAB 6.25 MG PO SCH ×2 (09:30→21:27)
[2019-12-08] MEDS: NORVASC TAB 5 MG PO SCH (09:31)
--- NOTE | 2019-12-08 11:45 | PCM.PROG ---
Progress Note - Progress Note for Day of Date of Exam: 12/07/19 - Subjective Subjective: IS BEING TREATED FOR HYPONATREMIA, PNEUMONIA, HTN, GENERALIZED WEAKNESS, AND COPD EXACERBATION. TODAY, HE IS ALERT AND ORIENTED, LYING IN BED ON MORNING ROUNDS. HE CONTINUES WITH WEAKNESS TODAY AND ALSO REPORTS SHORTNESS OF BREATH. HE DENIES CHEST PAIN. ON EXAMINATION, HEART IS REGU LAR IN RATE AND RHYTHM. BILATERAL LUNGS ARE NOTED WITH DIMINISHED LUNG SOUNDS THROUGHOUT. ABDOMEN IS FLAT, SOFT, AND NON-TENDER WITH NORMAL BOWEL SOUNDS NOTED IN ALL QUADRANTS. HIS VITALS THIS MORNING ARE: 97.7-80-20-92%NC-154/92. LABS WERE OBTAINED. ABNORMAL LAB VALUES INCLUDE THE FOLLOWING: RBC 4.66, HGB 13.0, HCT 41.0, SODIUM 128, CHLORIDE 91, CARBON DIOXIDE 35.7, BUN 3, CREATININE 0.63, CALCIUM 8.0, ALBUMIN 2.8. A CHEST XRAY WAS OBTAINED THIS MORNING AND REVEALED: COPD with worsening left base opacification that could represent pleural effusion and/or infiltrate. A SINUS CT WAS OBTAINED YESTERDAY AND REVEALED: Mild left maxillary and right sphenoid sinus mucosal disease. Fracture deformity of the right and left nasal bones, given lack of reported injury or paranasal soft tissue swelling this is suspected represent a chronic fracture. Minimal leftward bowing of the bony nasal septum. Mild skin thickening and sebaceous cyst formation within left pre zygomatic soft tissues. Moderate periodontal disease throughout the remaining maxillary and mandibular teeth, clinical correlation is needed as this may be a source of headache/facial pain. Nonspecific edema within the left greater than right lower facial and upper cervical soft tissues. HE IS CURRENTLY RECEIVING NORMAL SALINE AT 125ML/HR, THE POTASSIUM PROTOCOL, DUONEBS QID, COREG 6.25MG PO BID, AMLODIPINE 5MG PO DAILY, FLONASE TO EACH NOSTRIL DAILY, LEVAQUIN 750MG IV DAILY, NORCO 5/325MG PO Q6H PRN PAIN, TORADOL 30MG IV Q6H PRN PAIN, ZOFRAN 4MG IV Q6H PRN PAIN. WE WILL CONTINUE WITH CURRENT PLAN OF CARE TODAY. OTHERWISE, WE WILL FOLLOW UP WITH AM LABS AND CONTINUE TO MONITOR. - Past Medical Family Social History Past Med/Fam/Surg Hx: No changes since H&P Allergies: Allergies Penicillins Allergy (Verified 10/29/18 15:22) - Review of Systems ROS: No change since H&P - Vital Signs and I&O's Vital Signs: Temperature 97.3 F Pulse Rate [Left Brachial] 75 Pulse Rate 69 Respiratory Rate 20 Blood Pressure [Left Arm] 148/100 Blood Pressure [Right Arm] 157/97 Blood Pressure 142/85 O2 Sat by Pulse Oximetry 92 Intake and Output: Intake & Output 12/05/19 12/06/19 12/07/19 12/08/19 11:59 11:59 11:59 11:59 Intake Total 1590 / 1590 4360 / 4360 4990 / 4990 2840 / 2840 Output Total 1275 / 1275 1250 / 1250 1575 / 1575 Balance 1590 / 1590 3085 / 3085 3740 / 3740 1265 / 1265 - Physical Exam Oriented: Normal Eyes: Normal Ear: Normal Nose: Normal Throat: Normal Respiratory: Generalized, Diminished Cardiovascular: Normal : Normal Auscultation: Bowel Sounds: Normal Palpation: Normal Tenderness: Normal Skin: Normal Musculoskeletal: Normal Psychiatric: Normal Mood Description: Calm Affect: Normal Speech Pattern: Clear, Appropriate - Laboratory and Diagnostics Result Diagrams: 12/08/19 05:24 12/08/19 05:24 Labs: 12/04/19 12:45 Blood Blood Culture - Preliminary 12/04/19 12:35 Blood Blood Culture - Preliminary Laboratory WBC 5.4 X10^3/uL (3.6-10.0) 12/08/19 05:24 RBC 4.30 X10^6/uL (4.7-6.0) L 12/08/19 05:24 Hgb 12.0 g/dL (13.5-18.0) L 12/08/19 05:24 Hct 37.6 % (42.0-54.0) L 12/08/19 05:24 MCV 87.4 fL (80.0-100.0) 12/08/19 05:24 MCH 27.9 pg (27.0-34.0) 12/08/19 05:24 MCHC 31.9 g/dL (33.0-35.0) L 12/08/19 05:24 RDW 16.9 % (11.6-16.5) H 12/08/19 05:24 Plt Count 213 X10^3/uL (150.0-450.0) 12/08/19 05:24 MPV 7.6 fL (7.4-11.0) 12/08/19 05:24 Neut % (Auto) 63.3 % (42.0-75.0) 12/08/19 05:24 Lymph % (Auto) 23.2 % (21.0-51.0) 12/08/19 05:24 Lane % (Auto) 11.2 % (0.0-13.0) 12/08/19 05:24 Eos % (Auto) 1.2 % (0.9-2.9) 12/08/19 05:24 Baso % (Auto) 1.1 % (0.2-1.0) H 12/08/19 05:24 Neut # (Auto) 3.4 x10^3/uL (2.2-4.8) 12/08/19 05:24 Lymph # (Auto) 1.2 X10^3/uL (1.3-2.9) L 12/08/19 05:24 Lane # (Auto) 0.6 x10^3/uL (0.3-0.8) 12/08/19 05:24 Eos # (Auto) 0.1 x10^3/uL (0.0-0.2) 12/08/19 05:24 Baso # (Auto) 0.1 X10^3/uL (0.0-0.1) 12/08/19 05:24 Absolute Nucleated RBC 0.0 /100WBC 12/08/19 05:24 PT 13.7 SECONDS (11.8-14.3) 12/05/19 05:30 INR Target Range - 12/05/19 05:30 INR 1.08 (0.8-1.3) 12/05/19 05:30 APTT 37.2 SECONDS (22.9-36.5) H 12/05/19 05:30 PTT Comment - 12/05/19 05:30 Sample Site Rrad 12/04/19 12:20 ABG pH 7.370 (7.35-7.45) 12/04/19 12:20 ABG pCO2 57.0 mmHg (35.0-45.0) H* 12/04/19 12:20 ABG pO2 65.0 mmHg (80.0-100.0) L 12/04/19 12:20 ABG HCO3 33.0 mmol/L (22-26) H* 12/04/19 12:20 ABG O2 Saturation 92.0 % (90-100) 12/04/19 12:20 ABG Base Excess 6.1 mmol/L (-2.0-2.0) H 12/04/19 12:20 Jose Daniel Test Pos 12/04/19 12:20 A-a Gradient 13.0 mmHg 12/04/19 12:20 FiO2 21.0 12/04/19 12:20 Blood Gas Comments Juan well -sd 12/04/19 12:20 Sodium 126 mmol/L (136-145) L 12/08/19 05:24 Corrected Sodium TNP 12/08/19 05:24 Potassium 4.1 mmol/L (3.5-5.1) 12/08/19 05:24 Chloride 91 mmol/L (98-107) L 12/08/19 05:24 Carbon Dioxide 33.4 mmol/L (21-32) H 12/08/19 05:24 BUN 3 mg/dL (7-18) L 12/08/19 05:24 Creatinine 0.57 mg/dL (0.70-1.30) L 12/08/19 05:24 Est GFR (MDRD) Af Amer > 60 (>60) 12/08/19 05:24 Est GFR (MDRD) Non-Af > 60 (>60) 12/08/19 05:24 Glucose 95 mg/dL (65-99) 12/08/19 05:24 Lactic Acid 1.9 mmol/L (0.4-2.0) 12/04/19 12:45 Calcium 7.5 mg/dL (8.5-10.1) L 12/08/19 05:24 Corrected Calcium 8.9 mg/dL (8.5-10.1) 12/08/19 05:24 Magnesium 2.2 mg/dL (1.7-2.9) 12/06/19 05:10 Ferritin 15 ng/mL (26-388) L 12/04/19 12:35 Total Bilirubin 0.20 mg/dL (0.2-1.0) 12/08/19 05:24 AST 26 Units/L (15-37) 12/08/19 05:24 ALT 13 Units/L (12-78) 12/08/19 05:24 Alkaline Phosphatase 90 Units/L (46-116) 12/08/19 05:24 Creatine Kinase 362 Units/L (39-308) H 12/05/19 05:30 CK-MB (CK-2) 6.9 ng/mL (0-4.0) H* 12/05/19 05:30 CK/CKMB % Calc 1.9 % (<4) 12/05/19 05:30 Troponin I < 0.02 ng/mL (0-1.5) 12/05/19 05:30 C-Reactive Protein 8.00 mg/L (0-3.0) H 12/04/19 12:45 Total Protein 5.4 g/dL (6.4-8.2) L 12/08/19 05:24 Albumin 2.3 g/dL (3.4-5.0) L 12/08/19 05:24 Globulin 3.1 g/dL (2.5-4.5) 12/08/19 05:24 Albumin/Globulin Ratio 0.7 Ratio (1.1-2.1) L 12/08/19 05:24 Triglycerides 50 mg/dL (0-150) 12/05/19 05:30 Cholesterol 121 mg/dL (0-200) 12/05/19 05:30 LDL Cholesterol, Calc 36 mg/dL (0-100) 12/05/19 05:30 HDL Cholesterol 75 mg/dL (40-60) H 12/05/19 05:30 Cholesterol/HDL Ratio 1.6 (0.0-5.0) 12/05/19 05:30 Specimen Type Clean catch urine 12/04/19 21:15 Urine Color Yellow (YELLOW) 12/04/19 21:15 Urine Appearance Clear (CLEAR) 12/04/19 21:15 Urine pH 5.0 (5.0 - 8.0) 12/04/19 21:15 Ur Specific [place] 1.010 (1.000-1.030) 12/04/19 21:15 Urine Protein 2+ (NEGATIVE) 12/04/19 21:15 Urine Glucose (UA) Negative (NEGATIVE) 12/04/19 21:15 Urine Ketones Negative (NEGATIVE) 12/04/19 21:15 Urine Occult Blood 4+ (NEGATIVE) 12/04/19 21:15 Urine Nitrite Negative (NEGATIVE) 12/04/19 21:15 Urine Bilirubin Negative (NEGATIVE) 12/04/19 21:15 Urine Urobilinogen Normal (NORMAL) 12/04/19 21:15 Ur Leukocyte Esterase 1+ (NEGATIVE) 12/04/19 21:15 Urine RBC 10-20 /HPF (0-3) A 12/04/19 21:15 Urine WBC 3-5 /HPF (0-5) 12/04/19 21:15 Ur Squamous Epith Cells Rare /HPF (NEGATIVE) 12/04/19 21:15 Urine Bacteria Negative /HPF (NEGATIVE) 12/04/19 21:15 Ur Culture Indicated? No/not indicated 12/04/19 21:15 Urine Opiates Screen Positive (NEG=<300) 12/04/19 21:15 Urine Methadone Screen Negative (NEG=<300) 12/04/19 21:15 Ur Barbiturates Screen Negative (NEG=<200) 12/04/19 21:15 Ur Phencyclidine Scrn Negative (NEG=<25) 12/04/19 21:15 Ur Amphetamines Screen Negative (NEG=<1000) 12/04/19 21:15 U Benzodiazepines Scrn Negative (NEG=<200) 12/04/19 21:15 Urine Cocaine Screen Negative (NEG=<300) 12/04/19 21:15 U Marijuana (THC) Screen Negative (NEG=<50) 12/04/19 21:15 SARS-CoV-2 (PCR) Negative (NEGATIVE) 12/04/19 16:29 - Plan (1) Acute hyponatremia Status: Inactive Plan: NORMAL SALINE AT 125ML/HR, THE POTASSIUM PROTOCOL, DUONEBS QID, COREG 6.25MG PO BID, NORCO 5/325MG PO Q6H PRN PAIN, TORADOL 30MG IV Q6H PRN PAIN, ZOFRAN 4MG IV Q6H PRN PAIN (2) Pneumonia Status: Acute Qualifiers: Pneumonia type: due to unspecified organism Laterality: left Lung location: lower lobe of lung Qualified Code(s): J18.9 - Pneumonia, unspecified organism Plan: LEVAQUIN 750MG IV DAILY, NEB [place], SUPPLEMENTAL OXYGEN (3) Accelerated hypertension Status: Inactive (4) Acute dyspnea Status: Inactive (5) COPD (chronic obstructive pulmonary disease) Status: Chronic Qualifiers: COPD type: chronic bronchitis
[2019-12-08] MEDS: ALBUMIN HUMAN 25%- 100 ML 100 ML IV SCH (12:48)
[2019-12-08] MEDS: LASIX IVP SCH ×2 (12:49→20:57)
[2019-12-08] MEDS: MAXZIDE 37.5/25 MG PO SCH (12:49)
[2019-12-08] MEDS: LEVAQUIN PREMIX IV 750 MG 750 MG/150 ML BAG IV SCH (21:27)
[2019-12-09] MEDS: NS 1000 ML 1,000 ML IV SCH ×3 (02:47→22:26)
--- NOTE | 2019-12-09 05:58 | RAD ---
HISTORYSOB, CHEST PAINSTUDYCHEST, 1 [id number] trachea is midline. The cardiac silhouette is stable. Similar left basilar pleural parenchymal opacities.. The bony thorax is unremarkable.IMPRESSIONSimilar left basilar airspace opacities and effusion.Electronically signed by: SHANNON CRYSTAL (Dec 09, 2019 05:58:22)
[2019-12-09 06:11] LABS: ALANINE AMINOTRANSFERASE 13 Units/L (12-78); ALBUMIN 3.1 g/dL (3.4-5.0); ALKALINE PHOSPHATASE 84 Units/L (46-116); ASPARTATE AMINO TRANSFERASE 29 Units/L (15-37); BLOOD UREA NITROGEN 7 mg/dL (7-18); CALCIUM 8.5 mg/dL (8.5-10.1); CARBON DIOXIDE 39.5 mmol/L (21-32); CHLORIDE 88 mmol/L (98-107); COR CA(FOR HYPOALB) 9.2 mg/dL (8.5-10.1); CREATININE 0.69 mg/dL (0.70-1.30); SODIUM 129 mmol/L (136-145); TOTAL PROTEIN 6.4 g/dL (6.4-8.2); eGFR NON BLACK RACES > 60 (>60)
[2019-12-09 06:14] LABS: BASOPHILS % (AUTO) 0.7 % (0.2-1.0); EOSINOPHILS # (AUTO) 0.1 x10^3/uL (0.0-0.2); EOSINOPHILS % (AUTO) 1.3 % (0.9-2.9); HEMATOCRIT 42.5 % (42.0-54.0); HEMOGLOBIN 13.8 g/dL (13.5-18.0); LYMPHOCYTES # (AUTO) 1.3 X10^3/uL (1.3-2.9); MEAN CORPUSCULAR HGB CONC 32.5 g/dL (33.0-35.0); MEAN CORPUSCULAR VOLUME 86.2 fL (80.0-100.0); MEAN PLATELET VOLUME 7.5 fL (7.4-11.0); MONOCYTES # (AUTO) 1.1 x10^3/uL (0.3-0.8); MONOCYTES % (AUTO) 15.2 % (0.0-13.0); NEUTROPHILS # (AUTO) 4.6 x10^3/uL (2.2-4.8); NEUTROPHILS % (AUTO) 64.8 % (42.0-75.0); PLATELET COUNT 248 X10^3/uL (150.0-450.0); RED BLOOD COUNT 4.93 X10^6/uL (4.7-6.0); RED CELL DISTRIBUTION WIDTH 16.9 % (11.6-16.5); WHITE BLOOD COUNT 7.1 X10^3/uL (3.6-10.0)
[2019-12-09] MEDS: LASIX IVP SCH ×2 (08:21→16:28)
[2019-12-09] MEDS: NORCO 5/325 MG TAB PO PRN ×2 (08:44→14:20)
[2019-12-09] MEDS: MAXZIDE 37.5/25 MG PO SCH (08:45)
[2019-12-09] MEDS: COREG TAB 6.25 MG PO SCH ×2 (08:45→20:50)
[2019-12-09] MEDS: NICOTINE PATCH TD SCH (08:52)
[2019-12-09] MEDS: ALBUMIN HUMAN 25%- 100 ML 100 ML IV SCH (08:54)
[2019-12-09] MEDS: DUONEB 0.5 MG/3 MG (3 mL) NEB SCH ×4 (09:00→20:15)
[2019-12-09] MEDS: FLONASE NASAL SPRAY ENOSTRIL SCH (09:00)
--- NOTE | 2019-12-09 10:41 | PCM.PROG ---
Progress Note - Progress Note for Day of Date of Exam: 12/08/19 - Subjective Subjective: IS BEING TREATED FOR HYPONATREMIA, PNEUMONIA, HTN, GENERALIZED WEAKNESS, AND COPD EXACERBATION. TODAY, HE IS ALERT AND ORIENTED, LYING IN BED ON MORNING ROUNDS. HE REPORTS INCREASED SHORTNESS OF BREATH AND GENERALIZED SWELLING TODAY. ON EXAMINATION, HE IS NOTED WITH MILD FACIAL EDEMA. HEART IS REGULAR IN RATE AND RHYTHM. BILATERAL LUNGS ARE NOTED WITH DIMINISHED LUNG SOUNDS THROUGHOUT. ABDOMEN IS SLIGHTLY DISTENDED THIS MORNING. NORMAL BOWEL SOUNDS NOTED IN ALL QUADRANTS. HIS VITALS THIS MORNING ARE: 97.8-92-24-90%NC-156/104. LABS WERE OBTAINED. ABNORMAL LAB VALUES INCLUDE THE FOLLOWING: RBC 4.30, HGB 12.0, HCT 37.6, SODIUM 126, CHLORIDE 91, CARBON DIOXIDE 33.4, BUN 3, CREATININE 0.57, CALCIUM 7.5, TOTAL PROTEIN 5.4, ALBUMIN 2.3. A CHEST XRAY WAS OBTAINED THIS MORNING AND REVEALED: COPD and cardiomegaly with moderate left pleural effusion. HE IS CURRENTLY RECEIVING NORMAL SALINE AT 125ML/HR, THE POTASSIUM PROTOCOL, DUONEBS QID, COREG 6.25MG PO BID, AMLODIPINE 5MG PO DAILY, FLONASE TO EACH NOSTRIL DAILY, LEVAQUIN 750MG IV DAILY, NORCO 5/325MG PO Q6H PRN PAIN, TORADOL 30MG IV Q6H PRN PAIN, ZOFRAN 4MG IV Q6H PRN PAIN. TODAY, WE WILL DISCONTINUE THE AMLODIPINE AND ADD DYAZIDE 1 TABLET DAILY, LASIX 40MG IV Q12H, ALBUMIN 25% IV DAILY, AND RESTRICT HIS FLUIDS TO LESS THAN 1,000ML/DAY. OTHERWISE, WE WILL FOLLOW UP WITH AM LABS AND CONTINUE TO MONITOR. - Past Medical Family Social History Past Med/Fam/Surg Hx: No changes since H&P Allergies: Allergies Penicillins Allergy (Verified 10/29/18 15:22) - Review of Systems ROS: No change since H&P - Vital Signs and I&O's Vital Signs: Temperature 97.8 F Pulse Rate [Left Brachial] 64 Pulse Rate 78 Respiratory Rate 20 Blood Pressure [Left Arm] 148/100 Blood Pressure [Right Arm] 141/86 Blood Pressure 142/85 O2 Sat by Pulse Oximetry 95 Intake and Output: Intake & Output 12/06/19 12/07/19 12/08/1907/20 11:59 11:59 11:59 11:59 Intake Total 4360 / 4360 4990 / 4990 2840 / 2840 3155 / 3155 Output Total 1275 / 1275 1250 / 1250 1575 / 1575 8525 / 8525 Balance 3085 / 3085 3740 / 3740 1265 / 1265 -5370 / -5370 - Physical Exam Oriented: Normal Eyes: Normal Ear: Normal Nose: Normal Throat: Normal Respiratory: Generalized, Diminished Cardiovascular: Edema : Normal Auscultation: Bowel Sounds: Normal Palpation: Normal Tenderness: Normal Skin: Normal Musculoskeletal: Normal Psychiatric: Normal Mood Description: Calm Affect: Normal Speech Pattern: Clear, Appropriate - Laboratory and Diagnostics Result Diagrams: 12/09/19 05:00 12/09/19 05:00 Labs: 12/04/19 12:45 Blood Blood Culture - Preliminary 12/04/19 12:35 Blood Blood Culture - Preliminary Laboratory WBC 7.1 X10^3/uL (3.6-10.0) 12/09/19 05:00 RBC 4.93 X10^6/uL (4.7-6.0) 12/09/19 05:00 Hgb 13.8 g/dL (13.5-18.0) 12/09/19 05:00 Hct 42.5 % (42.0-54.0) 12/09/19 05:00 MCV 86.2 fL (80.0-100.0) 12/09/19 05:00 MCH 28.0 pg (27.0-34.0) 12/09/19 05:00 MCHC 32.5 g/dL (33.0-35.0) L 12/09/19 05:00 RDW 16.9 % (11.6-16.5) H 12/09/19 05:00 Plt Count 248 X10^3/uL (150.0-450.0) 12/09/19 05:00 MPV 7.5 fL (7.4-11.0) 12/09/19 05:00 Neut % (Auto) 64.8 % (42.0-75.0) 12/09/19 05:00 Lymph % (Auto) 18.0 % (21.0-51.0) L 12/09/19 05:00 [place] % (Auto) 15.2 % (0.0-13.0) H 12/09/19 05:00 Eos % (Auto) 1.3 % (0.9-2.9) 12/09/19 05:00 Baso % (Auto) 0.7 % (0.2-1.0) 12/09/19 05:00 Neut # (Auto) 4.6 x10^3/uL (2.2-4.8) 12/09/19 05:00 Lymph # (Auto) 1.3 X10^3/uL (1.3-2.9) 12/09/19 05:00 [place] # (Auto) 1.1 x10^3/uL (0.3-0.8) H 12/09/19 05:00 Eos # (Auto) 0.1 x10^3/uL (0.0-0.2) 12/09/19 05:00 Baso # (Auto) 0.0 X10^3/uL (0.0-0.1) 12/09/19 05:00 Absolute Nucleated RBC 0.1 /100WBC 12/09/19 05:00 PT 13.7 SECONDS (11.8-14.3) 12/05/19 05:30 INR Target Range - 12/05/19 05:30 INR 1.08 (0.8-1.3) 12/05/19 05:30 APTT 37.2 SECONDS (22.9-36.5) H 12/05/19 05:30 PTT Comment - 12/05/19 05:30 Sample Site Rrad 12/04/19 12:20 ABG pH 7.370 (7.35-7.45) 12/04/19 12:20 ABG pCO2 57.0 mmHg (35.0-45.0) H* 12/04/19 12:20 ABG pO2 65.0 mmHg (80.0-100.0) L 12/04/19 12:20 ABG HCO3 33.0 mmol/L (22-26) H* 12/04/19 12:20 ABG O2 Saturation 92.0 % (90-100) 12/04/19 12:20 ABG Base Excess 6.1 mmol/L (-2.0-2.0) H 12/04/19 12:20 Jose Daniel Test Pos 12/04/19 12:20 A-a Gradient 13.0 mmHg 12/04/19 12:20 FiO2 21.0 12/04/19 12:20 Blood Gas Comments Juan well -sd 12/04/19 12:20 Sodium 129 mmol/L (136-145) L 12/09/19 05:00 Corrected Sodium TNP 12/09/19 05:00 Potassium 4.0 mmol/L (3.5-5.1) 12/09/19 05:00 Chloride 88 mmol/L (98-107) L 12/09/19 05:00 Carbon Dioxide 39.5 mmol/L (21-32) H 12/09/19 05:00 BUN 7 mg/dL (7-18) 12/09/19 05:00 Creatinine 0.69 mg/dL (0.70-1.30) L 12/09/19 05:00 Est GFR (MDRD) Af Amer > 60 (>60) 12/09/19 05:00 Est GFR (MDRD) Non-Af > 60 (>60) 12/09/19 05:00 Glucose 80 mg/dL (65-99) 12/09/19 05:00 Lactic Acid 1.9 mmol/L (0.4-2.0) 12/04/19 12:45 Calcium 8.5 mg/dL (8.5-10.1) 12/09/19 05:00 Corrected Calcium 9.2 mg/dL (8.5-10.1) 12/09/19 05:00 Magnesium 2.2 mg/dL (1.7-2.9) 12/06/19 05:10 Ferritin 15 ng/mL (26-388) L 12/04/19 12:35 Total Bilirubin 0.40 mg/dL (0.2-1.0) 12/09/19 05:00 AST 29 Units/L (15-37) 12/09/19 05:00 ALT 13 Units/L (12-78) 12/09/19 05:00 Alkaline Phosphatase 84 Units/L (46-116) 12/09/19 05:00 Creatine Kinase 362 Units/L (39-308) H 12/05/19 05:30 CK-MB (CK-2) 6.9 ng/mL (0-4.0) H* 08/03/20 05:30 CK/CKMB % Calc 1.9 % (<4) 12/05/19 05:30 Troponin I < 0.02 ng/mL (0-1.5) 12/05/19 05:30 C-Reactive Protein 8.00 mg/L (0-3.0) H 12/04/19 12:45 Total Protein 6.4 g/dL (6.4-8.2) 12/09/19 05:00 Albumin 3.1 g/dL (3.4-5.0) L 12/09/19 05:00 Globulin 3.3 g/dL (2.5-4.5) 12/09/19 05:00 Albumin/Globulin Ratio 0.9 Ratio (1.1-2.1) L 12/09/19 05:00 Triglycerides 50 mg/dL (0-150) 12/05/19 05:30 Cholesterol 121 mg/dL (0-200) 12/05/19 05:30 LDL Cholesterol, Calc 36 mg/dL (0-100) 12/05/19 05:30 HDL Cholesterol 75 mg/dL (40-60) H 12/05/19 05:30 Cholesterol/HDL Ratio 1.6 (0.0-5.0) 12/05/19 05:30 Specimen Type Clean catch urine 12/04/19 21:15 Urine Color Yellow (YELLOW) 12/04/19 21:15 Urine Appearance Clear (CLEAR) 12/04/19 21:15 Urine pH 5.0 (5.0 - 8.0) 12/04/19 21:15 Ur Specific [place] 1.010 (1.000-1.030) 12/04/19 21:15 Urine Protein 2+ (NEGATIVE) 12/04/19 21:15 Urine Glucose (UA) Negative (NEGATIVE) 12/04/19 21:15 Urine Ketones Negative (NEGATIVE) 12/04/19 21:15 Urine Occult Blood 4+ (NEGATIVE) 12/04/19 21:15 Urine Nitrite Negative (NEGATIVE) 12/04/19 21:15 Urine Bilirubin Negative (NEGATIVE) 12/04/19 21:15 Urine Urobilinogen Normal (NORMAL) 12/04/19 21:15 Ur Leukocyte Esterase 1+ (NEGATIVE) 12/04/19 21:15 Urine RBC 10-20 /HPF (0-3) A 12/04/19 21:15 Urine WBC 3-5 /HPF (0-5) 12/04/19 21:15 Ur Squamous Epith Cells Rare /HPF (NEGATIVE) 12/04/19 21:15 Urine Bacteria Negative /HPF (NEGATIVE) 12/04/19 21:15 Ur Culture Indicated? No/not indicated 12/04/19 21:15 Urine Opiates Screen Positive (NEG=<300) 12/04/19 21:15 Urine Methadone Screen Negative (NEG=<300) 12/04/19 21:15 Ur Barbiturates Screen Negative (NEG=<200) 12/04/19 21:15 Ur Phencyclidine Scrn Negative (NEG=<25) 12/04/19 21:15 Ur Amphetamines Screen Negative (NEG=<1000) 12/04/19 21:15 U Benzodiazepines Scrn Negative (NEG=<200) 12/04/19 21:15 Urine Cocaine Screen Negative (NEG=<300) 12/04/19 21:15 U Marijuana (THC) Screen Negative (NEG=<50) 12/04/19 21:15 SARS-CoV-2 (PCR) Negative (NEGATIVE) 12/04/19 16:29 - Plan (1) Acute hyponatremia Status: Inactive Plan: ALBUMIN 25% IV DAILY, THE POTASSIUM PROTOCOL, DUONEBS QID, COREG 6.25MG PO BID, NORCO 5/325MG PO Q6H PRN PAIN, TORADOL 30MG IV Q6H PRN PAIN, ZOFRAN 4MG IV Q6H PRN PAIN (2) Pneumonia Status: Acute Qualifiers: Pneumonia type: due to unspecified organism Laterality: left Lung location: lower lobe of lung Qualified Code(s): J18.9 - Pneumonia, unspecified organism Plan: LEVAQUIN 750MG IV DAILY, NEB [place], SUPPLEMENTAL OXYGEN (3) Accelerated hypertension Status: Inactive (4) Acute dyspnea Status: Inactive Plan: LASIX 40MG IV Q12H, FLUID RESTRICTIONS, SUPPLEMENTAL OXYGEN (5) COPD (chronic obstructive pulmonary disease) Status: Chronic Qualifiers: COPD type: chronic bronchitis
--- NOTE | 2019-12-09 14:31 | CT ---
HISTORYABD PAIN AND DISTENTIONSTUDYABDOMEN/PELVIS WITH CONCOMPARISONNone availableTECHNIQUEMultiple axial images of the abdomen and pelvis were obtained from the lung bases to the pubic symphysis after the administration of IV contrast. Dose reduction techniques including Automated Exposure Control (AEC) and adjustment of mA and kV were utilized.FINDINGS[The lung bases demonstrate moderate left and small right-sided pleural effusions. Peribronchial thickening noted within bilateral lower lobes. There is also passive atelectasis of the left lower lobe heart size is at the upper limits of normal with a small pericardial effusion.There is marked heterogeneous enhancement of the liver parenchyma. Liver morphology is not definitely cirrhotic. There is mild increased enhancement within the capsule of the right inferior right hepatic lobe. No discrete hepatic lesion. Gallbladder, bile ducts, spleen, pancreas and adrenal glands are normal. Neither kidney demonstrates evidence of nephrolithiasis, hydronephrosis or mass. Small cyst within the upper pole of the left kidney. Upper GI tract demonstrates no evidence of mass or obstruction. Urinary bladder is normal. Prostate gland is normal. The rectum and colon are normal. The appendix is not definitely seen. Small amount of pelvic free fluid. Abdominal aorta is normal caliber with moderate calcified atherosclerotic disease. Review of bone windows demonstrates no acute osseous abnormality.IMPRESSIONMarkedly heterogeneous enhancement pattern of the liver is suspicious for an acute hepatitis for which correlation with LFTs, hepatitis serology and patient history is needed. Additional considerations which are not well evaluated given contrast bolus timing would include chronic hepatic venous occlusive disease or a Budd-Chiari. No discrete hepatic lesion or CT evidence of cirrhosis.Small amount of pelvic free fluid and body wall edema suggests a volume overload, clinical correlation is needed as this can be seen in setting of 3rd spacing however additional etiologies including acute hepatic or cardiac dysfunction is also consideration.Moderate left and small right-sided pleural effusions with passive atelectasis within the left greater than right lower lobes.Electronically signed by: CHRISSY DIAMOND (Dec 09, 2019 14:30:12)
[2019-12-09] MEDS: ZESTRIL TAB 10 MG PO SCH (17:30)
[2019-12-09] MEDS: LEVAQUIN PREMIX IV 750 MG 750 MG/150 ML BAG IV SCH (20:53)
[2019-12-09] MEDS: TORADOL 30 MG VIAL IVP PRN (20:55)
[2019-12-10] MEDS: NORCO 5/325 MG TAB PO PRN ×3 (03:47→20:42)
[2019-12-10] MEDS: NS 1000 ML 1,000 ML IV SCH ×3 (05:09→20:49)
--- NOTE | 2019-12-10 05:48 | RAD ---
HISTORYSOBSTUDYAP [id number]/07/2020FINDINGSNo change in appearance of heart or lungs. Heart size is similar. Opacity at left base continues consistent with airspace disease and pleural fluid. There is no evidence for new consolidation, developing edema or pneumothorax.IMPRESSIONNo change since 1 day earlier.Electronically signed by: TRIXIE WEAVER (Dec 10, 2019 05:47:34)
[2019-12-10 06:27] LABS: BASOPHILS # (AUTO) 0.1 X10^3/uL (0.0-0.1); BASOPHILS % (AUTO) 0.7 % (0.2-1.0); EOSINOPHILS # (AUTO) 0.1 x10^3/uL (0.0-0.2); EOSINOPHILS % (AUTO) 1.6 % (0.9-2.9); HEMATOCRIT 42.4 % (42.0-54.0); HEMOGLOBIN 13.7 g/dL (13.5-18.0); LYMPHOCYTES # (AUTO) 1.5 X10^3/uL (1.3-2.9); MEAN CORPUSCULAR HEMOGLOBIN 27.7 pg (27.0-34.0); MEAN CORPUSCULAR HGB CONC 32.3 g/dL (33.0-35.0); MEAN CORPUSCULAR VOLUME 85.8 fL (80.0-100.0); MEAN PLATELET VOLUME 7.9 fL (7.4-11.0); MONOCYTES % (AUTO) 12.7 % (0.0-13.0); NEUTROPHILS # (AUTO) 5.2 x10^3/uL (2.2-4.8); PLATELET COUNT 244 X10^3/uL (150.0-450.0); RED BLOOD COUNT 4.94 X10^6/uL (4.7-6.0); RED CELL DISTRIBUTION WIDTH 16.8 % (11.6-16.5); WHITE BLOOD COUNT 7.9 X10^3/uL (3.6-10.0)
[2019-12-10 06:48] LABS: ALANINE AMINOTRANSFERASE 12 Units/L (12-78); ALBUMIN 3.2 g/dL (3.4-5.0); ALKALINE PHOSPHATASE 78 Units/L (46-116); ASPARTATE AMINO TRANSFERASE 24 Units/L (15-37); BLOOD UREA NITROGEN 8 mg/dL (7-18); CALCIUM 8.7 mg/dL (8.5-10.1); CARBON DIOXIDE 39.6 mmol/L (21-32); CHLORIDE 86 mmol/L (98-107); COR CA(FOR HYPOALB) 9.3 mg/dL (8.5-10.1); CREATININE 0.61 mg/dL (0.70-1.30); TOTAL PROTEIN 6.2 g/dL (6.4-8.2); eGFR NON BLACK RACES > 60 (>60)
[2019-12-10 06:50] LABS: SODIUM 125 mmol/L (136-145)
[2019-12-10] MEDS: LASIX IVP SCH ×3 (08:21→21:26)
[2019-12-10] MEDS: NICOTINE PATCH TD SCH (08:22)
[2019-12-10] MEDS: MAXZIDE 37.5/25 MG PO SCH (08:22)
[2019-12-10] MEDS: COREG TAB 6.25 MG PO SCH ×2 (08:22→20:42)
[2019-12-10] MEDS: TORADOL 30 MG VIAL IVP PRN (08:23)
[2019-12-10] MEDS: ZESTRIL TAB 10 MG PO SCH ×2 (08:23→20:42)
[2019-12-10] MEDS: ALBUMIN HUMAN 25%- 100 ML 100 ML IV SCH (08:23)
[2019-12-10] MEDS: FLONASE NASAL SPRAY ENOSTRIL SCH (08:36)
[2019-12-10] MEDS: DUONEB 0.5 MG/3 MG (3 mL) NEB SCH ×4 (09:20→21:33)
[2019-12-10] MEDS ORDERED: CORTEF ONE ×3 (11:56→20:08)
[2019-12-10] MEDS: CORTEF PO SCH ×3 (11:59→21:26)
[2019-12-10] MEDS: LEVAQUIN PREMIX IV 750 MG 750 MG/150 ML BAG IV SCH (20:41)
[2019-12-10] MEDS: ZOFRAN INJ 4 MG VIAL IVP PRN (20:41)
[2019-12-11] MEDS ORDERED: CORTEF ONE ×3 (05:31→19:53)
[2019-12-11] MEDS: CORTEF PO SCH ×3 (05:58→21:01)
[2019-12-11] MEDS: NS 1000 ML 1,000 ML IV SCH ×5 (05:58→20:18)
[2019-12-11] MEDS: LASIX IVP SCH ×3 (05:58→21:01)
--- NOTE | 2019-12-11 06:07 | RAD ---
HISTORYSOBSTUDYSingle-view [id number]/08/2020FINDINGSThe trachea is midline. The cardiac silhouette is unremarkable . Chronic interstitial lung changes with flattening of the diaphragm consistent with COPD is observed. Discoid atelectasis within the right midlung zone is noted. The bony thorax is unremarkable.IMPRESSIONChronic interstitial lung changes with flattening of the diaphragm consistent with COPD is observed.Electronically signed by: GREG HADLEY (Dec 11, 2019 06:06:05)
[2019-12-11 06:35] LABS: BASOPHILS % (AUTO) 0.3 % (0.2-1.0); EOSINOPHILS # (AUTO) 0.1 x10^3/uL (0.0-0.2); EOSINOPHILS % (AUTO) 0.8 % (0.9-2.9); HEMATOCRIT 46.4 % (42.0-54.0); LYMPHOCYTES # (AUTO) 1.4 X10^3/uL (1.3-2.9); MEAN CORPUSCULAR HEMOGLOBIN 27.9 pg (27.0-34.0); MEAN CORPUSCULAR HGB CONC 32.3 g/dL (33.0-35.0); MEAN CORPUSCULAR VOLUME 86.4 fL (80.0-100.0); MONOCYTES # (AUTO) 0.9 x10^3/uL (0.3-0.8); NEUTROPHILS # (AUTO) 5.6 x10^3/uL (2.2-4.8); NEUTROPHILS % (AUTO) 69.9 % (42.0-75.0); PLATELET COUNT 273 X10^3/uL (150.0-450.0); RED BLOOD COUNT 5.37 X10^6/uL (4.7-6.0); RED CELL DISTRIBUTION WIDTH 17.2 % (11.6-16.5)
[2019-12-11 06:58] LABS: ALANINE AMINOTRANSFERASE 21 Units/L (12-78); ALBUMIN 4.3 g/dL (3.4-5.0); ALKALINE PHOSPHATASE 95 Units/L (46-116); ASPARTATE AMINO TRANSFERASE 29 Units/L (15-37); BLOOD UREA NITROGEN 13 mg/dL (7-18); CALCIUM 9.6 mg/dL (8.5-10.1); CARBON DIOXIDE 39.1 mmol/L (21-32); CHLORIDE 84 mmol/L (98-107); CREATININE 0.85 mg/dL (0.70-1.30); SODIUM 127 mmol/L (136-145); eGFR NON BLACK RACES > 60 (>60)
[2019-12-11] MEDS: NORCO 5/325 MG TAB PO PRN ×3 (08:20→20:11)
[2019-12-11] MEDS: NICOTINE PATCH TD SCH (08:20)
[2019-12-11] MEDS: MAXZIDE 37.5/25 MG PO SCH (08:20)
[2019-12-11] MEDS: ZESTRIL TAB 10 MG PO SCH ×2 (08:21→20:11)
[2019-12-11] MEDS: COREG TAB 6.25 MG PO SCH ×2 (08:21→20:10)
[2019-12-11] MEDS: ALBUMIN HUMAN 25%- 100 ML 100 ML IV SCH (08:22)
[2019-12-11] MEDS: FLONASE NASAL SPRAY ENOSTRIL SCH (08:23)
[2019-12-11] MEDS: DUONEB 0.5 MG/3 MG (3 mL) NEB SCH ×4 (10:20→21:19)
--- NOTE | 2019-12-11 19:20 | PCM.PROG ---
Progress Note - Progress Note for Day of Date of Exam: 12/09/19 - Subjective Subjective: IS BEING TREATED FOR HYPONATREMIA, PNEUMONIA, HTN, GENERALIZED WEAKNESS, AND COPD EXACERBATION. TODAY, HE IS ALERT AND ORIENTED, LYING IN BED ON MORNING ROUNDS. HE CONTINUES WITH SHORTNESS OF BREATH AND GENERALIZED SWELLING TODAY. HE ALSO REPORTS ABDOMINAL PAIN. ON EXAMINATION, HE I S NOTED WITH MILD, GENERALIZED EDEMA. HEART IS REGULAR IN RATE AND RHYTHM. BILATERAL LUNGS ARE NOTED WITH DIMINISHED LUNG SOUNDS THROUGHOUT. ABDOMEN IS SLIGHTLY DISTENDED THIS MORNING. NORMAL BOWEL SOUNDS NOTED IN ALL QUADRANTS. HIS VITALS THIS MORNING ARE: 98.3-84-18-100%-155/91. LABS WERE OBTAINED. ABNORMAL LAB VALUES INCLUDE THE FOLLOWING: SODIUM 129, CHLORIDE 88, CARBON DIOXIDE 39.5, CREATININE 0.69. A CHEST XRAY WAS OBTAINED THIS MORNING AND REVEALED: Similar left basilar airspace opacities and effusion. HE IS CURRENTLY RECEIVING NORMAL SALINE AT 125ML/HR, THE POTASSIUM PROTOCOL, DUONEBS QID, COREG 6.25MG PO BID, DYAZIDE 1 TABLET DAILY, LASIX 40MG IV Q12H, ALBUMIN 25% IV DAILY, FLONASE TO EACH NOSTRIL DAILY, LEVAQUIN 750MG IV DAILY, NORCO 5/325MG PO Q6H PRN PAIN, TORADOL 30MG IV Q6H PRN PAIN, ZOFRAN 4MG IV Q6H PRN PAIN. TODAY, WE WILL OBTAIN AN ABDOMEN/PELVIS CT WITH CONTRAST. WE WILL CONTINUE TO RESTRICT HIS FLUID INTAKE. OTHERWISE, WE WILL FOLLOW UP WITH AM LABS AND CONTINUE TO MONITOR. - Past Medical Family Social History Past Med/Fam/Surg Hx: No changes since H&P Allergies: Allergies Penicillins Allergy (Verified 10/29/18 15:22) - Review of Systems ROS: No change since H&P - Vital Signs and I&O's Vital Signs: Temperature 97.5 F Pulse Rate [Left Brachial] 68 Pulse Rate 70 Respiratory Rate 18 Blood Pressure [Left Arm] 148/100 Blood Pressure [Right Arm] 133/76 Blood Pressure 142/85 O2 Sat by Pulse Oximetry 100 Intake and Output: Intake & Output 12/09/19 12/10/19 12/11/19 12/12/19 11:59 11:59 11:59 11:59 Intake Total 3155 / 3155 2730 / 2730 4468 / 4468 1160 / 1160 Output Total 8525 / 8525 5400 / 5400 6425 / 6425 1300 / 1300 Balance -5370 / -5370 -0 / -2670 -1956 / -1956 -140 / -140 - Physical Exam Oriented: Normal Eyes: Normal Ear: Normal Nose: Normal Throat: Normal Respiratory: Generalized, Diminished Cardiovascular: Edema : Normal Auscultation: Bowel Sounds: Normal Tenderness: Normal Skin: Normal Musculoskeletal: Normal Psychiatric: Normal Mood Description: Calm Affect: Normal Speech Pattern: Clear, Appropriate - Laboratory and Diagnostics Result Diagrams: 12/11/19 05:30 12/11/19 05:30 Labs: 12/04/19 12:45 Blood Blood Culture - Final 12/04/19 12:35 Blood Blood Culture - Final Laboratory WBC 8.0 X10^3/uL (3.6-10.0) 12/11/19 05:30 RBC 5.37 X10^6/uL (4.7-6.0) 12/11/19 05:30 Hgb 15.0 g/dL (13.5-18.0) 12/11/19 05:30 Hct 46.4 % (42.0-54.0) 12/11/19 05:30 MCV 86.4 fL (80.0-100.0) 12/11/19 05:30 MCH 27.9 pg (27.0-34.0) 12/11/19 05:30 MCHC 32.3 g/dL (33.0-35.0) L 12/11/19 05:30 RDW 17.2 % (11.6-16.5) H 12/11/19 05:30 Plt Count 273 X10^3/uL (150.0-450.0) 12/11/19 05:30 MPV 8.0 fL (7.4-11.0) 12/11/19 05:30 Neut % (Auto) 69.9 % (42.0-75.0) 12/11/19 05:30 Lymph % (Auto) 18.0 % (21.0-51.0) L 12/11/19 05:30 [place] % (Auto) 11.0 % (0.0-13.0) 12/11/19 05:30 Eos % (Auto) 0.8 % (0.9-2.9) L 12/11/19 05:30 Baso % (Auto) 0.3 % (0.2-1.0) 12/11/19 05:30 Neut # (Auto) 5.6 x10^3/uL (2.2-4.8) H 12/11/19 05:30 Lymph # (Auto) 1.4 X10^3/uL (1.3-2.9) 12/11/19 05:30 [place] # (Auto) 0.9 x10^3/uL (0.3-0.8) H 12/11/19 05:30 Eos # (Auto) 0.1 x10^3/uL (0.0-0.2) 12/11/19 05:30 Baso # (Auto) 0.0 X10^3/uL (0.0-0.1) 12/11/19 05:30 Absolute Nucleated RBC 0.1 /100WBC 12/11/19 05:30 PT 13.7 SECONDS (11.8-14.3) 12/05/19 05:30 INR Target Range - 12/05/19 05:30 INR 1.08 (0.8-1.3) 12/05/19 05:30 APTT 37.2 SECONDS (22.9-36.5) H 12/05/19 05:30 PTT Comment - 12/05/19 05:30 Sample Site Rrad 12/04/19 12:20 ABG pH 7.370 (7.35-7.45) 12/04/19 12:20 ABG pCO2 57.0 mmHg (35.0-45.0) H* 12/04/19 12:20 ABG pO2 65.0 mmHg (80.0-100.0) L 12/04/19 12:20 ABG HCO3 33.0 mmol/L (22-26) H* 12/04/19 12:20 ABG O2 Saturation 92.0 % (90-100) 12/04/19 12:20 ABG Base Excess 6.1 mmol/L (-2.0-2.0) H 12/04/19 12:20 Jose Daniel Test Pos 12/04/19 12:20 A-a Gradient 13.0 mmHg 12/04/19 12:20 FiO2 21.0 12/04/19 12:20 Blood Gas Comments Juan well -sd 12/04/19 12:20 Sodium 127 mmol/L (136-145) L 12/11/19 05:30 Corrected Sodium TNP 12/11/19 05:30 Potassium 4.5 mmol/L (3.5-5.1) 12/11/19 05:30 Chloride 84 mmol/L (98-107) L 12/11/19 05:30 Carbon Dioxide 39.1 mmol/L (21-32) H 12/11/19 05:30 BUN 13 mg/dL (7-18) 12/11/19 05:30 Creatinine 0.85 mg/dL (0.70-1.30) 12/11/19 05:30 Est GFR (MDRD) Af Amer > 60 (>60) 12/11/19 05:30 Est GFR (MDRD) Non-Af > 60 (>60) 12/11/19 05:30 Glucose 91 mg/dL (65-99) 12/11/19 05:30 Lactic Acid 1.9 mmol/L (0.4-2.0) 12/04/19 12:45 Calcium 9.6 mg/dL (8.5-10.1) 12/11/19 05:30 Corrected Calcium TNP 12/11/19 05:30 Magnesium 2.2 mg/dL (1.7-2.9) 12/06/19 05:10 Ferritin 15 ng/mL (26-388) L 12/04/19 12:35 Total Bilirubin 0.50 mg/dL (0.2-1.0) 12/11/19 05:30 AST 29 Units/L (15-37) 12/11/19 05:30 ALT 21 Units/L (12-78) 12/11/19 05:30 Alkaline Phosphatase 95 Units/L (46-116) 12/11/19 05:30 Creatine Kinase 362 Units/L (39-308) H 12/05/19 05:30 CK-MB (CK-2) 6.9 ng/mL (0-4.0) H* 12/05/19 05:30 CK/CKMB % Calc 1.9 % (<4) 12/05/19 05:30 Troponin I < 0.02 ng/mL (0-1.5) 12/05/19 05:30 C-Reactive Protein 8.00 mg/L (0-3.0) H 12/04/19 12:45 Total Protein 8.0 g/dL (6.4-8.2) 12/11/19 05:30 Albumin 4.3 g/dL (3.4-5.0) 12/11/19 05:30 Globulin 3.7 g/dL (2.5-4.5) 12/11/19 05:30 Albumin/Globulin Ratio 1.2 Ratio (1.1-2.1) 12/11/19 05:30 Triglycerides 50 mg/dL (0-150) 12/05/19 05:30 Cholesterol 121 mg/dL (0-200) 12/05/19 05:30 LDL Cholesterol, Calc 36 mg/dL (0-100) 12/05/19 05:30 HDL Cholesterol 75 mg/dL (40-60) H 12/05/19 05:30 Cholesterol/HDL Ratio 1.6 (0.0-5.0) 12/05/19 05:30 Specimen Type Clean catch urine 12/04/19 21:15 Urine Color Yellow (YELLOW) 12/04/19 21:15 Urine Appearance Clear (CLEAR) 12/04/19 21:15 Urine pH 5.0 (5.0 - 8.0) 12/04/19 21:15 Ur Specific [place] 1.010 (1.000-1.030) 12/04/19 21:15 Urine Protein 2+ (NEGATIVE) 12/04/19 21:15 Urine Glucose (UA) Negative (NEGATIVE) 12/04/19 21:15 Urine Ketones Negative (NEGATIVE) 12/04/19 21:15 Urine Occult Blood 4+ (NEGATIVE) 12/04/19 21:15 Urine Nitrite Negative (NEGATIVE) 12/04/19 21:15 Urine Bilirubin Negative (NEGATIVE) 12/04/19 21:15 Urine Urobilinogen Normal (NORMAL) 12/04/19 21:15 Ur Leukocyte Esterase 1+ (NEGATIVE) 12/04/19 21:15 Urine RBC 10-20 /HPF (0-3) A 12/04/19 21:15 Urine WBC 3-5 /HPF (0-5) 12/04/19 21:15 Ur Squamous Epith Cells Rare /HPF (NEGATIVE) 12/04/19 21:15 Urine Bacteria Negative /HPF (NEGATIVE) 12/04/19 21:15 Ur Culture Indicated? No/not indicated 12/04/19 21:15 Urine Opiates Screen Positive (NEG=<300) 12/04/19 21:15 Urine Methadone Screen Negative (NEG=<300) 12/04/19 21:15 Ur Barbiturates Screen Negative (NEG=<200) 12/04/19 21:15 Ur Phencyclidine Scrn Negative (NEG=<25) 12/04/19 21:15 Ur Amphetamines Screen Negative (NEG=<1000) 12/04/19 21:15 U Benzodiazepines Scrn Negative (NEG=<200) 12/04/19 21:15 Urine Cocaine Screen Negative (NEG=<300) 12/04/19 21:15 U Marijuana (THC) Screen Negative (NEG=<50) 12/04/19 21:15 SARS-CoV-2 (PCR) Negative (NEGATIVE) 12/04/19 16:29 - Plan (1) Pneumonia Status: Acute Qualifiers: Pneumonia type: due to unspecified organism Laterality: left Lung location: lower lobe of lung Qualified Code(s): J18.9 - Pneumonia, unspecified organism Plan: LEVAQUIN 750MG IV DAILY, NEB [place], SUPPLEMENTAL OXYGEN (2) COPD (chronic obstructive pulmonary disease) Status: Chronic Qualifiers: COPD type: chronic bronchitis
[2019-12-11] MEDS: LEVAQUIN PREMIX IV 750 MG 750 MG/150 ML BAG IV SCH (20:11)
[2019-12-12] MEDS: NS 1000 ML 1,000 ML IV SCH ×2 (02:56→10:57)
[2019-12-12] MEDS: NORCO 5/325 MG TAB PO PRN ×2 (03:56→10:33)
[2019-12-12] MEDS ORDERED: CORTEF ONE (05:15)
[2019-12-12] MEDS: CORTEF PO SCH (05:48)
[2019-12-12] MEDS: LASIX IVP SCH (05:49)
[2019-12-12 05:56] LABS: ALANINE AMINOTRANSFERASE 18 Units/L (12-78); ALBUMIN 4.9 g/dL (3.4-5.0); ALKALINE PHOSPHATASE 93 Units/L (46-116); ASPARTATE AMINO TRANSFERASE 33 Units/L (15-37); BLOOD UREA NITROGEN 13 mg/dL (7-18); CALCIUM 9.5 mg/dL (8.5-10.1); CARBON DIOXIDE 39.4 mmol/L (21-32); CHLORIDE 82 mmol/L (98-107); CREATININE 0.84 mg/dL (0.70-1.30); SODIUM 127 mmol/L (136-145); TOTAL PROTEIN 8.5 g/dL (6.4-8.2); eGFR NON BLACK RACES > 60 (>60)
[2019-12-12 06:40] LABS: BASOPHILS % (AUTO) 0.6 % (0.2-1.0); EOSINOPHILS # (AUTO) 0.1 x10^3/uL (0.0-0.2); EOSINOPHILS % (AUTO) 1.2 % (0.9-2.9); HEMATOCRIT 46.9 % (42.0-54.0); HEMOGLOBIN 15.2 g/dL (13.5-18.0); LYMPHOCYTES % (AUTO) 24.4 % (21.0-51.0); MEAN CORPUSCULAR HEMOGLOBIN 27.8 pg (27.0-34.0); MEAN CORPUSCULAR HGB CONC 32.5 g/dL (33.0-35.0); MEAN CORPUSCULAR VOLUME 85.6 fL (80.0-100.0); MEAN PLATELET VOLUME 7.8 fL (7.4-11.0); MONOCYTES # (AUTO) 1.2 x10^3/uL (0.3-0.8); MONOCYTES % (AUTO) 14.9 % (0.0-13.0); NEUTROPHILS # (AUTO) 4.7 x10^3/uL (2.2-4.8); NEUTROPHILS % (AUTO) 58.9 % (42.0-75.0); PLATELET COUNT 261 X10^3/uL (150.0-450.0); RED BLOOD COUNT 5.48 X10^6/uL (4.7-6.0)
--- NOTE | 2019-12-12 07:31 | RAD ---
HISTORYShort of breathSTUDYCHEST, 1 VIEWCOMPARISON[One day prior.]TECHNIQUE[AP view of the chest.]FINDINGS[Cardiac and mediastinal contours appear normal. The lungs are hyperexpanded with scattered interstitial opacities in lucency similar to prior. No new consolidation. No pleural effusion or pneumothorax.]IMPRESSION[Emphysematous change. No significant change compared to prior.]Electronically signed by: Price Etienne (Dec 12, 2019 07:30:18)
[2019-12-12] MEDS: ZESTRIL TAB 10 MG PO SCH (08:37)
[2019-12-12] MEDS: COREG TAB 6.25 MG PO SCH (08:37)
[2019-12-12] MEDS: MAXZIDE 37.5/25 MG PO SCH (08:37)
[2019-12-12] MEDS: FLONASE NASAL SPRAY ENOSTRIL SCH (08:38)
[2019-12-12] MEDS: ALBUMIN HUMAN 25%- 100 ML 100 ML IV SCH (08:38)
[2019-12-12] MEDS: NICOTINE PATCH TD SCH (08:39)
[2019-12-12] MEDS: DUONEB 0.5 MG/3 MG (3 mL) NEB SCH (09:00)
[2019-12-12 12:40] VITALS: BP 138/78
[2019-12-15 07:38] LABS: HEPATITIS B SURFACE ANTIGEN Negative (Negative)
--- NOTE | 2020-01-18 12:49 | PCM.PROG ---
Progress Note - Progress Note for Day of Date of Exam: 12/10/19 - Subjective Subjective: IS BEING TREATED FOR HYPONATREMIA, PNEUMONIA, HTN, GENERALIZED WEAKNESS, AND COPD EXACERBATION. TODAY, HE IS ALERT AND ORIENTED, LYING IN BED ON MORNING ROUNDS. HE CONTINUES WITH SHORTNESS OF BREATH AND GENERALIZED SWELLING TODAY, BUT HE DOES REPORT SLIGHT IMPROVEMENT IN SYMPTOMS. O N EXAMINATION, HE CONTINUES WITH MILD, GENERALIZED EDEMA. HEART IS REGULAR IN RATE AND RHYTHM. BILATERAL LUNGS ARE NOTED WITH DIMINISHED LUNG SOUNDS THROUGHOUT. ABDOMEN IS SLIGHTLY DISTENDED THIS MORNING. NORMAL BOWEL SOUNDS NOTED IN ALL QUADRANTS. HIS VITALS THIS MORNING ARE: 97.6-73-18-97% NC-104/72. LABS WERE OBTAINED. ABNORMAL LAB VALUES INCLUDE THE FOLLOWING: SODIUM 125, CHLORIDE 86, CARBON DIOXIDE 39.6, CREATININE 0.61, TOTAL PROTEIN 6.2, ALBUMIN 3.2. A CHEST XRAY WAS OBTAINED THIS MORNING AND REVEALED: No change in appearance of heart or lungs. Heart size is similar. Opacity at left base continues consistent with airspace disease and pleural fluid. There is no evidence for new consolidation, developing edema or pneumothorax. AN ABDOMEN/PELVIS CT WITH CONTRAST WAS OBTAINED YESTERDAY AND REVEALED: Markedly heterogeneous enhancement pattern of the liver is suspicious for an acute hep atitis for which correlation with LFTs, hepatitis serology and patient history is needed. Additional considerations which are not well evaluated given contrast bolus timing would include chronic hepatic venous occlusive disease or a Budd- Chiari. No discrete hepatic lesion or CT evidence of cirrhosis. Small amount of pelvic free fluid and body wall edema suggests a volume overload, clinical correlation is needed as this can be seen in setting of 3rd spacing however additional etiologies including acute hepatic or cardiac dysfunction is also consideration. Moderate left and small right-sided pleural effusions with passive atelectasis within the left greater than right lower lobes. HE IS CURREN TLY RECEIVING NORMAL SALINE AT 125ML/HR, THE POTASSIUM PROTOCOL, DUONEBS QID, COREG 6.25MG PO BID, DYAZIDE 1 TABLET DAILY, LASIX 40MG IV Q12H, ALBUMIN 25% IV DAILY, FLONASE TO EACH NOSTRIL DAILY, LEVAQUIN 750MG IV DAILY, NORCO 5/325MG PO Q6H PRN PAIN, TORADOL 30MG IV Q6H PRN PAIN, ZOFRAN 4MG IV Q6H PRN PAIN. HIS LASIX WAS INCREASED TO TID AND WE WILL CONTINUE TO RESTRICT HIS FLUID INTAKE. WE WILL ORDER A HEPATITS PANEL. OTHERWISE, WE WILL FOLLOW UP WITH AM LABS AND CONTINUE TO MONITOR. - Past Medical Family Social History Past Med/Fam/Surg Hx: No changes since H&P Allergies: Allergies Penicillins Allergy (Verified 10/29/18 15:22) - Review of Systems ROS: No change since H&P - Vital Signs and I&O's Vital Signs: Temperature 97.8 F Pulse Rate [Left Brachial] 70 Pulse Rate 75 Respiratory Rate 20 Blood Pressure [Left Arm] 148/100 Blood Pressure [Right Arm] 138/78 Blood Pressure 142/85 O2 Sat by Pulse Oximetry 100 - Physical Exam Oriented: Normal Eyes: Normal Ear: Normal Nose: Normal Throat: Normal Respiratory: Generalized, Diminished Cardiovascular: Edema : Normal Auscultation: Bowel Sounds: Normal Palpation: Normal Tenderness: Normal Skin: Normal Musculoskeletal: Normal Psychiatric: Normal Mood Description: Calm Affect: Normal Speech Pattern: Clear, Appropriate - Laboratory and Diagnostics Result Diagrams: 12/12/19 04:15 12/12/19 04:15 Labs: 12/04/19 12:45 Blood Blood Culture - Final 12/04/19 12:35 Blood Blood Culture - Final Laboratory WBC 8.0 X10^3/uL (3.6-10.0) 12/12/19 04:15 RBC 5.48 X10^6/uL (4.7-6.0) 12/12/19 04:15 Hgb 15.2 g/dL (13.5-18.0) 12/12/19 04:15 Hct 46.9 % (42.0-54.0) 12/12/19 04:15 MCV 85.6 fL (80.0-100.0) 12/12/19 04:15 MCH 27.8 pg (27.0-34.0) 12/12/19 04:15 MCHC 32.5 g/dL (33.0-35.0) L 12/12/19 04:15 RDW 17.0 % (11.6-16.5) H 12/12/19 04:15 Plt Count 261 X10^3/uL (150.0-450.0) 12/12/19 04:15 MPV 7.8 fL (7.4-11.0) 12/12/19 04:15 Neut % (Auto) 58.9 % (42.0-75.0) 12/12/19 04:15 Lymph % (Auto) 24.4 % (21.0-51.0) 12/12/19 04:15 [place] % (Auto) 14.9 % (0.0-13.0) H 12/12/19 04:15 Eos % (Auto) 1.2 % (0.9-2.9) 12/12/19 04:15 Baso % (Auto) 0.6 % (0.2-1.0) 12/12/19 04:15 Neut # (Auto) 4.7 x10^3/uL (2.2-4.8) 12/12/19 04:15 Lymph # (Auto) 2.0 X10^3/uL (1.3-2.9) 12/12/19 04:15 [place] # (Auto) 1.2 x10^3/uL (0.3-0.8) H 12/12/19 04:15 Eos # (Auto) 0.1 x10^3/uL (0.0-0.2) 12/12/19 04:15 Baso # (Auto) 0.0 X10^3/uL (0.0-0.1) 12/12/19 04:15 Absolute Nucleated RBC 0.0 /100WBC 12/12/19 04:15 PT 13.7 SECONDS (11.8-14.3) 12/05/19 05:30 INR Target Range - 12/05/19 05:30 INR 1.08 (0.8-1.3) 12/05/19 05:30 APTT 37.2 SECONDS (22.9-36.5) H 12/05/19 05:30 PTT Comment - 12/05/19 05:30 Sample Site Rrad 12/04/19 12:20 ABG pH 7.370 (7.35-7.45) 12/04/19 12:20 ABG pCO2 57.0 mmHg (35.0-45.0) H* 12/04/19 12:20 ABG pO2 65.0 mmHg (80.0-100.0) L 12/04/19 12:20 ABG HCO3 33.0 mmol/L (22-26) H* 12/04/19 12:20 ABG O2 Saturation 92.0 % (90-100) 12/04/19 12:20 ABG Base Excess 6.1 mmol/L (-2.0-2.0) H 12/04/19 12:20 Jose Daniel Test Pos 12/04/19 12:20 A-a Gradient 13.0 mmHg 12/04/19 12:20 FiO2 21.0 12/04/19 12:20 Blood Gas Comments Juan well -sd 12/04/19 12:20 Sodium 127 mmol/L (136-145) L 12/12/19 04:15 Corrected Sodium TNP 12/12/19 04:15 Potassium 3.6 mmol/L (3.5-5.1) 12/12/19 04:15 Chloride 82 mmol/L (98-107) L 12/12/19 04:15 Carbon Dioxide 39.4 mmol/L (21-32) H 12/12/19 04:15 BUN 13 mg/dL (7-18) 12/12/19 04:15 Creatinine 0.84 mg/dL (0.70-1.30) 12/12/19 04:15 Est GFR (MDRD) Af Amer > 60 (>60) 12/12/19 04:15 Est GFR (MDRD) Non-Af > 60 (>60) 12/12/19 04:15 Glucose 78 mg/dL (65-99) 12/12/19 04:15 Lactic Acid 1.9 mmol/L (0.4-2.0) 12/04/19 12:45 Calcium 9.5 mg/dL (8.5-10.1) 12/12/19 04:15 Corrected Calcium TNP 12/12/19 04:15 Magnesium 2.2 mg/dL (1.7-2.9) 12/06/19 05:10 Ferritin 15 ng/mL (26-388) L 12/04/19 12:35 Total Bilirubin 0.40 mg/dL (0.2-1.0) 12/12/19 04:15 AST 33 Units/L (15-37) 12/12/19 04:15 ALT 18 Units/L (12-78) 12/12/19 04:15 Alkaline Phosphatase 93 Units/L (46-116) 12/12/19 04:15 Creatine Kinase 362 Units/L (39-308) H 12/05/19 05:30 CK-MB (CK-2) 6.9 ng/mL (0-4.0) H* 12/05/19 05:30 CK/CKMB % Calc 1.9 % (<4) 12/05/19 05:30 Troponin I < 0.02 ng/mL (0-1.5) 12/05/19 05:30 C-Reactive Protein 8.00 mg/L (0-3.0) H 12/04/19 12:45 Total Protein 8.5 g/dL (6.4-8.2) H 12/12/19 04:15 Albumin 4.9 g/dL (3.4-5.0) 12/12/19 04:15 Globulin 3.6 g/dL (2.5-4.5) 12/12/19 04:15 Albumin/Globulin Ratio 1.4 Ratio (1.1-2.1) 12/12/19 04:15 Triglycerides 50 mg/dL (0-150) 12/05/19 05:30 Cholesterol 121 mg/dL (0-200) 12/05/19 05:30 LDL Cholesterol, Calc 36 mg/dL (0-100) 12/05/19 05:30 HDL Cholesterol 75 mg/dL (40-60) H 12/05/19 05:30 Cholesterol/HDL Ratio 1.6 (0.0-5.0) 12/05/19 05:30 Specimen Type Clean catch urine 12/04/19 21:15 Urine Color Yellow (YELLOW) 12/04/19 21:15 Urine Appearance Clear (CLEAR) 12/04/19 21:15 Urine pH 5.0 (5.0 - 8.0) 12/04/19 21:15 Ur Specific [place] 1.010 (1.000-1.030) 12/04/19 21:15 Urine Protein 2+ (NEGATIVE) 12/04/19 21:15 Urine Glucose (UA) Negative (NEGATIVE) 12/04/19 21:15 Urine Ketones Negative (NEGATIVE) 12/04/19 21:15 Urine Occult Blood 4+ (NEGATIVE) 12/04/19 21:15 Urine Nitrite Negative (NEGATIVE) 12/04/19 21:15 Urine Bilirubin Negative (NEGATIVE) 12/04/19 21:15 Urine Urobilinogen Normal (NORMAL) 12/04/19 21:15 Ur Leukocyte Esterase 1+ (NEGATIVE) 12/04/19 21:15 Urine RBC 10-20 /HPF (0-3) A 12/04/19 21:15 Urine WBC 3-5 /HPF (0-5) 12/04/19 21:15 Ur Squamous Epith Cells Rare /HPF (NEGATIVE) 12/04/19 21:15 Urine Bacteria Negative /HPF (NEGATIVE) 12/04/19 21:15 Ur Culture Indicated? No/not indicated 12/04/19 21:15 Urine Opiates Screen Positive (NEG=<300) 12/04/19 21:15 Urine Methadone Screen Negative (NEG=<300) 12/04/19 21:15 Ur Barbiturates Screen Negative (NEG=<200) 12/04/19 21:15 Ur Phencyclidine Scrn Negative (NEG=<25) 12/04/19 21:15 Ur Amphetamines Screen Negative (NEG=<1000) 12/04/19 21:15 U Benzodiazepines Scrn Negative (NEG=<200) 12/04/19 21:15 Urine Cocaine Screen Negative (NEG=<300) 12/04/19 21:15 U Marijuana (THC) Screen Negative (NEG=<50) 12/04/19 21:15 Hepatitis A IgM Ab Negative (Negative) 12/10/19 05:35 Hep Bs Antigen Negative (Negative) 12/10/19 05:35 Hep Bs Ag Confirmation TNP 12/10/19 05:35 Hep B Core IgM Ab Negative (Negative) 12/10/19 05:35 Hepatitis C Ab Index 0.09 IV 12/10/19 05:35 Hepatitis C Interp Negative (Negative) 12/10/19 05:35 Hepatitis Interpret See note 12/10/19 05:35 SARS-CoV-2 (PCR) Negative (NEGATIVE) 12/04/19 16:29 - Plan (1) Pneumonia Status: Acute Qualifiers: Pneumonia type: due to unspecified organism Laterality: left Lung location: lower lobe of lung Qualified Code(s): J18.9 - Pneumonia, unspecified organism Plan: LEVAQUIN 750MG IV DAILY, NEB [place], SUPPLEMENTAL OXYGEN (2) COPD (chronic obstructive pulmonary disease) Status: Chronic Qualifiers: COPD type: chronic bronchitis (3) Abdominal pain Status: Acute Qualifiers: Abdominal location: generalized Qualified Code(s): R10.84 - Generalized abdominal pain (4) Generalized edema Status: Acute Plan: LASIX 20MG IV TID
--- NOTE | 2020-01-18 12:53 | PCM.PROG ---
Progress Note - Progress Note for Day of Date of Exam: 12/11/19 - Subjective Subjective: IS BEING TREATED FOR HYPONATREMIA, PNEUMONIA, HTN, GENERALIZED WEAKNESS, AND COPD EXACERBATION. TODAY, HE IS ALERT AND ORIENTED, LYING IN BED ON MORNING ROUNDS. HE CONTINUES WITH SHORTNESS OF BREATH AND GENERALIZED SWELLING TODAY, BUT HE DOES REPORT SLIGHT IMPROVEMENT IN SYMPTOMS. O N EXAMINATION, HE CONTINUES WITH MILD, GENERALIZED EDEMA. HEART IS REGULAR IN RATE AND RHYTHM. BILATERAL LUNGS ARE NOTED WITH DIMINISHED LUNG SOUNDS THROUGHOUT. NORMAL BOWEL SOUNDS NOTED IN ALL QUADRANTS. HIS VITALS THIS MORNING ARE: 97.7-73-18-98%-118/79. LABS WERE OBTAINED. ABNORMAL LAB VALUES INCLUDE THE FOLLOWING: SODIUM 127, CHLORIDE 84, CARBON DIOXIDE 39.1. A CHEST XRAY WAS OBTAINED THIS MORNING AND REVEALED: Chronic interstitial lung changes with flattening of the diaphragm consistent with COPD is observed. HE IS CURRENTLY RECEIVING NORMAL SALINE AT 125ML/HR, THE POTASSIUM PROTOCOL, DUONEBS QID, COREG 6.25MG PO BID, DYAZIDE 1 TABLET DAILY, LASIX 60MG IV TID, ALBUMIN 25% IV DAILY, FLONASE TO EACH NOSTRIL DAILY, LEVAQUIN 750MG IV DAILY, NORCO 5/325MG PO Q6H PRN PAIN, TORADOL 30MG IV Q6H PRN PAIN, ZOFRAN 4MG IV Q6H PRN PAIN. WE WILL CONTINUE WITH CURRENT PLAN OF CARE TODAY. OTHERWISE, WE WILL FOLLOW UP WITH AM LABS AND CONTINUE TO MONITOR. - Past Medical Family Social History Past Med/Fam/Surg Hx: No changes since H&P Allergies: Allergies Penicillins Allergy (Verified 10/29/18 15:22) - Review of Systems ROS: No change since H&P - Vital Signs and I&O's Vital Signs: Temperature 97.8 F Pulse Rate [Left Brachial] 70 Pulse Rate 75 Respiratory Rate 20 Blood Pressure [Left Arm] 148/100 Blood Pressure [Right Arm] 138/78 Blood Pressure 142/85 O2 Sat by Pulse Oximetry 100 - Physical Exam Oriented: Normal Eyes: Normal Ear: Normal Nose: Normal Throat: Normal Respiratory: Generalized, Diminished Cardiovascular: Edema : Normal Auscultation: Bowel Sounds: Normal Palpation: Normal Tenderness: Normal Skin: Normal Musculoskeletal: Normal Psychiatric: Normal Mood Description: Calm Affect: Normal Speech Pattern: Clear, Appropriate - Laboratory and Diagnostics Result Diagrams: 12/12/19 04:15 08/10/20 04:15 Labs: 12/04/19 12:45 Blood Blood Culture - Final 12/04/19 12:35 Blood Blood Culture - Final Laboratory WBC 8.0 X10^3/uL (3.6-10.0) 12/12/19 04:15 RBC 5.48 X10^6/uL (4.7-6.0) 12/12/19 04:15 Hgb 15.2 g/dL (13.5-18.0) 12/12/19 04:15 Hct 46.9 % (42.0-54.0) 12/12/19 04:15 MCV 85.6 fL (80.0-100.0) 12/12/19 04:15 MCH 27.8 pg (27.0-34.0) 12/12/19 04:15 MCHC 32.5 g/dL (33.0-35.0) L 12/12/19 04:15 RDW 17.0 % (11.6-16.5) H 12/12/19 04:15 Plt Count 261 X10^3/uL (150.0-450.0) 12/12/19 04:15 MPV 7.8 fL (7.4-11.0) 12/12/19 04:15 Neut % (Auto) 58.9 % (42.0-75.0) 12/12/19 04:15 Lymph % (Auto) 24.4 % (21.0-51.0) 12/12/19 04:15 [place] % (Auto) 14.9 % (0.0-13.0) H 12/12/19 04:15 Eos % (Auto) 1.2 % (0.9-2.9) 12/12/19 04:15 Baso % (Auto) 0.6 % (0.2-1.0) 12/12/19 04:15 Neut # (Auto) 4.7 x10^3/uL (2.2-4.8) 12/12/19 04:15 Lymph # (Auto) 2.0 X10^3/uL (1.3-2.9) 12/12/19 04:15 [place] # (Auto) 1.2 x10^3/uL (0.3-0.8) H 12/12/19 04:15 Eos # (Auto) 0.1 x10^3/uL (0.0-0.2) 12/12/19 04:15 Baso # (Auto) 0.0 X10^3/uL (0.0-0.1) 12/12/19 04:15 Absolute Nucleated RBC 0.0 /100WBC 12/12/19 04:15 PT 13.7 SECONDS (11.8-14.3) 12/05/19 05:30 INR Target Range - 12/05/19 05:30 INR 1.08 (0.8-1.3) 12/05/19 05:30 APTT 37.2 SECONDS (22.9-36.5) H 12/05/19 05:30 PTT Comment - 12/05/19 05:30 Sample Site Rrad 12/04/19 12:20 ABG pH 7.370 (7.35-7.45) 12/04/19 12:20 ABG pCO2 57.0 mmHg (35.0-45.0) H* 12/04/19 12:20 ABG pO2 65.0 mmHg (80.0-100.0) L 12/04/19 12:20 ABG HCO3 33.0 mmol/L (22-26) H* 12/04/19 12:20 ABG O2 Saturation 92.0 % (90-100) 12/04/19 12:20 ABG Base Excess 6.1 mmol/L (-2.0-2.0) H 12/04/19 12:20 Jose Daniel Test Pos 12/04/19 12:20 A-a Gradient 13.0 mmHg 12/04/19 12:20 FiO2 21.0 12/04/19 12:20 Blood Gas Comments Juan well -sd 12/04/19 12:20 Sodium 127 mmol/L (136-145) L 12/12/19 04:15 Corrected Sodium TNP 12/12/19 04:15 Potassium 3.6 mmol/L (3.5-5.1) 12/12/19 04:15 Chloride 82 mmol/L (98-107) L 12/12/19 04:15 Carbon Dioxide 39.4 mmol/L (21-32) H 12/12/19 04:15 BUN 13 mg/dL (7-18) 12/12/19 04:15 Creatinine 0.84 mg/dL (0.70-1.30) 12/12/19 04:15 Est GFR (MDRD) Af Amer > 60 (>60) 12/12/19 04:15 Est GFR (MDRD) Non-Af > 60 (>60) 12/12/19 04:15 Glucose 78 mg/dL (65-99) 12/12/19 04:15 Lactic Acid 1.9 mmol/L (0.4-2.0) 12/04/19 12:45 Calcium 9.5 mg/dL (8.5-10.1) 12/12/19 04:15 Corrected Calcium TNP 12/12/19 04:15 Magnesium 2.2 mg/dL (1.7-2.9) 12/06/19 05:10 Ferritin 15 ng/mL (26-388) L 12/04/19 12:35 Total Bilirubin 0.40 mg/dL (0.2-1.0) 12/12/19 04:15 AST 33 Units/L (15-37) 12/12/19 04:15 ALT 18 Units/L (12-78) 12/12/19 04:15 Alkaline Phosphatase 93 Units/L (46-116) 12/12/19 04:15 Creatine Kinase 362 Units/L (39-308) H 12/05/19 05:30 CK-MB (CK-2) 6.9 ng/mL (0-4.0) H* 12/05/19 05:30 CK/CKMB % Calc 1.9 % (<4) 12/05/19 05:30 Troponin I < 0.02 ng/mL (0-1.5) 12/05/19 05:30 C-Reactive Protein 8.00 mg/L (0-3.0) H 12/04/19 12:45 Total Protein 8.5 g/dL (6.4-8.2) H 12/12/19 04:15 Albumin 4.9 g/dL (3.4-5.0) 12/12/19 04:15 Globulin 3.6 g/dL (2.5-4.5) 12/12/19 04:15 Albumin/Globulin Ratio 1.4 Ratio (1.1-2.1) 12/12/19 04:15 Triglycerides 50 mg/dL (0-150) 12/05/19 05:30 Cholesterol 121 mg/dL (0-200) 12/05/19 05:30 LDL Cholesterol, Calc 36 mg/dL (0-100) 12/05/19 05:30 HDL Cholesterol 75 mg/dL (40-60) H 12/05/19 05:30 Cholesterol/HDL Ratio 1.6 (0.0-5.0) 12/05/19 05:30 Specimen Type Clean catch urine 12/04/19 21:15 Urine Color Yellow (YELLOW) 12/04/19 21:15 Urine Appearance Clear (CLEAR) 12/04/19 21:15 Urine pH 5.0 (5.0 - 8.0) 12/04/19 21:15 Ur Specific [place] 1.010 (1.000-1.030) 12/04/19 21:15 Urine Protein 2+ (NEGATIVE) 12/04/19 21:15 Urine Glucose (UA) Negative (NEGATIVE) 12/04/19 21:15 Urine Ketones Negative (NEGATIVE) 12/04/19 21:15 Urine Occult Blood 4+ (NEGATIVE) 12/04/19 21:15 Urine Nitrite Negative (NEGATIVE) 12/04/19 21:15 Urine Bilirubin Negative (NEGATIVE) 12/04/19 21:15 Urine Urobilinogen Normal (NORMAL) 12/04/19 21:15 Ur Leukocyte Esterase 1+ (NEGATIVE) 12/04/19 21:15 Urine RBC 10-20 /HPF (0-3) A 12/04/19 21:15 Urine WBC 3-5 /HPF (0-5) 12/04/19 21:15 Ur Squamous Epith Cells Rare /HPF (NEGATIVE) 12/04/19 21:15 Urine Bacteria Negative /HPF (NEGATIVE) 12/04/19 21:15 Ur Culture Indicated? No/not indicated 12/04/19 21:15 Urine Opiates Screen Positive (NEG=<300) 12/04/19 21:15 Urine Methadone Screen Negative (NEG=<300) 12/04/19 21:15 Ur Barbiturates Screen Negative (NEG=<200) 12/04/19 21:15 Ur Phencyclidine Scrn Negative (NEG=<25) 12/04/19 21:15 Ur Amphetamines Screen Negative (NEG=<1000) 12/04/19 21:15 U Benzodiazepines Scrn Negative (NEG=<200) 12/04/19 21:15 Urine Cocaine Screen Negative (NEG=<300) 12/04/19 21:15 U Marijuana (THC) Screen Negative (NEG=<50) 12/04/19 21:15 Hepatitis A IgM Ab Negative (Negative) 12/10/19 05:35 Hep Bs Antigen Negative (Negative) 12/10/19 05:35 Hep Bs Ag Confirmation TNP 12/10/19 05:35 Hep B Core IgM Ab Negative (Negative) 12/10/19 05:35 Hepatitis C Ab Index 0.09 IV 12/10/19 05:35 Hepatitis C Interp Negative (Negative) 12/10/19 05:35 Hepatitis Interpret See note 12/10/19 05:35 SARS-CoV-2 (PCR) Negative (NEGATIVE) 12/04/19 16:29 - Plan (1) Pneumonia Status: Acute Qualifiers: Pneumonia type: due to unspecified organism Laterality: left Lung location: lower lobe of lung Qualified Code(s): J18.9 - Pneumonia, unspecified organism Plan: LEVAQUIN 750MG IV DAILY, NEB [place], SUPPLEMENTAL OXYGEN (2) COPD (chronic obstructive pulmonary disease) Status: Chronic Qualifiers: COPD type: chronic bronchitis (3) Abdominal pain Status: Acute Qualifiers: Abdominal location: generalized Qualified Code(s): R10.84 - Generalized abdominal pain (4) Generalized edema Status: Acute Plan: LASIX 60MG IV TID
== END 2019-12-12 13:25 | disposition home or self-care (01) | DRG 190 ==
LOC: ER 12:07 → MED/SURG 20:09
PROVIDERS: ADMIT Internal Medicine; ATTEND Internal Medicine
DX: R94.31 Abnormal electrocardiogram [ECG] [EKG]; R51 Headache; E87.1 Hypo-osmolality and hyponatremia; R07.89 Other chest pain; I10 Essential (primary) hypertension; Z11.59 Encounter for screening for other viral diseases; J18.8 Other pneumonia, unspecified organism; J44.1 Chronic obstructive pulmonary disease with (acute) exacerbation; R53.1 Weakness
CPT/HCPCS: 36415; 36600; 70486; 71010; 71045; 71275; 74177; 80053; 80061; 80074; 80307; 81001; 82550; 82553; 82728; 82803; 83605; 83735; 84484; 85025; 85610; 85730; 86140; 87040; 87635; 93005; 93306; 94640; 94760; 96365; 96367; 96374; 96375; 97110; 97116; 97163; 97166; 97530; 99284; A4222; J1885; J1940; J1956; J2270; J2405; J3475; J3490; J7030; J7620; P9047

== ENCOUNTER 2020-12-10 13:08 | Inpatient (IN) ==
--- NOTE | 2020-12-10 13:17 | DR.SOBA ---
HPI Time Seen Time Seen by Provider: 12/10/20 13:12 HPI Comment HPI Comment: PATIENT WITH A HISTORY OF LONGSTANDING COPD, INTUBATED IN JULY AND OCTOBER 2020 FOR RESPIRATORY FAILURE, COMPLAINS OF INCREASING DYSPNEA, AND PRODUCTIVE COUGH X 3 DAYS, UNSURE OF FEVER OR CHILLS. DENIES CHEST PAIN, DIAPHORESIS. Complaints Chief Complaint Doctors Comments: productive cough, difficulty breathing COVID-19 Coronavirus symptoms experienced: Coughing and Shortness of Breath Reviewed Nurses Notes Reviewed: Yes Source History Provided: Patient Mode of Arrival Mode of Arrival: EMS Duration Duration: Days Context Onset:: At Rest History of:: COPD and Intubation (IN JULY AND OCTOBER 2020 FOR RESPIRATORY FAILURE) Prehospital Care:: O2 Modifying Factors Worsens:: Exertion Associated Signs and Symptoms Associated Signs and Symptoms: Cough PMH PMH Past Medical History: Asthma, COPD and Hypertension Past Surgical History: Yes Surgical History: Appendectomy and Bowel Resection Family History Family Medical History: Cancer, NM and Hypertension Social History Do you use any recreational Drugs:: No ROS Review of Systems Constitutional: Weakness Eyes: No Symptoms Reported ENTM: No Symptoms Reported Respiratoy: See HPI, Productive Cough and Short of Breath Cardiovascular: No Symptoms Reported Gastrointestinal/Abdominal: No Symptoms Reported Genitourinary: No Symptoms Reported Neurological: No Symptoms Reported Musculoskeletal: No Symptoms Reported Integumentary: No Symptoms Reported Hematologic/Lymphatic: No Symptoms Reported Endocrine: No Symptoms Reported Psychiatric: No Symptoms Reported All Other Systems: Reviewed and Negative PE Vital Signs Vitals: Temperature 98.7 F Pulse Rate 100 Respiratory Rate 23 Blood Pressure [Left Arm] 118/83 Blood Pressure 142/91 O2 Sat by Pulse Oximetry 99 General Limitations: Physical Limitation General Appearance: Alert and In Distress (MINIMAL TACHYPNEA) Head Head Exam: Normal Inspection and Atraumatic Eyes Eye exam: Normal Appearance and PERRL ENT ENT Exam: Normal Exam and Normal Oropharynx Neck Neck Exam: Normal Inspection and Full ROM Chest Chest Inspection: Normal Inspection Respiratory Respiratory Exam: Normal Lung Sounds Bilat Respiratory Exam: Bilateral: Clear to Auscultation (PROLONGED EXPIRATORY WHEEZES) and Bilateral: Decreased Breath Sounds, Upper: Clear to Auscultation (PROLONGED EXPIRATORY WHEEZES) and Lower: Clear to Auscultation (PROLONGED EXPIRATORY WHEEZES) and Lower: Decreased Breath Sounds Cardiovascular Cardiovascular Exam: Regular Rate and Normal Rhythm Abdominal Exam Abdominal Exam: Normal Inspection, Normal Bowel Sounds and Soft Extremities Extremities Exam: Normal Inspection (LEFT AKA) Back Back Exam: Normal Inspection Neurologic Neurological Exam: Alert and Oriented X3 Psychiatric Psychiatric Exam: Normal Affect and Normal Mood Skin Skin Exam: Warm, Dry, Intact and Normal Color MDM Differential Diagnosis Differential Diagnosis: COPD, Pneumonia and Respiratory Insufficiency Differential Diagnosis Comment:: COVID COURSE Treatment Treatment: IV NORMAL SALINE 500ML/HR, PLACED ON BIPAP, AFTER 2 SETS BLOOD CULTURES, LEVAQUIN 500MG IVPB, DUO NEB AEROSOL TX X 2 Consultation Call Returned: 18:00 Consultation Comments: DISCUSSED FINDINGS WITH DR BONILLA FOR ADMIT INPATIENT Critical Care Notes Total Time (mins): 30 Critical Diagnosis: RESPIRATORYB INSUFFICIENCY ROR Labs Reviewed Laboratory Results Reviewed?: Yes Result Diagrams: 12/10/20 13:20 12/10/20 13:20 Laboratory: WBC 15.3 X10^3/uL (3.6-10.0) H 12/10/20 13:20 RBC 4.09 X10^6/uL (4.7-6.0) L 12/10/20 13:20 Hgb 11.4 g/dL (13.5-18.0) L 12/10/20 13:20 Hct 35.4 % (42.0-54.0) L 12/10/20 13:20 MCV 86.7 fL (80.0-100.0) 12/10/20 13:20 MCH 28.0 pg (27.0-34.0) 12/10/20 13:20 MCHC 32.3 g/dL (33.0-35.0) L 12/10/20 13:20 RDW 18.7 % (11.6-16.5) H 12/10/20 13:20 Plt Count 296 X10^3/uL (150.0-450.0) 12/10/20 13:20 Plt Count Comment Adequate (ADEQUATE) 12/10/20 13:20 MPV 7.5 fL (7.4-11.0) 12/10/20 13:20 Neut % (Auto) 68.5 % (42.0-75.0) 12/10/20 13:20 Lymph % (Auto) 10.0 % (21.0-51.0) L 12/10/20 13:20 [place] % (Auto) 21.0 % (0.0-13.0) H 12/10/20 13:20 Eos % (Auto) 0.2 % (0.9-2.9) L 12/10/20 13:20 Baso % (Auto) 0.3 % (0.2-1.0) 12/10/20 13:20 Neut # (Auto) 10.5 x10^3/uL (2.2-4.8) H 12/10/20 13:20 Lymph # (Auto) 1.5 X10^3/uL (1.3-2.9) 12/10/20 13:20 [place] # (Auto) 3.2 x10^3/uL (0.3-0.8) H 12/10/20 13:20 Eos # (Auto) 0.0 x10^3/uL (0.0-0.2) 12/10/20 13:20 Baso # (Auto) 0.0 X10^3/uL (0.0-0.1) 12/10/20 13:20 Absolute Nucleated RBC 0.1 /100WBC 12/10/20 13:20 Total Counted 100 12/10/20 13:20 Neutrophils % (Manual) 56 % (39-76) 12/10/20 13:20 Band Neutrophils % 9 % (0-10) 12/10/20 13:20 Lymphocytes % (Manual) 17 % (13-43) 12/10/20 13:20 Monocytes % (Manual) 18 % (4-9) H 12/10/20 13:20 Plt Morphology Comment Normal (NORMAL) 12/10/20 13:20 RBC Morphology Abnormal (NORMAL) 12/10/20 13:20 Anisocytosis Slight A 12/10/20 13:20 PT 14.3 SECONDS (11.8-14.3) 12/10/20 13:20 INR Target Range - 12/10/20 13:20 INR 1.17 (0.8-1.3) 12/10/20 13:20 D-Dimer 1.81 ug/ml (0.0-0.57) H* 12/10/20 13:20 Sample Site Rr 12/10/20 15:30 ABG pH 7.390 (7.35-7.45) 12/10/20 15:30 ABG pCO2 77.0 mmHg (35.0-45.0) H* 12/10/20 15:30 ABG pO2 73.0 mmHg (80.0-100.0) L 12/10/20 15:30 ABG HCO3 46.6 mmol/L (22-26) H* 12/10/20 15:30 ABG O2 Saturation 94.0 % (90-100) 12/10/20 15:30 ABG Base Excess 17.8 mmol/L (-2.0-2.0) H 12/10/20 15:30 Jose Daniel Test Pos 12/10/20 15:30 A-a Gradient 80.0 mmHg 12/10/20 15:30 FiO2 35.0 12/10/20 15:30 Blood Gas Comments Juan well sd 12/10/20 15:30 Sodium 141 mmol/L (136-145) 12/10/20 13:20 Corrected Sodium 142 mmol/L (136-145) 12/10/20 13:20 Potassium 3.4 mmol/L (3.5-5.1) L 12/10/20 13:20 Chloride 97 mmol/L (98-107) L 12/10/20 13:20 Carbon Dioxide 42.7 mmol/L (21-32) H* 12/10/20 13:20 BUN 4 mg/dL (7-18) L 12/10/20 13:20 Creatinine 0.42 mg/dL (0.70-1.30) L 12/10/20 13:20 Est GFR (MDRD) Af Amer > 60 (>60) 12/10/20 13:20 Est GFR (MDRD) Non-Af > 60 (>60) 12/10/20 13:20 Glucose 129 mg/dL (65-99) H 12/10/20 13:20 Lactic Acid 0.8 mmol/L (0.4-2.0) 12/10/20 13:20 Calcium 8.8 mg/dL (8.5-10.1) 12/10/20 13:20 Corrected Calcium 9.9 mg/dL (8.5-10.1) 12/10/20 13:20 Ferritin 176 ng/mL (26-388) 12/10/20 13:20 Total Bilirubin 0.30 mg/dL (0.2-1.0) 12/10/20 13:20 AST 32 Units/L (15-37) 12/10/20 13:20 ALT 19 Units/L (12-78) 12/10/20 13:20 Alkaline Phosphatase 130 Units/L (46-116) H 12/10/20 13:20 Troponin I 0.14 ng/mL (0-1.5) 12/10/20 13:20 C-Reactive Protein 242.20 mg/L (0-3.0) H 12/10/20 13:20 Total Protein 7.4 g/dL (6.4-8.2) 12/10/20 13:20 Albumin 2.6 g/dL (3.4-5.0) L 12/10/20 13:20 Globulin 4.8 g/dL (2.5-4.5) H 12/10/20 13:20 Albumin/Globulin Ratio 0.5 Ratio (1.1-2.1) L 12/10/20 13:20 SARS-CoV-2 (PCR) Negative (NEGATIVE) 12/10/20 13:25 Influenza Type A (PCR) Negative (NEGATIVE) 12/10/20 13:25 Influenza Type B (PCR) Negative (NEGATIVE) 12/10/20 13:25 RSV (PCR) Negative (NEGATIVE) 12/10/20 13:25 SARS CoV-2 RNA Rapid RAAD Negative (NEGATIVE) 12/10/20 19:40 XRAY XRAY Interpreted by: Radiologist (PORTABLE CHEST XRAY- COPD WITH MULTIFOCAL PNEUMONIA) X-ray Results: CTA CHEST IV CONTRAST C/W NO EVIDENCE OF PULMONARY EMBOLISM, THERE IS COPD, OPACITY LLL Opioid Opioid Risk Tool Age (Isaias box if 16-45): Yes History of Preadolescent Sexual Abuse: No Total: 1 Total Score Risk Category: Low Risk Copyright: Cheek LR predicting aberrant behaviors Diagnosis Discharge Problem: Acute exacerbation of chronic obstructive pulmonary disease, Pneumonia
[2020-12-10] MEDS ORDERED: NS 1000 ML 1,000 ML IV STA (13:21)
[2020-12-10 13:39] LABS: ABG BASE EXCESS 17.7 mmol/L (-2.0-2.0)
[2020-12-10 13:42] LABS: ABG ALLEN TEST POS
[2020-12-10 13:57] LABS: BASOPHILS % (AUTO) 0.3 % (0.2-1.0); EOSINOPHILS % (AUTO) 0.2 % (0.9-2.9); HEMATOCRIT 35.4 % (42.0-54.0); HEMOGLOBIN 11.4 g/dL (13.5-18.0); LYMPHOCYTES # (AUTO) 1.5 X10^3/uL (1.3-2.9); MEAN CORPUSCULAR HGB CONC 32.3 g/dL (33.0-35.0); MEAN CORPUSCULAR VOLUME 86.7 fL (80.0-100.0); MEAN PLATELET VOLUME 7.5 fL (7.4-11.0); MONOCYTES # (AUTO) 3.2 x10^3/uL (0.3-0.8); NEUTROPHILS # (AUTO) 10.5 x10^3/uL (2.2-4.8); NEUTROPHILS % (AUTO) 68.5 % (42.0-75.0); PLATELET COUNT 296 X10^3/uL (150.0-450.0); RED BLOOD COUNT 4.09 X10^6/uL (4.7-6.0); RED CELL DISTRIBUTION WIDTH 18.7 % (11.6-16.5); WHITE BLOOD COUNT 15.3 X10^3/uL (3.6-10.0)
[2020-12-10 14:00] LABS: ALANINE AMINOTRANSFERASE 19 Units/L (12-78); ALBUMIN 2.6 g/dL (3.4-5.0); ALKALINE PHOSPHATASE 130 Units/L (46-116); ASPARTATE AMINO TRANSFERASE 32 Units/L (15-37); BLOOD UREA NITROGEN 4 mg/dL (7-18); CALCIUM 8.8 mg/dL (8.5-10.1); CHLORIDE 97 mmol/L (98-107); COR CA(FOR HYPOALB) 9.9 mg/dL (8.5-10.1); COR NA(FOR HYPERGLY) 142 mmol/L (136-145); CREATININE 0.42 mg/dL (0.70-1.30); LACTIC ACID 0.8 mmol/L (0.4-2.0); SODIUM 141 mmol/L (136-145); TOTAL PROTEIN 7.4 g/dL (6.4-8.2); TROPONIN I 0.14 ng/mL (0-1.5); eGFR NON BLACK RACES > 60 (>60)
--- NOTE | 2020-12-10 14:01 | RAD ---
HISTORYCOUGH, SOB HTN, COPD, ASTHMA, PVD, APPENDIX, BOWEL RESECTION, LBKA, RT HALF FOOT AMPUTATIONSTUDYCHEST, 1 VIEWCOMPARISONJune 2020FINDINGSThe trachea is midline. The cardiac silhouette is unremarkable. The lungs demonstrate stable changes of COPD with interval developed airspace disease throughout the peripheral aspect of the right lung and left upper lobe in left lung base. These findings are concerning for pneumonia. The bony thorax is unremarkable.IMPRESSIONMultifocal pneumonia superimposed on changes of COPD as aboveElectronically signed by: ABDIRAHMAN DOVER (Dec 10, 2020 13:58:22)
[2020-12-10 14:03] LABS: CARBON DIOXIDE 42.7 mmol/L (21-32)
[2020-12-10] MEDS ORDERED: DUONEB 0.5 MG/3 MG (3 mL) NEB ONE ×5 (14:19→19:43)
[2020-12-10 14:26] LABS: BAND NEUTROPHILS % 9 % (0-10)
[2020-12-10 14:27] LABS: ANISOCYTOSIS SLIGHT; PLATELET MORPHOLOGY COMMENT NORMAL (NORMAL)
[2020-12-10] MEDS ORDERED: LEVAQUIN PREMIX IV 500 MG 500 MG/100 ML BAG IV ONE ×2 (15:09→15:56)
[2020-12-10] MEDS ORDERED: SOLU-Medrol 125 MG VIAL IVP ONE (15:09)
[2020-12-10 15:37] LABS: ABG BASE EXCESS 17.8 mmol/L (-2.0-2.0)
[2020-12-10 15:38] LABS: ABG ALLEN TEST POS; ABG HCO3 46.6 mmol/L (22-26)
[2020-12-10] MEDS ORDERED: NS 100 ML IV 100 ML ONE (15:49)
[2020-12-10] MEDS ORDERED: SOLU-Medrol 125 MG VIAL ONE (15:55)
--- NOTE | 2020-12-10 16:43 | CT ---
EXAM: CTA CHEST WITH INTRAVENOUS CONTRASTHISTORY: Dyspnea. Elevated D-dimer. COPD.TECHNIQUE: Spiral axial CT images are obtained through the chest with the administration of intravenous contrast. Coronal, sagittal and 3D MIP images are reformatted.DOSIMETRY: Total DLP 303.6 mGycm; CTDI 26.8 mGyCOMPARISON: Chest CT dated July 03, 2020FINDINGS:CARDIOVASCULAR: There is no evidence for pulmonary embolic disease. There is coronary and aortic atherosclerosis. No aortic aneurysm is seen. The heart size is within normal limits. There is interval appearance of a small anterior pericardial effusion, measuring up to 7.8 mm thick.MEDIASTINUM AND AISHA: No mass lesion, emphysema, or abnormal fluid collection is seen. There is interval appearance of extensive bilateral shotty mediastinal and hilar lymphadenopathy, presumed reactive lymphadenopathy.LUNGS: There is again evidence for markedly severe diffuse lung parenchymal emphysema, most prominent in the upper lung contreras, in keeping with centrilobular emphysema. There is interval appearance of reticular prominence throughout both lungs, and large groundglass parenchymal opacity in the posterior left lower lobe in keeping with acute interstitial pneumonia in the appropriate clinical setting; rule out Covid pneumonia. There is stable appearance of parenchymal scarring/fibrosis in bilateral lower lobes, right greater than left.CHEST WALL: There are no chest wall lesions seen. The visualized bony structures are within normal limits. No axillary lymphadenopathy is noted.UPPER ABDOMEN: Limited views through the upper abdomen demonstrate no gross acute abnormality.IMPRESSION:1. No evidence for pulmonary embolic disease.2. Severe coronary and aortic atherosclerosis.3. Again evidence for markedly severe diffuse lung parenchymal emphysema, most prominent in the upper lung contreras, in keeping with centrilobular emphysema.4. Interval appearance of reticular prominence throughout both lungs, and large groundglass parenchymal opacity in the posterior left lower lobe in keeping with acute interstitial pneumonia in the appropriate clinical setting; rule out Covid pneumonia.5. Stable appearance of parenchymal scarring/fibrosis in bilateral lower lobes, right greater than left.6. Interval appearance of extensive bilateral shotty mediastinal and hilar lymphadenopathy, presumed reactive lymphadenopathy; cannot rule out granulomatous lymphadenopathy and malignant lymphadenopathy.7. Interval appearance of a small anterior pericardial effusion, measuring up to 7.8 mm thick.Electronically signed by: Evelin Carter (Dec 10, 2020 16:40:57)
[2020-12-11] MEDS ORDERED: SALINE 3% 15 ML NEB TX ONE (00:39)
[2020-12-11] MEDS: DUONEB 0.5 MG/3 MG (3 mL) NEB SCH ×6 (00:40→20:20)
[2020-12-11] MEDS ORDERED: SALINE 3% 15 ML NEB TX NEB ONE (00:40)
[2020-12-11] MEDS: NS 1000 ML 1,000 ML IV SCH ×5 (02:00→19:28)
[2020-12-11] MEDS: LIPITOR TAB 40 MG PO SCH ×2 (02:45→21:25)
[2020-12-11] MEDS ORDERED: SOLU-Medrol 125 MG VIAL IVP SCH (06:00)
[2020-12-11] MEDS ORDERED: LIPITOR TAB 40 MG PO SCH (09:00)
[2020-12-11] MEDS ORDERED: ELIQUIS PO SCH (09:00)
[2020-12-11] MEDS: COREG TAB 12.5 MG PO SCH (10:47)
[2020-12-11] MEDS: ELIQUIS PO SCH ×2 (10:48→21:25)
[2020-12-11] MEDS: PROTONIX TAB 40 MG PO SCH (10:49)
[2020-12-11] MEDS: COZAAR PO SCH (10:51)
[2020-12-11] MEDS: BRILINTA PO SCH ×2 (14:53→21:30)
[2020-12-11] MEDS: NEURONTIN TAB 600 MG PO SCH ×2 (15:00→21:25)
[2020-12-11] MEDS: SOLU-Medrol 40 MG VIAL IVP SCH ×2 (15:00→21:35)
[2020-12-12] MEDS: DUONEB 0.5 MG/3 MG (3 mL) NEB SCH ×6 (00:40→21:30)
[2020-12-12 01:24] VITALS: BMI 14.6
[2020-12-12] MEDS: NS 1000 ML 1,000 ML IV SCH ×7 (04:20→23:38)
[2020-12-12] MEDS: SOLU-Medrol 40 MG VIAL IVP SCH ×3 (06:03→21:03)
[2020-12-12] MEDS: NEURONTIN TAB 600 MG PO SCH ×3 (06:03→21:03)
[2020-12-12 06:12] LABS: MEAN PLATELET VOLUME 7.5 fL (7.4-11.0); RED CELL DISTRIBUTION WIDTH 18.2 % (11.6-16.5)
[2020-12-12 06:26] LABS: BASOPHILS % (AUTO) 0.2 % (0.2-1.0); HEMATOCRIT 33.7 % (42.0-54.0); HEMOGLOBIN 11.2 g/dL (13.5-18.0); LYMPHOCYTES # (AUTO) 0.7 X10^3/uL (1.3-2.9); LYMPHOCYTES % (AUTO) 5.8 % (21.0-51.0); MEAN CORPUSCULAR HEMOGLOBIN 29.2 pg (27.0-34.0); MEAN CORPUSCULAR HGB CONC 33.1 g/dL (33.0-35.0); MEAN CORPUSCULAR VOLUME 88.2 fL (80.0-100.0); MONOCYTES # (AUTO) 0.7 x10^3/uL (0.3-0.8); MONOCYTES % (AUTO) 5.8 % (0.0-13.0); NEUTROPHILS # (AUTO) 11.4 x10^3/uL (2.2-4.8); NEUTROPHILS % (AUTO) 88.2 % (42.0-75.0); PLATELET COUNT 271 X10^3/uL (150.0-450.0); RED BLOOD COUNT 3.83 X10^6/uL (4.7-6.0); WHITE BLOOD COUNT 12.9 X10^3/uL (3.6-10.0)
[2020-12-12 06:58] LABS: ALANINE AMINOTRANSFERASE 21 Units/L (12-78); ALBUMIN 2.3 g/dL (3.4-5.0); ALKALINE PHOSPHATASE 116 Units/L (46-116); ASPARTATE AMINO TRANSFERASE 33 Units/L (15-37); BLOOD UREA NITROGEN 9 mg/dL (7-18); CALCIUM 8.7 mg/dL (8.5-10.1); CARBON DIOXIDE 39.1 mmol/L (21-32); CHLORIDE 104 mmol/L (98-107); COR CA(FOR HYPOALB) 10.1 mg/dL (8.5-10.1); COR NA(FOR HYPERGLY) 144 mmol/L (136-145); CREATININE 0.43 mg/dL (0.70-1.30); SODIUM 143 mmol/L (136-145); TOTAL PROTEIN 6.4 g/dL (6.4-8.2); eGFR NON BLACK RACES > 60 (>60)
[2020-12-12] MEDS: COREG TAB 12.5 MG PO SCH (08:38)
[2020-12-12] MEDS: COZAAR PO SCH (08:38)
[2020-12-12] MEDS: BRILINTA PO SCH ×2 (08:38→20:42)
[2020-12-12] MEDS: ELIQUIS PO SCH ×2 (08:39→20:42)
[2020-12-12] MEDS: PROTONIX TAB 40 MG PO SCH (08:39)
[2020-12-12] MEDS: TORADOL 15 MG VIAL IVP PRN ×2 (10:21→19:29)
[2020-12-12] MEDS: ULTRAM PO PRN (16:44)
[2020-12-12] MEDS: LIPITOR TAB 40 MG PO SCH (20:42)
[2020-12-12] MEDS ORDERED: COREG TAB 25 MG PO ONE (23:29)
[2020-12-13] MEDS: DUONEB 0.5 MG/3 MG (3 mL) NEB SCH ×6 (00:40→20:35)
[2020-12-13] MEDS: TORADOL 15 MG VIAL IVP PRN ×3 (04:47→21:45)
[2020-12-13] MEDS: NS 1000 ML 1,000 ML IV SCH ×4 (04:54→22:51)
[2020-12-13] MEDS: NEURONTIN TAB 600 MG PO SCH ×3 (05:25→21:00)
[2020-12-13] MEDS: SOLU-Medrol 40 MG VIAL IVP SCH (05:25)
[2020-12-13 06:49] LABS: BASOPHILS % (AUTO) 0.1 % (0.2-1.0); HEMATOCRIT 31.4 % (42.0-54.0); HEMOGLOBIN 10.2 g/dL (13.5-18.0); LYMPHOCYTES # (AUTO) 0.7 X10^3/uL (1.3-2.9); LYMPHOCYTES % (AUTO) 4.3 % (21.0-51.0); MEAN CORPUSCULAR HEMOGLOBIN 28.7 pg (27.0-34.0); MEAN CORPUSCULAR HGB CONC 32.6 g/dL (33.0-35.0); MEAN CORPUSCULAR VOLUME 87.9 fL (80.0-100.0); MEAN PLATELET VOLUME 7.2 fL (7.4-11.0); MONOCYTES # (AUTO) 0.7 x10^3/uL (0.3-0.8); MONOCYTES % (AUTO) 4.8 % (0.0-13.0); NEUTROPHILS # (AUTO) 14.3 x10^3/uL (2.2-4.8); NEUTROPHILS % (AUTO) 90.8 % (42.0-75.0); PLATELET COUNT 279 X10^3/uL (150.0-450.0); RED BLOOD COUNT 3.57 X10^6/uL (4.7-6.0); RED CELL DISTRIBUTION WIDTH 18.3 % (11.6-16.5); WHITE BLOOD COUNT 15.7 X10^3/uL (3.6-10.0)
[2020-12-13 07:11] LABS: ALANINE AMINOTRANSFERASE 18 Units/L (12-78); ALKALINE PHOSPHATASE 106 Units/L (46-116); ASPARTATE AMINO TRANSFERASE 23 Units/L (15-37); BLOOD UREA NITROGEN 9 mg/dL (7-18); CALCIUM 7.9 mg/dL (8.5-10.1); CARBON DIOXIDE 37.2 mmol/L (21-32); CHLORIDE 105 mmol/L (98-107); COR CA(FOR HYPOALB) 9.5 mg/dL (8.5-10.1); COR NA(FOR HYPERGLY) 141 mmol/L (136-145); CREATININE 0.36 mg/dL (0.70-1.30); SODIUM 141 mmol/L (136-145); TOTAL PROTEIN 5.6 g/dL (6.4-8.2); eGFR NON BLACK RACES > 60 (>60)
[2020-12-13 07:19] LABS: ANISOCYTOSIS SLIGHT; BAND NEUTROPHILS % 2 % (0-10); PLATELET MORPHOLOGY COMMENT NORMAL (NORMAL)
[2020-12-13] MEDS ORDERED: COREG TAB 12.5 MG ONE (07:32)
[2020-12-13] MEDS: BRILINTA PO SCH ×2 (08:24→20:47)
[2020-12-13] MEDS: AVELOX IV 400 MG/250 ML BAG 400 MG/250 ML PIGGYBACK IV SCH (08:24)
[2020-12-13] MEDS: COZAAR PO SCH (08:25)
[2020-12-13] MEDS: PREDNISONE TAB 10 MG PO SCH (08:25)
[2020-12-13] MEDS: PROTONIX TAB 40 MG PO SCH (08:25)
[2020-12-13] MEDS: ELIQUIS PO SCH ×2 (08:26→20:47)
[2020-12-13] MEDS: COREG TAB 12.5 MG PO SCH ×2 (08:27→20:47)
[2020-12-13] MEDS ORDERED: RESTORIL CAP 30 MG PO PRN (08:33)
[2020-12-13] MEDS: ULTRAM PO PRN ×2 (08:39→18:19)
[2020-12-13] MEDS ORDERED: COREG TAB 12.5 MG PO SCH (09:00)
[2020-12-13] MEDS ORDERED: SOLU-Medrol 40 MG VIAL ONE (12:21)
[2020-12-13] MEDS: LIPITOR TAB 40 MG PO SCH (21:00)
[2020-12-14] MEDS: NS 1000 ML 1,000 ML IV SCH ×4 (00:39→16:50)
[2020-12-14] MEDS: DUONEB 0.5 MG/3 MG (3 mL) NEB SCH ×5 (01:25→20:53)
--- NOTE | 2020-12-14 05:42 | RAD ---
PROCEDURE: Chest X-ray 1 View .HISTORY: PNEUMONIA .TECHNIQUE: AP view .COMPARISON: 12/10/2020.TECHNICAL QUALITY: Satisfactory .FINDINGS:Unremarkable cardio mediastinal silhouette.Normal central vascularity.Some improvement in the patchy consolidation both lung contreras compared to previous study. Unchanged hyper expansion and hyperlucency to the lungs related to emphysema. No pleural fluid or pneumothorax.IMPRESSION:1. Improving pneumonia bilaterally.2. COPD.Electronically signed by: Lorne Kraus (Dec 14, 2020 05:40:50)
[2020-12-14 06:22] LABS: BASOPHILS % (AUTO) 0.1 % (0.2-1.0); EOSINOPHILS % (AUTO) 0.1 % (0.9-2.9); HEMATOCRIT 34.8 % (42.0-54.0); HEMOGLOBIN 11.1 g/dL (13.5-18.0); LYMPHOCYTES # (AUTO) 1.1 X10^3/uL (1.3-2.9); LYMPHOCYTES % (AUTO) 6.7 % (21.0-51.0); MEAN CORPUSCULAR HEMOGLOBIN 28.1 pg (27.0-34.0); MEAN CORPUSCULAR HGB CONC 31.9 g/dL (33.0-35.0); MEAN CORPUSCULAR VOLUME 87.9 fL (80.0-100.0); MEAN PLATELET VOLUME 7.1 fL (7.4-11.0); MONOCYTES # (AUTO) 2.5 x10^3/uL (0.3-0.8); MONOCYTES % (AUTO) 15.1 % (0.0-13.0); PLATELET COUNT 299 X10^3/uL (150.0-450.0); RED BLOOD COUNT 3.96 X10^6/uL (4.7-6.0); RED CELL DISTRIBUTION WIDTH 18.2 % (11.6-16.5); WHITE BLOOD COUNT 16.7 X10^3/uL (3.6-10.0)
[2020-12-14] MEDS: NEURONTIN TAB 600 MG PO SCH ×3 (06:32→21:43)
[2020-12-14 06:44] LABS: ALANINE AMINOTRANSFERASE 18 Units/L (12-78); ALBUMIN 2.2 g/dL (3.4-5.0); ALKALINE PHOSPHATASE 122 Units/L (46-116); ASPARTATE AMINO TRANSFERASE 28 Units/L (15-37); BLOOD UREA NITROGEN 8 mg/dL (7-18); CALCIUM 8.1 mg/dL (8.5-10.1); CARBON DIOXIDE 38.3 mmol/L (21-32); CHLORIDE 102 mmol/L (98-107); COR CA(FOR HYPOALB) 9.5 mg/dL (8.5-10.1); CREATININE 0.42 mg/dL (0.70-1.30); SODIUM 136 mmol/L (136-145); TOTAL PROTEIN 5.7 g/dL (6.4-8.2); eGFR NON BLACK RACES > 60 (>60)
[2020-12-14 07:08] LABS: ANISOCYTOSIS SLIGHT; BAND NEUTROPHILS % 3 % (0-10); PLATELET MORPHOLOGY COMMENT NORMAL (NORMAL)
[2020-12-14] MEDS ORDERED: AMBIEN PO PRN (08:11)
[2020-12-14] MEDS: ELIQUIS PO SCH ×2 (08:22→21:43)
[2020-12-14] MEDS: BRILINTA PO SCH ×2 (08:53→21:42)
[2020-12-14] MEDS: AVELOX IV 400 MG/250 ML BAG 400 MG/250 ML PIGGYBACK IV SCH (08:53)
[2020-12-14] MEDS: COZAAR PO SCH (08:54)
[2020-12-14] MEDS: PROTONIX TAB 40 MG PO SCH (08:54)
[2020-12-14] MEDS: PREDNISONE TAB 10 MG PO SCH (08:54)
[2020-12-14] MEDS: COREG TAB 12.5 MG PO SCH ×2 (09:31→21:42)
[2020-12-14] MEDS: TORADOL 15 MG VIAL IVP PRN (21:00)
[2020-12-14] MEDS: LIPITOR TAB 40 MG PO SCH (21:43)
[2020-12-15] MEDS: DUONEB 0.5 MG/3 MG (3 mL) NEB SCH ×6 (03:36→21:16)
[2020-12-15] MEDS: TORADOL 15 MG VIAL IVP PRN ×3 (05:58→17:34)
[2020-12-15] MEDS: NEURONTIN TAB 600 MG PO SCH ×3 (05:58→22:54)
[2020-12-15 06:26] LABS: BASOPHILS % (AUTO) 0.1 % (0.2-1.0); EOSINOPHILS # (AUTO) 0.1 x10^3/uL (0.0-0.2); EOSINOPHILS % (AUTO) 0.7 % (0.9-2.9); HEMOGLOBIN 11.6 g/dL (13.5-18.0); LYMPHOCYTES # (AUTO) 1.3 X10^3/uL (1.3-2.9); LYMPHOCYTES % (AUTO) 8.3 % (21.0-51.0); MEAN CORPUSCULAR HEMOGLOBIN 28.4 pg (27.0-34.0); MEAN CORPUSCULAR HGB CONC 32.3 g/dL (33.0-35.0); MEAN CORPUSCULAR VOLUME 88.1 fL (80.0-100.0); MEAN PLATELET VOLUME 7.2 fL (7.4-11.0); MONOCYTES # (AUTO) 2.2 x10^3/uL (0.3-0.8); MONOCYTES % (AUTO) 14.2 % (0.0-13.0); NEUTROPHILS # (AUTO) 11.8 x10^3/uL (2.2-4.8); NEUTROPHILS % (AUTO) 76.7 % (42.0-75.0); PLATELET COUNT 254 X10^3/uL (150.0-450.0); RED BLOOD COUNT 4.09 X10^6/uL (4.7-6.0); RED CELL DISTRIBUTION WIDTH 18.3 % (11.6-16.5); WHITE BLOOD COUNT 15.4 X10^3/uL (3.6-10.0)
[2020-12-15 06:35] LABS: ALANINE AMINOTRANSFERASE 15 Units/L (12-78); ALKALINE PHOSPHATASE 123 Units/L (46-116); ASPARTATE AMINO TRANSFERASE 32 Units/L (15-37); BLOOD UREA NITROGEN 8 mg/dL (7-18); CARBON DIOXIDE 36.8 mmol/L (21-32); CHLORIDE 103 mmol/L (98-107); COR CA(FOR HYPOALB) 9.6 mg/dL (8.5-10.1); CREATININE 0.47 mg/dL (0.70-1.30); SODIUM 138 mmol/L (136-145); TOTAL PROTEIN 5.4 g/dL (6.4-8.2); eGFR NON BLACK RACES > 60 (>60)
[2020-12-15 08:06] LABS: BAND NEUTROPHILS % 2 % (0-10)
[2020-12-15 08:08] LABS: ANISOCYTOSIS SLIGHT; PLATELET MORPHOLOGY COMMENT NORMAL (NORMAL)
[2020-12-15 08:25] LABS: BURR CELLS SLIGHT; OVALOCYTES SLIGHT; POIKILOCYTOSIS SLIGHT
[2020-12-15] MEDS: AVELOX IV 400 MG/250 ML BAG 400 MG/250 ML PIGGYBACK IV SCH (08:32)
[2020-12-15] MEDS: NS 1000 ML 1,000 ML IV SCH ×4 (08:32→19:40)
[2020-12-15] MEDS: BRILINTA PO SCH ×3 (08:34→22:59)
[2020-12-15] MEDS: COREG TAB 12.5 MG PO SCH ×3 (08:35→22:54)
[2020-12-15] MEDS: COZAAR PO SCH ×2 (08:35→10:10)
[2020-12-15] MEDS: ELIQUIS PO SCH ×2 (08:35→10:10)
[2020-12-15] MEDS: PROTONIX TAB 40 MG PO SCH ×2 (08:36→10:11)
[2020-12-15] MEDS: PREDNISONE TAB 10 MG PO SCH ×2 (08:36→10:11)
[2020-12-15] MEDS ORDERED: LINZESS PO SCH (13:00)
[2020-12-15] MEDS: LIPITOR TAB 40 MG PO SCH (22:54)
[2020-12-16] MEDS: DUONEB 0.5 MG/3 MG (3 mL) NEB SCH ×2 (01:45→06:06)
[2020-12-16 03:08] LABS: BASOPHILS % (AUTO) 0.3 % (0.2-1.0); EOSINOPHILS # (AUTO) 0.1 x10^3/uL (0.0-0.2); EOSINOPHILS % (AUTO) 0.7 % (0.9-2.9); HEMOGLOBIN 9.1 g/dL (13.5-18.0); LYMPHOCYTES # (AUTO) 1.4 X10^3/uL (1.3-2.9); LYMPHOCYTES % (AUTO) 9.1 % (21.0-51.0); MEAN CORPUSCULAR HEMOGLOBIN 28.3 pg (27.0-34.0); MEAN CORPUSCULAR HGB CONC 32.4 g/dL (33.0-35.0); MEAN CORPUSCULAR VOLUME 87.2 fL (80.0-100.0); MEAN PLATELET VOLUME 6.8 fL (7.4-11.0); MONOCYTES # (AUTO) 1.4 x10^3/uL (0.3-0.8); MONOCYTES % (AUTO) 9.3 % (0.0-13.0); NEUTROPHILS # (AUTO) 12.4 x10^3/uL (2.2-4.8); NEUTROPHILS % (AUTO) 80.6 % (42.0-75.0); PLATELET COUNT 239 X10^3/uL (150.0-450.0); RED BLOOD COUNT 3.21 X10^6/uL (4.7-6.0); RED CELL DISTRIBUTION WIDTH 18.2 % (11.6-16.5); WHITE BLOOD COUNT 15.4 X10^3/uL (3.6-10.0)
[2020-12-16 03:17] LABS: ALANINE AMINOTRANSFERASE 12 Units/L (12-78); ALBUMIN 1.7 g/dL (3.4-5.0); ALKALINE PHOSPHATASE 92 Units/L (46-116); ASPARTATE AMINO TRANSFERASE 15 Units/L (15-37); BLOOD UREA NITROGEN 9 mg/dL (7-18); CALCIUM 7.2 mg/dL (8.5-10.1); CARBON DIOXIDE 39.2 mmol/L (21-32); CHLORIDE 102 mmol/L (98-107); COR NA(FOR HYPERGLY) 139 mmol/L (136-145); SODIUM 138 mmol/L (136-145); TOTAL PROTEIN 4.4 g/dL (6.4-8.2); eGFR NON BLACK RACES > 60 (>60)
[2020-12-16 03:44] LABS: TROPONIN I 0.05 ng/mL (0-1.5)
[2020-12-16 03:56] LABS: CREATINE KINASE MB 5.7 ng/mL (0-4.0)
[2020-12-16 04:52] VITALS: BP 117/64
[2020-12-16] MEDS: NS 1000 ML 1,000 ML IV SCH ×2 (06:21→06:22)
[2020-12-16] MEDS: NEURONTIN TAB 600 MG PO SCH (06:23)
--- NOTE | 2020-12-16 07:56 | RAD ---
HISTORYCOPD; PNEUMONIA Relevant Clinical InformationSTUDYCHEST, 1 [id number]/13/2021FINDINGSChronic changes of COPD are again noted. There are lower lung predominant patchy airspace opacities, which are worsened from the prior. Small left-sided pleural effusion is suggested. No evidence for pneumothorax. The cardiac silhouette is stable.IMPRESSIONWorsened lower lung predominant multifocal pneumonia.Electronically signed by: JANEEN MOMIN (Dec 16, 2020 07:54:24)
[2020-12-18] MEDS ORDERED: ELIQUIS PO SCH (09:00)
== END 2020-12-16 07:06 | disposition short-term general hospital (02) | DRG 194 ==
LOC: ER 13:08 → MED/SURG 23:08
PROVIDERS: ADMIT Internal Medicine; ATTEND Obstetrics & Gynecology Obstetrics
DX: I25.10 Atherosclerotic heart disease of native coronary artery without angina pectoris; Z20.822 Contact with and (suspected) exposure to COVID-19; I25.2 Old myocardial infarction; J45.901 Unspecified asthma with (acute) exacerbation; R00.1 Bradycardia, unspecified; R26.2 Difficulty in walking, not elsewhere classified; I10 Essential (primary) hypertension; J18.8 Other pneumonia, unspecified organism; J44.1 Chronic obstructive pulmonary disease with (acute) exacerbation; F17.200 Nicotine dependence, unspecified, uncomplicated; M79.604 Pain in right leg; R10.9 Unspecified abdominal pain; R07.89 Other chest pain; D68.9 Coagulation defect, unspecified

== ENCOUNTER 2021-07-28 17:26 | Inpatient (IN) ==
--- NOTE | 2021-07-28 17:37 | DR.UPM ---
HPI Time Seen Time Seen by Provider: 07/28/21 17:34 Complaint Chief Complaint Doctors Comments: 50 y/o male brought in for evaluation. Started feeling ill last pm. + productive cough. + dysuria, pain at the tip of the penis, with hematuria (pt denies sexual activity). No report of fever, chills. + h/o COPD, feeling more short of breath than usual. Having some nausea, but no voimiting or diarrhea. COVID-19 Coronavirus risk:travel/contact w/high risk person: No Has patient experienced Coronavirus symptoms: No Reviewed Nurses Notes Reviewed: Yes Source History Provided: Patient Mode of Arrival Mode of Arrival: EMS PMH PMH Past Medical History: Asthma, COPD and Hypertension Past Surgical History: Yes Surgical History: Bowel Resection and Other Family History Family Medical History: Cancer, [place] and Hypertension Social History Do you use any recreational Drugs:: No Travel Risk Coronavirus risk:travel/contact w/high risk person: No Has patient experienced Coronavirus symptoms: No ROS Review of Systems Constitutional: No Symptoms Reported Eyes: No Symptoms Reported ENTM: No Symptoms Reported Respiratoy: Productive Cough and Short of Breath Cardiovascular: No Symptoms Reported Gastrointestinal/Abdominal: Nausea Genitourinary: Hematuria and Pain Neurological: No Symptoms Reported Musculoskeletal: No Symptoms Reported Integumentary: No Symptoms Reported Hematologic/Lymphatic: No Symptoms Reported Psychiatric: No Symptoms Reported All Other Systems: Reviewed and Negative PE Vital Signs Vitals: Temperature 98.8 F Pulse Rate 111 Respiratory Rate 33 Blood Pressure [Left Arm] 117/64 Blood Pressure 126/60 O2 Sat by Pulse Oximetry 100 General Limitations: No Limitations General Appearance: Alert and In No Apparent Distress Eyes Eye exam: PERRL and EOMI ENT ENT Exam: Normal Exam and Mucous Membranes Moist Neck Neck Exam: Normal Inspection Chest Chest Inspection: Normal Inspection Respiratory Respiratory Exam: Normal Lung Sounds Bilat; negative Accessory Muscle Use and Respiratory Distress Respiratory Exam: Bilateral: Clear to Auscultation Cardiovascular Cardiovascular Exam: Regular Rate, Normal Rhythm, Tachycardia and Normal Heart Sounds Abdominal Exam Abdominal Exam: Normal Inspection, Normal Bowel Sounds and Soft; negative Tenderness Genitourinary Exam: Male: Normal Inspection Scrotal Exam: Normal: Bilateral Extremities Extremities Exam: Normal Inspection Neurologic Neurological Exam: Alert, Oriented X3 and CN II-XII Intact; negative Motor Sensory Deficit Psychiatric Psychiatric Exam: Normal Affect Skin Skin Exam: Warm and Dry MDM Differential Diagnosis Other Differential Diagnosis: UTI, renal colic, prostatitis, COPD, bronchitis, pneumonia COURSE Treatment Treatment: 50 y/o male ill since yesterday. + hematuria, dysuria (not sexually active), also with worsening cough (h/o COPD). W/u initiated. Pt with tachycardia, given IV fluids. 1909 - WBC markedly elevated at 29K. Sodium/potassium slightly low. U/A with TNTC WBCs/RBCs. CT of abd/pelvis without any obvious ureteral or bladder stones. + changes c/w UTI. Will treat with IV levaquin. Recommend admission for UTI, COPD exacerbation. 1929 - discussed with Dr Resendiz, accepts the admission. ROR Labs Reviewed Laboratory Results Reviewed?: Yes Result Diagrams: 07/28/21 18:00 07/28/21 18:00 Laboratory: WBC 29.9 X10^3/uL (3.6-10.0) H 07/28/21 18:00 RBC 4.65 X10^6/uL (4.7-6.0) L 07/28/21 18:00 Hgb 13.3 g/dL (13.5-18.0) L 07/28/21 18:00 Hct 40.1 % (42.0-54.0) L 07/28/21 18:00 MCV 86.2 fL (80.0-100.0) 07/28/21 18:00 MCH 28.7 pg (27.0-34.0) 07/28/21 18:00 MCHC 33.3 g/dL (33.0-35.0) 07/28/21 18:00 RDW 17.1 % (11.6-16.5) H 07/28/21 18:00 Plt Count 244 X10^3/uL (150.0-450.0) 07/28/21 18:00 Plt Count Comment Adequate (ADEQUATE) 07/28/21 18:00 MPV 8.5 fL (7.4-11.0) 07/28/21 18:00 Neut % (Auto) 89.8 % (42.0-75.0) H 07/28/21 18:00 Lymph % (Auto) 2.5 % (21.0-51.0) L 07/28/21 18:00 [place] % (Auto) 7.4 % (0.0-13.0) 07/28/21 18:00 Eos % (Auto) 0.0 % (0.9-2.9) L 07/28/21 18:00 Baso % (Auto) 0.3 % (0.2-1.0) 07/28/21 18:00 Neut # (Auto) 26.9 x10^3/uL (2.2-4.8) H 07/28/21 18:00 Lymph # (Auto) 0.7 X10^3/uL (1.3-2.9) L 07/28/21 18:00 [place] # (Auto) 2.2 x10^3/uL (0.3-0.8) H 07/28/21 18:00 Eos # (Auto) 0.0 x10^3/uL (0.0-0.2) 07/28/21 18:00 Baso # (Auto) 0.1 X10^3/uL (0.0-0.1) 07/28/21 18:00 Absolute Nucleated RBC 0.0 /100WBC 07/28/21 18:00 Total Counted 100 07/28/21 18:00 Neutrophils % (Manual) 85 % (39-76) H 07/28/21 18:00 Band Neutrophils % 6 % (0-10) 07/28/21 18:00 Lymphocytes % (Manual) 2 % (13-43) L 07/28/21 18:00 Monocytes % (Manual) 7 % (4-9) 07/28/21 18:00 Plt Morphology Comment Normal (NORMAL) 07/28/21 18:00 RBC Morphology Normal (NORMAL) 07/28/21 18:00 Sodium 130 mmol/L (136-145) L 07/28/21 18:00 Corrected Sodium TNP 07/28/21 18:00 Potassium 3.3 mmol/L (3.5-5.1) L 07/28/21 18:00 Chloride 88 mmol/L (98-107) L 07/28/21 18:00 Carbon Dioxide 36.7 mmol/L (21-32) H 07/28/21 18:00 BUN 10 mg/dL (7-18) 07/28/21 18:00 Creatinine 0.60 mg/dL (0.70-1.30) L 07/28/21 18:00 Est GFR (MDRD) Af Amer > 60 (>60) 07/28/21 18:00 Est GFR (MDRD) Non-Af > 60 (>60) 07/28/21 18:00 Glucose 93 mg/dL (65-99) 07/28/21 18:00 Calcium 8.8 mg/dL (8.5-10.1) 07/28/21 18:00 Corrected Calcium TNP 07/28/21 18: Total Bilirubin 0.60 mg/dL (0.2-1.0) 07/28/21 18:00 AST 16 Units/L (15-37) 07/28/21 18:00 ALT 6 Units/L (12-78) L 07/28/21 18:00 Alkaline Phosphatase 107 Units/L (46-116) 07/28/21 18:00 Creatine Kinase 95 Units/L (39-308) 07/28/21 18:00 CK-MB (CK-2) < 1.0 ng/mL (0-4.0) 07/28/21 18: CK/CKMB % Calc 1.1 % (<4) 07/28/21 18: Troponin I High Sens 16.2 ng/L (4.0-60.0) 07/28/21 18:00 Total Protein 7.3 g/dL (6.4-8.2) 07/28/21 18: Albumin 3.4 g/dL (3.4-5.0) 07/28/21 18: Globulin 3.9 g/dL (2.5-4.5) 07/28/21 18: Albumin/Globulin Ratio 0.9 Ratio (1.1-2.1) L 07/28/21 18: Lipase 39 Units/L (73-393) L 07/28/21 18:00 Specimen Type Clean catch urine 07/28/21 18: Urine Color Dark yellow (YELLOW) 07/28/21: Urine Appearance Cloudy (CLEAR) 07/28/21: Urine pH 7.0 (5.0 - 8.0) 07/28/21 18: Ur Specific [place] 1.010 (1.000-1.030) 07/28/21: Urine Protein 3+ (NEGATIVE) 03/27/22 18:23 Urine Glucose (UA) Negative (NEGATIVE) 07/28/21 18:23 Urine Ketones Negative (NEGATIVE) 07/28/21 18:23 Urine Blood 5+ (NEGATIVE) 07/28/21 18:23 Urine Nitrite Positive (NEGATIVE) 07/28/21 18:23 Urine Bilirubin Negative (NEGATIVE) 07/28/21 18:23 Urine Urobilinogen 2+ (NORMAL) 07/28/21 18:23 Ur Leukocyte Esterase 3+ (NEGATIVE) 07/28/21 18:23 Urine RBC Tntc /HPF (0-3) A 07/28/21 18:23 Urine WBC Tntc /HPF (0-5) A 07/28/21 18:23 Ur Squamous Epith Cells Few /HPF (NEGATIVE) 07/28/21 18:23 Urine Bacteria 3+ /HPF (NEGATIVE) 07/28/21 18:23 Ur Culture Indicated? Yes/culture set up 07/28/21 18:23 Other Results Comments: WBC 29K. U/A with TNTC WBCs/RBCs. EKG Rate: 121 Leslie: Normal Rhythm: ST (w/occ PVC) Block: None Hypertrophy: LAE ST: Nonsp Opioid Opioid Risk Tool Age (Isaias box if 16-45): No History of Preadolescent Sexual Abuse: No Total: 0 Total Score Risk Category: Low Risk Copyright: Ham MORSE predicting aberrant behaviors Diagnosis Discharge Problem: COPD with acute exacerbation Urinary tract infection Qualifiers: Urinary tract infection type: site unspecified Hematuria presence: with hematuria Qualified Code(s): N39.0 - Urinary tract infection, site not specified
[2021-07-28] MEDS ORDERED: NS 1,000 ML IV 1,000 ML IV ONE (17:41)
[2021-07-28] MEDS ORDERED: TORADOL 30 MG VIAL IVP ONE (17:42)
[2021-07-28] MEDS ORDERED: TORADOL 30 MG VIAL ONE (17:54)
[2021-07-28] MEDS ORDERED: NS 1,000 ML IV 1,000 ML ONE (17:54)
[2021-07-28 18:33] LABS: BASOPHILS # (AUTO) 0.1 X10^3/uL (0.0-0.1); BASOPHILS % (AUTO) 0.3 % (0.2-1.0); HEMATOCRIT 40.1 % (42.0-54.0); HEMOGLOBIN 13.3 g/dL (13.5-18.0); LYMPHOCYTES # (AUTO) 0.7 X10^3/uL (1.3-2.9); LYMPHOCYTES % (AUTO) 2.5 % (21.0-51.0); MEAN CORPUSCULAR HEMOGLOBIN 28.7 pg (27.0-34.0); MEAN CORPUSCULAR HGB CONC 33.3 g/dL (33.0-35.0); MEAN CORPUSCULAR VOLUME 86.2 fL (80.0-100.0); MEAN PLATELET VOLUME 8.5 fL (7.4-11.0); MONOCYTES # (AUTO) 2.2 x10^3/uL (0.3-0.8); MONOCYTES % (AUTO) 7.4 % (0.0-13.0); NEUTROPHILS # (AUTO) 26.9 x10^3/uL (2.2-4.8); NEUTROPHILS % (AUTO) 89.8 % (42.0-75.0); RED BLOOD COUNT 4.65 X10^6/uL (4.7-6.0); RED CELL DISTRIBUTION WIDTH 17.1 % (11.6-16.5); WHITE BLOOD COUNT 29.9 X10^3/uL (3.6-10.0)
[2021-07-28 18:43] LABS: ALANINE AMINOTRANSFERASE 6 Units/L (12-78); ALBUMIN 3.4 g/dL (3.4-5.0); ALKALINE PHOSPHATASE 107 Units/L (46-116); ASPARTATE AMINO TRANSFERASE 16 Units/L (15-37); BLOOD UREA NITROGEN 10 mg/dL (7-18); CALCIUM 8.8 mg/dL (8.5-10.1); CARBON DIOXIDE 36.7 mmol/L (21-32); CHLORIDE 88 mmol/L (98-107); CKMB % 1.1 % (<4); CREATINE KINASE 95 Units/L (39-308); CREATINE KINASE MB < 1.0 ng/mL (0-4.0); LIPASE 39 Units/L (73-393); SODIUM 130 mmol/L (136-145); TOTAL PROTEIN 7.3 g/dL (6.4-8.2); eGFR NON BLACK RACES > 60 (>60)
[2021-07-28 18:49] LABS: BILIRUBIN,URINE NEGATIVE (NEGATIVE); BLOOD/HEMOGLOBIN,URINE 5+ (NEGATIVE); GLUCOSE, URINE NEGATIVE (NEGATIVE); KETONES,URINE NEGATIVE (NEGATIVE); LEUKOCYTE ESTERASE ,URINE 3+ (NEGATIVE); NITRITES,URINE POSITIVE (NEGATIVE); PROTEIN,URINE 3+ (NEGATIVE); UROBILINOGEN,URINE 2+ (NORMAL)
[2021-07-28 18:52] LABS: BAND NEUTROPHILS % 6 % (0-10); PLATELET MORPHOLOGY COMMENT NORMAL (NORMAL)
--- NOTE | 2021-07-28 18:55 | CT ---
EXAM: CT ABDOMEN AND PELVIS WITHOUT INTRAVENOUS CONTRASTHISTORY: Hematuria. Dysuria. History of bowel resection.TECHNIQUE: Spiral axial CT images are obtained through the abdomen and pelvis without the administration of intravenous contrast. Additional coronal and sagittal reformatted images are reconstructed.DOSIMETRY: Total DLP 346.4 mGycm; CTDI .7 mGyCOMPARISON: CT abdomen and pelvis dated December 09, 2019.FINDINGS:GASTROINTESTINAL TRACT: There are up to 2.8 cm dilated and fluid-filled small bowel loops in the upper anterior abdomen and up to 5.9 cm dilated air-filled right and transverse colon large bowel loops suspicious for focal ileus. There is no evidence for bowel herniation, bowel obstruction, colitis or diverticulitis. A normal-appearing appendix is seen.GENITOURINARY SYSTEM: There is suggestion of a tiny, approximately 2.5 mm, nonobstructing right middle pole renal calculus (versus atherosclerotic renovascular calcification). The kidneys are otherwise unremarkable. There is no ureteral calculus or stigmata of obstructive uropathy. There is parenchymal stranding seen around the prostate gland and seminal vesicles, with mild asymmetrical prominence of the left seminal vesicle; nonspecific findings; DDx includes prostatitis and seminal vesiculitis in the appropriate clinical setting. Mildly thickened appearance of the urinary bladder wall (5 mm) with pericystic stranding which may represent sequela of incomplete bladder distention, and/or cystitis in the appropriate clinical setting. Clinical correlation is advised.CT ABDOMEN: Severe aortoiliac and splenic artery atherosclerotic disease, without aneurysm formation. The liver, spleen, pancreas, adrenal glands, gallbladder, and inferior vena cava are within normal limits for a noncontrast CT scan. There is no intra-abdominal or retroperitoneal lymphadenopathy, free fluid, or free air seen. No abdominal herniation is noted.CT PELVIS: No pelvic sidewall or inguinal lymphadenopathy is seen. No inguinal herniation is noted. No free fluid or free air is seen. There is interval development of severe atrophic changes of the iliacus muscles, right greater than left; etiology and clinical significance indeterminate.BONES AND JOINTS: The visualized bony structures are within normal limits.LUNG BASES: Severe emphysematous disease is seen in the visualized midlung lower lung field. The lung bases are otherwise clear.IMPRESSION:1. Fatty parenchymal stranding seen around the prostate gland and seminal vesicles, with mild asymmetrical prominence of the left seminal vesicle; nonspecific findings; DDx includes prostatitis and seminal vesiculitis in the appropriate clinical setting.2. Mildly thickened appearance of the urinary bladder wall (5 mm) with pericystic stranding which may represent sequela of incomplete bladder distention, and/or cystitis in the appropriate clinical setting. Clinical correlation is3. Suggestion of a tiny, approximately 2.5 mm, nonobstructing right middle pole renal calculus (versus atherosclerotic renovascular calcification).4. No evidence for ureteral stones or obstructive uropathy.5. No evidence for acute appendicitis, bowel herniation/obstruction, colitis or diverticulitis seen.6. up to 2.8 cm dilated and fluid-filled small bowel loops in the upper anterior abdomen and up to 5.9 cm dilated air-filled right and transverse colon large bowel loops suspicious for focal ileus.7. Interval development of severe atrophic changes of the iliacus muscles, right greater than left; etiology and clinical significance indeterminate.8. No free fluid, free air, mass lesions, or lymphadenopathy seen.9. Severe emphysematous disease is seen in the visualized midlung lower lung field.Electronically signed by: Evelin Carter (Jul 28, 2021 18:54:52)
[2021-07-28 18:57] LABS: APPEARANCE,URINE CLOUDY (CLEAR); BACTERIA,URINE 3+ /HPF (NEGATIVE); COLOR,URINE DARK YELLOW (YELLOW); RBC,URINE TNTC /HPF (0-3); SQUAMOUS EPITHELIAL CELL,UR FEW /HPF (NEGATIVE)
[2021-07-28] MEDS ORDERED: LEVAQUIN PREMIX IV 750 MG 750 MG/150 ML BAG IV ONE ×2 (19:24→19:40)
[2021-07-28] MEDS ORDERED: MORPHINE SULFATE INJ 4 MG IVP ONE (19:33)
[2021-07-28] MEDS ORDERED: SOLU-Medrol 125 MG VIAL IVP ONE (19:33)
[2021-07-28] MEDS ORDERED: SOLU-Medrol 125 MG VIAL ONE (19:39)
[2021-07-28] MEDS ORDERED: MORPHINE SULFATE INJ 4 MG ONE (19:39)
[2021-07-28] MEDS ORDERED: VIBRAMYCIN 100 MG in D5W 250 ML IV 250 ML IV SCH (21:00)
[2021-07-28] MEDS ORDERED: VIBRAMYCIN IV ONE (21:07)
[2021-07-28] MEDS ORDERED: D5W 250 ML IV 250 ML IV ONE (21:07)
[2021-07-28] MEDS: SOLU-Medrol 40 MG VIAL IVP SCH (21:11)
[2021-07-28] MEDS: VIBRAMYCIN 100 MG in D5W 250 ML IV 250 ML IV SCH (21:17)
[2021-07-28] MEDS: D5 1/2 NS + KCL 20 MEQ/L 1,000 ML IV SCH (21:45)
[2021-07-28] MEDS: MORPHINE SULFATE INJ 4 MG IVP PRN (23:16)
[2021-07-28] MEDS ORDERED: SALINE 3% 15 ML NEB TX ONE (23:53)
[2021-07-29] MEDS ORDERED: SALINE 3% 15 ML NEB TX NEB ONE
[2021-07-29] MEDS: MORPHINE SULFATE INJ 4 MG IVP PRN ×4 (03:40→20:13)
[2021-07-29] MEDS: DUONEB 0.5 MG/3 MG (3 mL) NEB SCH ×3 (05:12→12:00)
[2021-07-29] MEDS: SOLU-Medrol 40 MG VIAL IVP SCH (05:32)
[2021-07-29 05:55] LABS: BASOPHILS % (AUTO) 0 % (0.2-1.0); HEMATOCRIT 36.7 % (42.0-54.0); HEMOGLOBIN 12.1 g/dL (13.5-18.0); LYMPHOCYTES # (AUTO) 0.7 X10^3/uL (1.3-2.9); LYMPHOCYTES % (AUTO) 2.1 % (21.0-51.0); MEAN CORPUSCULAR HEMOGLOBIN 28.5 pg (27.0-34.0); MEAN CORPUSCULAR HGB CONC 32.8 g/dL (33.0-35.0); MEAN CORPUSCULAR VOLUME 86.8 fL (80.0-100.0); MEAN PLATELET VOLUME 8.4 fL (7.4-11.0); MONOCYTES # (AUTO) 0.7 x10^3/uL (0.3-0.8); MONOCYTES % (AUTO) 2.2 % (0.0-13.0); NEUTROPHILS # (AUTO) 30.1 x10^3/uL (2.2-4.8); NEUTROPHILS % (AUTO) 95.7 % (42.0-75.0); RED BLOOD COUNT 4.23 X10^6/uL (4.7-6.0); RED CELL DISTRIBUTION WIDTH 17.1 % (11.6-16.5)
[2021-07-29 06:07] LABS: ALANINE AMINOTRANSFERASE 8 Units/L (12-78); ALBUMIN 3.1 g/dL (3.4-5.0); ALKALINE PHOSPHATASE 120 Units/L (46-116); ASPARTATE AMINO TRANSFERASE 16 Units/L (15-37); BLOOD UREA NITROGEN 11 mg/dL (7-18); CALCIUM 8.4 mg/dL (8.5-10.1); CARBON DIOXIDE 33.8 mmol/L (21-32); CHLORIDE 87 mmol/L (98-107); COR CA(FOR HYPOALB) 9.1 mg/dL (8.5-10.1); COR NA(FOR HYPERGLY) 125 mmol/L (136-145); CREATININE 0.72 mg/dL (0.70-1.30); eGFR NON BLACK RACES > 60 (>60)
[2021-07-29 06:20] LABS: SODIUM 125 mmol/L (136-145)
[2021-07-29 06:27] LABS: WHITE BLOOD COUNT 31.4 X10^3/uL (3.6-10.0)
[2021-07-29 06:28] LABS: BAND NEUTROPHILS % 8 % (0-10); PLATELET MORPHOLOGY COMMENT NORMAL (NORMAL)
[2021-07-29 06:29] LABS: ANISOCYTOSIS SLIGHT
--- NOTE | 2021-07-29 06:45 | RAD ---
HISTORYCoughSTUDYAP [id number] whittaker noted pulmonary infiltrates have resolved. Heart size normal with symmetric pulmonary hyperaeration. Mild chronic-appearing fibrotic scarring is noted in the right lung. No acute consolidation, pneumothorax or pleural fluid. Nonacute left rib fracture deformities.IMPRESSIONNo acute chest findings. Probable COPD. Mild chronic-appearing fibrotic scarring in the right lung.Electronically signed by: TRIXIE WEAVER (Jul 29, 2021 06:44:22)
[2021-07-29] MEDS: VIBRAMYCIN 100 MG in D5W 250 ML IV 250 ML IV SCH ×2 (08:40→21:54)
[2021-07-29] MEDS: D5 1/2 NS + KCL 20 MEQ/L 1,000 ML IV SCH (08:50)
[2021-07-29] MEDS: LOVENOX INJ 40 MG SYR SC SCH (08:50)
[2021-07-29] MEDS: NEURONTIN TAB 600 MG PO SCH ×3 (11:27→22:00)
[2021-07-29] MEDS: COZAAR PO SCH (11:36)
[2021-07-29] MEDS: NS 1,000 ML IV 1,000 ML IV SCH ×2 (11:36→23:42)
[2021-07-29] MEDS: BRILINTA PO SCH ×2 (11:36→20:13)
[2021-07-29] MEDS: COREG TAB 3.125 MG PO SCH ×2 (11:37→20:13)
[2021-07-29] MEDS: ULTRAM PO PRN ×2 (11:41→23:00)
[2021-07-29] MEDS: ZOFRAN INJ 4 MG VIAL IVP PRN (16:18)
[2021-07-29] MEDS ORDERED: LEVAQUIN PREMIX IV 750 MG 750 MG/150 ML BAG IV SCH (20:00)
[2021-07-29 20:04] VITALS: BMI 15.7
[2021-07-30] MEDS: MORPHINE SULFATE INJ 4 MG IVP PRN ×3 (03:01→20:48)
[2021-07-30] MEDS: DUONEB 0.5 MG/3 MG (3 mL) NEB SCH ×4 (05:05→17:05)
[2021-07-30] MEDS: ULTRAM PO PRN (05:27)
[2021-07-30] MEDS: NEURONTIN TAB 600 MG PO SCH ×3 (05:27→21:34)
[2021-07-30 06:20] LABS: BASOPHILS # (AUTO) 0.1 X10^3/uL (0.0-0.1); BASOPHILS % (AUTO) 0.3 % (0.2-1.0); HEMATOCRIT 36.4 % (42.0-54.0); HEMOGLOBIN 11.9 g/dL (13.5-18.0); LYMPHOCYTES # (AUTO) 0.9 X10^3/uL (1.3-2.9); LYMPHOCYTES % (AUTO) 2.5 % (21.0-51.0); MEAN CORPUSCULAR HEMOGLOBIN 28.5 pg (27.0-34.0); MEAN CORPUSCULAR HGB CONC 32.6 g/dL (33.0-35.0); MEAN CORPUSCULAR VOLUME 87.5 fL (80.0-100.0); MEAN PLATELET VOLUME 8.5 fL (7.4-11.0); MONOCYTES # (AUTO) 2.2 x10^3/uL (0.3-0.8); MONOCYTES % (AUTO) 6.3 % (0.0-13.0); NEUTROPHILS # (AUTO) 31.9 x10^3/uL (2.2-4.8); NEUTROPHILS % (AUTO) 90.9 % (42.0-75.0); RED BLOOD COUNT 4.16 X10^6/uL (4.7-6.0); RED CELL DISTRIBUTION WIDTH 17.5 % (11.6-16.5)
[2021-07-30 06:41] LABS: ALANINE AMINOTRANSFERASE 9 Units/L (12-78); ALBUMIN 2.9 g/dL (3.4-5.0); ALKALINE PHOSPHATASE 113 Units/L (46-116); ASPARTATE AMINO TRANSFERASE 23 Units/L (15-37); BLOOD UREA NITROGEN 7 mg/dL (7-18); CALCIUM 8.4 mg/dL (8.5-10.1); CARBON DIOXIDE 34.5 mmol/L (21-32); CHLORIDE 92 mmol/L (98-107); COR CA(FOR HYPOALB) 9.3 mg/dL (8.5-10.1); SODIUM 128 mmol/L (136-145); TOTAL PROTEIN 6.8 g/dL (6.4-8.2); eGFR NON BLACK RACES > 60 (>60)
[2021-07-30 07:19] LABS: ANISOCYTOSIS SLIGHT; BAND NEUTROPHILS % 8 % (0-10); PLATELET MORPHOLOGY COMMENT NORMAL (NORMAL)
[2021-07-30] MEDS: VIBRAMYCIN 100 MG in D5W 250 ML IV 250 ML IV SCH (08:34)
[2021-07-30] MEDS: BRILINTA PO SCH ×2 (08:34→20:48)
[2021-07-30] MEDS: COZAAR PO SCH (08:35)
[2021-07-30] MEDS: LOVENOX INJ 40 MG SYR SC SCH (08:35)
[2021-07-30] MEDS: COREG TAB 3.125 MG PO SCH ×2 (08:35→20:48)
[2021-07-30] MEDS ORDERED: ZOFRAN INJ 4 MG VIAL IVP ONE (09:39)
[2021-07-30] MEDS ORDERED: LINZESS PO ONE ×2 (09:39→13:40)
[2021-07-30] MEDS ORDERED: PHARMACY CONSULT - VANCOMYCIN XX SCH (10:00)
[2021-07-30] MEDS ORDERED: CONSULT PHARMACY - GENTAMICIN XX SCH (10:00)
[2021-07-30] MEDS: MERREM VIAL 1 G in NS 100 ML IV 100 ML IV SCH ×5 (13:55→22:30)
[2021-07-30] MEDS: GENTAMICIN INJ 60 MG in NS 100 ML IV 100 ML IV SCH ×3 (15:08→21:33)
[2021-07-30] MEDS: NS 1,000 ML IV 1,000 ML IV SCH (18:48)
[2021-07-30] MEDS: REQUIP PO SCH (20:48)
[2021-07-31] MEDS: DUONEB 0.5 MG/3 MG (3 mL) NEB SCH ×4 (00:40→17:05)
[2021-07-31] MEDS: NS 1,000 ML IV 1,000 ML IV SCH ×3 (03:03→17:03)
[2021-07-31] MEDS: MORPHINE SULFATE INJ 4 MG IVP PRN ×4 (04:52→21:48)
[2021-07-31] MEDS: NEURONTIN TAB 600 MG PO SCH ×3 (04:59→21:23)
[2021-07-31] MEDS: GENTAMICIN INJ 60 MG in NS 100 ML IV 100 ML IV SCH ×3 (04:59→22:22)
[2021-07-31] MEDS: MERREM VIAL 1 G in NS 100 ML IV 100 ML IV SCH ×3 (05:58→21:23)
[2021-07-31 06:37] LABS: BASOPHILS % (AUTO) 0.2 % (0.2-1.0); EOSINOPHILS # (AUTO) 0.2 x10^3/uL (0.0-0.2); EOSINOPHILS % (AUTO) 0.9 % (0.9-2.9); HEMATOCRIT 35.8 % (42.0-54.0); HEMOGLOBIN 11.3 g/dL (13.5-18.0); LYMPHOCYTES # (AUTO) 1.2 X10^3/uL (1.3-2.9); LYMPHOCYTES % (AUTO) 6.9 % (21.0-51.0); MEAN CORPUSCULAR HGB CONC 31.7 g/dL (33.0-35.0); MEAN CORPUSCULAR VOLUME 88.3 fL (80.0-100.0); MEAN PLATELET VOLUME 8.7 fL (7.4-11.0); MONOCYTES # (AUTO) 1.4 x10^3/uL (0.3-0.8); MONOCYTES % (AUTO) 8.3 % (0.0-13.0); NEUTROPHILS % (AUTO) 83.7 % (42.0-75.0); RED BLOOD COUNT 4.05 X10^6/uL (4.7-6.0); RED CELL DISTRIBUTION WIDTH 17.4 % (11.6-16.5); WHITE BLOOD COUNT 16.8 X10^3/uL (3.6-10.0)
[2021-07-31 07:01] LABS: ALANINE AMINOTRANSFERASE 8 Units/L (12-78); ALBUMIN 2.4 g/dL (3.4-5.0); ALKALINE PHOSPHATASE 91 Units/L (46-116); ASPARTATE AMINO TRANSFERASE 28 Units/L (15-37); BLOOD UREA NITROGEN 7 mg/dL (7-18); CALCIUM 8.3 mg/dL (8.5-10.1); CARBON DIOXIDE 35.7 mmol/L (21-32); CHLORIDE 99 mmol/L (98-107); COR CA(FOR HYPOALB) 9.6 mg/dL (8.5-10.1); SODIUM 134 mmol/L (136-145); TOTAL PROTEIN 5.8 g/dL (6.4-8.2); eGFR NON BLACK RACES > 60 (>60)
[2021-07-31] MEDS: COZAAR PO SCH (09:19)
[2021-07-31] MEDS: BRILINTA PO SCH ×2 (09:20→21:22)
[2021-07-31] MEDS: COREG TAB 3.125 MG PO SCH ×2 (09:20→21:22)
[2021-07-31] MEDS: LOVENOX INJ 40 MG SYR SC SCH (09:20)
[2021-07-31] MEDS ORDERED: PHARMACY COMMENT IV ONE ×2 (13:00→14:30)
[2021-07-31 14:14] LABS: CREATININE 0.48 mg/dL (0.70-1.30); GENTAMICIN,TROUGH 0.6 ug/mL (0-1.9)
[2021-07-31] MEDS: ULTRAM PO PRN (15:55)
[2021-07-31] MEDS: REQUIP PO SCH (21:22)
[2021-08-01] MEDS: DUONEB 0.5 MG/3 MG (3 mL) NEB SCH ×4 (00:35→16:48)
[2021-08-01] MEDS: MORPHINE SULFATE INJ 4 MG IVP PRN ×4 (04:43→20:40)
[2021-08-01] MEDS: GENTAMICIN INJ 60 MG in NS 100 ML IV 100 ML IV SCH ×3 (05:00→21:54)
[2021-08-01] MEDS: NEURONTIN TAB 600 MG PO SCH ×3 (05:08→21:54)
[2021-08-01] MEDS: MERREM VIAL 1 G in NS 100 ML IV 100 ML IV SCH ×3 (05:31→21:54)
[2021-08-01] MEDS: NS 1,000 ML IV 1,000 ML IV SCH ×2 (06:06→20:38)
[2021-08-01 06:12] LABS: BASOPHILS % (AUTO) 0.5 % (0.2-1.0); EOSINOPHILS # (AUTO) 0.2 x10^3/uL (0.0-0.2); EOSINOPHILS % (AUTO) 3.2 % (0.9-2.9); HEMATOCRIT 35.9 % (42.0-54.0); HEMOGLOBIN 11.7 g/dL (13.5-18.0); LYMPHOCYTES # (AUTO) 1.1 X10^3/uL (1.3-2.9); LYMPHOCYTES % (AUTO) 14.4 % (21.0-51.0); MEAN CORPUSCULAR HEMOGLOBIN 28.7 pg (27.0-34.0); MEAN CORPUSCULAR HGB CONC 32.5 g/dL (33.0-35.0); MEAN CORPUSCULAR VOLUME 88.1 fL (80.0-100.0); MONOCYTES # (AUTO) 0.8 x10^3/uL (0.3-0.8); MONOCYTES % (AUTO) 10.7 % (0.0-13.0); NEUTROPHILS # (AUTO) 5.6 x10^3/uL (2.2-4.8); NEUTROPHILS % (AUTO) 71.2 % (42.0-75.0); RED BLOOD COUNT 4.07 X10^6/uL (4.7-6.0); RED CELL DISTRIBUTION WIDTH 17.3 % (11.6-16.5); WHITE BLOOD COUNT 7.8 X10^3/uL (3.6-10.0)
[2021-08-01 06:35] LABS: ALANINE AMINOTRANSFERASE 9 Units/L (12-78); ALBUMIN 2.5 g/dL (3.4-5.0); ALKALINE PHOSPHATASE 87 Units/L (46-116); ASPARTATE AMINO TRANSFERASE 18 Units/L (15-37); BLOOD UREA NITROGEN 3 mg/dL (7-18); CALCIUM 8.6 mg/dL (8.5-10.1); CHLORIDE 96 mmol/L (98-107); COR CA(FOR HYPOALB) 9.8 mg/dL (8.5-10.1); CREATININE 0.41 mg/dL (0.70-1.30); SODIUM 138 mmol/L (136-145); TOTAL PROTEIN 5.9 g/dL (6.4-8.2); eGFR NON BLACK RACES > 60 (>60)
[2021-08-01 07:00] LABS: CARBON DIOXIDE 40.9 mmol/L (21-32)
[2021-08-01] MEDS: BRILINTA PO SCH ×2 (08:56→20:37)
[2021-08-01] MEDS: COREG TAB 3.125 MG PO SCH ×2 (08:58→20:38)
[2021-08-01] MEDS: COZAAR PO SCH (08:58)
[2021-08-01] MEDS: LOVENOX INJ 40 MG SYR SC SCH (08:59)
[2021-08-01] MEDS ORDERED: PHARMACY COMMENT IV NR ×2 (13:30→15:30)
[2021-08-01 14:25] LABS: CREATININE 0.6 mg/dL (0.70-1.30); GENTAMICIN,TROUGH 0.6 ug/mL (0-1.9)
[2021-08-01] MEDS: REQUIP PO SCH (20:39)
[2021-08-02] MEDS: DUONEB 0.5 MG/3 MG (3 mL) NEB SCH ×5 (00:10→18:14)
[2021-08-02] MEDS: ZOFRAN INJ 4 MG VIAL IVP PRN (00:21)
[2021-08-02] MEDS: MORPHINE SULFATE INJ 4 MG IVP PRN ×4 (03:41→21:42)
[2021-08-02] MEDS: MERREM VIAL 1 G in NS 100 ML IV 100 ML IV SCH (05:05)
[2021-08-02] MEDS: NEURONTIN TAB 600 MG PO SCH ×3 (05:06→21:35)
[2021-08-02] MEDS: GENTAMICIN INJ 60 MG in NS 100 ML IV 100 ML IV SCH (05:46)
[2021-08-02 06:36] LABS: BASOPHILS % (AUTO) 0.6 % (0.2-1.0); EOSINOPHILS # (AUTO) 0.3 x10^3/uL (0.0-0.2); EOSINOPHILS % (AUTO) 5.2 % (0.9-2.9); HEMATOCRIT 33.2 % (42.0-54.0); HEMOGLOBIN 11.1 g/dL (13.5-18.0); LYMPHOCYTES # (AUTO) 1.1 X10^3/uL (1.3-2.9); LYMPHOCYTES % (AUTO) 17.2 % (21.0-51.0); MEAN CORPUSCULAR HEMOGLOBIN 29.2 pg (27.0-34.0); MEAN CORPUSCULAR HGB CONC 33.5 g/dL (33.0-35.0); MONOCYTES # (AUTO) 0.9 x10^3/uL (0.3-0.8); MONOCYTES % (AUTO) 14.4 % (0.0-13.0); NEUTROPHILS # (AUTO) 4.1 x10^3/uL (2.2-4.8); NEUTROPHILS % (AUTO) 62.6 % (42.0-75.0); RED BLOOD COUNT 3.82 X10^6/uL (4.7-6.0); RED CELL DISTRIBUTION WIDTH 16.7 % (11.6-16.5); WHITE BLOOD COUNT 6.5 X10^3/uL (3.6-10.0)
[2021-08-02 06:45] LABS: ALANINE AMINOTRANSFERASE 7 Units/L (12-78); ALBUMIN 2.4 g/dL (3.4-5.0); ALKALINE PHOSPHATASE 91 Units/L (46-116); ASPARTATE AMINO TRANSFERASE 18 Units/L (15-37); BLOOD UREA NITROGEN 5 mg/dL (7-18); CALCIUM 8.5 mg/dL (8.5-10.1); CHLORIDE 97 mmol/L (98-107); COR CA(FOR HYPOALB) 9.8 mg/dL (8.5-10.1); CREATININE 0.53 mg/dL (0.70-1.30); SODIUM 139 mmol/L (136-145); TOTAL PROTEIN 5.8 g/dL (6.4-8.2); eGFR NON BLACK RACES > 60 (>60)
[2021-08-02 06:59] LABS: CARBON DIOXIDE 40.8 mmol/L (21-32)
[2021-08-02] MEDS ORDERED: K-DUR TAB 20 MEQ PO PRN (07:06)
[2021-08-02] MEDS ORDERED: KLOR-CON PO PRN (07:06)
[2021-08-02] MEDS ORDERED: POTASSIUM CHLORIDE LIQ 20 MEQ UDC PO PRN (07:06)
[2021-08-02] MEDS ORDERED: POTASSIUM CHL 60 MEQ/NS 0.45% 500 ML IV PRN (07:06)
[2021-08-02] MEDS ORDERED: K-RIDER 10 MEQ/NS 100 ML 10 MEQ/100 ML BAG IV PRN (07:06)
[2021-08-02] MEDS ORDERED: MICRO K EXTEN CAP 10 MEQ PO PRN (07:06)
[2021-08-02] MEDS ORDERED: MAGNESIUM SULFATE 1 GRAM/100 mL PREMIX 1 G/100 ML BAG IV PRN (07:06)
[2021-08-02] MEDS ORDERED: POTASSIUM CHL 40 MEQ/NS 0.45% 500 ML IV PRN (07:06)
[2021-08-02] MEDS: LOVENOX INJ 40 MG SYR SC SCH (08:19)
[2021-08-02] MEDS: COREG TAB 3.125 MG PO SCH ×3 (08:19→21:35)
[2021-08-02] MEDS: COZAAR PO SCH (08:19)
[2021-08-02] MEDS: BRILINTA PO SCH ×2 (08:19→21:35)
[2021-08-02] MEDS ORDERED: BACTRIM DS TAB PO ONE (09:15)
[2021-08-02] MEDS: BACTRIM DS TAB PO SCH ×2 (12:20→21:35)
[2021-08-02] MEDS: GENTAMICIN INJ 80 MG in NS 100 ML IV 100 ML IV SCH ×2 (14:50→21:55)
[2021-08-02] MEDS: NS 1,000 ML IV 1,000 ML IV SCH (16:30)
[2021-08-02] MEDS: REQUIP PO SCH (21:35)
[2021-08-03] MEDS: DUONEB 0.5 MG/3 MG (3 mL) NEB SCH ×4 (00:10→17:49)
[2021-08-03] MEDS: MORPHINE SULFATE INJ 4 MG IVP PRN ×5 (02:11→23:16)
[2021-08-03] MEDS: GENTAMICIN INJ 80 MG in NS 100 ML IV 100 ML IV SCH (05:42)
[2021-08-03] MEDS: NEURONTIN TAB 600 MG PO SCH ×3 (05:43→21:27)
[2021-08-03] MEDS: NS 1,000 ML IV 1,000 ML IV SCH ×2 (05:43→17:05)
[2021-08-03 06:08] LABS: BASOPHILS # (AUTO) 0.1 X10^3/uL (0.0-0.1); BASOPHILS % (AUTO) 0.5 % (0.2-1.0); EOSINOPHILS # (AUTO) 0.4 x10^3/uL (0.0-0.2); EOSINOPHILS % (AUTO) 4.1 % (0.9-2.9); HEMATOCRIT 36.8 % (42.0-54.0); HEMOGLOBIN 12.2 g/dL (13.5-18.0); LYMPHOCYTES # (AUTO) 1.4 X10^3/uL (1.3-2.9); LYMPHOCYTES % (AUTO) 13.7 % (21.0-51.0); MEAN CORPUSCULAR HEMOGLOBIN 28.8 pg (27.0-34.0); MEAN CORPUSCULAR HGB CONC 33.2 g/dL (33.0-35.0); MEAN CORPUSCULAR VOLUME 86.8 fL (80.0-100.0); MEAN PLATELET VOLUME 7.9 fL (7.4-11.0); MONOCYTES # (AUTO) 1.4 x10^3/uL (0.3-0.8); MONOCYTES % (AUTO) 13.6 % (0.0-13.0); NEUTROPHILS # (AUTO) 7.1 x10^3/uL (2.2-4.8); NEUTROPHILS % (AUTO) 68.1 % (42.0-75.0); RED BLOOD COUNT 4.24 X10^6/uL (4.7-6.0); RED CELL DISTRIBUTION WIDTH 17.1 % (11.6-16.5); WHITE BLOOD COUNT 10.5 X10^3/uL (3.6-10.0)
[2021-08-03 06:20] LABS: ALANINE AMINOTRANSFERASE 8 Units/L (12-78); ALBUMIN 2.8 g/dL (3.4-5.0); ALKALINE PHOSPHATASE 96 Units/L (46-116); ASPARTATE AMINO TRANSFERASE 17 Units/L (15-37); BLOOD UREA NITROGEN 6 mg/dL (7-18); CALCIUM 9.1 mg/dL (8.5-10.1); CHLORIDE 98 mmol/L (98-107); COR CA(FOR HYPOALB) 10.1 mg/dL (8.5-10.1); CREATININE 0.47 mg/dL (0.70-1.30); MAGNESIUM 2.5 mg/dL (1.7-2.9); SODIUM 137 mmol/L (136-145); TOTAL PROTEIN 6.4 g/dL (6.4-8.2); eGFR NON BLACK RACES > 60 (>60)
[2021-08-03 06:26] LABS: CARBON DIOXIDE 40.5 mmol/L (21-32)
[2021-08-03] MEDS: ULTRAM PO PRN (08:43)
[2021-08-03] MEDS: BRILINTA PO SCH ×2 (08:43→21:26)
[2021-08-03] MEDS: COREG TAB 3.125 MG PO SCH ×2 (08:43→21:26)
[2021-08-03] MEDS: LOVENOX INJ 40 MG SYR SC SCH (08:45)
[2021-08-03] MEDS: COZAAR PO SCH (08:45)
[2021-08-03] MEDS: BACTRIM DS TAB PO SCH ×2 (08:46→21:25)
[2021-08-03] MEDS: FLOMAX PO SCH (13:09)
[2021-08-03] MEDS ORDERED: PHARMACY COMMENT IV NR ×2 (13:30→15:30)
[2021-08-03] MEDS: REQUIP PO SCH (21:27)
[2021-08-04] MEDS: DUONEB 0.5 MG/3 MG (3 mL) NEB SCH ×2 (00:20→06:02)
[2021-08-04] MEDS: NS 1,000 ML IV 1,000 ML IV SCH ×2 (01:50→05:37)
[2021-08-04] MEDS: MORPHINE SULFATE INJ 4 MG IVP PRN ×2 (03:13→09:09)
[2021-08-04 04:16] VITALS: BP 100/58
[2021-08-04] MEDS: ULTRAM PO PRN (04:53)
[2021-08-04 05:21] LABS: BASOPHILS # (AUTO) 0.1 X10^3/uL (0.0-0.1); BASOPHILS % (AUTO) 0.6 % (0.2-1.0); EOSINOPHILS # (AUTO) 0.5 x10^3/uL (0.0-0.2); EOSINOPHILS % (AUTO) 5.2 % (0.9-2.9); HEMATOCRIT 36.7 % (42.0-54.0); LYMPHOCYTES # (AUTO) 1.6 X10^3/uL (1.3-2.9); LYMPHOCYTES % (AUTO) 17.3 % (21.0-51.0); MEAN CORPUSCULAR HEMOGLOBIN 28.4 pg (27.0-34.0); MEAN CORPUSCULAR HGB CONC 32.6 g/dL (33.0-35.0); MEAN CORPUSCULAR VOLUME 87.1 fL (80.0-100.0); MEAN PLATELET VOLUME 7.8 fL (7.4-11.0); MONOCYTES # (AUTO) 1.2 x10^3/uL (0.3-0.8); NEUTROPHILS # (AUTO) 5.9 x10^3/uL (2.2-4.8); NEUTROPHILS % (AUTO) 63.9 % (42.0-75.0); RED BLOOD COUNT 4.22 X10^6/uL (4.7-6.0); RED CELL DISTRIBUTION WIDTH 17.3 % (11.6-16.5); WHITE BLOOD COUNT 9.3 X10^3/uL (3.6-10.0)
[2021-08-04 05:30] LABS: ALANINE AMINOTRANSFERASE < 6 Units/L (12-78); ALBUMIN 3.1 g/dL (3.4-5.0); ALKALINE PHOSPHATASE 92 Units/L (46-116); ASPARTATE AMINO TRANSFERASE 12 Units/L (15-37); BLOOD UREA NITROGEN 11 mg/dL (7-18); CALCIUM 8.8 mg/dL (8.5-10.1); CARBON DIOXIDE 35.1 mmol/L (21-32); CHLORIDE 97 mmol/L (98-107); COR CA(FOR HYPOALB) 9.5 mg/dL (8.5-10.1); CREATININE 0.58 mg/dL (0.70-1.30); SODIUM 134 mmol/L (136-145); TOTAL PROTEIN 6.7 g/dL (6.4-8.2); eGFR NON BLACK RACES > 60 (>60)
[2021-08-04] MEDS: NEURONTIN TAB 600 MG PO SCH (06:14)
[2021-08-04] MEDS: COZAAR PO SCH (08:20)
[2021-08-04] MEDS: BRILINTA PO SCH (08:21)
[2021-08-04] MEDS: BACTRIM DS TAB PO SCH (08:21)
[2021-08-04] MEDS: FLOMAX PO SCH (08:21)
[2021-08-04] MEDS: COREG TAB 3.125 MG PO SCH (08:23)
[2021-08-04] MEDS: LOVENOX INJ 40 MG SYR SC SCH (08:24)
== END 2021-08-04 11:30 | disposition home or self-care (01) | DRG 191 ==
LOC: MED/SURG 17:26 → ER 17:26 → OBSVTOIN 19:53 → MED/SURG 21:25
PROVIDERS: ADMIT Obstetrics & Gynecology Obstetrics; ATTEND Obstetrics & Gynecology Obstetrics
DX: R94.31 Abnormal electrocardiogram [ECG] [EKG]; I10 Essential (primary) hypertension; I25.10 Atherosclerotic heart disease of native coronary artery without angina pectoris; R26.89 Other abnormalities of gait and mobility; N20.9 Urinary calculus, unspecified; J44.1 Chronic obstructive pulmonary disease with (acute) exacerbation; Z20.822 Contact with and (suspected) exposure to COVID-19; N41.1 Chronic prostatitis; B96.29 Other Escherichia coli [E. coli] as the cause of diseases classified elsewhere; N39.0 Urinary tract infection, site not specified

== ENCOUNTER 2021-11-04 08:33 | Inpatient (IN) ==
[2021-11-04 09:02] LABS: BASOPHILS # (AUTO) 0.3 X10^3/uL (0.0-0.1); EOSINOPHILS # (AUTO) 0.2 x10^3/uL (0.0-0.2); EOSINOPHILS % (AUTO) 2.4 % (0.9-2.9); HEMOGLOBIN 12.7 g/dL (13.5-18.0); LYMPHOCYTES % (AUTO) 11.2 % (21.0-51.0); MEAN CORPUSCULAR HEMOGLOBIN 30.4 pg (27.0-34.0); MEAN CORPUSCULAR HGB CONC 33.3 g/dL (33.0-35.0); MEAN CORPUSCULAR VOLUME 91.2 fL (80.0-100.0); MEAN PLATELET VOLUME 8.7 fL (7.4-11.0); MONOCYTES # (AUTO) 0.6 x10^3/uL (0.3-0.8); MONOCYTES % (AUTO) 6.9 % (0.0-13.0); NEUTROPHILS # (AUTO) 7.1 x10^3/uL (2.2-4.8); NEUTROPHILS % (AUTO) 76.5 % (42.0-75.0); RED BLOOD COUNT 4.17 X10^6/uL (4.7-6.0); RED CELL DISTRIBUTION WIDTH 15.6 % (11.6-16.5); WHITE BLOOD COUNT 9.3 X10^3/uL (3.6-10.0)
[2021-11-04 09:03] LABS: BLOOD UREA NITROGEN 8 mg/dL (7-18); CARBON DIOXIDE 41.5 mmol/L (21-32); CHLORIDE 95 mmol/L (98-107); CREATININE 0.46 mg/dL (0.70-1.30); SODIUM 138 mmol/L (136-145); eGFR NON BLACK RACES > 60 (>60)
--- NOTE | 2021-11-04 09:08 | DR.SOBA ---
HPI Time Seen Time Seen by Provider: 11/04/21 09:07 Primary Care Physician Primary Care Physician: PRABHU HPI Comment HPI Comment: PATIENT IS 51YR OLD MALE WITH HISTORY OF COPD, ASTHMA, CAD AND HTN IN ER WITH INCREASING SOB, CHEST PAIN AND COUGH SINCE YESTERDAY. WORSE TODAY. Complaints Chief Complaint Doctors Comments: INCREASONG SOB, CHEST PAIN AND COUGH TIMES ONE DAY. Chief Complaint:: PT. C/O SHORTNESS OF BREATH X 1 DAY. PT. ALSO C/O COUGH AND GENERALIZED BODY ACHES. O2 SAT WAS 79% UPON EMS ARRIVAL ON N/C @ 3LPM. COVID-19 Coronavirus risk:travel/contact w/high risk person: No Has patient experienced Coronavirus symptoms: Yes Coronavirus symptoms experienced: Coughing and Shortness of Breath Reviewed Nurses Notes Reviewed: Yes Source History Provided: Patient and EMS Mode of Arrival Mode of Arrival: EMS Timing Onset of Chief Complaint: 11/03/21 Duration Duration: Days Context Onset:: At Rest PE Risk Factors:: None History of:: Asthma and COPD Currently on:: Inhaled Bronchodilators Prehospital Care:: Inhaled B2 Modifying Factors Worsens:: Exertion and Lying Flat Improves:: Rest and Sitting Up Associated Signs and Symptoms Associated Signs and Symptoms: Fever, Cough, Nasal Congestion and Chest Pain If Chest Pain Quality: Pleuritic (TIGHTNESS.) If Cough Cough: Productive and Yellow PMH PMH Past Medical History: Yes Past Medical History: Asthma, COPD, Coronary Artery Disease and Hypertension Past Surgical History: Yes Surgical History: Angioplasty/Stents, Bowel Resection and Other Past Surgical History Comment: LEFT AKA Family History History of Family Medical Conditions: Yes Family Medical History: Cancer, [place] and Hypertension Social History Does patient currently use any type of tobacco product: Yes Have you used tobacco products in the last 12 months: Yes Type of Tobacco Use: Cigarettes Does any household member use tobacco: No Alcohol Use: None Do you use any recreational Drugs:: No Lives With: Family Lives Where: Home Travel Risk Coronavirus risk:travel/contact w/high risk person: No Has patient experienced Coronavirus symptoms: Yes Coronavirus symptoms experienced: Coughing and Shortness of Breath Infectious screening In the last 2 months have you had wt loss of >10#?: NO Have you had fever, night sweats or hemotysis?: No Have you traveled outside the country in the last 6 months?: No Isolation: Droplet ROS Review of Systems Constitutional: No Symptoms Reported, See HPI, Fever, Weakness and Fatigue Eyes: No Symptoms Reported and See HPI; negative Blurred Vision ENTM: See HPI, Nose Discharge and Nose Congestion Respiratoy: See HPI, Productive Cough, Short of Breath and Wheezing Cardiovascular: See HPI and Chest Pain; negative Edema Gastrointestinal/Abdominal: See HPI and Abdominal Pain; negative Diarrhea, Nausea or Vomiting Genitourinary: No Symptoms Reported and See HPI; negative Dysuria Neurological: Headache and Weakness; negative Dizziness Musculoskeletal: See HPI, Back Pain and Muscle Pain Integumentary: No Symptoms Reported and See HPI Hematologic/Lymphatic: See HPI and Easy Bruising Endocrine: See HPI and Increased Thirst; negative Increased Urine (DECREASE URINE.) Psychiatric: No Symptoms Reported and See HPI PE Vital Signs Vitals: Temperature 98.3 F Pulse Rate 80 Respiratory Rate 22 Blood Pressure [Right Arm] 98/74 Blood Pressure 90/60 O2 Sat by Pulse Oximetry 99 General Limitations: No Limitations Head Head Exam: Normal Inspection and Atraumatic Eyes Eye exam: Normal Appearance; negative Scleral Icterus or Conjunctival Injection ENT ENT Exam: Normal Exam, Normal Oropharynx, Normal External Ear Exam and TM's Normal Bilaterally Neck Neck Exam: Normal Inspection and Trachea Midline; negative Tenderness Chest Chest Inspection: Normal Inspection and Symmetric Chest Wall Rise; negative Tenderness Respiratory Respiratory Exam: Normal Lung Sounds Bilat, Accessory Muscle Use and Respiratory Distress; negative Chest Wall Tenderness Respiratory Exam: Bilateral: Rhonchi and Lower: Rhonchi Cardiovascular Cardiovascular Exam: Regular Rate and Normal Rhythm Abdominal Exam Abdominal Exam: Normal Inspection and Normal Bowel Sounds; negative Tenderness Extremities Extremities Exam: Normal Inspection and Normal Capillary Refill Back Back Exam: Normal Inspection and Full ROM; negative (R) CVA Tenderness or (L) CVA Tenderness Neurologic Neurological Exam: Alert and Oriented X3; negative Motor Sensory Deficit Psychiatric Psychiatric Exam: Normal Affect and Normal Mood MDM Differential Diagnosis Differential Diagnosis: Asthma, Bronchitis, CHF, COPD, Dysrhythmia, Mycardial Infarction, Pneumonia, Pneumothorax and Respiratory Insufficiency COURSE Treatment Treatment: SEE ORDERS DONE WHILE PATIENT WAS IN ER. Consultation Consultation Comments: DISCUSSED PATIENT WITH DR. OWENS. HE WILL ADMIT PATIENT. Education/Counseling Education/Counseling: Patient Educated On: Treatment and Diagnosis ROR Labs Reviewed Laboratory Results Reviewed?: Yes Result Diagrams: 11/06/21 05:07 11/06/21 05:07 Laboratory: 11/04/21 09:09 Urine,Clean Catch Urine Culture - Final Enterococcus Faecalis WBC 9.3 X10^3/uL (3.6-10.0) 11/04/21 08:40 RBC 4.17 X10^6/uL (4.7-6.0) L 11/04/21 08:40 Hgb 12.7 g/dL (13.5-18.0) L 11/04/21 08:40 Hct 38.0 % (42.0-54.0) L 11/04/21 08:40 MCV 91.2 fL (80.0-100.0) 11/04/21 08:40 MCH 30.4 pg (27.0-34.0) 11/04/21 08:40 MCHC 33.3 g/dL (33.0-35.0) 11/04/21 08:40 RDW 15.6 % (11.6-16.5) 11/04/21 08:40 Plt Count 241 X10^3/uL (150.0-450.0) 11/04/21 08:40 MPV 8.7 fL (7.4-11.0) 11/04/21 08:40 Neut % (Auto) 76.5 % (42.0-75.0) H 11/04/21 08:40 Lymph % (Auto) 11.2 % (21.0-51.0) L 11/04/21 08:40 [place] % (Auto) 6.9 % (0.0-13.0) 11/04/21 08:40 Eos % (Auto) 2.4 % (0.9-2.9) 11/04/21 08:40 Baso % (Auto) 3.0 % (0.2-1.0) H 11/04/21 08:40 Neut # (Auto) 7.1 x10^3/uL (2.2-4.8) H 11/04/21 08:40 Lymph # (Auto) 1.0 X10^3/uL (1.3-2.9) L 11/04/21 08:40 [place] # (Auto) 0.6 x10^3/uL (0.3-0.8) 11/04/21 08:40 Eos # (Auto) 0.2 x10^3/uL (0.0-0.2) 11/04/21 08:40 Baso # (Auto) 0.3 X10^3/uL (0.0-0.1) H 11/04/21 08:40 Absolute Nucleated RBC 0.0 /100WBC 11/04/21 08:40 Sample Site Lr 11/04/21 09:11 ABG pH 7.330 (7.35-7.45) L 11/04/21 09:11 ABG pCO2 93.0 mmHg (35.0-45.0) H* 11/04/21 09:11 ABG pO2 73.0 mmHg (80.0-100.0) L 11/04/21 09:11 ABG HCO3 49.0 mmol/L (22-26) H* 11/04/21 09:11 ABG O2 Saturation 93.0 % (90-100) 11/04/21 09:11 ABG Base Excess 18.5 mmol/L (-2.0-2.0) H 11/04/21 09:11 Jose Daniel Test Pos 11/04/21 09:11 A-a Gradient 67.0 mmHg 11/04/21 09:11 FiO2 36.0 11/04/21 09:11 Blood Gas Comments Pt dc well cdn 11/04/21 09:11 Sodium 138 mmol/L (136-145) 11/04/21 08:40 Corrected Sodium TNP 11/04/21 08:40 Potassium 5.2 mmol/L (3.5-5.1) H 11/04/21 08:40 Chloride 95 mmol/L (98-107) L 11/04/21 08:40 Carbon Dioxide 41.5 mmol/L (21-32) H 11/04/21 08:40 BUN 8 mg/dL (7-18) 11/04/21 08:40 Creatinine 0.46 mg/dL (0.70-1.30) L 11/04/21 08:40 Est GFR (MDRD) Af Amer > 60 (>60) 11/04/21 08:40 Est GFR (MDRD) Non-Af > 60 (>60) 11/04/21 08:40 Glucose 97 mg/dL (65-99) 11/04/21 08:40 Calcium 9.0 mg/dL (8.5-10.1) 11/04/21 08:40 Corrected Calcium TNP 11/04/21 08:40 Total Bilirubin 0.20 mg/dL (0.2-1.0) 11/04/21 08:40 AST 23 Units/L (15-37) 11/04/21 08:40 ALT 12 Units/L (12-78) 11/04/21 08:40 Alkaline Phosphatase 107 Units/L (46-116) 11/04/21 08:40 Creatine Kinase 82 Units/L (39-308) 11/04/21 08:40 CK-MB (CK-2) 3.5 ng/mL (0-4.0) 11/04/21 08:40 CK/CKMB % Calc 4.3 % (<4) 11/04/21 08:40 Troponin I High Sens 27.1 ng/L (4.0-60.0) 11/04/21 08:40 Total Protein 7.1 g/dL (6.4-8.2) 11/04/21 08:40 Albumin 3.6 g/dL (3.4-5.0) 11/04/21 08:40 Globulin 3.5 g/dL (2.5-4.5) 11/04/21 08:40 Albumin/Globulin Ratio 1.0 Ratio (1.1-2.1) L 11/04/21 08:40 Amylase 34 Units/L (25-115) 11/04/21 08:40 Lipase 70 Units/L (73-393) L 11/04/21 08:40 Specimen Type Clean catch urine 11/04/21 09:09 Urine Color Yellow (YELLOW) 11/04/21 09:09 Urine Appearance Clear (CLEAR) 11/04/21 09:09 Urine pH 6.0 (5.0 - 8.0) 11/04/21 09:09 Ur Specific [place] 1.025 (1.000-1.030) 11/04/21 09:09 Urine Protein 2+ (NEGATIVE) 11/04/21 09:09 Urine Glucose (UA) Negative (NEGATIVE) 11/04/21 09:09 Urine Ketones 1+ (NEGATIVE) 11/04/21 09:09 Urine Blood 5+ (NEGATIVE) 11/04/21 09:09 Urine Nitrite Negative (NEGATIVE) 11/04/21 09:09 Urine Bilirubin Negative (NEGATIVE) 11/04/21 09:09 Urine Urobilinogen Normal (NORMAL) 11/04/21 09:09 Ur Leukocyte Esterase 1+ (NEGATIVE) 11/04/21 09:09 Urine RBC 10-20 /HPF (0-3) A 11/04/21 09:09 Urine WBC 0-2 /HPF (0-5) 11/04/21 09:09 Ur Squamous Epith Cells Rare /HPF (NEGATIVE) 11/04/21 09:09 Amorphous Sediment Trace /HPF (NEGATIVE) 11/04/21 09:09 Urine Bacteria Trace /HPF (NEGATIVE) 11/04/21 09:09 Hyaline Casts Rare /LPF (NEGATIVE) 11/04/21 09:09 Urine Mucus Few /HPF (NEGATIVE) 11/04/21 09:09 Ur Culture Indicated? Yes/culture set up 11/04/21 09:09 SARS-CoV-2 (PCR) Negative (NEGATIVE) 11/04/21 09:20 Influenza Type A (PCR) Negative (NEGATIVE) 11/04/21 09:20 Influenza Type B (PCR) Negative (NEGATIVE) 11/04/21 09:20 RSV (PCR) Negative (NEGATIVE) 11/04/21 09:20 XRAY XRAY Interpreted by: Radiologist (REPORT NOTED.) and Self EKG Rate: 88 [place]: Normal Rhythm: NSR Block: None Hypertrophy: None ST: Nonsp Opioid Opioid Risk Tool Age (Isaias box if 16-45): No History of Preadolescent Sexual Abuse: No Total: 0 Total Score Risk Category: Low Risk Copyright: Ham MORSE predicting aberrant behaviors Discharge Plan Diagnosis Discharge Problem: Acute and chronic respiratory failure with hypercapnia, COPD exacerbation, Bronchitis, Dehydration, Acute hyperkalemia Discharge Plan Patient Disposition: 09 ADMITTED INPATIENT Condition: Stable
[2021-11-04] MEDS ORDERED: ZOFRAN INJ 4 MG VIAL IVP ONE (09:09)
[2021-11-04] MEDS ORDERED: PEPCID 20 MG VIAL 20 MG in NS 50 ML IV 50 ML IV ONE (09:10)
[2021-11-04] MEDS ORDERED: ZOFRAN INJ 4 MG VIAL ONE (09:11)
[2021-11-04] MEDS ORDERED: NS 50 ML IV 50 ML IV ONE (09:13)
[2021-11-04] MEDS ORDERED: PEPCID 20 MG VIAL ONE (09:13)
[2021-11-04 09:17] LABS: ABG BASE EXCESS 18.5 mmol/L (-2.0-2.0)
[2021-11-04 09:19] LABS: ABG ALLEN TEST POS
[2021-11-04] MEDS ORDERED: SOLU-Medrol 125 MG VIAL IVP ONE (09:19)
[2021-11-04] MEDS ORDERED: SOLU-Medrol 125 MG VIAL ONE (09:21)
[2021-11-04 09:24] LABS: AMYLASE 34 Units/L (25-115); LIPASE 70 Units/L (73-393)
[2021-11-04 09:35] LABS: ALANINE AMINOTRANSFERASE 12 Units/L (12-78); ALBUMIN 3.6 g/dL (3.4-5.0); ALKALINE PHOSPHATASE 107 Units/L (46-116); ASPARTATE AMINO TRANSFERASE 23 Units/L (15-37); CKMB % 4.3 % (<4); CREATINE KINASE 82 Units/L (39-308); CREATINE KINASE MB 3.5 ng/mL (0-4.0); TOTAL PROTEIN 7.1 g/dL (6.4-8.2)
[2021-11-04] MEDS ORDERED: LEVAQUIN PREMIX IV 500 MG 500 MG/100 ML BAG IV ONE ×2 (09:36→09:45)
[2021-11-04] MEDS ORDERED: NS 1,000 ML IV 1,000 ML ONE (09:45)
[2021-11-04] MEDS: NS 1,000 ML IV 1,000 ML IV SCH ×2 (09:49→13:55)
--- NOTE | 2021-11-04 10:10 | RAD ---
HISTORYSOBSTUDYAP chestCOMPARISONApril 2021FINDINGSSimilar normal heart size with symmetric pulmonary hyperinflation. Indistinct linear density again noted right midlung. No consolidation, hilar adenopathy or pleural fluid demonstrated.IMPRESSIONMild persistent right midlung density consistent with postinflammatory fibrosis or atelectasis. No definite pneumonia.Electronically signed by: TRIXIE WEAVER (Nov 04, 2021 10:08:21)
[2021-11-04 10:59] LABS: BILIRUBIN,URINE NEGATIVE (NEGATIVE); BLOOD/HEMOGLOBIN,URINE 5+ (NEGATIVE); GLUCOSE, URINE NEGATIVE (NEGATIVE); KETONES,URINE 1+ (NEGATIVE); LEUKOCYTE ESTERASE ,URINE 1+ (NEGATIVE); NITRITES,URINE NEGATIVE (NEGATIVE); PROTEIN,URINE 2+ (NEGATIVE); UROBILINOGEN,URINE NORMAL (NORMAL)
[2021-11-04 11:01] LABS: APPEARANCE,URINE CLEAR (CLEAR); COLOR,URINE YELLOW (YELLOW)
[2021-11-04 11:09] LABS: BACTERIA,URINE TRACE /HPF (NEGATIVE); HYALINE CASTS, URINE RARE /LPF (NEGATIVE); SQUAMOUS EPITHELIAL CELL,UR RARE /HPF (NEGATIVE)
[2021-11-04] MEDS: DUONEB 0.5 MG/3 MG (3 mL) NEB SCH ×3 (14:08→21:05)
[2021-11-04 16:07] LABS: CREATINE KINASE MB 2.5 ng/mL (0-4.0)
[2021-11-04 16:36] LABS: ABG BASE EXCESS 13.3 mmol/L (-2.0-2.0)
[2021-11-04 16:38] LABS: ABG ALLEN TEST POS; ABG HCO3 42.7 mmol/L (22-26)
--- NOTE | 2021-11-04 17:08 | DR.H&P ---
H&P History & Physical for Day of: H&P Date: 11/04/21 Chief Complaint Chief Complaint: Shortness of breath and dyspnea Allergies Allergies Allergy/AdvReac Type Severity Reaction Status Date / Time Penicillins Allergy Verified 11/04/21 08:41 History of Present Illness History of Present Illness: This is a 51-year-old white male who presented to the emergency department with approximately 1 day history of increasing shortness of breath and dyspnea. He was reporting that he was having great difficulty breathing. He was 79% O2 sat on 3 L nasal cannula in the emergency department. He does have a long history of COPD and asthma with multiple hospitalizations in the past for respiratory problems. He was also seen to be mildly hyperkalemic on work-up and he also has known coronary artery disease status post stenting. He does continue to smoke cigarettes as well. Past Medical History Past Medical History: Asthma, COPD, Coronary Artery Disease and Hypertension Additional Medical History: GI Ulcer, IBS, Diarrhea, Previous Blood Transfusion, Colon Cancer Past Surgical History Surgical History: Angioplasty/Stents, Bowel Resection and Other Additional Surgical History: Hernia, Bowel Resection for Colon Cancer Family History Family Medical History: Cancer, MD and Hypertension Social History Does patient currently use any type of tobacco product: Yes Have you used tobacco products in the last 12 months: Yes Type of Tobacco Use: Cigarettes Does any household member use tobacco: No Alcohol Use: None Drug Use: None Medications Home Medications: Penicillins Allergy (Verified 11/04/21 08:41) Labs Result Diagrams: 11/04/21 08:40 11/04/21 08:40 Labs: Laboratory WBC 9.3 X10^3/uL (3.6-10.0) 11/04/21 08:40 RBC 4.17 X10^6/uL (4.7-6.0) L 11/04/21 08:40 Hgb 12.7 g/dL (13.5-18.0) L 11/04/21 08:40 Hct 38.0 % (42.0-54.0) L 11/04/21 08:40 MCV 91.2 fL (80.0-100.0) 11/04/21 08:40 MCH 30.4 pg (27.0-34.0) 11/04/21 08:40 MCHC 33.3 g/dL (33.0-35.0) 11/04/21 08:40 RDW 15.6 % (11.6-16.5) 11/04/21 08:40 Plt Count 241 X10^3/uL (150.0-450.0) 11/04/21 08:40 MPV 8.7 fL (7.4-11.0) 11/04/21 08:40 Neut % (Auto) 76.5 % (42.0-75.0) H 11/04/21 08:40 Lymph % (Auto) 11.2 % (21.0-51.0) L 11/04/21 08:40 [place] % (Auto) 6.9 % (0.0-13.0) 11/04/21 08:40 Eos % (Auto) 2.4 % (0.9-2.9) 11/04/21 08:40 Baso % (Auto) 3.0 % (0.2-1.0) H 11/04/21 08:40 Neut # (Auto) 7.1 x10^3/uL (2.2-4.8) H 11/04/21 08:40 Lymph # (Auto) 1.0 X10^3/uL (1.3-2.9) L 11/04/21 08:40 [place] # (Auto) 0.6 x10^3/uL (0.3-0.8) 11/04/21 08:40 Eos # (Auto) 0.2 x10^3/uL (0.0-0.2) 11/04/21 08:40 Baso # (Auto) 0.3 X10^3/uL (0.0-0.1) H 11/04/21 08:40 Absolute Nucleated RBC 0.0 /100WBC 11/04/21 08:40 Sample Site Lr 11/04/21 16:31 ABG pH 7.330 (7.35-7.45) L 11/04/21 16:31 ABG pCO2 81.0 mmHg (35.0-45.0) H* 11/04/21 16:31 ABG pO2 99.0 mmHg (80.0-100.0) 11/04/21 16:31 ABG HCO3 42.7 mmol/L (22-26) H* 11/04/21 16:31 ABG O2 Saturation 97.0 % (90-100) 11/04/21 16:31 ABG Base Excess 13.3 mmol/L (-2.0-2.0) H 11/04/21 16:31 Jose Daniel Test Pos 11/04/21 16:31 A-a Gradient 49.0 mmHg 11/04/21 16:31 FiO2 35.0 11/04/21 16:31 Blood Gas Comments Pt dc well cdn 11/04/21 16:31 Sodium 138 mmol/L (136-145) 11/04/21 08:40 Corrected Sodium TNP 11/04/21 08:40 Potassium 5.2 mmol/L (3.5-5.1) H 11/04/21 08:40 Chloride 95 mmol/L (98-107) L 11/04/21 08:40 Carbon Dioxide 41.5 mmol/L (21-32) H 11/04/21 08:40 BUN 8 mg/dL (7-18) 11/04/21 08:40 Creatinine 0.46 mg/dL (0.70-1.30) L 11/04/21 08:40 Est GFR (MDRD) Af Amer > 60 (>60) 11/04/21 08:40 Est GFR (MDRD) Non-Af > 60 (>60) 11/04/21 08:40 Glucose 97 mg/dL (65-99) 11/04/21 08:40 Calcium 9.0 mg/dL (8.5-10.1) 11/04/21 08:40 Corrected Calcium TNP 11/04/21 08:40 Total Bilirubin 0.20 mg/dL (0.2-1.0) 11/04/21 08:40 AST 23 Units/L (15-37) 11/04/21 08:40 ALT 12 Units/L (12-78) 11/04/21 08:40 Alkaline Phosphatase 107 Units/L (46-116) 11/04/21 08:40 Creatine Kinase 50 Units/L (39-308) 11/04/21 15:20 CK-MB (CK-2) 2.5 ng/mL (0-4.0) 11/04/21 15:20 CK/CKMB % Calc 5.0 % (<4) 11/04/21 15:20 Troponin I High Sens 17.8 ng/L (4.0-60.0) 11/04/21 15:20 Total Protein 7.1 g/dL (6.4-8.2) 11/04/21 08:40 Albumin 3.6 g/dL (3.4-5.0) 11/04/21 08:40 Globulin 3.5 g/dL (2.5-4.5) 11/04/21 08:40 Albumin/Globulin Ratio 1.0 Ratio (1.1-2.1) L 11/04/21 08:40 Amylase 34 Units/L (25-115) 11/04/21 08:40 Lipase 70 Units/L (73-393) L 11/04/21 08:40 Specimen Type Clean catch urine 11/04/21 09:09 Urine Color Yellow (YELLOW) 11/04/21 09:09 Urine Appearance Clear (CLEAR) 11/04/21 09:09 Urine pH 6.0 (5.0 - 8.0) 11/04/21 09:09 Ur Specific [place] 1.025 (1.000-1.030) 11/04/21 09:09 Urine Protein 2+ (NEGATIVE) 11/04/21 09:09 Urine Glucose (UA) Negative (NEGATIVE) 11/04/21 09:09 Urine Ketones 1+ (NEGATIVE) 11/04/21 09:09 Urine Blood 5+ (NEGATIVE) 11/04/21 09:09 Urine Nitrite Negative (NEGATIVE) 11/04/21 09:09 Urine Bilirubin Negative (NEGATIVE) 11/04/21 09:09 Urine Urobilinogen Normal (NORMAL) 11/04/21 09:09 Ur Leukocyte Esterase 1+ (NEGATIVE) 11/04/21 09:09 Urine RBC 10-20 /HPF (0-3) A 11/04/21 09:09 Urine WBC 0-2 /HPF (0-5) 11/04/21 09:09 Ur Squamous Epith Cells Rare /HPF (NEGATIVE) 11/04/21 09:09 Amorphous Sediment Trace /HPF (NEGATIVE) 11/04/21 09:09 Urine Bacteria Trace /HPF (NEGATIVE) 11/04/21 09:09 Hyaline Casts Rare /LPF (NEGATIVE) 11/04/21 09:09 Urine Mucus Few /HPF (NEGATIVE) 11/04/21 09:09 Ur Culture Indicated? Yes/culture set up 11/04/21 09:09 SARS-CoV-2 (PCR) Negative (NEGATIVE) 11/04/21 09:20 Influenza Type A (PCR) Negative (NEGATIVE) 11/04/21 09:20 Influenza Type B (PCR) Negative (NEGATIVE) 11/04/21 09:20 RSV (PCR) Negative (NEGATIVE) 11/04/21 09:20 Review of Systems Constitutional: Weakness Eyes: No Symptoms Reported ENT: No Symptoms Reported Respiratory: Cough, Shortness of Breath, SOB with Excertion and Wheezing Cardiovascular: Chest Pain Gastrointestinal: No Symptoms Reported Genitourinary: No Symptoms Reported Musculoskeletal: No Symptoms Reported Skin: No Symptoms Reported Neurological: No Symptoms Reported Physical Exam Vital Signs: Temperature 98.2 F Pulse Rate [Left Brachial] 78 Pulse Rate 72 Respiratory Rate 24 Blood Pressure [Right Arm] 110/66 Blood Pressure 102/63 O2 Sat by Pulse Oximetry 99 Oriented: Normal, Time, Person and Place Eyes: Normal Ear: Normal Nose: Normal Throat: Normal Respiratory: Diminished Throughout and Rhonchi Throughout Cardiovascular: Tachycardia : Normal Auscultation: Bowel Sounds: Normal Palpation: Normal Tenderness: Normal Skin: Normal Musculoskeletal: Normal Psychiatric: Anxiety and Agitation Mood Description: Anxious Affect: Anxious Speech Pattern: Appropriate Assessment/Plan (1) COPD exacerbation: Status: Acute Plan: We will be giving the patient albuterol jet nebs along with inhaled budesonide nebs as well. IV Solu-Medrol IV Levaquin and I will add IV Fortaz as well. Continue supplemental O2 with BiPAP at this time. (2) Acute hyperkalemia: Status: Acute Plan: Since the patient only has low potassium level of 5.2 we will give him IV fluids suspect he will help bring it down by dilution. We will recheck potassium level with a CMP in the morning. (3) HTN (hypertension): Qualifiers: Hypertension type: essential hypertension Qualified Code(s): I10 - Esse ntial (primary) hypertension Status: Chronic Plan: Monitor the patient's blood pressure daily. Just antihypertensive medications as needed. Review H&P Reviewed: Yes Patient was examined?: Yes
[2021-11-04] MEDS: FORTAZ or TAZICEF VIAL INJ 1 G in NS 100 ML IV 100 ML IV SCH ×2 (17:45→21:29)
[2021-11-04] MEDS: PULMICORT NEB TX 0.5 MG NEB SCH (21:05)
[2021-11-04 21:41] LABS: CKMB % 4.4 % (<4); CREATINE KINASE MB 3.2 ng/mL (0-4.0)
[2021-11-04] MEDS: NORCO 5/325 MG TAB PO PRN (22:21)
[2021-11-05] MEDS: DUONEB 0.5 MG/3 MG (3 mL) NEB SCH ×6 (00:29→20:53)
[2021-11-05] MEDS: NS 1,000 ML IV 1,000 ML IV SCH ×2 (02:51→17:59)
[2021-11-05 05:08] LABS: ABG BASE EXCESS 13.8 mmol/L (-2.0-2.0)
[2021-11-05 05:09] LABS: ABG HCO3 41.8 mmol/L (22-26)
[2021-11-05 05:10] LABS: ABG ALLEN TEST POS
[2021-11-05] MEDS: FORTAZ or TAZICEF VIAL INJ 1 G in NS 100 ML IV 100 ML IV SCH ×3 (05:40→21:26)
[2021-11-05 06:26] LABS: BASOPHILS % (AUTO) 0.2 % (0.2-1.0); EOSINOPHILS % (AUTO) 0.1 % (0.9-2.9); HEMATOCRIT 33.1 % (42.0-54.0); HEMOGLOBIN 11.1 g/dL (13.5-18.0); LYMPHOCYTES # (AUTO) 1.1 X10^3/uL (1.3-2.9); MEAN CORPUSCULAR HEMOGLOBIN 30.5 pg (27.0-34.0); MEAN CORPUSCULAR HGB CONC 33.5 g/dL (33.0-35.0); MEAN CORPUSCULAR VOLUME 91.1 fL (80.0-100.0); MEAN PLATELET VOLUME 8.7 fL (7.4-11.0); MONOCYTES # (AUTO) 0.8 x10^3/uL (0.3-0.8); MONOCYTES % (AUTO) 9.5 % (0.0-13.0); NEUTROPHILS # (AUTO) 6.2 x10^3/uL (2.2-4.8); NEUTROPHILS % (AUTO) 76.2 % (42.0-75.0); RED BLOOD COUNT 3.64 X10^6/uL (4.7-6.0); RED CELL DISTRIBUTION WIDTH 15.8 % (11.6-16.5); WHITE BLOOD COUNT 8.2 X10^3/uL (3.6-10.0)
[2021-11-05 06:44] LABS: ALANINE AMINOTRANSFERASE 12 Units/L (12-78); ALBUMIN 3.1 g/dL (3.4-5.0); ALKALINE PHOSPHATASE 90 Units/L (46-116); ASPARTATE AMINO TRANSFERASE 22 Units/L (15-37); BLOOD UREA NITROGEN 10 mg/dL (7-18); CALCIUM 8.4 mg/dL (8.5-10.1); CARBON DIOXIDE 37.6 mmol/L (21-32); CHLORIDE 98 mmol/L (98-107); COR CA(FOR HYPOALB) 9.1 mg/dL (8.5-10.1); CREATININE 0.44 mg/dL (0.70-1.30); MAGNESIUM 1.6 mg/dL (1.7-2.9); SODIUM 138 mmol/L (136-145); TOTAL PROTEIN 6.3 g/dL (6.4-8.2); eGFR NON BLACK RACES > 60 (>60)
[2021-11-05] MEDS: SOLU-Medrol 40 MG VIAL IVP SCH ×3 (09:15→21:26)
[2021-11-05] MEDS: LEVAQUIN PREMIX IV 250 MG 250 MG/50 ML BAG IV SCH (09:15)
[2021-11-05] MEDS: VSL#3 PO SCH (09:15)
[2021-11-05] MEDS: PULMICORT NEB TX 0.5 MG NEB SCH ×2 (09:32→20:53)
[2021-11-05] MEDS ORDERED: ULTRAM PO PRN (09:45)
[2021-11-05] MEDS: COREG TAB 6.25 MG PO SCH ×2 (09:50→20:29)
[2021-11-05] MEDS: COZAAR PO SCH (09:50)
[2021-11-05] MEDS: FLOMAX PO SCH (09:50)
[2021-11-05] MEDS: MICRO K EXTEN CAP 10 MEQ PO SCH (09:50)
[2021-11-05] MEDS: PLAVIX PO SCH (09:50)
[2021-11-05] MEDS: LASIX PO SCH (11:02)
[2021-11-05] MEDS: NEURONTIN TAB 600 MG PO SCH ×2 (14:45→21:26)
[2021-11-05 15:46] VITALS: BMI 16.0
[2021-11-05] MEDS ORDERED: MAALOX or MYLANTA PO PRN (17:46)
[2021-11-05] MEDS: NORCO 5/325 MG TAB PO PRN (19:58)
[2021-11-05] MEDS ORDERED: REQUIP PO SCH (21:00)
[2021-11-05] MEDS ORDERED: LIPITOR TAB 40 MG PO SCH (21:00)
[2021-11-06] MEDS: DUONEB 0.5 MG/3 MG (3 mL) NEB SCH ×4 (00:34→15:22)
[2021-11-06] MEDS: NORCO 5/325 MG TAB PO PRN (04:35)
[2021-11-06] MEDS: NS 1,000 ML IV 1,000 ML IV SCH (04:36)
[2021-11-06] MEDS: NEURONTIN TAB 600 MG PO SCH (05:00)
[2021-11-06] MEDS: FORTAZ or TAZICEF VIAL INJ 1 G in NS 100 ML IV 100 ML IV SCH (05:00)
[2021-11-06] MEDS: SOLU-Medrol 40 MG VIAL IVP SCH (05:00)
[2021-11-06 05:50] LABS: BASOPHILS % (AUTO) 0.1 % (0.2-1.0); HEMATOCRIT 30.4 % (42.0-54.0); HEMOGLOBIN 10.3 g/dL (13.5-18.0); LYMPHOCYTES # (AUTO) 0.5 X10^3/uL (1.3-2.9); LYMPHOCYTES % (AUTO) 5.5 % (21.0-51.0); MEAN CORPUSCULAR HEMOGLOBIN 30.4 pg (27.0-34.0); MEAN CORPUSCULAR HGB CONC 33.8 g/dL (33.0-35.0); MEAN CORPUSCULAR VOLUME 89.9 fL (80.0-100.0); MEAN PLATELET VOLUME 8.3 fL (7.4-11.0); MONOCYTES # (AUTO) 0.5 x10^3/uL (0.3-0.8); MONOCYTES % (AUTO) 4.7 % (0.0-13.0); NEUTROPHILS # (AUTO) 8.7 x10^3/uL (2.2-4.8); NEUTROPHILS % (AUTO) 89.7 % (42.0-75.0); RED BLOOD COUNT 3.38 X10^6/uL (4.7-6.0); RED CELL DISTRIBUTION WIDTH 15.3 % (11.6-16.5); WHITE BLOOD COUNT 9.7 X10^3/uL (3.6-10.0)
[2021-11-06 06:07] LABS: ALANINE AMINOTRANSFERASE 11 Units/L (12-78); ALBUMIN 2.6 g/dL (3.4-5.0); ALKALINE PHOSPHATASE 103 Units/L (46-116); ASPARTATE AMINO TRANSFERASE 15 Units/L (15-37); BLOOD UREA NITROGEN 11 mg/dL (7-18); CALCIUM 7.9 mg/dL (8.5-10.1); CARBON DIOXIDE 38.1 mmol/L (21-32); CHLORIDE 95 mmol/L (98-107); COR NA(FOR HYPERGLY) 137 mmol/L (136-145); CREATININE 0.47 mg/dL (0.70-1.30); SODIUM 135 mmol/L (136-145); TOTAL PROTEIN 5.5 g/dL (6.4-8.2); eGFR NON BLACK RACES > 60 (>60)
[2021-11-06] MEDS: PULMICORT NEB TX 0.5 MG NEB SCH (08:30)
[2021-11-06] MEDS: COZAAR PO SCH (09:15)
[2021-11-06] MEDS: PLAVIX PO SCH (09:15)
[2021-11-06] MEDS: LASIX PO SCH (09:15)
[2021-11-06] MEDS: VSL#3 PO SCH (09:15)
[2021-11-06] MEDS: LEVAQUIN PREMIX IV 250 MG 250 MG/50 ML BAG IV SCH (09:15)
[2021-11-06] MEDS: MICRO K EXTEN CAP 10 MEQ PO SCH (09:15)
[2021-11-06] MEDS: COREG TAB 6.25 MG PO SCH (09:15)
[2021-11-06] MEDS: FLOMAX PO SCH (09:15)
[2021-11-06 11:14] VITALS: BP 127/72
== END 2021-11-06 15:15 | disposition home or self-care (01) | DRG 192 ==
LOC: ER 08:33 → MED/SURG 10:41
PROVIDERS: ADMIT Obstetrics & Gynecology Obstetrics; ATTEND Obstetrics & Gynecology Obstetrics
DX: J44.1 Chronic obstructive pulmonary disease with (acute) exacerbation; E87.5 Hyperkalemia; R06.89 Other abnormalities of breathing; I25.10 Atherosclerotic heart disease of native coronary artery without angina pectoris; J20.9 Acute bronchitis, unspecified; I11.0 Hypertensive heart disease with heart failure; R07.89 Other chest pain; R06.02 Shortness of breath; B95.2 Enterococcus as the cause of diseases classified elsewhere; I50.9 Heart failure, unspecified; Z89.612 Acquired absence of left leg above knee; Z20.822 Contact with and (suspected) exposure to COVID-19

== ENCOUNTER 2022-09-17 19:03 | Observation (INO) ==
--- NOTE | 2022-09-17 19:29 | EKG ---
Test Reason : chest pain Blood Pressure : */* mmHG Vent. Rate : 74 BPM Atrial Rate : 74 BPM P-R Int : 130 ms QRS Dur : 66 ms QT Int : 376 ms P-R-T Axes : 84 76 78 degrees QTc Int : 417 ms Normal sinus rhythm Right atrial enlargement Pulmonary disease pattern Nonspecific T wave abnormality Abnormal ECG When compared with ECG of 26-AUG-2022 17:33, No significant change was found Confirmed by Jermaine Penny ([id number]) on 09/18/2022 8:01:28 AM Referred By: Confirmed By: Jermaine Penny
--- NOTE | 2022-09-17 19:36 | DR.SOBA ---
HPI <Chato Caputo - Last Filed: 09/18/22 08:47> Time Seen Time Seen by Provider: 09/17/22 19:35 Primary Care Physician Primary Care Physician: Complaints Chief Complaint Doctors Comments: 52 y/o male brought in for evaluation. They were called out for altered mental status. Pt well known to some of our nurses, not his usual self. Pt poor historian, slow to respond to questions. Having loose cough, shortness of breath, anterior chest pain, fever and chills. + generalized weakness. No bowel/bladder complaints. + h/o COPD, still smokes. + O2 dependent at home. Chief Complaint:: PER EMS THEY WERE CALLED OUT TO THE PT DUE TO SOB AND HEAD PAIN. ON ARRIVAL PT C/O SOB, CHEST PAIN AND HEAD PAIN. COVID-19 Coronavirus risk:travel/contact w/high risk person: No Has patient experienced Coronavirus symptoms: Yes Coronavirus symptoms experienced: Shortness of Breath Reviewed Nurses Notes Reviewed: Yes Source History Provided: EMS Mode of Arrival Mode of Arrival: EMS Timing Onset of Chief Complaint: 09/17/22 PMH <Chato Caputo - Last Filed: 09/18/22 08:47> PMH Past Medical History: Yes Past Medical History: Asthma, COPD, Coronary Artery Disease and Hypertension Past Surgical History: Yes Surgical History: Angioplasty/Stents, Bowel Resection and Other Family History History of Family Medical Conditions: Yes Family Medical History: Cancer, [place] and Hypertension Social History Do you use any recreational Drugs:: No Lives With: Family Lives Where: Home Travel Risk Coronavirus risk:travel/contact w/high risk person: No Has patient experienced Coronavirus symptoms: Yes Coronavirus symptoms experienced: Shortness of Breath Infectious screening In the last 2 months have you had wt loss of >10#?: NO Have you had fever, night sweats or hemotysis?: No Have you traveled outside the country in the last 6 months?: No Isolation: Standard ROS <Chato Schwarzsusan - Last Filed: 09/18/22 08:47> Review of Systems Constitutional: Chills, Fever and Weakness Eyes: No Symptoms Reported ENTM: No Symptoms Reported Respiratoy: Moist Cough and Short of Breath Cardiovascular: Chest Pain Gastrointestinal/Abdominal: No Symptoms Reported Genitourinary: No Symptoms Reported Neurological: Headache and Weakness Musculoskeletal: No Symptoms Reported Integumentary: No Symptoms Reported All Other Systems: Reviewed and Negative PE <Chato Harshal - Last Filed: 09/18/22 08:47> Vital Signs Vitals: Temperature 98.5 F Pulse Rate 70 Respiratory Rate 34 Blood Pressure [Right Arm] 127/72 Blood Pressure [Left Arm] 100/58 Blood Pressure [Right Arm] 138/78 Blood Pressure 181/93 O2 Sat by Pulse Oximetry 98 General General Appearance: Other (awake, tachypneic, slow to respond to questions, mostly one word answers. ) Eyes Eye exam: PERRL and EOMI ENT ENT Exam: Normal Oropharynx Respiratory Respiratory Exam: Accessory Muscle Use, Respiratory Distress and Other (decrease breath sounds at bases) Abdominal Exam Abdominal Exam: Normal Bowel Sounds and Soft; negative Tenderness Extremities Extremities Exam: negative Edema Neurologic Neurological Exam: Other (somnolent, lucy easily arousable. ) Skin Skin Exam: Warm and Dry <Karla Snyder - Last Filed: 09/18/22 07:30> Vital Signs Vitals: Temperature 98.5 F Pulse Rate 70 Respiratory Rate 34 Blood Pressure [Right Arm] 127/72 Blood Pressure [Left Arm] 100/58 Blood Pressure [Right Arm] 138/78 Blood Pressure 181/93 O2 Sat by Pulse Oximetry 98 <Karla ChanelinsMateo - Last Filed: 09/18/22 07:30> Treatment Treatment: 20:20 IV access initiated.ABG revealed PC02 >115.Respiratory therapy was called to apply Bipap.Brother states that patient has COPD. 20:35 Bipap settings FI02 30%/E 7/I 16/RR 20 21:50 The repeat ABG revealed Ph 7,37/PC02 89/P02 42/02 SAT 76% on Bipap. 22:45 Dr Hameed accepts patient to [facility] for further inpatient evaluation to the ICU.Patient received solumedrol 125mg iv in the ED and a duoneb in the ED. CXR revealed COPD. Patient 's family states that he fell out of bed unto the floor.Head CT w/o contrast did not reveal an acute process.Cervical Spine Ct w/o contrast revealed muscle spasm. ROR <Chato Caputo - Last Filed: 09/18/22 08:47> Labs Reviewed Result Diagrams: 09/18/22 04:30 09/18/22 04:30 Laboratory: WBC 6.0 X10^3/uL (3.6-10.0) 09/17/22 20:04 RBC 4.05 X10^6/uL (4.7-6.0) L 09/17/22 20:04 Hgb 11.0 g/dL (13.5-18.0) L 09/17/22 20:04 Hct 35.8 % (42.0-54.0) L 09/17/22 20:04 MCV 88.3 fL (80.0-100.0) 09/17/22 20:04 MCH 27.2 pg (27.0-34.0) 09/17/22 20:04 MCHC 30.8 g/dL (33.0-35.0) L 09/17/22 20:04 RDW 15.7 % (11.6-16.5) 09/17/22 20:04 Plt Count 217 X10^3/uL (150.0-450.0) 09/17/22 20:04 MPV 8.6 fL (7.4-11.0) 09/17/22 20:04 Neut % (Auto) 71.3 % (42.0-75.0) 09/17/22 20:04 Lymph % (Auto) 16.0 % (21.0-51.0) L 09/17/22 20:04 [place] % (Auto) 9.0 % (0.0-13.0) 09/17/22 20:04 Eos % (Auto) 2.4 % (0.9-2.9) 09/17/22 20:04 Baso % (Auto) 1.3 % (0.2-1.0) H 09/17/22 20:04 Neut # (Auto) 4.3 x10^3/uL (2.2-4.8) 09/17/22 20:04 Lymph # (Auto) 1.0 X10^3/uL (1.3-2.9) L 09/17/22 20:04 [place] # (Auto) 0.5 x10^3/uL (0.3-0.8) 09/17/22 20:04 Eos # (Auto) 0.1 x10^3/uL (0.0-0.2) 09/17/22 20:04 Baso # (Auto) 0.1 X10^3/uL (0.0-0.1) 09/17/22 20:04 Absolute Nucleated RBC 0.0 /100WBC 09/17/22 20:04 Sample Site Rb 09/17/22 21:41 ABG pH 7.370 (7.35-7.45) 09/17/22 21:41 ABG pCO2 89.0 mmHg (35.0-45.0) H* 09/17/22 21:41 ABG pO2 42.0 mmHg (80.0-100.0) L* 09/17/22 21:41 ABG HCO3 51.5 mmol/L (22-26) H* 09/17/22 21:41 ABG O2 Saturation 76.0 % (90-100) L* 09/17/22 21:41 ABG Base Excess 21.4 mmol/L (-2.0-2.0) H 09/17/22 21:41 Jose Daniel Test N/a 09/17/22 21:41 A-a Gradient -4.0 mmHg 09/17/22 21:41 FiO2 30 09/17/22 21:41 Blood Gas Comments Juan well ae 09/17/22 21:41 Sodium 139 mmol/L (136-145) 09/17/22 20:04 Corrected Sodium TNP 09/17/22 20:04 Potassium 4.6 mmol/L (3.5-5.1) 09/17/22 20:04 Chloride 93 mmol/L (98-107) L 09/17/22 20:04 Carbon Dioxide > 45.0 mmol/L (21-32) H* 09/17/22 20:04 BUN 10 mg/dL (7-18) 09/17/22 20:04 Creatinine 0.43 mg/dL (0.70-1.30) L 09/17/22 20:04 Est GFR (MDRD) Af Amer > 60 (>60) 09/17/22 20:04 Est GFR (MDRD) Non-Af > 60 (>60) 09/17/22 20:04 Glucose 94 mg/dL (65-99) 09/17/22 20:04 Lactic Acid 0.6 mmol/L (0.4-2.0) 09/17/22 20:04 Calcium 8.5 mg/dL (8.5-10.1) 09/17/22 20:04 Corrected Calcium TNP 09/17/22 20:04 Total Bilirubin 0.30 mg/dL (0.2-1.0) 09/17/22 20:04 AST 20 Units/L (15-37) 09/17/22 20:04 ALT 8 Units/L (12-78) L 09/17/22 20:04 Alkaline Phosphatase 80 Units/L (46-116) 09/17/22 20:04 Troponin I High Sens 24.4 ng/L (4.0-60.0) 09/17/22 20:04 B-Natriuretic Peptide 215 pg/mL (0-79) H 09/17/22 20:04 Total Protein 7.1 g/dL (6.4-8.2) 09/17/22 20:04 Albumin 3.5 g/dL (3.4-5.0) 09/17/22 20:04 Globulin 3.6 g/dL (2.5-4.5) 09/17/22 20:04 Albumin/Globulin Ratio 1.0 Ratio (1.1-2.1) L 09/17/22 20:04 EKG Rate: 74 [place]: Normal Rhythm: NSR Hypertrophy: LAE ST: Nonsp <Karla Snyder - Last Filed: 09/18/22 07:30> Labs Reviewed Laboratory Results Reviewed?: Yes Laboratory: WBC 6.0 X10^3/uL (3.6-10.0) 09/17/22 20:04 RBC 4.05 X10^6/uL (4.7-6.0) L 09/17/22 20:04 Hgb 11.0 g/dL (13.5-18.0) L 09/17/22 20:04 Hct 35.8 % (42.0-54.0) L 09/17/22 20:04 MCV 88.3 fL (80.0-100.0) 09/17/22 20:04 MCH 27.2 pg (27.0-34.0) 09/17/22 20:04 MCHC 30.8 g/dL (33.0-35.0) L 09/17/22 20:04 RDW 15.7 % (11.6-16.5) 09/17/22 20:04 Plt Count 217 X10^3/uL (150.0-450.0) 09/17/22 20:04 MPV 8.6 fL (7.4-11.0) 09/17/22 20:04 Neut % (Auto) 71.3 % (42.0-75.0) 09/17/22 20:04 Lymph % (Auto) 16.0 % (21.0-51.0) L 09/17/22 20:04 [place] % (Auto) 9.0 % (0.0-13.0) 09/17/22 20:04 Eos % (Auto) 2.4 % (0.9-2.9) 09/17/22 20:04 Baso % (Auto) 1.3 % (0.2-1.0) H 09/17/22 20:04 Neut # (Auto) 4.3 x10^3/uL (2.2-4.8) 09/17/22 20:04 Lymph # (Auto) 1.0 X10^3/uL (1.3-2.9) L 09/17/22 20:04 [place] # (Auto) 0.5 x10^3/uL (0.3-0.8) 09/17/22 20:04 Eos # (Auto) 0.1 x10^3/uL (0.0-0.2) 09/17/22 20:04 Baso # (Auto) 0.1 X10^3/uL (0.0-0.1) 09/17/22 20:04 Absolute Nucleated RBC 0.0 /100WBC 09/17/22 20:04 Sample Site Rb 09/17/22 21:41 ABG pH 7.370 (7.35-7.45) 09/17/22 21:41 ABG pCO2 89.0 mmHg (35.0-45.0) H* 09/17/22 21:41 ABG pO2 42.0 mmHg (80.0-100.0) L* 09/17/22 21:41 ABG HCO3 51.5 mmol/L (22-26) H* 09/17/22 21:41 ABG O2 Saturation 76.0 % (90-100) L* 09/17/22 21:41 ABG Base Excess 21.4 mmol/L (-2.0-2.0) H 09/17/22 21:41 Jose Daniel Test N/a 09/17/22 21:41 A-a Gradient -4.0 mmHg 09/17/22 21:41 FiO2 30 09/17/22 21:41 Blood Gas Comments Juan well ae 09/17/22 21:41 Sodium 139 mmol/L (136-145) 09/17/22 20:04 Corrected Sodium TNP 09/17/22 20:04 Potassium 4.6 mmol/L (3.5-5.1) 09/17/22 20:04 Chloride 93 mmol/L (98-107) L 09/17/22 20:04 Carbon Dioxide > 45.0 mmol/L (21-32) H* 09/17/22 20:04 BUN 10 mg/dL (7-18) 09/17/22 20:04 Creatinine 0.43 mg/dL (0.70-1.30) L 09/17/22 20:04 Est GFR (MDRD) Af Amer > 60 (>60) 09/17/22 20:04 Est GFR (MDRD) Non-Af > 60 (>60) 09/17/22 20:04 Glucose 94 mg/dL (65-99) 09/17/22 20:04 Lactic Acid 0.6 mmol/L (0.4-2.0) 09/17/22 20:04 Calcium 8.5 mg/dL (8.5-10.1) 09/17/22 20:04 Corrected Calcium TNP 09/17/22 20:04 Total Bilirubin 0.30 mg/dL (0.2-1.0) 09/17/22 20:04 AST 20 Units/L (15-37) 09/17/22 20:04 ALT 8 Units/L (12-78) L 09/17/22 20:04 Alkaline Phosphatase 80 Units/L (46-116) 09/17/22 20:04 Troponin I High Sens 24.4 ng/L (4.0-60.0) 09/17/22 20:04 B-Natriuretic Peptide 215 pg/mL (0-79) H 09/17/22 20:04 Total Protein 7.1 g/dL (6.4-8.2) 09/17/22 20:04 Albumin 3.5 g/dL (3.4-5.0) 09/17/22 20:04 Globulin 3.6 g/dL (2.5-4.5) 09/17/22 20:04 Albumin/Globulin Ratio 1.0 Ratio (1.1-2.1) L 09/17/22 20:04 XRAY XRAY Interpreted by: Radiologist X-ray Results: HISTORY SOB, ELEVATED DDIMER STUDY EXAM: HEAD CT WITHOUT INTRAVENOUS CONTRAST HISTORY: Headache. TECHNIQUE: Spiral axial CT images are obtained through the brain without the adm inistration of intravenous contrast. Additional sagittal and coronal reformatted images are reconstructed. DOSIMETRY: Total DLP 926.14 mGycm; CTDI 95.4 mGy COMPARISON: Head CT dated September 07, 2022. FINDINGS: The centrum semiovale, basal ganglia, cerebellum, and brainstem are grossly unremarkable for a noncontrast CT scan. There is no acute intracranial hemorrhage, discernible acute infarction, mass lesion, midline shift, or hydrocephalus seen. No extra-axial mass or abnormal fluid collection is seen. Nonspecific pineal gland calcification is seen. The calvarium is intact. The partially imaged paranasal sinuses, middle ear cavities, and mastoid air cells are clear. IMPRESSION: 1. No intracranial hemorrhage, discernible acute infarction, mass lesions, midline shift, mass effect or hydrocephalus seen. 2. No significant interval change seen. 3. Consider follow-up evaluation with MRI/MRA for further assessment as clinically warranted. Electronically signed by: Evelin Carter (September 17, 2022 21:22:10) EXAM: HEAD CT WITHOUT INTRAVENOUS CONTRAST HISTORY: Headache. TECHNIQUE: Spiral axial CT images are obtained through the brain without the administration of intravenous contrast. Additional sagittal and coronal reformatted images are reconstructed. DOSIMETRY: Total DLP 926.14 mGycm; CTDI 95.4 mGy COMPARISON: Head CT dated September 07, 2022. FINDINGS: The centrum semiovale, basal ganglia, cerebellum, and brainstem are grossly unr emarkable for a noncontrast CT scan. There is no acute intracranial hemorrhage, discernible acute infarction, mass lesion, midline shift, or hydrocephalus seen. No extra-axial mass or abnormal fluid collection is seen. Nonspecific pineal gland calcification is seen. The calvarium is intact. The partially imaged paranasal sinuses, middle ear cavities, and mastoid air cells are clear. IMPRESSION: 1. No intracranial hemorrhage, discernible acute infarction, mass lesions, midline shift, mass effect or hydrocephalus seen. 2. No significant interval change seen. 3. Consider follow-up evaluation with MRI/MRA for further assessment as clinically warranted. Electronically signed by: Evelin Carter (September 17, 2022 21:22:10) EXAM: CERVICAL SPINE CT WITHOUT INTRAVENOUS CONTRAST HISTORY: Neck pain. TECHNIQUE: Spiral axial CT images are obtained through the cervical spine from the skull base to the thoracic inlet without the administration of contrast. Sagittal and coronal reconstruction images are reformatted. DOSIMETRY: Total DLP 143.42 mGycm; CTDI 5.45 mGy COMPARISON: C-spine CT dated September 07, 2022. FINDINGS: There is stable reversal of the normal lordotic curvature of the cervical spine which may reflect the patient's supine position and/or muscle spasm. Clinical correlation is advised. There is no vertebral fracture seen. There is no gross malalignment, spondylolisthesis, retrolisthesis, or perched facet joint seen. ATLANTOAXIAL JOINT: DJD marked by joint space narrowing and marginal osteophytosis. The atlantoaxial joint and odontoid process are intact. C2/3: Unremarkable. There is no gross disc herniation seen. C3-C6: Mild posterior central disc bulges (+/- HNPs), projecting 3.2 mm AP at C3/4, 2.7 mm AP at C4/5 and 3.2 mm AP at C5/6, encroaching upon the anterior spinal canal with mild anterior central cord effacement. Sagittal image 35; axial image 34?48, series 4. C6/7: Suggestionofa right intraforaminal HNP (projecting 4.8 mm AP) with right C7 nerve root impingement (new findings). Sagittal image 34; axial image 48?53. Recommend follow-up evaluation with MRI for confirmation of further characterization. C7/T1: Unremarkable. There is severe bilateral cervical carotid atherosclerosis. There is severe lung parenchymal emphysema seen in the lung apices. IMPRESSION: 1. Stable reversal of the normal lordotic curvature of the cervical spine which may reflect the patient's supine position and/or muscle spasm. Clinical correlation is advised. 2. No acute fracture or malalignment seen. 3. C3-C6: Mild posterior central disc bulges (+/- HNPs), projecting 3.2 mm AP at C3/4, 2.7 mm AP at C4/5 and 3.2 mm AP at C5/6, encroaching upon the anterior spinal canal with mild anterior central cord effacement. Sagittal image 35; axial image 34?48, series 4. 4. C6/7: Suggestionofa right intraforaminal HNP (projecting 4.8 mm AP) with right C7 nerve root impingement (new findings). Sagittal image 34; axial image 48?53. Recommend follow-up evaluation with MRI for confirmation of further characterization. Electronically signed by: Evelin Carter (September 17, 2022 21:30:07) Opioid <Chato Caputo - Last Filed: 09/18/22 08:47> Opioid Risk Tool Age (Isaias box if 16-45): No History of Preadolescent Sexual Abuse: No Total: 0 Total Score Risk Category: Low Risk Copyright: Ham MORSE predicting aberrant behaviors <Karla Snyder - Last Filed: 09/18/22 07:30> Opioid Risk Tool Total: 0 Total Score Risk Category: Low Risk Discharge Plan Diagnosis Discharge Problem: Hypercarbia, COPD exacerbation Discharge Plan Patient Disposition: 09 ADMITTED INPATIENT Condition: Stable
[2022-09-17] MEDS ORDERED: DUONEB 0.5 MG/3 MG (3 mL) NEB ONE (19:40)
[2022-09-17] MEDS ORDERED: NS 1,000 ML IV 1,000 ML IV ONE (19:40)
[2022-09-17 20:11] LABS: ABG PCO2 > 115.0 mmHg (35.0-45.0)
[2022-09-17] MEDS ORDERED: NS 1,000 ML IV 1,000 ML ONE (20:11)
[2022-09-17 20:12] LABS: ABG ALLEN TEST POS
[2022-09-17 20:19] LABS: BASOPHILS # (AUTO) 0.1 X10^3/uL (0.0-0.1); BASOPHILS % (AUTO) 1.3 % (0.2-1.0); EOSINOPHILS # (AUTO) 0.1 x10^3/uL (0.0-0.2); EOSINOPHILS % (AUTO) 2.4 % (0.9-2.9); HEMATOCRIT 35.8 % (42.0-54.0); MEAN CORPUSCULAR HEMOGLOBIN 27.2 pg (27.0-34.0); MEAN CORPUSCULAR HGB CONC 30.8 g/dL (33.0-35.0); MEAN CORPUSCULAR VOLUME 88.3 fL (80.0-100.0); MEAN PLATELET VOLUME 8.6 fL (7.4-11.0); MONOCYTES # (AUTO) 0.5 x10^3/uL (0.3-0.8); NEUTROPHILS # (AUTO) 4.3 x10^3/uL (2.2-4.8); NEUTROPHILS % (AUTO) 71.3 % (42.0-75.0); PLATELET COUNT 217 X10^3/uL (150.0-450.0); RED BLOOD COUNT 4.05 X10^6/uL (4.7-6.0); RED CELL DISTRIBUTION WIDTH 15.7 % (11.6-16.5)
[2022-09-17 20:29] LABS: ALANINE AMINOTRANSFERASE 8 Units/L (12-78); ALBUMIN 3.5 g/dL (3.4-5.0); ALKALINE PHOSPHATASE 80 Units/L (46-116); ASPARTATE AMINO TRANSFERASE 20 Units/L (15-37); BLOOD UREA NITROGEN 10 mg/dL (7-18); CALCIUM 8.5 mg/dL (8.5-10.1); CHLORIDE 93 mmol/L (98-107); CREATININE 0.43 mg/dL (0.70-1.30); GLUCOSE 94 mg/dL (65-99); POTASSIUM 4.6 mmol/L (3.5-5.1); SODIUM 139 mmol/L (136-145); TOTAL PROTEIN 7.1 g/dL (6.4-8.2); eGFR NON BLACK RACES > 60 (>60)
[2022-09-17 20:31] LABS: LACTIC ACID 0.6 mmol/L (0.4-2.0)
[2022-09-17 20:37] LABS: CARBON DIOXIDE > 45.0 mmol/L (21-32)
--- NOTE | 2022-09-17 21:23 | CT ---
EXAM: HEAD CT WITHOUT INTRAVENOUS CONTRASTHISTORY: Headache.TECHNIQUE: Spiral axial CT images are obtained through the brain without the administration of intravenous contrast. Additional sagittal and coronal reformatted images are reconstructed.DOSIMETRY: Total DLP 926.14 mGycm; CTDI 95.4 mGyCOMPARISON: Head CT dated September 07, 2022.FINDINGS:The centrum semiovale, basal ganglia, cerebellum, and brainstem are grossly unremarkable for a noncontrast CT scan.There is no acute intracranial hemorrhage, discernible acute infarction, mass lesion, midline shift, or hydrocephalus seen. No extra-axial mass or abnormal fluid collection is seen.Nonspecific pineal gland calcification is seen. The calvarium is intact. The partially imaged paranasal sinuses, middle ear cavities, and mastoid air cells are clear.IMPRESSION:1. No intracranial hemorrhage, discernible acute infarction, mass lesions, midline shift, mass effect or hydrocephalus seen.2. No significant interval change seen.3. Consider follow-up evaluation with MRI/MRA for further assessment as clinically warranted.Electronically signed by: Evelin Carter (September 17, 2022 21:22:10)
--- NOTE | 2022-09-17 21:31 | CT ---
EXAM: CERVICAL SPINE CT WITHOUT INTRAVENOUS CONTRASTHISTORY: Neck pain.TECHNIQUE: Spiral axial CT images are obtained through the cervical spine from the skull base to the thoracic inlet without the administration of contrast. Sagittal and coronal reconstruction images are reformatted.DOSIMETRY: Total DLP 143.42 mGycm; CTDI 5.45 mGyCOMPARISON: C-spine CT dated September 07, 2022.FINDINGS:There is stable reversal of the normal lordotic curvature of the cervical spine which may reflect the patient's supine position and/or muscle spasm. Clinical correlation is advised.There is no vertebral fracture seen. There is no gross malalignment, spondylolisthesis, retrolisthesis, or perched facet joint seen.ATLANTOAXIAL JOINT: DJD marked by joint space narrowing and marginal osteophytosis. The atlantoaxial joint and odontoid process are intact.C2/3: Unremarkable. There is no gross disc herniation seen.C3-C6: Mild posterior central disc bulges (+/- HNPs), projecting 3.2 mm AP at C3/4, 2.7 mm AP at C4/5 and 3.2 mm AP at C5/6, encroaching upon the anterior spinal canal with mild anterior central cord effacement. Sagittal image 35; axial image 34?48, series 4.C6/7: Suggestionofa right intraforaminal HNP (projecting 4.8 mm AP) with right C7 nerve root impingement (new findings). Sagittal image 34; axial image 48?53. Recommend follow-up evaluation with MRI for confirmation of further characterization.C7/T1: Unremarkable.There is severe bilateral cervical carotid atherosclerosis. There is severe lung parenchymal emphysema seen in the lung apices.IMPRESSION:1. Stable reversal of the normal lordotic curvature of the cervical spine which may reflect the patient's supine position and/or muscle spasm. Clinical correlation is advised.2. No acute fracture or malalignment seen.3. C3-C6: Mild posterior central disc bulges (+/- HNPs), projecting 3.2 mm AP at C3/4, 2.7 mm AP at C4/5 and 3.2 mm AP at C5/6, encroaching upon the anterior spinal canal with mild anterior central cord effacement. Sagittal image 35; axial image 34?48, series 4.4. C6/7: Suggestionofa right intraforaminal HNP (projecting 4.8 mm AP) with right C7 nerve root impingement (new findings). Sagittal image 34; axial image 48?53. Recommend follow-up evaluation with MRI for confirmation of further characterization.Electronically signed by: Evelin Carter (September 17, 2022 21:30:07)
[2022-09-17] MEDS ORDERED: SOLU-Medrol 125 MG VIAL IVP ONE (21:42)
[2022-09-17 21:46] LABS: ABG BASE EXCESS 21.4 mmol/L (-2.0-2.0)
[2022-09-17] MEDS ORDERED: SOLU-Medrol 125 MG VIAL ONE (21:47)
[2022-09-17 21:48] LABS: ABG HCO3 51.5 mmol/L (22-26)
[2022-09-17] MEDS ORDERED: LASIX PO ONE (23:36)
[2022-09-17] MEDS ORDERED: LASIX ONE (23:43)
[2022-09-17] MEDS ORDERED: COZAAR PO SCH (23:45)
[2022-09-17] MEDS ORDERED: LIPITOR TAB 40 MG PO SCH (23:45)
[2022-09-18 00:12] LABS: APPEARANCE,URINE CLEAR (CLEAR); BLOOD/HEMOGLOBIN,URINE 1+ (NEGATIVE); COLOR,URINE YELLOW (YELLOW); GLUCOSE, URINE NEGATIVE (NEGATIVE); KETONES,URINE 3+ (NEGATIVE); PROTEIN,URINE 1+ (NEGATIVE)
[2022-09-18 00:13] LABS: BACTERIA,URINE NEGATIVE /HPF (NEGATIVE); BILIRUBIN,URINE NEGATIVE (NEGATIVE); LEUKOCYTE ESTERASE ,URINE NEGATIVE (NEGATIVE); NITRITES,URINE NEGATIVE (NEGATIVE); SQUAMOUS EPITHELIAL CELL,UR RARE /HPF (NEGATIVE); UROBILINOGEN,URINE NORMAL (NORMAL)
[2022-09-18 00:48] VITALS: BMI 13.5
[2022-09-18] MEDS ORDERED: DUONEB 0.5 MG/3 MG (3 mL) NEB SCH (01:00)
[2022-09-18] MEDS ORDERED: PATIENT'S HOME MEDICATION (Fluticasone-Umeclidin-Vilanter [Trelegy Ellipta] 200-62.5-25 mc IN SCH (01:00)
[2022-09-18] MEDS ORDERED: DUONEB 0.5 MG/3 MG (3 mL) NEB ONE (01:06)
--- NOTE | 2022-09-18 01:14 | EKG ---
Test Reason : SOB Blood Pressure : */* mmHG Vent. Rate : 72 BPM Atrial Rate : 72 BPM P-R Int : 132 ms QRS Dur : 60 ms QT Int : 362 ms P-R-T Axes : 86 72 73 degrees QTc Int : 396 ms Normal sinus rhythm Biatrial enlargement Pulmonary disease pattern Abnormal ECG When compared with ECG of 17-SEP-2022 19:26, (Unconfirmed) No significant change was found Confirmed by Jermaine Penny ([id number]) on 09/18/2022 8:01:21 AM Referred By: Confirmed By: Jermaine Penny
[2022-09-18] MEDS: DUONEB 0.5 MG/3 MG (3 mL) NEB SCH ×5 (01:25→16:26)
[2022-09-18] MEDS: NEURONTIN TAB 600 MG PO SCH ×2 (05:16→13:23)
[2022-09-18 05:24] LABS: BASOPHILS # (AUTO) 0.1 X10^3/uL (0.0-0.1); BASOPHILS % (AUTO) 1.6 % (0.2-1.0); EOSINOPHILS % (AUTO) 0.7 % (0.9-2.9); HEMATOCRIT 35.3 % (42.0-54.0); HEMOGLOBIN 10.8 g/dL (13.5-18.0); LYMPHOCYTES # (AUTO) 0.3 X10^3/uL (1.3-2.9); LYMPHOCYTES % (AUTO) 6.8 % (21.0-51.0); MEAN CORPUSCULAR HEMOGLOBIN 26.4 pg (27.0-34.0); MEAN CORPUSCULAR HGB CONC 30.5 g/dL (33.0-35.0); MEAN CORPUSCULAR VOLUME 86.6 fL (80.0-100.0); MEAN PLATELET VOLUME 8.7 fL (7.4-11.0); MONOCYTES # (AUTO) 0 x10^3/uL (0.3-0.8); MONOCYTES % (AUTO) 0.7 % (0.0-13.0); NEUTROPHILS # (AUTO) 4.4 x10^3/uL (2.2-4.8); NEUTROPHILS % (AUTO) 90.2 % (42.0-75.0); PLATELET COUNT 180 X10^3/uL (150.0-450.0); RED BLOOD COUNT 4.08 X10^6/uL (4.7-6.0); RED CELL DISTRIBUTION WIDTH 15.9 % (11.6-16.5)
[2022-09-18 05:30] LABS: ALANINE AMINOTRANSFERASE 6 Units/L (12-78); ALBUMIN 3.5 g/dL (3.4-5.0); ALKALINE PHOSPHATASE 79 Units/L (46-116); ASPARTATE AMINO TRANSFERASE 15 Units/L (15-37); BLOOD UREA NITROGEN 12 mg/dL (7-18); CALCIUM 8.6 mg/dL (8.5-10.1); CHLORIDE 90 mmol/L (98-107); CREATININE 0.38 mg/dL (0.70-1.30); GLUCOSE 96 mg/dL (65-99); POTASSIUM 4.2 mmol/L (3.5-5.1); SODIUM 137 mmol/L (136-145); TOTAL PROTEIN 6.8 g/dL (6.4-8.2); eGFR NON BLACK RACES > 60 (>60)
[2022-09-18 05:48] LABS: WHITE BLOOD COUNT 5.1 X10^3/uL (3.6-10.0)
[2022-09-18 05:49] LABS: GIANT PLATELET RARE; HYPOCHROMASIA SLIGHT; PLATELET MORPHOLOGY COMMENT ABNORMAL (NORMAL); STOMATOCYTES 1+
[2022-09-18 05:51] LABS: CARBON DIOXIDE > 45.0 mmol/L (21-32)
[2022-09-18] MEDS ORDERED: PULMICORT NEB TX 0.5 MG NEB ONE (07:38)
--- NOTE | 2022-09-18 07:46 | RAD ---
HISTORYON ARRIVAL PT C/O SOB, CHEST PAIN AND HEAD PAIN.STUDYCHEST, 1 [id number]/2023FINDINGSThe cardiomediastinal silhouette is stable. Similar hyperinflation. No acute airspace disease. No pneumothorax or effusion. The bony thorax appears intact.IMPRESSIONNo acute cardiopulmonary disease.Electronically signed by: SHANNON CRYSTAL (September 18, 2022 07:44:55)
[2022-09-18] MEDS ORDERED: LASIX PO SCH (09:00)
[2022-09-18] MEDS ORDERED: LOVENOX INJ 40 MG SYR SC SCH (09:00)
[2022-09-18] MEDS ORDERED: COZAAR PO SCH (09:00)
[2022-09-18] MEDS ORDERED: FLOMAX PO SCH (09:00)
[2022-09-18] MEDS ORDERED: COLACE CAP 100 MG PO SCH (09:00)
[2022-09-18] MEDS ORDERED: ASPIRIN EC 81 MG PO SCH (09:00)
[2022-09-18] MEDS ORDERED: PROTONIX TAB 40 MG PO SCH (09:00)
[2022-09-18] MEDS ORDERED: COREG TAB 6.25 MG PO SCH (09:00)
[2022-09-18] MEDS ORDERED: PLAVIX PO SCH (09:00)
[2022-09-18] MEDS ORDERED: MICRO K EXTEN CAP 10 MEQ PO SCH (09:00)
[2022-09-18] MEDS ORDERED: BRILINTA PO SCH (09:00)
[2022-09-18] MEDS ORDERED: PULMICORT NEB TX 0.5 MG NEB SCH ×2 (09:00)
--- NOTE | 2022-09-18 14:11 | RAD ---
HISTORYCOPD EXACERBATIONSTUDYCHEST, 1 [id number]/2023FINDINGSThe cardiomediastinal silhouette is stable. Similar hyperinflation. No acute airspace disease. No pneumothorax or effusion. The bony thorax appears intact.IMPRESSIONNo acute cardiopulmonary disease.Electronically signed by: SHANNON CRYSTAL (September 18, 2022 14:10:08)
[2022-09-18 16:35] VITALS: BP 98/56
[2022-09-18] MEDS ORDERED: LIPITOR TAB 40 MG PO SCH (21:00)
[2022-09-18] MEDS ORDERED: REQUIP PO SCH (21:00)
== END 2022-09-18 16:30 | disposition home or self-care (01) ==
LOC: ER 19:03 → ICU 23:48 → INTOOBSV 23:48 → ICU 09-18 00:15
PROVIDERS: ADMIT Obstetrics & Gynecology Obstetrics; ATTEND Obstetrics & Gynecology Obstetrics